=== PATIENT | female | born 1965 | race Caucasian/White ===

== ENCOUNTER 2018-01-17 19:23 | Emergency (ER) | payer OTHER, MEDICAID, SELFPAY ==
[2018-01-17 19:26] VITALS: BP 152/93; PULSE 73; RESP 18; TEMP 36.7; O2SAT 98; BMI 29.0
--- NOTE | 2018-01-17 19:39 | RAD_ITS ---
XR Forearm 2 Views INDICATION: FALL, WRIST PAIN COMPARISON: None TECHNIQUE: 2 views of the right forearm FINDINGS: There is questionable buckling at the lateral aspect of the distal radial cortex at the metadiaphyseal region compatible with a nondisplaced fracture. Radius and ulna are otherwise intact, and there is normal alignment at the wrist and elbow. RAD/Forearm 2 Views IMPRESSION: Questionable nondisplaced fracture at the distal radius without extension to the articular surface. No displacement or abnormal angulation. at 2047 Reported and signed by: Cindy Martinez MD Electronically Signed: Cindy Martinez MD at 20:45 EDT Tel , Service support ,
--- NOTE | 2018-01-17 19:39 | RAD_ITS ---
XR Humerus Min 2 Views INDICATION: FALL, PAIN COMPARISON: None TECHNIQUE: 2 views of the right humerus FINDINGS: The right humerus is intact and there is normal alignment at the shoulder and elbow. RAD/Humerus min 2 Views IMPRESSION: Negative plain film examination of right humerus at 2050 Reported and signed by: Cindy Martinez MD Electronically Signed: Cindy Martinez MD at 20:48 EDT Tel , Service support ,
--- NOTE | 2018-01-17 19:39 | RAD_ITS ---
XR Hand Min 3 Views INDICATION: FALL, PAIN COMPARISON: None TECHNIQUE: 3 views of the left hand FINDINGS: The osseous structures of the left hand are intact and well aligned. Carpal bones are intact. Mastoid processes intact. On the films of the radius and ulna, there is some mild buckling of the cortex at the lateral aspect of the radius at the metadiaphyseal region. This is not clearly redemonstrated on these films. RAD/Hand Min 3 Views IMPRESSION: Questionable nondisplaced distal radial fracture seen on the x-ray of the forearm is not clearly visualized on the x-rays of the hand. The osseous structures on the provided images appear intact and well aligned. at 2049 Reported and signed by: Cindy Martinez MD Electronically Signed: Cindy Martinez MD at 20:47 EDT Tel , Service support ,
--- NOTE | 2018-01-17 19:40 | RAD_ITS ---
XR Tibia/Fibula 2 Views INDICATION: FALL, PAIN COMPARISON: None TECHNIQUE: 2 views of the right tibia and fibula FINDINGS: The right tibia and fibula are intact and there is normal alignment at the knee and ankle. RAD/Tibia & Fibula 2 Views IMPRESSION: Right tibia and fibula are intact. at 2051 Reported and signed by: Cindy Martinez MD Electronically Signed: Cindy Martinez MD at 20:49 EDT Tel , Service support ,
--- NOTE | 2018-01-17 20:01 | RAD_ITS ---
XR Spine Cervical 2 or 3 Views INDICATION: FALL, NECK PAIN COMPARISON: None TECHNIQUE: 3 views of the cervical spine FINDINGS: There is evidence of discectomy and anterior screw and plate fixation at C5-6. Hardware is in expected position. There is normal cervical lordosis. Height of the vertebral bodies and intervertebral disc spaces is preserved. Prevertebral soft tissue stripe is within normal limits. There is normal atlantoaxial relationship. Uncovertebral joint and facet arthritic changes are suggested at multiple levels. RAD/Cerv Spine 2 or 3 Views IMPRESSION: Postsurgical changes. No acute findings. at 2043 Reported and signed by: Cindy Martinez MD Electronically Signed: Cindy Martinez MD at 20:42 EDT Tel , Service support ,
--- NOTE | 2018-01-17 20:01 | RAD_ITS ---
XR Hip Unilateral with Pelvis when performed; 1 View INDICATION: FALL, PAIN BILATERAL HIPS, WORSE ON RIGHT SIDE COMPARISON: None TECHNIQUE: Frontal view of the pelvis and lateral view of the right hip FINDINGS: The pelvis is intact and there is normal alignment at the SI joints and symphysis pubis. The hips are intact and well aligned. RAD/Hip 1 view with Pelvis IMPRESSION: Pelvis and hips appear intact and well aligned. at 2054 Reported and signed by: Cindy Martinez MD Electronically Signed: Cindy Martinez MD at 20:53 EDT Tel , Service support ,
--- NOTE | 2018-01-17 20:21 | RAD_ITS ---
XR Humerus Min 2 Views INDICATION: FALL, SHOULDER AND ARM PAIN COMPARISON: None TECHNIQUE: 2 views of the left humerus FINDINGS: The humerus is intact and there is normal alignment at the shoulder and elbow. RAD/Humerus min 2 Views IMPRESSION: Left humerus is intact. at 2049 Reported and signed by: Cindy Martinez MD Electronically Signed: Cindy Martinez MD at 20:48 EDT Tel , Service support ,
[2018-01-17 20:48] VITALS: BP 131/80; PULSE 79; RESP 16; O2SAT 97
[2018-01-17] MEDS: Acetaminophen 500 MG Tablet 1000 MG PO (21:14)
--- NOTE | 2018-01-17 21:40 | ED.VISSUMM ---
- ER Visit Summary Date of Service: 01/17/18 Chief Complaint: Upper extremity pain History of Present Illness: The patient is a 52 F who states she was walking her dog 2 days ago when she got pulled with the leash, twisted, and fell. Patient is complaining of pain to the right arm and shoulder area, left hand, neck, right hip, and right lower leg. She took ibuprofen, 400 mg every 4-6 hours. Physical Examination: Vital signs are gross unremarkable. Head neck examination was no obvious external sign of trauma. She does have reproducible tenderness in the left cervical paraspinal muscles. She has minimal midline cervical tenderness. Heart is regular rate and rhythm. On lung sounds are clear. Abdomen is soft nontender. Right upper extremity examination was diffuse tenderness throughout the right shoulder, right upper arm, and right forearm. No deformities are noted. She has strong distal pulses. She is decreased range of motion of the shoulder secondary to pain. Left upper extremity examination reveals tenderness at the base of the left hand and mild tenderness around the left shoulder. Lower extremity examination reveals mild tenderness over the greater trochanter area of the right hip. There is very minimal pain with logroll. She is abrasions noted to her right wilson with some mild surrounding tenderness. Neuro exam reveals no focal neuro deficits. Test Results: Right hip and pelvis x-rays are unremarkable. Right tib-fib x-rays normal. C-spine x-ray shows postsurgical changes. No fracture. Left humerus x-rays normal. Left hand x-rays normal. Right humerus is normal. Right forearm x-ray reveals a questionable nondisplaced fracture the distal radius. Emergency Department Course and Treatment: Patient was given Tylenol here for pain and she did drive herself and needed to drive home. Patient does have focal tenderness of the distal radius. She is placed in an AP Ortho-Glass splint and given a sling. She is to follow-up with orthopedics. She has seen Dr. Canada in the past. She is given a prescription for Percocet. Treatment Plan: Disposition: Discharge Impression: 1. Musculoskeletal pain status post fall 2. Right distal radius fracture 3. Split by ED physician This note was generated with [employer] dictation software. It may contain incorrect words, spelling, and punctuation that were not noted in review of the chart prior to signing ED Disposition - Plan for ED Patient: Disposition: Home or Assisted Living Chief Complaint: Upper Extremity Injury Instructions: ED Fx Wrist General Prescriptions: Oxycodone HCl/Acetaminophen [Percocet 5/325] 1 tablet PO Q6H PRN PRN 5 Days #20 tablet PRN Reason: Pain Referrals: Paula Canada DO [STAFF PHYSICIAN] - 1 Week
--- NOTE | 2018-01-17 21:43 | DCINST.ED_ITS ---
ED Disposition - Plan for ED Patient: Disposition: Home or Assisted Living Chief Complaint: Upper Extremity Injury Instructions: ED Fx Wrist General Prescriptions: Oxycodone HCl/Acetaminophen [Percocet 5/325] 1 tablet PO Q6H PRN PRN 5 Days #20 tablet PRN Reason: Pain Referrals: Paula Canada DO [STAFF PHYSICIAN] - 1 Week
[2018-01-17] MEDS: oxyCODONE 5 MG Tablet PO (21:56)
[2018-01-17 22:09] VITALS: PULSE 96; RESP 16; O2SAT 98
== END 2018-01-17 22:12 | disposition home or self-care (01) ==
PROVIDERS: Emergency Provider Emergency Medicine; Family Provider Internal Medicine; PCP Internal Medicine
DX: S52.501A Unspecified fracture of the lower end of right radius, initial encounter for closed fracture (principal); X50.9XXA Other and unspecified overexertion or strenuous movements or postures, initial encounter; Y93.K1 Activity, walking an animal; Y92.9 Unspecified place or not applicable; Y99.9 Unspecified external cause status; I10 Essential (primary) hypertension; Z98.1 Arthrodesis status
CPT/HCPCS: 29105; 72040; 73060; 73090; 73130; 73501; 73590; 99283

== ENCOUNTER → 2018-02-05 08:25 | Outpatient (CLI) | payer OTHER, MEDICAID, SELFPAY ==
--- NOTE | 2018-02-05 08:32 | RAD_ITS ---
STUDY: X-RAY - RIGHT WRIST REASON FOR EXAM: Female, 52 years old. Pain at the base of the thumb. TECHNIQUE: 4 view(s) of the wrist were obtained including a navicular view. COMPARISON: None. FINDINGS: Normal visualized distal radius and ulna. Normal radiocarpal articulation. Normal distal radioulnar articulation. Normal carpal bones. Normal carpal articulations. Normal carpometacarpal articulation of the thumb. Normal second through fifth carpometacarpal articulations. Normal visualized metacarpal bones. The soft tissue structures are unremarkable. RAD/Wrist min 3 Views IMPRESSION: Normal x-ray examination of the wrist. Electronically Signed: Tyler Carver MD at 15:18 EDT Tel [phone], Service support ,
== END ==
PROVIDERS: Family Provider Internal Medicine; PCP Internal Medicine; Visit Provider Orthopaedic Surgery
DX: M25.531 Pain in right wrist (principal)
CPT/HCPCS: 73110

== ENCOUNTER 2018-05-03 10:38 | Emergency (ER) | payer OTHER, MEDICAID, SELFPAY ==
[2018-05-03 10:39] VITALS: BP 173/93; PULSE 71; RESP 23; TEMP 37.2; O2SAT 97; BMI 29.5
--- NOTE | 2018-05-03 10:59 | RAD_ITS ---
STUDY: X-RAY CHEST REASON FOR EXAM: Female, 52 years old. Chest pain TECHNIQUE: Single AP portable view of the chest. COMPARISON: 06/07/2017 FINDINGS: Cardiac monitoring leads overlie the chest. The lungs are clear and expanded. There is no demonstrated pleural abnormality. Normal size heart. Normal mediastinum and danny. Normal visualized pulmonary arteries. Normal visualized aortic arch and descending thoracic aorta. Normal visualized thoracic spine. Normal visualized ribs, clavicles, and shoulders. Postoperative changes are present within the lower cervical spine. There is no demonstrated abnormality of the visualized soft tissue structures of the upper abdomen. RAD/Chest 1 View (Portable) IMPRESSION: No acute process within the chest. Electronically Signed: Fco Jacob DO at 11:32 EDT Tel , Service support ,
--- NOTE | 2018-05-03 10:59 | EKG12_ITS ---
Test Reason : CP Blood Pressure : / mmHG Vent. Rate : 068 BPM Atrial Rate : 068 BPM P-R Int : 152 ms QRS Dur : 086 ms QT Int : 422 ms P-R-T Axes : 043 069 042 degrees QTc Int : 448 ms Normal sinus rhythm Normal ECG Confirmed by JUMANA COTTON, MATT ([id number]), news videotape editor CHAVEZ SETHI ([id number]) on 05/05/2018 10:07:19 AM Referred By: GANGA/ASHLEY Confirmed By:MATT DENNEY MD
--- NOTE | 2018-05-03 11:05 | ED.DCSUM_ITS ---
- ER Visit Summary Date of Service: 05/03/18 Chief Complaint: Chest pain History of Present Illness: The patient is a 52 F who presents with chest pain. Started today about an hour ago. She describes stabbing in the left lower chest area. It hurt worse with breathing. She does feel short of breath. She had nausea without vomiting. She denies any cough. She took Tylenol last night because she was feeling some discomfort in that same area. She has no DVT history or DVT/PE risk factors. She was admitted in May of last year for chest pain and hypokalemia. She had a negative stress test at that time Physical Examination: Vital signs reviewed. HEENT exam unremarkable. Heart is regular rate and rhythm without murmurs. Lungs are clear to auscultation. Chest is nontender. Abdomen is soft and nontender. Extremities reveal no edema. Peripheral pulses are equal. Skin exam normal. Neurologic exam normal. Test Results: EKG is sinus rhythm with a rate of 68. No ST changes. Chest x- ray normal. Hemoglobin 15.3. Creatinine 1.21. Troponin and d-dimer are normal Emergency Department Course and Treatment: She was given aspirin. This pain is likely musculoskeletal. Her troponin and d-dimer are negative. I will discharge her with naproxen. She is asking for antibiotics for a toothache. I will give her clindamycin. She will follow-up with her PCP and dentist Treatment Plan: [] Disposition: Discharge Impression: Chest pain This note was generated with [employer] dictation software. It may contain incorrect words, spelling, and punctuation that were not noted in review of the chart prior to signing ED Disposition - Plan for ED Patient: Chief Complaint: Chest Pain Referrals: [facility],Out of [NON-STAFF] -
[2018-05-03 11:21] LABS: D-Dimer Quantitative (DVT/PE) 0.32 FEU/ug/m (0.27-0.49)
[2018-05-03 11:26] LABS: Absolute Lymphocyte Count 1.87 X10^3/ul (0.83-4.51); Absolute Neutrophil Count 4.2 X10^3/uL (2.0-7.7); Basophil# 0.02 X10^3/uL; Basophil% 0.3 % (0-1); Eosinophil# 0.09 X10^3/uL; Eosinophils% 1.3 % (0-5); Hematocrit 45.5 % (37-47); Hemoglobin 15.3 g/dl (12.0-15.0); Lymphocyte # 1.87 X10^3/ul (4.0); Lymphocyte % 27.7 % (19-41); Mean Corp Hgb Conc 33.6 g/gl (32-36); Mean Corpuscular Hgb 28.9 pg (27.0-32.0); Mean Corpuscular Volume 85.8 fL (81-99); Monocyte% 8.9 % (0-10); Neutrophil # 4.16 X10^3/uL (2.7-7.7); Neutrophil % 61.5 % (47-70); Platelet Count 207 K/mm3 (150-450); RBC Distribution Width CV 12.8 % (11.6-14.6); RBC Distribution Width SD 40.2 fl (35.1-43.9); White Blood Count 6.8 K/mm3 (4.4-11.0)
[2018-05-03 11:27] VITALS: O2SAT 96
[2018-05-03 11:27] LABS: Anion Gap 6 (5-15); BUN 17 mg/dL (7-18); Calcium,Total 8.8 mg/dL (8.5-10.1); Chloride 105 mmol/L (98-107); Creatinine, Serum 1.21 mg/dL (0.55-1.02); EST Glomerular Filtration Rate 50 mL/min (>60); Est Glom Filt Rate - Afr Amer 60 mL/min (>60); Estimated Creatinine Clearance 46.96 ml/min; Glucose 102 mg/dL (74-106); POSITIVE COUNT NO; POSITIVE DIFFERENTIAL NO; POSITIVE MORPHOLOGY NO; Potassium 3.6 mmol/L (3.5-5.1); Sodium Level 139 mmol/L (136-145)
[2018-05-03] MEDS: Aspirin 81 MG TAB.CHEW 324 MG PO (11:28)
--- NOTE | 2018-05-03 11:53 | ED.DEP ---
ED Disposition - Plan for ED Patient: Disposition: Home or Assisted Living Chief Complaint: Chest Pain Instructions: ED Chest Pain NonCardiac Prescriptions: Naproxen [Naprosyn] 500 mg PO BID PRN #20 tab Clindamycin [Cleocin] 300 mg PO TID #42 cap Referrals: [facility],Out of [NON-STAFF] -
[2018-05-03 11:58] VITALS: BP 150/95; PULSE 66; RESP 22; O2SAT 97
[2018-05-03 12:06] VITALS: BP 163/95; PULSE 56; PULSE 57; RESP 18; O2SAT 97
[2018-05-03] MEDS: Ketorolac 30 MG/ML Syringe IM (12:33)
== END 2018-05-03 12:41 | disposition home or self-care (01) ==
PROVIDERS: Emergency Provider Emergency Medicine; Family Provider Internal Medicine; PCP Internal Medicine
DX: R07.9 Chest pain, unspecified (principal); I10 Essential (primary) hypertension
CPT/HCPCS: 71045; 80048; 84484; 85025; 85379; 93005; 99285; A4216

== ENCOUNTER → 2018-11-16 16:26 | Outpatient (CLI) | payer OTHER, MEDICAID, SELFPAY ==
--- NOTE | 2018-11-16 16:32 | BI_ITS ---
MAMMOGRAPHY - BILATERAL SCREENING REASON FOR EXAM: Female, 53 years old. Routine annual screening examination. PERTINENT HISTORY: Non-contributory. TECHNIQUE: Digital bilateral breast tolu (3D mammographic acquisition) in the CC and MLO projections. 2-D mediolateral oblique (MLO) and craniocaudad (CC) views of both breasts were obtained. CAD: Full Field Digital Mammography with Computer Added Detection was performed. COMPARISON: Comparison is made with prior study dated March 17, 2017 and January 03, 2016. FINDINGS: Breast Composition: There are scattered areas of fibroglandular density. There are no dominant masses or suspicious calcifications. Stable small benign-appearing bilateral axillary lymph nodes. No other significant abnormalities are identified. There has been no significant change since the prior study. BI/SCREENING MAMM (CAD), BILAT IMPRESSION: Stable bilateral screening mammogram. Yearly follow-up mammogram recommended. (A) ASSESSMENT CATEGORY: BIRADS Category 2: Benign. A letter regarding these results will be sent to the patient by the facility within 30 days. Approximately 10% of breast cancers are not detected by mammography. A normal mammogram should not delay biopsy of a clinically suspicious abnormality. [id number] Electronically Signed: Tyler Carver MD at 9:33 EST , Service support ,
== END ==
PROVIDERS: Family Provider Internal Medicine; PCP Internal Medicine; Referring Provider Obstetrics & Gynecology; Visit Provider Obstetrics & Gynecology
DX: Z12.31 Encounter for screening mammogram for malignant neoplasm of breast (principal)
CPT/HCPCS: 77063; 77067

== ENCOUNTER → 2020-06-20 16:23 | Outpatient (CLI) | payer BC, MEDICAID, SELFPAY ==
[2020-06-20 15:09] VITALS: BMI 29.5
[2020-06-20 18:14] LABS: Hemoglobin A1c 5.7 % (3.8-5.6)
[2020-06-20 18:35] LABS: Vitamin B12 440 pg/mL (211-911)
[2020-06-20 18:40] LABS: T4 Free Direct 0.89 ng/dL (0.76-1.46)
[2020-06-22 09:40] LABS: Thyroid Peroxidase AB 364 IU/mL (0-34)
== END ==
PROVIDERS: PCP Internal Medicine; Visit Provider Internal Medicine Endocrinology, Diabetes & Metabolism
DX: E03.8 Other specified hypothyroidism (principal); E06.3 Autoimmune thyroiditis; R73.09 Other abnormal glucose; R20.2 Paresthesia of skin
CPT/HCPCS: 36415; 82607; 83036; 84439; 84443; 86376

== ENCOUNTER → 2021-06-07 08:57 | Outpatient (CLI) | payer BC, MEDICAID, SELFPAY ==
[2021-06-07 09:50] LABS: T4 Free Direct 0.76 ng/dL (0.76-1.46)
== END ==
PROVIDERS: PCP Physician Assistant; Referring Provider Internal Medicine Endocrinology, Diabetes & Metabolism; Visit Provider Internal Medicine Endocrinology, Diabetes & Metabolism
DX: E03.8 Other specified hypothyroidism (principal); E06.3 Autoimmune thyroiditis
CPT/HCPCS: 36415; 84439; 84443

== ENCOUNTER → 2021-07-10 13:29 | Outpatient (CLI) | payer BC, MEDICAID, SELFPAY ==
[2021-07-10 15:21] LABS: Hemoglobin A1c 5.5 % (3.8-5.6)
[2021-07-10 15:31] LABS: T4 Free Direct 1.39 ng/dL (0.76-1.46); Thyroid Stim Hormone (TSH) 1.72 uIU/mL (0.358-3.74)
== END ==
PROVIDERS: PCP Physician Assistant; Referring Provider Nurse Practitioner Family; Visit Provider Nurse Practitioner Family
DX: E03.8 Other specified hypothyroidism (principal); E06.3 Autoimmune thyroiditis; R73.03 Prediabetes
CPT/HCPCS: 36415; 83036; 84439; 84443

== ENCOUNTER → 2021-08-09 07:19 | Outpatient (CLI) | payer BC, MEDICAID, SELFPAY ==
--- NOTE | 2021-08-09 07:22 | BI_ITS ---
MAMMOGRAPHY - BILATERAL SCREENING REASON FOR EXAM: Female, 56 years old. Routine annual screening examination. PERTINENT HISTORY: Aunt with breast cancer. TECHNIQUE: Digital bilateral breast luis antonio (3D mammographic acquisition) in the CC and MLO projections. 2-D mediolateral oblique (MLO) and craniocaudad (CC) views of both breasts were obtained. CAD: Full Field Digital Mammography with Computer Added Detection was performed. COMPARISON: Comparison is made with prior study dated 11/16/2018 and 03/17/2017. FINDINGS: Breast Composition: There are scattered areas of fibroglandular density. There are no dominant masses or suspicious calcifications. No other significant abnormalities are identified. There has been no significant change since the prior study. BI/SCRN MAMM (CAD)W/LUIS ANTONIO BILAT IMPRESSION: Stable bilateral screening mammogram. Yearly follow-up mammogram recommended. (A) ASSESSMENT CATEGORY: BIRADS Category 1: Negative. A letter regarding these results will be sent to the patient by the facility within 30 days. Approximately 10% of breast cancers are not detected by mammography. A normal mammogram should not delay biopsy of a clinically suspicious abnormality. [id number] Electronically Signed: Tyler Carver MD at 8:58 EST , Service support ,
== END ==
PROVIDERS: PCP Physician Assistant; Referring Provider Obstetrics & Gynecology; Visit Provider Obstetrics & Gynecology
DX: Z12.31 Encounter for screening mammogram for malignant neoplasm of breast (principal)
CPT/HCPCS: 77063; 77067

== ENCOUNTER → 2021-08-26 08:47 | Outpatient (CLI) | payer BC, MEDICAID, SELFPAY ==
--- NOTE | 2021-08-26 08:48 | RAD_ITS ---
EXAMINATION: UPPER GI SERIES INDICATION: Female, 56 years intermittent epigastric pain. Dysphagia. FLUOROSCOPY TIME (if supplied): (0:55) minutes/seconds TECHNIQUE: Radiographic and fluoroscopic images of the distal esophagus, stomach, and proximal small intestine were obtained following the oral ingestion of barium. COMPARISON: None. FINDINGS: There is no evidence for organomegaly, abnormal calcifications, or abnormal bowel gas pattern. The psoas margins and flank stripes are normal. The visualized osseous structures are normal. The mucosa of the esophagus, stomach and duodenum is normal in appearance without evidence for stricture, ulceration, mass or diverticulum. There is no evidence for hiatal hernia or gastroesophageal reflux. RAD/Upper GI Dual Contrast IMPRESSION: 1. Normal upper gastrointestinal study. Electronically Signed: Tyler Carver MD at 14:59 EST , Service support ,
== END ==
PROVIDERS: PCP Physician Assistant; Referring Provider Surgery; Visit Provider Surgery
DX: R13.10 Dysphagia, unspecified (principal)
CPT/HCPCS: 74246

== ENCOUNTER → 2021-09-06 09:26 | Outpatient (CLI) | payer BC, MEDICAID, SELFPAY ==
[2021-09-10 00:07] LABS: Alternaria tenuis <0.10 kU/L (Class 0); Ash, White <0.10 kU/L (Class 0); Aspergillus fumigatus <0.10 kU/L (Class 0); Bermuda Grass <0.10 kU/L (Class 0); Birch <0.10 kU/L (Class 0); Black Walnut <0.10 kU/L (Class 0); Cat Hair / Dander,Stand 0.31 kU/L (Class 0/I); Cedar, Mountain <0.10 kU/L (Class 0); Cladosporium herbarum <0.10 kU/L (Class 0); Cockroach, American <0.10 kU/L (Class 0); Cottonwood <0.10 kU/L (Class 0); D farinae Mite <0.10 kU/L (Class 0); D pteronyssinus <0.10 kU/L (Class 0); Elm, American White <0.10 kU/L (Class 0); Immunoglobulin E 134 IU/mL (6-495); Maple/Box Elder <0.10 kU/L (Class 0); Mulberry, White <0.10 kU/L (Class 0); Oak, White <0.10 kU/L (Class 0); Pecan <0.10 kU/L (Class 0); Penicillium Notatum <0.10 kU/L (Class 0); Pigweed, Rough <0.10 kU/L (Class 0); Ragweed, Short/Common 5.61 kU/L (Class IV); Russian Thistle <0.10 kU/L (Class 0); Sheep Sorrel <0.10 kU/L (Class 0); Sycamore, American <0.10 kU/L (Class 0); Timothy Grass <0.10 kU/L (Class 0)
[2021-09-10 04:07] LABS: Clam <0.10 kU/L (Class 0); Codfish <0.10 kU/L (Class 0); Corn <0.10 kU/L (Class 0); Egg, White <0.10 kU/L (Class 0); Milk (Cow) <0.10 kU/L (Class 0); Peanut <0.10 kU/L (Class 0); SCALLOP <0.10 kU/L (Class 0); SESAME SEED <0.10 kU/L (Class 0); Shrimp <0.10 kU/L (Class 0); Soybean <0.10 kU/L (Class 0); Walnut, (Food) <0.10 kU/L (Class 0); Wheat 0.12 kU/L (Class 0/I)
[2021-09-10 15:26] LABS: Mouse Urine <0.10 kU/L (Class 0)
[2021-09-10 15:28] LABS: Tomato <0.10 kU/L (Class 0)
== END ==
PROVIDERS: PCP Physician Assistant; Referring Provider Otolaryngology; Visit Provider Otolaryngology
DX: T78.40XA Allergy, unspecified, initial encounter (principal)
CPT/HCPCS: 36415; 82785; 86003

== ENCOUNTER → 2021-09-16 08:15 | Outpatient (CLI) | payer BC, MEDICAID, SELFPAY ==
--- NOTE | 2021-09-16 08:25 | RAD_ITS ---
STUDY: X-RAY - ESOPHAGUS (BARIUM SWALLOW) WITH FLUOROSCOPY REASON FOR EXAM: Female, 56 years old. DYSPHAGIA TECHNIQUE: 19 view(s) of the esophagus were obtained following swallowing of barium. FLUOROSCOPY TIME (if supplied): (44 seconds) minutes/seconds COMPARISON: Comparison is made with prior study dated 08/26/2021. FINDINGS: There is no demonstrated esophageal foreign body. There is no demonstrated stricture or mucosal abnormality. Normal gastroesophageal junction, without a demonstrated hiatal hernia. The patient ingested a 12 mm tablet of barium without any difficulty. Normal visualized aortic arch and descending thoracic aorta. The patient is status post fusion at the C5-C6 level. Normal visualized pulmonary parenchyma. Normal visualized osseous structures of the thorax. RAD/Esophagus Dual Contrast IMPRESSION: Normal plain film x-ray examination (barium swallow) of the esophagus. Electronically Signed: Tyler Carver MD at 9:02 EST , Service support ,
== END ==
PROVIDERS: PCP Physician Assistant; Visit Provider Otolaryngology
DX: R13.13 Dysphagia, pharyngeal phase (principal)
CPT/HCPCS: 74220; 74221

== ENCOUNTER 2021-12-23 10:50 | Outpatient (CLI) | payer BC, MEDICAID, SELFPAY ==
[2021-12-23 12:12] LABS: Absolute Lymphocyte Count 1.79 X10^3/uL (0.83-4.51); Basophil# 0.04 X10^3/uL; Basophil% 0.5 % (0-1); Eosinophil# 0.17 X10^3/uL; Eosinophils% 2.2 % (0-5); Hematocrit 42.7 % (37-47); Hemoglobin 13.8 g/dL (12.0-15.0); Lymphocyte # 1.79 X10^3/ul (0.83-4.51); Lymphocyte % 23.3 % (19-41); Mean Corp Hgb Conc 32.3 g/dL (32-36); Mean Corpuscular Hgb 28.5 pg (27.0-32.0); Mean Platelet Vol. 11.6 fl (6.2-12.0); Monocyte% 9.1 % (0-10); NRBC Flagged by Analyzer 0 % (0-5); Neutrophil # 4.95 X10^3/uL (2.7-7.7); Neutrophil % 64.4 % (47-70); Platelet Count 199 K/mm3 (150-450); RBC Distribution Width CV 14.9 % (11.6-14.6); RBC Distribution Width SD 48.2 fl (35.1-43.9); Red Blood Count 4.85 M/mm3 (4.2-5.4); White Blood Count 7.7 K/mm3 (4.4-11.0)
[2021-12-23 12:45] LABS: ALB/GLOB Ratio 0.8 RATIO (0.9-2.4); AST(SGOT) 42 U/L (15-37); Alanine Aminotransfer ALT/SGPT 54 U/L (13-56); Albumin, Serum 3.1 g/dL (3.2-5.0); Alkaline Phosphatase 105 U/L (45-117); Anion Gap 6 (5-15); BUN 18 mg/dL (7-18); BUN/Creat Ratio 17.6 RATIO (10-20); Calcium,Total 8.5 mg/dL (8.5-10.1); Chloride 106 mmol/L (98-107); Cholesterol 167 mg/dL (200); Creatinine, Serum 1.02 mg/dL (0.55-1.02); EST Glomerular Filtration Rate 60 mL/min (>60); Est Glom Filt Rate - Afr Amer 72 mL/min (>60); Ferritin 81 ng/mL (8-252); Globulin 3.9 g/dL (2.2-4.2); Glucose 93 mg/dL (74-106); High Density Lipoprotein 46 mg/dL; Potassium 4.2 mmol/L (3.5-5.1); Sodium Level 139 mmol/L (136-145); T4 Free Direct 1.36 ng/dL (0.76-1.46); Thyroid Stim Hormone (TSH) 1.73 uIU/mL (0.358-3.74); Triglycerides 160 mg/dL; Very Low Density Lipoprotein 32 mg/dL (5-40)
[2021-12-23 12:46] LABS: Vitamin B12 1459 pg/mL (211-911); Vitamin D,25 Hydroxy 21.5 ng/mL
== END 2021-12-23 23:59 | disposition home or self-care (01) ==
LOC: BIMLAB 10:51
PROVIDERS: PCP Physician Assistant; Referring Provider Internal Medicine Endocrinology, Diabetes & Metabolism; Visit Provider Internal Medicine Endocrinology, Diabetes & Metabolism
DX: E03.8 Other specified hypothyroidism (principal); E06.3 Autoimmune thyroiditis; R73.03 Prediabetes; L65.9 Nonscarring hair loss, unspecified; E55.9 Vitamin D deficiency, unspecified
CPT/HCPCS: 36415; 80053; 80061; 82306; 82607; 82728; 84439; 84443; 85025

== ENCOUNTER → 2022-12-19 | Outpatient (CLI) | payer BC, MEDICAID, SELFPAY ==
[2022-12-19 09:16] LABS: ALB/GLOB Ratio 0.7 RATIO (0.9-2.4); AST(SGOT) 75 U/L (15-37); Alanine Aminotransfer ALT/SGPT 63 U/L (13-56); Albumin, Serum 3.1 g/dL (3.2-5.0); Alkaline Phosphatase 115 U/L (45-117); Anion Gap 7 (5-15); BUN 21 mg/dL (7-18); BUN/Creat Ratio 19.3 RATIO (10-20); Calcium,Total 8.7 mg/dL (8.5-10.1); Chloride 106 mmol/L (98-107); Cholesterol 161 mg/dL (200); Creatinine, Serum 1.09 mg/dL (0.55-1.02); EST Glomerular Filtration Rate 55 mL/min (>60); Est Glom Filt Rate - Afr Amer 66 mL/min (>60); Globulin 4.2 g/dL (2.2-4.2); Glucose 108 mg/dL (74-106); High Density Lipoprotein 47 mg/dL; Potassium 3.8 mmol/L (3.5-5.1); Protein, Total 7.3 g/dL (6.4-8.2); Sodium Level 140 mmol/L (136-145); T4 Free Direct 1.39 ng/dL (0.76-1.46); Thyroid Stim Hormone (TSH) 3.62 uIU/mL (0.358-3.74); Triglycerides 121 mg/dL; Very Low Density Lipoprotein 24 mg/dL (5-40)
== END | disposition home or self-care (01) ==
LOC: LAB 07:48
PROVIDERS: PCP Physician Assistant; Referring Provider Internal Medicine Endocrinology, Diabetes & Metabolism; Visit Provider Internal Medicine Endocrinology, Diabetes & Metabolism
DX: R73.03 Prediabetes (principal); E03.8 Other specified hypothyroidism; E06.3 Autoimmune thyroiditis; I10 Essential (primary) hypertension
CPT/HCPCS: 36415; 80053; 80061; 84439; 84443

== ENCOUNTER → 2023-01-12 | Outpatient (CLI) | payer BC, MEDICAID, SELFPAY ==
[2023-01-12 09:59] LABS: Anion Gap 6 (5-15); BUN 25 mg/dL (7-18); Calcium,Total 9.4 mg/dL (8.5-10.1); Chloride 103 mmol/L (98-107); Creatinine, Serum 1.25 mg/dL (0.55-1.02); EST Glomerular Filtration Rate 47 mL/min (>60); Est Glom Filt Rate - Afr Amer 57 mL/min (>60); Glucose 108 mg/dL (74-106); Sodium Level 135 mmol/L (136-145)
== END | disposition home or self-care (01) ==
LOC: LAB 07:38
PROVIDERS: PCP Physician Assistant; Referring Provider Internal Medicine Endocrinology, Diabetes & Metabolism; Visit Provider Internal Medicine Endocrinology, Diabetes & Metabolism
DX: I10 Essential (primary) hypertension (principal); E03.8 Other specified hypothyroidism; E06.3 Autoimmune thyroiditis; R73.03 Prediabetes
CPT/HCPCS: 36415; 80048

== ENCOUNTER → 2023-08-10 | Outpatient (CLI) | payer BC, MEDICAID, SELFPAY ==
[2023-08-10 08:00] LABS: Mucous, Urine 0 SEEN /hpf (<or=2+); Red Blood Cells-Urine 0 SEEN /hpf (0-5)
[2023-08-10 08:17] LABS: Absolute Neutrophil Count 6.7 X10^3/uL (2.0-7.7); Basophil# 0.07 X10^3/uL; Basophil% 0.7 % (0-1); Hematocrit 44.6 % (37-47); Hemoglobin 14.2 g/dL (12.0-15.0); Lymphocyte % 21.1 % (19-41); Mean Corp Hgb Conc 31.8 g/dL (32-36); Mean Corpuscular Hgb 27.5 pg (27.0-32.0); Mean Corpuscular Volume 86.4 fL (81-99); Mean Platelet Vol. 11.2 fl (6.2-12.0); Monocyte# 0.82 X10^3/uL; Monocyte% 8.3 % (0-10); NRBC Flagged by Analyzer 0 % (0-5); Neutrophil % 67.5 % (47-70); Platelet Count 211 K/mm3 (150-450); RBC Distribution Width SD 44.5 fl (35.1-43.9); Red Blood Count 5.16 M/mm3 (4.2-5.4); White Blood Count 9.9 K/mm3 (4.4-11.0)
[2023-08-10 08:19] LABS: Color, Urine Yellow (Yellow); Glucose, Dipstick Normal (Normal); Ketone-Dipstick Negative (Negative); Leukocyte Esterase-Dipstick 25 /ul (Negative); Nitrite-Dipstick Negative (Negative); Occult Blood-Urine Negative /ul (Negative); Protein-Dipstick Negative (Negative); Urine Bilirubin Dipstick Negative (Negative); Urine Clarity Sl. Cloudy (Clear); Urine Urobilinogen Normal (Normal)
[2023-08-10 08:27] LABS: Bacteria 1+ /hpf (None Seen); Squamous Epithelial Cells - UA 0-5 SEEN /hpf (5-10); White Blood Cells 0-5 SEEN /hpf (0-5)
[2023-08-10 08:57] LABS: ALB/GLOB Ratio 0.8 RATIO (0.9-2.4); AST(SGOT) 22 U/L (15-37); Alanine Aminotransfer ALT/SGPT 27 U/L (13-56); Albumin, Serum 3.4 g/dL (3.2-5.0); Alkaline Phosphatase 95 U/L (45-117); Anion Gap 6 (5-15); BUN 23 mg/dL (7-18); BUN/Creat Ratio 16.5 RATIO (10-20); Chloride 107 mmol/L (98-107); Cholesterol 188 mg/dL (200); Creatinine, Serum 1.39 mg/dL (0.55-1.02); EST Glomerular Filtration Rate 41 mL/min (>60); Est Glom Filt Rate - Afr Amer 50 mL/min (>60); Globulin 4.1 g/dL (2.2-4.2); Glucose 119 mg/dL (74-106); High Density Lipoprotein 50 mg/dL; Magnesium 2.2 mg/dL (1.6-2.6); Potassium 4.2 mmol/L (3.5-5.1); Protein, Total 7.5 g/dL (6.4-8.2); Sodium Level 139 mmol/L (136-145); Triglycerides 151 mg/dL; Very Low Density Lipoprotein 30 mg/dL (5-40)
[2023-08-10 09:46] LABS: Hemoglobin A1c 5.8 % (3.8-5.6)
[2023-08-10 09:47] LABS: Partial Thromboplast Time 33.8 Seconds (24.1-36.2)
[2023-08-10 10:01] LABS: Vitamin B12 368 pg/mL (211-911)
== END | disposition home or self-care (01) ==
LOC: LAB 07:54
PROVIDERS: PCP Physician Assistant; Referring Provider Family Medicine; Visit Provider Family Medicine
DX: Z00.00 Encounter for general adult medical examination without abnormal findings (principal); N18.31 Chronic kidney disease, stage 3a; T14.8XXA Other injury of unspecified body region, initial encounter; E03.9 Hypothyroidism, unspecified; K76.0 Fatty (change of) liver, not elsewhere classified; Z13.1 Encounter for screening for diabetes mellitus; I12.9 Hypertensive chronic kidney disease with stage 1 through stage 4 chronic kidney disease, or unspecified chronic kidney disease; K21.9 Gastro-esophageal reflux disease without esophagitis; Z79.899 Other long term (current) drug therapy; X58.XXXA Exposure to other specified factors, initial encounter
CPT/HCPCS: 36415; 80053; 80061; 81001; 82607; 83036; 83735; 85025; 85610; 85730

== ENCOUNTER → 2023-12-21 | Outpatient (CLI) | payer MEDICAID, OTHER, SELFPAY ==
[2023-12-21 09:32] LABS: ALB/GLOB Ratio 0.8 RATIO (0.9-2.4); AST(SGOT) 22 U/L (15-37); Alanine Aminotransfer ALT/SGPT 25 U/L (13-56); Albumin, Serum 3.1 g/dL (3.2-5.0); Alkaline Phosphatase 90 U/L (45-117); Anion Gap 6 (5-15); BUN 21 mg/dL (7-18); BUN/Creat Ratio 16.3 RATIO (10-20); Chloride 109 mmol/L (98-107); Creatinine, Serum 1.29 mg/dL (0.55-1.02); EST Glomerular Filtration Rate 45 mL/min (>60); Est Glom Filt Rate - Afr Amer 55 mL/min (>60); Globulin 3.8 g/dL (2.2-4.2); Glucose 111 mg/dL (74-106); Potassium 4.4 mmol/L (3.5-5.1); Protein, Total 6.9 g/dL (6.4-8.2); Sodium Level 140 mmol/L (136-145); T4 Free Direct 1.19 ng/dL (0.76-1.46); Thyroid Stim Hormone (TSH) 2.02 uIU/mL (0.358-3.74)
== END | disposition home or self-care (01) ==
PROVIDERS: Internal Medicine Endocrinology, Diabetes & Metabolism; PCP Physician Assistant; Visit Provider Family Medicine
DX: E03.8 Other specified hypothyroidism (principal); N18.31 Chronic kidney disease, stage 3a; E06.3 Autoimmune thyroiditis; R73.03 Prediabetes; I12.9 Hypertensive chronic kidney disease with stage 1 through stage 4 chronic kidney disease, or unspecified chronic kidney disease; E66.3 Overweight
CPT/HCPCS: 36415; 80053; 84439; 84443

== ENCOUNTER → 2024-09-14 | Outpatient (CLI) | payer OTHER, SELFPAY ==
[2024-09-14 08:15] LABS: Absolute Lymphocyte Count 1.61 X10^3/uL (0.83-4.51); Absolute Neutrophil Count 5.1 X10^3/uL (2.0-7.7); Basophil# 0.06 X10^3/uL; Basophil% 0.8 % (0-1); Eosinophil# 0.22 X10^3/uL; Eosinophils% 2.8 % (0-5); Hematocrit 43.3 % (37-47); Hemoglobin 13.1 g/dL (12.0-15.0); Lymphocyte # 1.61 X10^3/ul (0.83-4.51); Lymphocyte % 20.8 % (19-41); Mean Corp Hgb Conc 30.3 g/dL (32-36); Mean Corpuscular Volume 82.5 fL (81-99); Mean Platelet Vol. 10.9 fl (6.2-12.0); NRBC Flagged by Analyzer 0 % (0-5); Neutrophil # 5.11 X10^3/uL (2.7-7.7); Neutrophil % 66.1 % (47-70); Platelet Count 254 K/mm3 (150-450); RBC Distribution Width SD 42.3 fl (35.1-43.9); Red Blood Count 5.25 M/mm3 (4.2-5.4); White Blood Count 7.7 K/mm3 (4.4-11.0)
[2024-09-14 09:03] LABS: ALB/GLOB Ratio 0.8 RATIO (0.9-2.4); AST(SGOT) 29 U/L (15-37); Alanine Aminotransfer ALT/SGPT 33 U/L (13-56); Albumin, Serum 3.2 g/dL (3.2-5.0); Alkaline Phosphatase 134 U/L (45-117); Anion Gap 3 (5-15); BUN 18 mg/dL (7-18); BUN/Creat Ratio 15.1 RATIO (10-20); Calcium,Total 9.2 mg/dL (8.5-10.1); Chloride 108 mmol/L (98-107); Creatinine, Serum 1.19 mg/dL (0.55-1.02); EST Glomerular Filtration Rate 49 mL/min (>60); Est Glom Filt Rate - Afr Amer 60 mL/min (>60); Globulin 4.1 g/dL (2.2-4.2); Glucose 108 mg/dL (74-106); Potassium 4.1 mmol/L (3.5-5.1); Protein, Total 7.3 g/dL (6.4-8.2); Sodium Level 138 mmol/L (136-145)
[2024-09-14 10:33] LABS: Microalbumin,Random Urine 7.6 mg/L (NO RANGE EST.); Microalbumin:Creatinine Ratio 6.7 mg/g CRE (<30 mg/g CRE)
== END | disposition home or self-care (01) ==
LOC: LAB 07:46
PROVIDERS: PCP Family Medicine; Referring Provider Internal Medicine Endocrinology, Diabetes & Metabolism; Visit Provider Internal Medicine Endocrinology, Diabetes & Metabolism
DX: E03.8 Other specified hypothyroidism (principal); N18.31 Chronic kidney disease, stage 3a; E06.3 Autoimmune thyroiditis; R73.03 Prediabetes; I12.9 Hypertensive chronic kidney disease with stage 1 through stage 4 chronic kidney disease, or unspecified chronic kidney disease
CPT/HCPCS: 36415; 80053; 82043; 82570; 84443; 85025

== ENCOUNTER 2024-11-29 08:44 | Emergency (ER) | payer OTHER, SELFPAY ==
[2024-11-29 08:45] VITALS: BP 185/90; PULSE 93; RESP 16; TEMP 36.6; O2SAT 99; BMI 33.0
--- NOTE | 2024-11-29 09:03 | EX.ED.DYSGE1 ---
HPI History of Present Illness Chief Complaint: Dental Informant: patient Narrative Narrative: 59-year-old female presenting to the emergency room with dental pain and swelling. Patient notes that on Thursday she had some discomfort in the lower left jaw. During last night she developed swelling and increased pain. She was at work today and noted that the lip area was tingling like she had been to the dentist. She has had dental issues in the past and is in need of a new dentist. The patient states that she is advised from coworkers to come to the emergency room as she might be having a stroke as she also noted an occipital headache which she describes as a pressure and wonders if that is due to her blood pressure being high from the pain and being nervous. Patient notes a penicillin allergy. [facility] Medical History Obesity Stage 3a chronic kidney disease (CKD) Pre-diabetes Polycystic ovarian disease GERD (gastroesophageal reflux disease) Asthma Essential hypertension Graves' disease Home Medications ?Medication ?Instructions ?Recorded ?Last Taken ?Type albuterol sulfate 90 mcg/actuation 1 puff inhalation Q4H PRN PRN Sob 01/17/18 Unknown History aerosol inhaler &/Or Wheezing immuneti PO 06/20/20 Unknown History omeprazole 40 mg capsule,delayed cap PO 12/23/21 Unknown History release blood pressure test kit-small #1 ea 12/23/22 Unknown Rx cetirizine 10 mg capsule (All Day 10 mg PO DAILY PRN 08/25/23 Unknown History Allergy (cetirizine)) Jardiance 25 mg tablet 25 mg PO DAILY #90 tabs 09/15/24 Unknown Rx (empagliflozin) levothyroxine 88 mcg tablet 88 mcg PO DAILY #90 tabs 09/15/24 Unknown Rx valsartan 80 mg tablet 80 mg PO QDAY 09/15/24 Unknown History clindamycin HCl 300 mg capsule 300 mg PO Q6H #40 CAPSULES 11/29/24 Unknown Rx (Cleocin HCl) ibuprofen 600 mg tablet 600 mg PO Q8H PRN PRN fever or 11/29/24 Unknown Rx pain #20 TABLETS oxycodone-acetaminophen 5 mg-325 1 tab PO Q6H PRN PRN Pain 3 days 11/29/24 Unknown Rx mg tablet #12 TABLETS Allergy/AdvReac Type Severity Reaction Status Date / Time cigarette smoke Allergy Severe unknown Verified 11/29/24 08:47 codeine Allergy Mild Hives Verified 11/29/24 08:47 Environmental Allergies: Allergy Shortness Verified 11/29/24 08:47 Uncoded (pine) of breath hydrocodone bitartrate (From Allergy Hives Verified 11/29/24 08:47 Vicodin) lisinopril Allergy Rash Verified 11/29/24 08:47 Penicillins Allergy Shortness Verified 11/29/24 08:47 of breath alex hips Allergy Shortness Verified 11/29/24 08:47 of breath adhesive tape (paper tape) AdvReac Hives Verified 11/29/24 08:47 Family History Mother Asthma Heart disease Hypertension Seizures Sister Asthma Hypertension Seizures Brother Asthma Grandmother Cancer Heart disease CVA (cerebral vascular accident) Aunt Cancer Father Thyroid disorder Surgical History H/O: hysterectomy Cervical vertebral fusion Social History Smoking Status: Never smoker alcohol intake: never substance use type: does not use ROS ROS ED Constitutional Constitutional ED: Denies chills or weight loss Eyes Eyes: Denies change in vision or diplopia ENT ENT ED: Reports other Details: See history of present illness ; Denies ear pain, rhinorrhea or sore throat Cardiovascular Cardiovascular: Denies chest pain, orthopnea, palpitations or racing heartbeat Respiratory/Chest Respiratory/Chest: Denies cough, dyspnea or orthopnea Gastrointestinal Gastrointestinal: Denies abdominal pain, diarrhea, nausea or vomiting Genitourinary Genitourinary ED: Denies dysuria, hematuria or urinary frequency Musculoskeletal Musculoskeletal: Denies arthralgias or myalgias Integumentary Denies abscess or rash Neurologic Neurologic: Reports headache(s); Denies weakness Psychiatric Psychiatric: Reports anxiety; Denies depression, suicidal ideation or suicidal thoughts Endocrine Endocrinology: Denies polydipsia, polyphagia or polyuria Allergic/Immunologic Allergic/Immunologic ED: Denies mouth swelling, tongue swelling or urticaria EXAM Physical Exam Const Vital Signs: 11/29/24 08:45 11/29/24 09:34 11/29/24 09:39 Temperature 98 F 98.2 F Temperature Source Temporal Pulse Rate 93 77 Respiratory Rate 16 18 Blood Pressure 185/90 H 145/98 H 145/98 H Blood Pressure Mean 121 113 113 Pulse Ox 99 97 Oxygen Delivery Method Room Air Positive well nourished and well developed General Appearance ED: well developed HEENT Reports normocephalic, head/scalp atraumatic and moist mucous membranes HEENT Narrative: Patient has some mild swelling along the left mandible between the angle and the midline. There is no trismus. There is no overlying erythema. There is some mild swelling along the gumline but nothing that is pointing. There is no pustule. There is no fluctuance. There is 2 decayed teeth presumably the premolars that are down to the gumline at this level on the lower left side. Floor the mouth is soft with no swelling. Eyes PERRL and EOMs intact bilaterally Neck no lymphadenopathy, supple and no JVD Resp normal respiratory effort and clear to auscultation bilaterally Cardio regular rate, regular rhythm and no murmurs GI normal to inspection, nondistended, normoactive bowel sounds and non-tender Palpation: soft Back/Spine no CVA tenderness and normal ROM Extremity normal to inspection General Extremety ED: Negative for edema General Extremity: Negative for edema Neuro oriented x3 and CN's II-XII intact bilaterally Sensorium / Orientation: alert Motor Exam: strength 5/5 throughout Psych mental status grossly normal Mood & Affect: Negative for depressed or tearful Skin no rashes or lesions noted and no wounds MDM MDM MDM Narrative Medical decision making narrative: Differential diagnosis includes but not limited to dental abscess Flynn's angina gingivitis ANUG facial cellulitis Due to the patient's penicillin allergy should be started on clindamycin. She was encouraged to follow-up with dentistry as soon as possible. I will also write for pain medication in the form of ibuprofen and Percocet. Patient was advised that this may worsen progress to the point where it needs drainage but at this time given that there is no pointing no fluctuance do not feel I&D is strongly needed. Patient was noted to be hypertensive in triage which may be contributing to her headache. She is neurologically intact and I do not feel the patient has had a stroke hemorrhagic or ischemic. We will reassess her blood pressure. Currently 145/98. History & Record Review Discussion w/independent historian: Patient Discharge Plan Triage Chief Complaint: Dental ED Provider: Flip Ramsey Dx/Rx/DC Orders Clinical Impression: Abscess, dental, Hypertension, Acute facial pain Instructions: Dental Abscess Prescriptions: New clindamycin HCl [Cleocin HCl] 300 mg capsule 300 mg PO Q6H Qty: 40 0RF ibuprofen 600 mg tablet 600 mg PO Q8H PRN PRN (Reason: fever or pain) Qty: 20 0RF oxycodone-acetaminophen 5-325 mg tablet 1 tab PO Q6H PRN PRN (Reason: Pain) 3 Days Qty: 12 0RF No Action immuneti PO Rx Instructions: OTC supplement omeprazole 40 mg capsule,delayed release(DR/EC) PO (DME) blood pressure test kit-small Kit See Rx Instructions .Route Qty: 1 0RF Rx Instructions: As directed All Day Allergy (cetirizine) 10 mg capsule 10 mg PO DAILY PRN valsartan 80 mg tablet 80 mg PO QDAY Jardiance 25 mg tablet 25 mg PO DAILY Qty: 90 1RF levothyroxine 88 mcg tablet 88 mcg PO DAILY Qty: 90 3RF Rx Instructions: see correction of dose albuterol sulfate 1 INHALER inhaler 1 puff inhalation Q4H PRN PRN (Reason: Sob &/Or Wheezing) Primary Care Provider: Jani Prescott Referrals: Jani Prescott MD [Primary Care Provider] - Activity Restrictions/Additional Instructions: I strongly urged you to follow-up with dentistry as soon as possible As we discussed this may worsen and require drainage of the abscess. Take medications as directed You may monitor your blood pressure and if it continues to be high would recommend PCP follow-up for further evaluation. Print Language: Persian Disposition Disposition: Home, Self Care
[2024-11-29 09:34] VITALS: BP 145/98
[2024-11-29 09:39] VITALS: BP 145/98; PULSE 77; RESP 18; TEMP 36.8; O2SAT 97
== END 2024-11-29 10:20 | disposition home or self-care (01) ==
PROVIDERS: Emergency Provider Emergency Medicine; PCP Family Medicine; Visit Provider Emergency Medicine
DX: K04.7 Periapical abscess without sinus (principal); N18.31 Chronic kidney disease, stage 3a; I12.9 Hypertensive chronic kidney disease with stage 1 through stage 4 chronic kidney disease, or unspecified chronic kidney disease; R51.9 Headache, unspecified; K21.9 Gastro-esophageal reflux disease without esophagitis; J45.909 Unspecified asthma, uncomplicated; F41.9 Anxiety disorder, unspecified
CPT/HCPCS: 99282

== ENCOUNTER 2025-02-12 12:38 | Emergency (ER) | payer OTHER, SELFPAY ==
[2025-02-12 12:39] VITALS: BP 161/103; PULSE 105; RESP 20; TEMP 37.1; O2SAT 98; BMI 32.9
--- NOTE | 2025-02-12 13:03 | EKG12_ITS ---
Test Reason : SHOULDER PAIN Blood Pressure : */* mmHG Vent. Rate : 70 BPM Atrial Rate : 70 BPM P-R Int : 146 ms QRS Dur : 72 ms QT Int : 424 ms P-R-T Axes : 52 76 53 degrees QTcB Int : 457 ms Normal sinus rhythm Low voltage QRS Borderline ECG Confirmed by KANCHAN ASKEW MD ([id number]), editor map JONAH SANON ([id number]) on 02/13/2025 9:24:28 AM Referred By: Confirmed By: KANCHAN ASKEW MD
[2025-02-12] MEDS: Orphenadrine 60 MG/2 ML Ampul 30 MG IV (13:20)
[2025-02-12] MEDS: 0.9% Normal Saline (1000mL) 1,000 ML 999 ML IV (13:20)
--- NOTE | 2025-02-12 13:26 | EX.ED.GENINJ ---
HPI History of Present Illness Chief Complaint: Back Narrative Narrative: Patient is a 59-year-old female with past medical history of prediabetic, chronic kidney disease stage III, asthma, hypertension, Graves' disease who presented to the emergency department chief complaint of left-sided back pain rating to her left shoulder. Patient states that on she was trying to get a dresser out of the car and noted that she had pain associated with this. Patient's notes that she tried Tylenol and did not touch her pain she states that she did try ibuprofen/Aleve and she states that this did help her pain but states that she is not supposed be taking this medication secondary to her underlying kidney disease. She noted that the pain has not gotten any better she feels like it is gotten worse therefore she came here for further evaluation management. Patient notes that the pain radiates to her left shoulder patient denies any shortness of breath associated with this. Patient notes that the last few days her pain has been constant. [facility] Medical History Obesity Stage 3a chronic kidney disease (CKD) Pre-diabetes Polycystic ovarian disease GERD (gastroesophageal reflux disease) Asthma Essential hypertension Graves' disease Home Medications ?Medication ?Instructions ?Recorded ?Last Taken ?Type albuterol sulfate 90 mcg/actuation 1 puff inhalation Q4H PRN PRN Sob 01/17/18 Unknown History aerosol inhaler &/Or Wheezing immuneti PO 06/20/20 Unknown History omeprazole 40 mg capsule,delayed cap PO 12/23/21 Unknown History release blood pressure test kit-small #1 ea 12/23/22 Unknown Rx cetirizine 10 mg capsule (All Day 10 mg PO DAILY PRN 08/25/23 Unknown History Allergy (cetirizine)) levothyroxine 88 mcg tablet 88 mcg PO DAILY #90 tabs 09/15/24 Unknown Rx valsartan 80 mg tablet 80 mg PO QDAY 09/15/24 Unknown History clindamycin HCl 300 mg capsule 300 mg PO Q6H #40 CAPSULES 11/29/24 Unknown Rx (Cleocin HCl) ibuprofen 600 mg tablet 600 mg PO Q8H PRN PRN fever or 11/29/24 Unknown Rx pain #20 TABLETS oxycodone-acetaminophen 5 mg-325 1 tab PO Q6H PRN PRN Pain 3 days 11/29/24 Unknown Rx mg tablet #12 TABLETS Jardiance 25 mg tablet 25 mg PO DAILY #90 tabs 12/12/24 Unknown Rx (empagliflozin) cyclobenzaprine 10 mg tablet 10 mg PO BID PRN muscle spasm #20 02/12/25 Unknown Rx tabs ondansetron 4 mg disintegrating 4 mg PO Q6H PRN nausea and 02/12/25 Unknown Rx tablet vomiting #20 tabs Allergy/AdvReac Type Severity Reaction Status Date / Time cigarette smoke Allergy Severe unknown Verified 02/12/25 12:38 codeine Allergy Mild Hives Verified 02/12/25 12:38 Environmental Allergies: Allergy Shortness Verified 02/12/25 12:38 Uncoded (pine) of breath hydrocodone bitartrate (From Allergy Hives Verified 02/12/25 12:38 Vicodin) lisinopril Allergy Rash Verified 02/12/25 12:38 Penicillins Allergy Shortness Verified 02/12/25 12:38 of breath alex hips Allergy Shortness Verified 02/12/25 12:38 of breath adhesive tape (paper tape) AdvReac Hives Verified 02/12/25 12:38 Family History Mother Asthma Heart disease Hypertension Seizures Sister Asthma Hypertension Seizures Brother Asthma Grandmother Cancer Heart disease CVA (cerebral vascular accident) Aunt Cancer Father Thyroid disorder Surgical History H/O: hysterectomy Cervical vertebral fusion Social History Smoking Status: Never smoker alcohol intake: never substance use type: does not use ROS ROS ED ROS Narrative Constitutional: Denies fevers, chills, headaches malaise, dizziness Eyes: No change in vision over the blurry vision Cardiovascular: Complains of chest pain as noted above denies palpitations Respiratory: Denies coughing wheezing shortness of breath Abdomen: Denies abdominal pain nausea vomit diarrhea : Denies urinary symptoms Neurological: Denies numbness, weakness, tingling Musculoskeletal: Complains of left-sided back pain as noted above Skin: Denies any rashes or lesions EXAM Physical Exam Narrative Exam Narrative: General: Patient lying in bed rest comfortably did not appear to be acute distress Head: Atraumatic, normocephalic Eyes: PERRL bilaterally, EOMI bilateral, no conjunctival injection noted Neck: Soft, supple, trachea midline Cardiovascular: Regular rate and rhythm no murmurs gallops rubs noted Respiratory: Clear to auscultation bilaterally Abdomen: Soft, nondistended, nontender palpation Musculoskeletal: Patient has tenderness palpation over the left rib cage posteriorly pinpoint over her mid ribs, patient has pain with attempted range of motion of the left shoulder as well Extremities: Radial pulses +2/4 in the bilateral extremities, +5/5 strength noted in the lower extremities in the right upper extremity and +4/5 strength in the left upper extremity secondary to pain Neurological: Patient follow commands knows she was at [facility] year is 2024. Sensation grossly intact Skin: Warm, dry, tact no rashes lesions noted Const Vital Signs: 02/12/25 12:39 02/12/25 13:26 Temperature 98.7 F Temperature Source Temporal Pulse Rate 105 H Respiratory Rate 20 H Blood Pressure 161/103 H Blood Pressure Mean 122 Pulse Ox 98 Oxygen Delivery Method Room Air Room Air MDM MDM MDM Narrative Medical decision making narrative: Patient is a 59-year-old female who presented to the emergency department with chief complaint of left-sided back pain and shoulder pain. On the differential diagnose includes but not limited to musculoskeletal strain, pathologic fracture of the shoulder, ACS, pneumothorax. Once workup is obtained reviewed she will be reevaluated. Patient be given Norflex. Patient's CBC reviewed and was largely unremarkable no evidence leukocytosis white blood count normal at 8, hemoglobin is 11.8, platelet count was noted to be 230. Patient sodium normal 137, potassium normal 4.3, creatinine normal at 1.14. Patient's troponin was normal at 8 with a EKG reviewed showed sinus rhythm with a rate of 70 bpm. Patient's x-ray of her shoulder on the left side reviewed by myself and by radiology which showed degenerative changes but no acute fracture or dislocation. Patient's x-ray of her chest and ribs reviewed by myself and by radiology which showed no displaced rib fractures and no acute cardiopulmonary processes. Reevaluation the patient she is feeling better she would like to go home at this point time. Patient be given a work note per her request and she will be given prescriptions for cyclobenzaprine as well as Zofran and Endocet. She be encouraged to follow-up with her doctor outpatient and return with worsening symptoms or concerns. All question concerns answered she was discharged home in stable condition. Lab Data Labs: Laboratory Results - last 24 hr 02/12/25 13:21 WBC 8.0 RBC 4.69 Hgb 11.8 L Hct 37.4 MCV 79.7 L MCH 25.2 L MCHC 31.6 L RDW Std Deviation 42.8 RDW Coeff of Alyce 14.8 H Plt Count 230 MPV 10.8 Immature Gran % (Auto) 0.400 Neut % (Auto) 58.1 Lymph % (Auto) 28.4 [place] % (Auto) 9.6 Eos % (Auto) 3.0 Baso % (Auto) 0.5 Absolute Neuts (auto) 4.6 Absolute Lymphs (auto) 2.27 Nucleated RBC % 0 Sodium 137 Potassium 4.3 Chloride 105 Carbon Dioxide 21.8 Anion Gap 11 BUN 16 Creatinine 1.14 Estim Creat Clear Calc 54.69 Est GFR (MDRD) Non-Af 55 L BUN/Creatinine Ratio 14.0 Glucose 98 Calcium 9.2 Troponin T High Sens 8 Radiography Diagnostic Testing: Clinical Impression(s) from Imaging Studies Ribs w/Chest X-Ray 02/12/25 13:45 IMPRESSION: No displaced rib fractures. Reading Location: [facility] [place] [place] Shoulder X-Ray 02/12/25 13:45 IMPRESSION: Degenerative changes as above. Reading Location: [facility] Discharge Plan Triage Chief Complaint: Back ED Provider: Rafa Drew Dx/Rx/DC Orders Clinical Impression: Back pain, Acute pain of left shoulder Prescriptions: New cyclobenzaprine 10 mg tablet 10 mg PO BID PRN (Reason: muscle spasm) Qty: 20 0RF ondansetron 4 mg tablet,disintegrating 4 mg PO Q6H PRN (Reason: nausea and vomiting) Qty: 20 0RF No Action immuneti PO Rx Instructions: OTC supplement omeprazole 40 mg capsule,delayed release(DR/EC) PO (DME) blood pressure test kit-small Kit See Rx Instructions .Route Qty: 1 0RF Rx Instructions: As directed All Day Allergy (cetirizine) 10 mg capsule 10 mg PO DAILY PRN valsartan 80 mg tablet 80 mg PO QDAY levothyroxine 88 mcg tablet 88 mcg PO DAILY Qty: 90 3RF Rx Instructions: see correction of dose albuterol sulfate 1 INHALER inhaler 1 puff inhalation Q4H PRN PRN (Reason: Sob &/Or Wheezing) clindamycin HCl [Cleocin HCl] 300 mg capsule 300 mg PO Q6H Qty: 40 0RF ibuprofen 600 mg tablet 600 mg PO Q8H PRN PRN (Reason: fever or pain) Qty: 20 0RF oxycodone-acetaminophen 5-325 mg tablet 1 tab PO Q6H PRN PRN (Reason: Pain) 3 Days Qty: 12 0RF Jardiance 25 mg tablet 25 mg PO DAILY Qty: 90 1RF Stand Alone Forms: ED Work / School Excuse Primary Care Provider: Jani Prescott Referrals: Jani Prescott MD [Primary Care Provider] - Activity Restrictions/Additional Instructions: Follow-up with your doctor in the outpatient setting. Return with worsening symptoms and concerns. Your blood work not show any acute findings and your x-rays did not show any broken bones. Use the muscle laxer's as prescribed and do not operate anything under the influence of this medication. Use Tylenol for pain control as well. Ice/heat whatever makes this feel better. Print Language: Kinyarwanda Disposition Disposition: Home, Self Care
[2025-02-12 13:32] LABS: Absolute Lymphocyte Count 2.27 X10^3/uL (0.83-4.51); Absolute Neutrophil Count 4.6 X10^3/uL (2.0-7.7); Basophil# 0.04 X10^3/uL; Basophil% 0.5 % (0-1); Eosinophil# 0.24 X10^3/uL; Hematocrit 37.4 % (37-47); Hemoglobin 11.8 g/dL (12.0-15.0); Lymphocyte # 2.27 X10^3/ul (0.83-4.51); Lymphocyte % 28.4 % (19-41); Mean Corp Hgb Conc 31.6 g/dL (32-36); Mean Corpuscular Hgb 25.2 pg (27.0-32.0); Mean Corpuscular Volume 79.7 fL (81-99); Mean Platelet Vol. 10.8 fl (6.2-12.0); Monocyte# 0.77 X10^3/uL; Monocyte% 9.6 % (0-10); NRBC Flagged by Analyzer 0 % (0-5); Neutrophil # 4.63 X10^3/uL (2.7-7.7); Neutrophil % 58.1 % (47-70); Platelet Count 230 K/mm3 (150-450); RBC Distribution Width CV 14.8 % (11.6-14.6); RBC Distribution Width SD 42.8 fl (35.1-43.9); Red Blood Count 4.69 M/mm3 (4.2-5.4)
--- NOTE | 2025-02-12 13:45 | RAD_ITS ---
EXAM: XR Left Shoulder Complete, 2 or More Views CLINICAL INDICATION: SHOULDER PAIN TECHNIQUE: Two or more views of the left shoulder. COMPARISON: No relevant prior studies available. FINDINGS: BONES/JOINTS: Mild degenerative change of the acromioclavicular and glenohumeral joints. No acute fracture. No dislocation. SOFT TISSUES: Unremarkable. RAD/Shoulder min 2 Views IMPRESSION: Degenerative changes as above. Reading Location: [id number]
--- NOTE | 2025-02-12 13:45 | RAD_ITS ---
EXAM: XR Left Ribs and AP Chest, 3 or More Views CLINICAL INDICATION: PAIN TECHNIQUE: Frontal and oblique views of the left ribs and frontal view of the chest. COMPARISON: No relevant prior studies available. FINDINGS: LUNGS AND PLEURAL SPACES: Unremarkable. No consolidation. No pneumothorax. HEART: Unremarkable. No cardiomegaly. MEDIASTINUM: Unremarkable. Normal mediastinal contour. BONES/JOINTS: Unremarkable. No displaced rib fractures. RAD/Ribs Uni Min 3V w/PA Chest IMPRESSION: No displaced rib fractures. Reading Location: [id number]
[2025-02-12 13:56] LABS: Anion Gap 11 (5-15); BUN 16 mg/dL (4-19); Calcium,Total 9.2 mg/dL (7.6-11.0); Carbon Dioxide 21.8 mmol/L (21.0-32.0); Chloride 105 mmol/L (98-108); Creatinine, Serum 1.14 mg/dL (0.70-1.20); EST Glomerular Filtration Rate 55 (>60); Estimated Creatinine Clearance 54.69 ml/min (50-250); Glucose 98 mg/dL (70-99); Potassium 4.3 mmol/L (3.3-5.1); Sodium Level 137 mmol/L (133-145); Troponin T High Sensitivity 8 ng/L (<=14)
[2025-02-12 14:38] VITALS: O2SAT 96
[2025-02-12 15:48] VITALS: BP 134/77; PULSE 82; RESP 16; TEMP 37.1; O2SAT 100
== END 2025-02-12 15:50 | disposition home or self-care (01) ==
PROVIDERS: Emergency Provider Emergency Medicine; PCP Family Medicine; Visit Provider Emergency Medicine
DX: M54.9 Dorsalgia, unspecified (principal); N18.31 Chronic kidney disease, stage 3a; M19.012 Primary osteoarthritis, left shoulder; I12.9 Hypertensive chronic kidney disease with stage 1 through stage 4 chronic kidney disease, or unspecified chronic kidney disease; K21.9 Gastro-esophageal reflux disease without esophagitis; J45.909 Unspecified asthma, uncomplicated; M25.512 Pain in left shoulder
CPT/HCPCS: 71101; 73030; 80048; 84484; 85025; 93005; 96360; 96361; 96374; 99283; A4216

== ENCOUNTER 2025-06-01 10:22 | Emergency (ER) | payer OTHER, SELFPAY ==
[2025-06-01 10:22] VITALS: BP 169/102; PULSE 96; RESP 18; TEMP 36.9; O2SAT 99; BMI 32.8
--- NOTE | 2025-06-01 10:34 | EKG12_ITS ---
Test Reason : O Blood Pressure : */* mmHG Vent. Rate : 87 BPM Atrial Rate : 87 BPM P-R Int : 140 ms QRS Dur : 78 ms QT Int : 386 ms P-R-T Axes : 56 88 25 degrees QTcB Int : 464 ms Normal sinus rhythm Low voltage QRS Borderline ECG Confirmed by NALDO COTTON, JUNIOR ([id number]), continuity editor JONAH SANON ([id number]) on 06/05/2025 8:58:18 AM Referred By: Confirmed By: JUNIOR HITCHCOCK MD
--- NOTE | 2025-06-01 10:34 | RAD_ITS ---
PROCEDURE: CHEST PA AND LATERAL 06/01/2025 REASON FOR EXAM: LEFT SIDED PAIN TECHNIQUE: Procedure Code: RADCXR Modality: DX Procedure: CHEST PA AND LATERAL COMPARISON: Chest x-ray February 12, 2025 FINDINGS: Lungs: The lungs are symmetrically expanded. Lung volumes are within normal range. Mildly elevated perihilar and bibasal reticular lung markings are noted, similar to the prior exam which may be secondary to chronic interstitial thickening. There is no consolidation. There is no peribronchial thickening. There is no pulmonary vascular redistribution. Pleura: No significant pleural effusion seen. There is no evidence of pneumothorax. Mediastinum: There is no mediastinal widening or mediastinal shift. Heart: The cardiac silhouette is not enlarged. Trisha: The pulmonary trisha are not enlarged or retracted. Osseous: No acute fracture is seen. Partially visualized postoperative changes of the lower cervical spine with anterior fusion hardware. Mild degenerative changes of the thoracic spine. RAD/Chest PA and Lateral IMPRESSION: No radiographic evidence for acute pulmonary infiltrate. - Other chronic findings discussed above. Reading Location: [id number]
--- NOTE | 2025-06-01 10:36 | EX.ED.DYSGE1 ---
HPI History of Present Illness Chief Complaint: Back Narrative Narrative: Patient is a 59-year-old female past medical history of chronic kidney disease, prediabetic, PCOS, hypertension, asthma, Graves' disease who presents to the emergency department with a chief complaint of back pain. States that her back pain started on Thursday and originally improved by Thursday. States that then this morning when she was showering she reached up to wash her hair and noted that she had significant pain. States that she took a muscle relaxer prior to arrival which did not seem to help her symptoms. She states that she tried take ibuprofen yesterday and Tylenol today. She denies any injuries that she recalls. She states that she is not short of breath. Patient denies recent travel history denies history of blood clots. [facility] Medical History Obesity Stage 3a chronic kidney disease (CKD) Pre-diabetes Polycystic ovarian disease GERD (gastroesophageal reflux disease) Asthma Essential hypertension Graves' disease Home Medications ?Medication ?Instructions ?Recorded ?Last Taken ?Type albuterol sulfate 90 mcg/actuation 1 puff inhalation Q4H PRN PRN Sob 01/17/18 Unknown History aerosol inhaler &/Or Wheezing omeprazole 40 mg capsule,delayed cap PO 12/23/21 Unknown History release blood pressure test kit-small #1 ea 12/23/22 Unknown Rx cetirizine 10 mg capsule (All Day 10 mg PO DAILY PRN 08/25/23 Unknown History Allergy (cetirizine)) levothyroxine 88 mcg tablet 88 mcg PO DAILY #90 tabs 09/15/24 Unknown Rx valsartan 80 mg tablet 80 mg PO QDAY 09/15/24 Unknown History ibuprofen 600 mg tablet 600 mg PO Q8H PRN PRN fever or 11/29/24 Unknown Rx pain #20 TABLETS cyclobenzaprine 10 mg tablet 10 mg PO BID PRN muscle spasm #20 02/12/25 Unknown Rx tabs ondansetron 4 mg disintegrating 4 mg PO Q6H PRN nausea and 02/12/25 Unknown Rx tablet vomiting #20 tabs Jardiance 25 mg tablet 25 mg PO DAILY #90 tabs 06/01/25 Unknown Rx (empagliflozin) berberine chloride 500 mg capsule 1,000 mg PO DAILY 06/01/25 Unknown History cyclobenzaprine 10 mg tablet 10 mg PO TID PRN muscle spasm #10 06/01/25 Unknown Rx tabs lidocaine 5 % topical patch 1 patch topical DAILY 7 days #15 ea 06/01/25 Unknown Rx magnesium oxide 400 mg PO QDAY 06/01/25 Unknown History Allergy/AdvReac Type Severity Reaction Status Date / Time cigarette smoke Allergy Severe unknown Verified 06/01/25 10:22 codeine Allergy Mild Hives Verified 06/01/25 10:22 Environmental Allergies: Allergy Shortness Verified 06/01/25 10:22 Uncoded (pine) of breath hydrocodone bitartrate (From Allergy Hives Verified 06/01/25 10:22 Vicodin) lisinopril Allergy Rash Verified 06/01/25 10:22 Penicillins Allergy Shortness Verified 06/01/25 10:22 of breath alex hips Allergy Shortness Verified 06/01/25 10:22 of breath adhesive tape (paper tape) AdvReac Hives Verified 06/01/25 10:22 Family History Mother Asthma Heart disease Hypertension Seizures Sister Asthma Hypertension Seizures Brother Asthma Grandmother Cancer Heart disease CVA (cerebral vascular accident) Aunt Cancer Father Thyroid disorder Surgical History H/O: hysterectomy Cervical vertebral fusion Social History Smoking Status: Never smoker alcohol intake: never substance use type: does not use ROS ROS ED ROS Narrative Constitutional: Denies any fever, chills, headaches Cardiovascular: Denies chest pain or palpitations Respiratory: Denies coughing wheezing shortness of breath Abdomen: Denies abdominal pain : Denies urinary symptom Neurological: Denies any numbness, weakness, tingling Musculoskeletal: Complains of back pain as noted above Skin: Denies any rashes or lesions EXAM Physical Exam Narrative Exam Narrative: General: Patient was standing up at bedside bent over as she states that this is a position of comfort for her Head: Atraumatic, normocephalic Eyes: PERRL bilateral, EOMI bilateral, no conjunctival injection noted Neck: Soft, supple, trachea midline Cardiovascular: Regular rate and rhythm Respiratory: Clear to auscultation bilaterally Abdomen: Soft, nondistended, nontender to palpation Musculoskeletal: No tenderness palpation in the midline of the thoracolumbar spine no CVA tenderness, patient has tenderness palpation over the left rib cage posteriorly and 1 specific spot Extremities: +5/5 strength noted in the bilateral lower extremities, radial pulses +2/4 and 5 extremities, no pedal edema on exam Neurological: Patient followed commands knew that she was at [facility] year is 2024 Skin: Warm, dry, tact no rashes or lesions noted Const Vital Signs: 06/01/25 10:22 Temperature 98.4 F Temperature Source Oral Pulse Rate 96 Respiratory Rate 18 Blood Pressure 169/102 H Blood Pressure Mean 124 Pulse Ox 99 Oxygen Delivery Method Room Air MDM MDM MDM Narrative Medical decision making narrative: Patient is a 59-year-old female who presents to the emergency department chief complaint of back pain. On the differential diagnose includes but not limited to musculoskeletal strain, rib fracture although I have low suspicion for this that she has no trauma, PE although I have low suspicion for this as well, ACS. Once workup is obtained reviewed she will be reevaluated. Whitfield Score (Revised) for Pulmonary Embolism from [email or web address] on 06/01/2025 All calculations should be rechecked by clinician prior to use RESULT SUMMARY: 3 points Low risk group: 7-9% incidence of PE from several studies. INPUTS: Age >65 ?> 0 = No Previous DVT or PE ?> 0 = No Surgery (under general anesthesia) or lower limb fracture in past month ?> 0 = No Active malignant condition ?> 0 = No Unilateral lower limb pain ?> 0 = No Hemoptysis ?> 0 = No Heart rate ?> 3 = 75-94 Pain on lower limb palpation and unilateral edema ?> 0 = No Patient chest x-ray reviewed by myself and by radiology which showed no acute cardiopulmonary processes there was a partially visualized postoperative changes of the lower cervical spine with anterior fusion hardware mild degenerative changes of the thoracic spine noted. Patient is EKG reviewed showed sinus rhythm at a rate of 87 bpm. On reevaluation the patient she is feeling better she like to go home. She was advised to use Tylenol for mild to moderate pain and use the muscle relaxers that were prescribed and do not operate anything under the influence of this. She also be given prescription for Lidoderm patch. She is vies follow-up with her doctor in outpatient setting return with worsening symptoms or anything concerns. All question concerns answered she was discharged home in stable condition. Radiography Diagnostic Testing: Clinical Impression(s) from Imaging Studies Chest X-Ray 06/01/25 10:34 IMPRESSION: No radiographic evidence for acute pulmonary infiltrate. - Other chronic findings discussed above. Reading Location: [facility] Discharge Plan Triage Chief Complaint: Back ED Provider: Rafa Drew Dx/Rx/DC Orders Clinical Impression: Musculoskeletal strain, Pre-diabetes, Stage 3a chronic kidney disease (CKD), Hypertension Prescriptions: New lidocaine 5 % adhesive patch,medicated 1 patch topical DAILY 7 Days Qty: 15 0RF Rx Instructions: leave on most painful area for up to 12 hrs cyclobenzaprine 10 mg tablet 10 mg PO TID PRN (Reason: muscle spasm) Qty: 10 0RF No Action omeprazole 40 mg capsule,delayed release(DR/EC) PO (DME) blood pressure test kit-small Kit See Rx Instructions .Route Qty: 1 0RF Rx Instructions: As directed All Day Allergy (cetirizine) 10 mg capsule 10 mg PO DAILY PRN valsartan 80 mg tablet 80 mg PO QDAY levothyroxine 88 mcg tablet 88 mcg PO DAILY Qty: 90 3RF Rx Instructions: see correction of dose magnesium oxide 400 mg magnesium capsule 400 mg PO QDAY berberine chloride 500 mg capsule 1,000 mg PO DAILY Jardiance 25 mg tablet 25 mg PO DAILY Qty: 90 2RF albuterol sulfate 1 INHALER inhaler 1 puff inhalation Q4H PRN PRN (Reason: Sob &/Or Wheezing) ibuprofen 600 mg tablet 600 mg PO Q8H PRN PRN (Reason: fever or pain) Qty: 20 0RF cyclobenzaprine 10 mg tablet 10 mg PO BID PRN (Reason: muscle spasm) Qty: 20 0RF ondansetron 4 mg tablet,disintegrating 4 mg PO Q6H PRN (Reason: nausea and vomiting) Qty: 20 0RF Primary Care Provider: Jani Prescott Referrals: Jani Prescott MD [Primary Care Provider] - Activity Restrictions/Additional Instructions: Use Tylenol for pain control we do this you can take some every 6 hours max dose of Tylenol in 24 hours 4000 mg. Use the Lidoderm patch as prescribed. Use muscle relaxer as prescribed do not operate anything under the influence this medication as it will make you sleepy drowsy. Your chest x-ray did not show any acute findings. Return if worsening symptoms or any other concerns. Print Language: Hebrew Disposition Disposition: Home, Self Care
[2025-06-01 11:48] VITALS: BP 169/102; PULSE 96; RESP 18; TEMP 36.9; O2SAT 99
== END 2025-06-01 11:50 | disposition home or self-care (01) ==
PROVIDERS: Emergency Provider Emergency Medicine; PCP Family Medicine; Visit Provider Emergency Medicine
DX: S39.012A Strain of muscle, fascia and tendon of lower back, initial encounter (principal); N18.31 Chronic kidney disease, stage 3a; I12.9 Hypertensive chronic kidney disease with stage 1 through stage 4 chronic kidney disease, or unspecified chronic kidney disease; R73.03 Prediabetes; J45.909 Unspecified asthma, uncomplicated; X58.XXXA Exposure to other specified factors, initial encounter
CPT/HCPCS: 71046; 93005; 96372; 99282

== ENCOUNTER 2025-06-29 18:54 | Emergency (ER) | payer OTHER, SELFPAY ==
[2025-06-29 18:56] VITALS: BP 149/90; PULSE 94; RESP 22; TEMP 36.1; O2SAT 98; BMI 33.5
--- NOTE | 2025-06-29 19:02 | EKG12_ITS ---
Test Reason : CHEST PAIN Blood Pressure : */* mmHG Vent. Rate : 92 BPM Atrial Rate : 92 BPM P-R Int : 142 ms QRS Dur : 82 ms QT Int : 366 ms P-R-T Axes : 29 86 20 degrees QTcB Int : 452 ms Sinus rhythm with Premature atrial complexes Otherwise normal ECG Confirmed by NALDO COTTON, JUNIOR ([id number]), material expeditor LUCILA CASEY ([id number]) on 07/03/2025 6:18:47 AM Referred By: Confirmed By: JUNIOR HITCHCOCK MD
--- NOTE | 2025-06-29 19:14 | RAD_ITS ---
PROCEDURE: CHEST PA AND LATERAL 06/29/2025 REASON FOR EXAM: CHEST PAIN TECHNIQUE: Procedure Code: RADCXR Modality: DX Procedure: CHEST PA AND LATERAL COMPARISON: 06/01/2025 FINDINGS: LUNGS AND PLEURA: The lungs are clear. No pleural effusion or pneumothorax. HEART AND MEDIASTINUM: The heart size and mediastinal contours are normal. BONES: No acute osseous abnormality. Prior lower cervical spine fusion. RAD/Chest PA and Lateral IMPRESSION: NO ACUTE FINDINGS. Reading Location: [id number]
[2025-06-29 19:46] LABS: Hematocrit 37.6 % (37-47); Hemoglobin 11.7 g/dL (12.0-15.0); Immature Granulocytes Count 0.050 X10^3/uL (0.0-0.0); Mean Corp Hgb Conc 31.1 g/dL (32-36); Mean Corpuscular Volume 75.7 fL (81-99); Mean Platelet Vol. 10.7 fl (6.2-12.0); NRBC Flagged by Analyzer 0 % (0-5); Platelet Count 234 K/mm3 (150-450); RBC Distribution Width CV 16.2 % (11.6-14.6); RBC Distribution Width SD 44.2 fl (35.1-43.9); Red Blood Count 4.97 M/mm3 (4.2-5.4); White Blood Count 10.0 K/mm3 (4.4-11.0)
--- NOTE | 2025-06-29 20:03 | EDS_ITS ---
HPI History of Present Illness Chief Complaint: Chest Pain Informant: patient Onset/Context/Timing Onset: Month(s) (1) Activity at onset: sudden Timing: Intermittent Quality: Positive for Stabbing Location: - (Left scapula and lower thoracic area) Worsened By: Nothing Relieved By: - (Heating pad) Associated Symptoms: Positive for Nausea and Lightheadedness; Negative for Vomiting, Diaphoresis, Dyspnea, Cough, Fever, Acid Reflux or Palpitations Narrative Narrative: Patient presents with left scapular and lower thoracic pain that has been getting worse over the past month. Patient states it comes and goes. Patient describes it as stabbing. Patient states that it gets better with heat. Patient admits to some nausea and lightheadedness when the pain becomes severe. Patient admits to some weakness in her arms due to the pain. Patient denies any shortness of breath or cough. Patient denies any palpitations. Patient states she was seen here in the emergency department for this in the past and everything was negative. CVD Risk Factors: Positive for Hypertension and Diabetes; Negative for Hypercholesterolemia, Family History 1' </=55 or Smoking PE Risk Factors: Negative for Recent Travel/Surgery, Recent Immobilization, Prior DVT or PE or Cancer [facility] Medical History Obesity Stage 3a chronic kidney disease (CKD) Pre-diabetes Polycystic ovarian disease GERD (gastroesophageal reflux disease) Asthma Essential hypertension Graves' disease Home Medications ?Medication ?Instructions ?Recorded ?Last Taken ?Type albuterol sulfate 90 mcg/actuation 1 puff inhalation Q 4H PRN PRN Sob 01/17/18 U nknown History aerosol inhaler &/Or Wheezing omeprazole 40 mg capsule,delayed 40 mg PO 12/23/21 Unk nown History release blood pressure test kit-small #1 ea 12/23/22 Unknown R x cetirizine 10 mg capsule (All Day 10 mg PO DAILY PRN a llergy symptoms 08/25/23 Unknown History Allergy (cetirizine)) levothyroxine 88 mcg tablet 88 mcg PO DAILY #90 tabs 1 11/16/23 Unknown Rx valsartan 80 mg tablet 80 mg PO QDAY 09/15/24 Unkno wn History ibuprofen 600 mg tablet 600 mg PO Q8H PRN PRN fever or 11/29/24 Unknown Rx pain #20 TABLETS Jardiance 25 mg tablet 25 mg PO DAILY #90 tabs 01/20 Unknown Rx (empagliflozin) berberine chloride 500 mg capsule 1,000 mg PO DAILY Unknown History Allergy/AdvReac Type Severity Reaction Status Date / Time cigarette smoke Allergy Severe unknown Verified 06/29/25 18:56 codeine Allergy Mild Hives Verified 06/29/25 18:56 Environmental Allergies: Allergy Shortness Verified 06/29/25 18:56 Uncoded (pine) of breath hydrocodone bitartrate (From Allergy Hives Verified 06/29/25 18:56 Vicodin) lisinopril Allergy Rash Verified 06/29/25 18:56 Penicillins Allergy Shortness Verified 06/29/25 18:56 of breath alex hips Allergy Shortness Verified 06/29/25 18:56 of breath adhesive tape (paper tape) AdvReac Hives Verified 06/29/25 18:56 Family History Mother Asthma Heart disease Hypertension Seizures Sister Asthma Hypertension Seizures Brother Asthma Grandmother Cancer Heart disease CVA (cerebral vascular accident) Aunt Cancer Father Thyroid disorder Surgical History H/O: hysterectomy Cervical vertebral fusion Social History Smoking Status: Never smoker alcohol intake: never substance use type: does not use EXAM Physical Exam Const Vital Signs: 06/29/25 18:56 06/29/25 19:59 06/29/25 20:58 Temperature 97 F L Temperature Source Temporal Pulse Rate 94 76 Respiratory Rate 22 H 16 Blood Pressure 149/90 H 119/82 H Blood Pressure Mean 109 94 Pulse Ox 98 98 Oxygen Delivery Method Room Air Room Air Room Air 06/29/25 22:00 Temperature Temperature Source Pulse Rate 73 Respiratory Rate 16 Blood Pressure 126/81 H Blood Pressure Mean 96 Pulse Ox 99 Oxygen Delivery Method Room Air Heart Score History: Slightly/Non-Suspicious ECG: Normal Age: >45 - <65 years Risk Factors: 1 or 2 Risk Factors Troponin: </= Normal Limit Score: 2 MDM MDM MDM Narrative Medical decision making narrative: Differential diagnosis includes cardiac dysrhythmia, cardiac ischemia, pneumonia, bronchitis, musculoskeletal pain, pneumothorax, and anxiety. EKG will be obtained to assess for cardiac dysrhythmia and cardiac ischemia. Chest x-ray will be obtained to assess for pneumonia, bronchitis, and pneumothorax. CBC will be obtained to assess for leukocytosis and anemia. Basic metabolic profile will be obtained to assess for electrolyte abnormality and renal function. High-sensitivity troponin will be obtained to assess for cardiac ischemia. 2-hour repeat high-sensitivity troponin will be obtained to assess for ongoing cardiac ischemia. History & Record Review Additional record(s) reviewed:: Prior ED visit and Prior labs Lab Data Attestation: I reviewed the patient's lab results. Lab results narrative: CBC was reviewed. There is a slight anemia with a hemoglobin of 11.7. The remainder is within normal limits. Basic metabolic profile was reviewed. Creatinine was slightly elevated at 1.23. This is consistent with previous results. The remainder is within normal limits. High-sensitivity troponin was reviewed and was normal at 6. 2-hour repeat high-sensitivity troponin was r eviewed and was less than 6. Labs: Laboratory Results - last 24 hr 06/29/25 06/29/25 19:38 21:20 WBC 10.0 RBC 4.97 Hgb 11.7 L Hct 37.6 MCV 75.7 L MCH 23.5 L MCHC 31.1 L RDW Std Deviation 44.2 H RDW Coeff of Alyce 16.2 H Plt Count 234 MPV 10.7 Immature Gran % (Auto) 0.500 Neut % (Auto) 60.2 Lymph % (Auto) 25.0 [place] % (Auto) 9.3 Eos % (Auto) 4.4 Baso % (Auto) 0.6 Absolute Neuts (auto) 6.0 Absolute Lymphs (auto) 2.51 Nucleated RBC % 0 Sodium 136 Potassium 4.6 Chloride 103 Carbon Dioxide 21.1 Anion Gap 11 BUN 19 Creatinine 1.23 H Estim Creat Clear Calc 51.16 Est GFR (MDRD) Non-Af 51 L BUN/Creatinine Ratio 15.3 Glucose 105 H Calcium 9.5 Troponin T High Sens 6 D Troponin T Hi Sens 2 Hr < 6 Radiography Chest X-Ray - ED: 2 View, Read by ED Physician, Read by Radiologist and No Acute Disease Diagnostic Testing: Clinical Impression(s) from Imaging Studies Chest X-Ray 06/29/25 19:14 IMPRESSION: NO ACUTE FINDINGS. Reading Location: [facility] PA and lateral chest x-ray was obtained. There are 2 views. On my independent interpretation, lung basilio are clear. There is normal cardiac silhouette. [place] thorax is normal. There is no acute process noted. Radiologist also interpreted the x-ray and agrees. EKG Initial EKG: Attestation: I personally reviewed and interpreted this EKG as follows: Interpretation: Sinus Rhythm (92) and No Acute Injury Pattern Comments: EKG was obtained. On my independent interpretation, it showed a normal sinus rhythm with occasional PACs with a rate of 92. [place] interval, QRS interval, and QTc intervals were all normal. [place] was normal. There are no acute ST or T wave changes. Prior EKG tracings: available for review Prior: Unchanged (06/01/2025) Treatment and Re-Evaluation :: Patient was given injection of Toradol here. Patient was advised of her f indings. Patient has a HEART score of 2. Patient was advised that this is low risk for acute cardiac event. Patient was advised that this is most likely musculoskeletal pain. Patient was instructed to take Tylenol or ibuprofen as needed for pain. Patient was instructed to return if worse in any way. Patient was instructed to follow-up with her primary care physician in 5 to 7 days for further evaluation and treatment. Patient understood and was agreeable with the plan. All questions were answered. Discharge Plan Triage Chief Complaint: Chest Pain ED Provider: Piotr Hickman Dx/Rx/DC Orders Clinical Impression: Acute thoracic myofascial strain, Hypertension Instructions: ED Back Sprain/Strain, ED Chest Wall Strain Prescriptions: No Action omeprazole 40 mg capsule,delayed release(DR/EC) 40 mg PO (DME) blood pressure test kit-small Kit See Rx Instructions .Route Qty: 1 0RF Rx Instructions: As directed All Day Allergy (cetirizine) 10 mg capsule 10 mg PO DAILY PRN (Reason: allergy symptoms) valsartan 80 mg tablet 80 mg PO QDAY levothyroxine 88 mcg tablet 88 mcg PO DAILY Qty: 90 3RF Rx Instructions: see correction of dose berberine chloride 500 mg capsule 1,000 mg PO DAILY Jardiance 25 mg tablet 25 mg PO DAILY Qty: 90 2RF albuterol sulfate 1 INHALER inhaler 1 puff inhalation Q4H PRN PRN (Reason: Sob &/Or Wheezing) ibuprofen 600 mg tablet 600 mg PO Q8H PRN PRN (Reason: fever or pain) Qty: 20 0RF Primary Care Provider: Jani Prescott Referrals: Jani Prescott MD [Primary Care Provider, Family Practice] Print Language: American Disposition Disposition: Home, Self Care
[2025-06-29 20:45] LABS: Anion Gap 11 (5-15); BUN 19 mg/dL (4-19); BUN/Creat Ratio 15.3 RATIO (10-20); Calcium,Total 9.5 mg/dL (7.6-11.0); Carbon Dioxide 21.1 mmol/L (21.0-32.0); Chloride 103 mmol/L (98-108); Estimated Creatinine Clearance 51.16 ml/min (50-250); Glucose 105 mg/dL (70-99); Potassium 4.6 mmol/L (3.3-5.1); Troponin T High Sensitivity 6 ng/L (<=14)
[2025-06-29 20:58] VITALS: BP 119/82; PULSE 76; RESP 16; O2SAT 98
[2025-06-29 22:00] VITALS: BP 126/81; PULSE 73; RESP 16; O2SAT 99
[2025-06-29 22:04] LABS: Troponin T High Sens 2 HR < 6 ng/L (<=14)
[2025-06-29 22:13] VITALS: BP 126/81; PULSE 74; RESP 15; TEMP 36.8; O2SAT 97
== END 2025-06-29 22:21 | disposition home or self-care (01) ==
PROVIDERS: Emergency Provider Emergency Medicine; PCP Family Medicine; Visit Provider Emergency Medicine
DX: S29.012A Strain of muscle and tendon of back wall of thorax, initial encounter (principal); E11.22 Type 2 diabetes mellitus with diabetic chronic kidney disease; N18.31 Chronic kidney disease, stage 3a; I12.9 Hypertensive chronic kidney disease with stage 1 through stage 4 chronic kidney disease, or unspecified chronic kidney disease; K21.9 Gastro-esophageal reflux disease without esophagitis; Z79.84 Long term (current) use of oral hypoglycemic drugs; D64.9 Anemia, unspecified; X58.XXXA Exposure to other specified factors, initial encounter
CPT/HCPCS: 71046; 80048; 84484; 85025; 93005; 96374; 99283; A4216

== ENCOUNTER 2025-07-02 14:44 | Emergency (ER) | payer OTHER, SELFPAY ==
[2025-07-02 14:45] VITALS: BP 158/77; PULSE 96; RESP 20; TEMP 36.2; O2SAT 97; BMI 33.7
--- NOTE | 2025-07-02 16:57 | EDS_ITS ---
HPI History of Present Illness Chief Complaint: Back [facility] Medical History Obesity Stage 3a chronic kidney disease (CKD) Pre-diabetes Polycystic ovarian disease GERD (gastroesophageal reflux disease) Asthma Essential hypertension Graves' disease Home Medications ?Medication ?Instructions ?Recorded ?Last Taken ?Type albuterol sulfate 90 mcg/actuation 1 puff inhalation Q 4H PRN PRN Sob 01/17/18 Unknown History aerosol inhaler &/Or Wheezing omeprazole 40 mg capsule,delayed 40 mg PO 12/23/21 Unk nown History release blood pressure test kit-small #1 ea 12/23/22 Unknown R x cetirizine 10 mg capsule (All Day 10 mg PO DAILY PRN a llergy symptoms 08/25/23 Unknown History Allergy (cetirizine)) levothyroxine 88 mcg tablet 88 mcg PO DAILY #90 tabs 1 11/16/23 Unknown Rx valsartan 80 mg tablet 80 mg PO QDAY 09/15/24 Unkno wn History ibuprofen 600 mg tablet 600 mg PO Q8H PRN PRN fever or 11/29/24 Unknown Rx pain #20 TABLETS Jardiance 25 mg tablet 25 mg PO DAILY #90 tabs 01/20 Unknown Rx (empagliflozin) berberine chloride 500 mg capsule 1,000 mg PO DAILY Unknown History cyclobenzaprine 10 mg tablet 10 mg PO QHS PRN PRN Musc le Spasm 06/29/25 Unknown Rx #10 TABLETS Allergy/AdvReac Type Severity Reaction Status Date / Time cigarette smoke Allergy Severe unknown Verified 07/02/25 14:45 codeine Allergy Mild Hives Verified 07/02/25 14:45 Environmental Allergies: Allergy Shortness Verified 07/02/25 14:45 Uncoded (pine) of breath hydrocodone bitartrate (From Allergy Hives Verified 07/02/25 14:45 Vicodin) lisinopril Allergy Rash Verified 07/02/25 14:45 Penicillins Allergy Shortness Verified 07/02/25 14:45 of breath alex hips Allergy Shortness Verified 07/02/25 14:45 of breath adhesive tape (paper tape) AdvReac Hives Verified 07/02/25 14:45 Family History Mother Asthma Heart disease Hypertension Seizures Sister Asthma Hypertension Seizures Brother Asthma Grandmother Cancer Heart disease CVA (cerebral vascular accident) Aunt Cancer Father Thyroid disorder Surgical History H/O: hysterectomy Cervical vertebral fusion Social History Smoking Status: Never smoker alcohol intake: never substance use type: does not use EXAM Physical Exam Const Vital Signs: 07/02/25 14:45 07/02/25 18:44 Temperature 97.2 F L Temperature Source Temporal Pulse Rate 96 74 Respiratory Rate 20 H 16 Blood Pressure 158/77 H 123/72 H Blood Pressure Mean 104 89 Pulse Ox 97 97 Oxygen Delivery Method Room Air MDM MDM MDM Narrative Medical decision making narrative: HISTORY OF PRESENT ILLNESS: Chief complaint: Thoracic back pain, chest pain 59-year-old female history of CKD 3, obesity, hypertension, PCOS, prediabetes presents with scapular pain rating to the chest. She notes she has been seen multiple times recently for this. She notes it was her intermittent. Worse with movement of the upper extremity. 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 No recent falls. No shortness of breath associated. No cough fever chills. Patient denies sudden onset of pain, no tearing sensation, no migratory symptoms, no new numbness, weakness or loss of sensation. Patient denies family history or personal history of Connective tissue disorders (Marfan's Syndrome, Kirsten Danlos etc). The patient denies recent surgery in the last 4 weeks or immobilization in the last 3 days, denies previous diagnosis of DVT or PE, hemoptysis, unilateral leg swelling or malignancy with treatment the last 6 months or palliative. No estrogen use noted. Notes family history of CAD but no personal history of heart attacks. Denies drug use. Denies leg swelling. REVIEW OF SYSTEMS: Pertinent positives: Left scapular back pain, chest pain Pertinent negatives: As per HPI PHYSICAL EXAM: Nursing triage notes reviewed, Vital signs reviewed Constitutional: please see mdm HENT: MMM Eyes: Pupils equal round and reactive to light, Extraocular muscles intact Neck: No stridor, no JVD, full neck ROM Lungs: Clear to auscultation, No wheezing or rales. No increased work of breathing, no conversational dyspnea, no accessory muscle use, no nasal flaring. No respiratory distress noted Heart: Regular rate and rhythm, No murmurs, No rubs and No gallops, 2+ distal pulses (radial, femoral, posterior tibial) in all extremities Abdomen: Soft, there is no tenderness, rigidity, rebound or guarding, no obvious peritoneal signs, no palpable pulsatile abdominal masses, no auscultated abdominal bruit : No CVAT Back: No rashes, no midline step-offs or deformities noted to the CTL spine. Noted TTP over left rhomboid muscle. Extremities: No edema Neuro: No new focal neurological deficits, cranial nerves II through XII intact, 5/5 strength in all present extremities. Intact sensation to light touch in all present extremities, 2+ reflexes bilateral patella tendons. Skin: No rash or lesions noted MEDICAL DECISION MAKING: Chief Complaint: please see [facility] External records reviewed: reviewed prior lab studies. Negative high- sensitivity troponins on 06/29/2025. Echocardiogram 2017 showed ejection fraction 55% Factors affecting care:As per [facility] Social determinants of health: none History obtained from others: Family Consults: none [facility] Narrative: Patient was initially hemodynamically stable, afebrile and nontoxic-appearing. Exam with TTP over left rhomboid muscle. I considered the following differential diagnosis: ACS, arrhythmia, anemia, electro disturbance, VTE, aortic pathology I obtained a broad lab and imaging workup to further determine if the patient was suffering from a life-threatening etiology. I added D-dimer and BNP to provide provider's workup to assess signs of heart failure and VTE as well as dissection. Initially treat the patient with an IV fluid bolus, Tylenol, Toradol, morphine and Zofran ALL IMAGES (IF OBTAINED) HAVE BEEN PERSONALLY REVIEWED AND INTERPRETED BY MYSELF. EKG with normal sinus rhythm rate 87, normal axis, normal intervals, no STEMI, no sign of right heart strain High-sensitivity troponin is negative, no evidence of myocardial ischemia x 2 essentially ruling out ACS based on [facility]'s high- sensitivity troponin protocol D-dimer negative making VTE less likely CBC with no leukocytosis, mild anemia but no thrombocytopenia BMP without evidence of significant electrolyte abnormalities, no anion gap, no acute kidney injury. BNP negative for signs of heart failure I have personally reviewed the patient's chest x-ray. Chest x-ray is unremarkable for pulmonary edema, pneumothorax, pneumonia or focal cardiopulmonary abnormality. Synthesis of the patient's history, physical exam, labs images suggest likely musculoskeletal etiology. Will start the patient on a short course of steroids. Will encourage her to follow with her primary care physician and with pain management. The patient and/or family, caregivers express understanding. The patient and/or family, caregivers agrees with the plan. Shared decision making: I will have a discussion with the patient and or visitors regarding risk/benefits of further testing or admission. They will be made aware of of the risk/benefits inherent in this decision they will be given the opportunity to voice understanding. Total critical care time today provided was at least 0 minutes. This excludes separately billable procedures. Critical care time (if documented) is secondary to the patient having high probability of clinically significant/life threatening deterioration in the patient's condition which required my urgent intervention. Impression: 1. Acute back pain 2. Acute chest pain 3. Thoracic myofascial syndrome Dispo: Discharge This note was generated with [employer] dictation software. It may contain incorrect words, spelling, and punctuation that were not noted in review of the chart prior to signing. Lab Data Labs: Laboratory Results - last 24 hr 07/02/25 07/02/25 17:28 19:55 WBC 9.0 RBC 4.81 Hgb 11.3 L Hct 36.5 L MCV 75.9 L MCH 23.5 L MCHC 31.0 L RDW Std Deviation 44.5 H RDW Coeff of Alyce 16.3 H Plt Count 225 MPV 10.8 D-Dimer Quant (PE/DVT) 0.39 Sodium 140 Potassium 4.3 Chloride 106 Carbon Dioxide 20.7 L Anion Gap 13 BUN 23 H Creatinine 1.17 Estim Creat Clear Calc 53.94 Est GFR (MDRD) Non-Af 54 L BUN/Creatinine Ratio 19.7 Glucose 102 H Calcium 9.2 Troponin T High Sens < 6 Troponin T Hi Sens 2 Hr < 6 NT pro BNP II 89 Radiography Diagnostic Testing: Clinical Impression(s) from Imaging Studies Chest X-Ray 07/02/25 17:55 IMPRESSION: Trace left base effusion. No focal consolidations. Reading Location: [facility] Discharge Plan Triage Chief Complaint: Back ED Provider: Cedrick,Zackary Dx/Rx/DC Orders Prescriptions: No Action omeprazole 40 mg capsule,delayed release(DR/EC) 40 mg PO (DME) blood pressure test kit-small Kit See Rx Instructions .Route Qty: 1 0RF Rx Instructions: As directed All Day Allergy (cetirizine) 10 mg capsule 10 mg PO DAILY PRN (Reason: allergy symptoms) valsartan 80 mg tablet 80 mg PO QDAY levothyroxine 88 mcg tablet 88 mcg PO DAILY Qty: 90 3RF Rx Instructions: see correction of dose berberine chloride 500 mg capsule 1,000 mg PO DAILY Jardiance 25 mg tablet 25 mg PO DAILY Qty: 90 2RF albuterol sulfate 1 INHALER inhaler 1 puff inhalation Q4H PRN PRN (Reason: Sob &/Or Wheezing) ibuprofen 600 mg tablet 600 mg PO Q8H PRN PRN (Reason: fever or pain) Qty: 20 0RF cyclobenzaprine 10 mg tablet 10 mg PO QHS PRN PRN (Reason: Muscle Spasm) Qty: 10 0RF Primary Care Provider: Jani Prescott Referrals: Jani Prescott MD [Primary Care Provider, Family Practice] Print Language: Egyptian
--- NOTE | 2025-07-02 17:12 | EKG12_ITS ---
Test Reason : Blood Pressure : */* mmHG Vent. Rate : 87 BPM Atrial Rate : 87 BPM P-R Int : 152 ms QRS Dur : 76 ms QT Int : 378 ms P-R-T Axes : 43 87 45 degrees QTcB Int : 454 ms Normal sinus rhythm Normal ECG Confirmed by AZAR COTTON, KANCHAN ([id number]), purchasing expeditor JONAH SANON ([id number]) on 07/03/2025 8:38:02 AM Referred By: Confirmed By: KANCHAN ASKEW MD
--- OUTSIDE RECORDS SUMMARY | 2025-07-02 17:33 | XMS RPT_ITS | CCD ---
Author Organization [facility] CliniSyvt Care Team Providers Care Substation Manager Name Role Phone Mark Amos Unavailable Unavailable Mark Amos Unavailable Unavailable No Doctor Assigned, Nodr Unavailable Unavail able ReubenMark fabian Unavailable Unavailable Reubenrui Mark Rondon Unavailable Unavailable No Doctor Assigned, Nodr Unavailable Unavail able Ronan Lopez Unavailable Unavailable Jani Edmondson MD Primary Care Provider Sarabjit Quigley Unavailable ANJELICA Nguyen Primary Care Provider ANJELICA Nguyen Referring Provider Dr. Rocky Rodriguez Attending Provider Jani Edmondson MD Primary Care Provider Sarabjit Quigley Unavailable Jani Edmondson MD Primary Care Provider Sarabjit Quigley Unavailable ANJELICA Nguyen Primary Care Provider ANJELICA Nguyen Referring Provider Dr. Rocky Rodriguez Attending Provider ANJELICA Nguyen Primary Care Provider Dr. Rocky Rodriguez Attending Provider ANJELICA Nguyen Referring Provider Jani Edmondson MD Primary Care Provider Lynn Camara APRN.CNP Unavailable Nina Scherer PA-C Unavailable Dr. Jani Edmondson MD Primary Care Provider Dr. Flip Ramsey DO Attending Provider Roxy BURT, Dr. Castelan Emergency Provider Dr. Rafa Drew DO Emergency Provider Mark SUPERVISOR EVAPORATOR.COMPUTER ART INSTRUCTOR, Lynn Unavailable Gilmer NEIL, Nina Unavailable Mark SUPERVISOR EVAPORATOR.COMPUTER ART INSTRUCTOR, Lynn Unavailable Gilmer NEIL, Nina Unavailable FLIP JOY Referring Unavailable DEBO, JANI A Primary Care Unavailable Debo COTTON, Dr. Gunter Primary Care Provider Dr. Rafa Drew DO Attending Provider Dr. Jani Edmondson MD Referring Provider Dr. Rocky Rodriguez MD Attending Provider NESSA CADENAA Referring Unavailable DEBO, JANI A Primary Care Unavailable GILMER, NINA Attending Unavailable WISWELL, BETTY Referring Unavailable DEBO, JANI A Primary Care Unavailable SCHERER, NINA Referring Unavailable DEBO, JANI A Primary Care Unavailable FLIP JOY Attending Unavailable DEBO, JANI A Primary Care Unavailable DEBO, JANI A Primary Care Unavailable SARABJIT BROWN Attending Unavailable DEBO, JANI A Primary Care Unavailable DEBO, JANI A Attending Unavailable DEBO, JANI A Primary Care Unavailable DEBO, JANI A Referring Unavailable DEBO, JANI A Primary Care Unavailable NINA SCHERER Attending Unavailable SELF Referring Unavailable DEBO, JANI A Primary Care Unavailable WISWELL, BETTY Attending Unavailable DEBO, JANI A Referring Unavailable DEBO, JANI A Primary Care Unavailable WISWELL, BETTY Referring Unavailable DEBO, JANI A Primary Care Unavailable DEBO, JANI A Primary Care Unavailable SARABJIT BROWN Attending Unavailable Debo, Jani Primary Care Unavailable Rocky Rodriguez Attending Unavailable Gilmer DEJESUS, Nina Referring Unavailable Debo, Jani Referring Unavailable Rocky Rodriguez Attending Unavailable Debo, Jani Primary Care Unavailable Debo, Jani Primary Care Unavailable Rocky Rodriguez Attending Unavailable Rocky Rodriguez Referring Unavailable Rafa Drew Attending Unavailable Debo, Jani Primary Care Unavailable Debo, Jani Primary Care Unavailable Flip Ramsey Attending Unavailable Jani Edmondson Primary Care Unavailable Rafa Drew Attending Unavailable Debo COTTON, Dr. Gunter Primary Care Physician 1( [phone] Dr. Rocky Rodriguez MD Attending Physician Viki BURT, Dr. Craig Attending Physician Dr. Rafa Drew DO Emergency Department Physic alma Dr. Piotr Hickman DO Emergency Department Physi roger Allergies Allergy Classification Reported Allergen(s) Allergy Type Date of Onset Reaction(s) Facility (1 source) acetaminophen / HYDROcodone; Translations: [facility]ic[facility] lisinopril; Translations: [lisinopril] Drug Allergy 12-17-19 14 Rash, Itching [facility] Repository (1 source) penicillin; [facility]ations: [facility] Acetaminophen / HYDROcodone; Translations: [HYDROCODONE-ACET AMINOPHEN] Drug Allergy 11-14-19 14 Rash [facility] (20 sources) Adhesive Tape; Translations: [ADHESIVE TAPE (ROSINS)] Propensity to adverse reactions to substance 11-14-19 14 Other: See Comments [facility] (20 sources) Codeine; Translations: [CODEINE] Drug Allergy 11-14-19 14 Other: See Comments [facility] (7 sources) Penicillins; Translations: [PENICILLINS] Drug Intolerance 11-14-19 14 Swelling [facility] (9 sources) HYDROcodone; Translations: [hydrocodone bitartrate] Drug Allergy 12-24-[address] [facility] (9 sources) cigarette smoke; Translations: [cigarette smoke] Allergy to substance 12-24-[address] [facility] (1 source) [place] Allergy to substance 12-24-[address] [facility] Work Phone: (1 source) roses Allergy to substance 12-24-[address] [facility] Work Phone: (1 source) paper tape Propensity to adverse reactions 12-24-19 22 [facility] Work Phone: (20 sources) Penicillins Drug Intolerance 11-14-19 14 Swelling [facility] (8 sources) Adhesive Tape; Translations: [adhesive tape] Propensity to adverse reactions 12-24-19 23 [facility] (7 sources) Penicillins Allergy to substance 12-24-[address] [facility] (8 sources) Environmental Allergies: Uncoded; Translations: [Environmental Allergies: Uncoded] Allergy to substance 12-24-[address] [facility] (7 sources) alex hips Allergy to substance 12-24-[address] [facility] Comment on above: ALLERGY SPECIFICALLY IS ROSES (18 sources) Penicillins Drug Intolerance 11-14-19 14 Swelling [facility] (1 source) Codeine Drug Allergy 06-01-[address] [facility] Repository (1 source) Penicillins Drug allergy (disorder) 06-01-[address] [facility] Repository (1 source) alex hips Drug allergy (disorder) 06-01-[address] [facility] Repository Medications Current Medications Medication Drug Class(es) Dates Sig (Normalized) Sig (Original) [id number] 200 actuat albuterol 0.09 mg/actuat metered dose inhaler (20 sources) beta2-Adrenergic Agonist Start: 12-09-2021 End: 03-08-2025 take 2 puff(s) by inhalation every four hours as needed for wheezing albuterol HFA (PROAIR HFA) 90 mcg/actuation inhaler Inhale 2 puffs as instructed every 4 hours as needed for wheezing/shortnes s of breath. 18 each 5 03/08/2025 Active Start: 01-17-2018 take 1 puff(s) by in halation every four hours as needed Albuterol Sulfate Active 1 PUFF INHALATION EVERY 4 HOURS NEEDED January 17, 2018 8:45pm Start: 01-17-2018 Albuterol Sulf ate 1 INHALER inhaler Active 1 NMA INHALATION EVERY 4 HOURS NEEDED as needed for Sob &/Or Wheezing January 17, 2018 12:00am Complies with drug therapy Start: 01-17-2018 Albuterol Sulf ate 1 INHALER inhaler Active 1 NMA INHALATION EVERY 4 HOURS NEEDED as needed for Sob &/Or Wheezing January 17, 2018 12:00am Start: 01-17-2018 take 1 puff(s) by in halation every four hours as needed Albuterol Sulfate Active 1 PUFF INHALATION EVERY 4 HOURS NEEDED January 16, 2018 11:00pm Start: 01-17-2018 take 1 puff(s) by in halation every four hours as needed Albuterol Sulfate Active 1 PUFF INHALATION EVERY 4 HOURS NEEDED January 17, 2018 12:00am Start: 09-05-2013 End: 11-11-2017 take 1 puff(s) by inhalation every six hours as needed Albuterol Sulfate Discontinued 1 - 2 PUFF INHALATION EVERY 6 HOURS NEEDED September 05, 2013 9:43pm November 11, 2017 7:04pm Start: 09-05-2013 End: 11-11-2017 Albuterol Sulfate 1 INHALER inhaler Discontinued 1 - 2 NMA INHALATION EVERY 6 HOURS NEEDED as needed for Wheezing 1 0 September 05, 2013 1:00am November 11, 2017 7:04pm Start: 09-05-2013 End: 11-11-2017 Albuterol Sulfate 1 INHALER inhaler Discontinued 1 - 2 NMA INHALATION EVERY 6 HOURS NEEDED as needed for Wheezing September 05, 2013 1:00am November 11, 2017 7:04pm Start: 09-05-2013 End: 11-11-2017 take 1 puff(s) by inhalation every six hours as needed Albuterol Sulfate Discontinued 1 - 2 PUFF INHALATION EVERY 6 HOURS NEEDED September 05, 2013 12:00am November 11, 2017 6:04pm Start: 09-05-2013 End: 11-11-2017 take 1 puff(s) by inhalation every six hours as needed Albuterol Sulfate Discontinued 1 - 2 PUFF INHALATION EVERY 6 HOURS NEEDED September 05, 2013 1:00am November 11, 2017 7:04pm Comment on above: Inhale 2 Puffs as in structed every 4 hours as needed for wheezing/shortness of breath. benzonatate 100 mg oral capsule (1 source) Non-narcotic Antitussive Start: End: take 1 capsule by mouth every eight hours as needed for cough benzonatate (TESSALON PERLE) 100 mg capsule Indications: Viral URI with cough Take 1 capsule by mouth every 8 hours as needed for cough for up to 15 days. 30 capsule 04/12/2025 04/27/2025 Active Berberine Chloride 500 mg capsule (3 sources) Start: take 2 capsules by mouth once daily Start: 06-01-2025 take 2 capsules by m outh once daily Berberine Chloride 500 mg capsule Active 1000 mg PO DAILY June 01, 2025 12:00am Blood Pressure Monitor (20 sources) Start: 06-07-2021 Blood Pressure Monitor Indications: Hypertension, essential 1 Each once daily. Use daily. 1 Each 06/07/2021 Active Start: 06-07-2021 Blood Pressure Monitor Indications: Hypertension, essential 1 Each once daily. Use daily. 1 Each 0 06/07/2021 Active Comment on above: 1 Each once daily. U se daily. Blood Pressure Test Kit-Small (3 sources) Start: 12-23-2022 Blood Pressure Test Kit-Small Active 0 .Route 1 December 22, 2022 11:00pm As directed Start: 12-23-2022 Blood Pressure Test Kit-Small Active 0 .Route 1 December 23, 2022 12:00am As directed Blood Pressure Test Kit-Smal l kit (4 sources) Start: 12-23-2022 Blood Pressure Test Kit-Small kit Active 0 .Route 1 0 December 23, 2022 12:00am As directed Start: 12-23-2022 Blood Pressure Test Kit-Small kit Active 0 .Route 1 December 23, 2022 12:00am As directed cetirizine hydrochloride 10 mg oral capsule (20 sources) Histamine-1 Receptor Antagonist Start: 08-25-2023 take 1 capsule by mouth once daily as needed Cetirizine (All Day Allergy (Cetirizine)) 10 mg capsule Active 10 mg PO DAILY as needed for allergy symptoms August 25, 2023 1:00am Complies with drug therapy Start: 12-26-2022 End: 01-07-2024 take 1 tablet by mouth once daily cetirizine (ZYRTEC) 10 mg tablet Indications: Seasonal allergies Take 1 tablet by mouth once daily. 30 tablet 11 01/07/2024 Active Comment on above: Take 10 mg by mouth once daily. Take 1 tablet by anand th once daily. cyclobenzaprine hydrochlorid e 10 mg oral tablet (20 sources) Muscle Relaxant Start: 03-08-2025 End: 06-29-2025 take 1 tablet by mouth at bedtime as needed for muscle spasms Start: 02-12-2025 End: 06-29-2025 take 1 tablet by mouth twice daily as needed for muscle spasms Cyclobenzaprine 10 mg tablet Discontinued 10 mg PO TWICE A DAY as needed for muscle spasm 20 0 February 12, 2025 3:21pm June 29, 2025 8:00pm Start: 07-22-2024 End: 10-21-2024 take 1 tablet by mouth three times daily as needed for muscle spasms cyclobenzaprine (FLEXERIL) 10 mg tablet Indications: Upper back strain, initial encounter Take 1 tablet by mouth three times a day as needed for muscle spasm for up to 12 doses. 12 tablet 07/22/2024 10/21/2024 Discontinued Start: 12-05-2023 End: 09-14-2024 cyclobenzaprine (FLEXERIL) 1 0 mg tablet Take 1/2 - 1 tablet every 8 hours as needed for spasm 10 tablet 12/05/2023 09/14/2024 Discontinued (Course of therapy completed) Start: 08-28-2023 End: 12-05-2023 take 1 tablet by mouth every eight hours as needed cyclobenzaprine (FLEXERIL) 10 mg tablet Take 1 tablet by mouth three times a day as needed for muscle spasm. 15 tablet 0 08/28/2023 12/05/2023 Discontinued (Course of therapy completed) Comment on above: Take 1 tablet by anand three times a day as needed for muscle spasm. Take 1/2 - 1 tablet every 8 hours as needed for spasm Take 1/2 - 1 tablet as needed for spasm doxycycline monohydrate 100 mg oral tablet (2 sources) Tetracycline-class Drug Start: 2 End: 2 take 1 tablet by mouth twice daily doxycycline monohydrate 100 mg tablet Take 1 tablet by mouth twice daily for 5 days. 10 tablet 0 04/12/2022 04/17/2022 Active Comment on above: Take 1 tablet by anand th twice daily for 5 days. [id number] 0.3 ml EPINEPHrine 1 mg/ml auto-injector (20 sources) alpha-Adrenergic Agonist, beta-Adrenergic Agonist, Catecholamine Start: 4 EPINEPHrine (EPIPEN) 0.3 mg/0.3 mL auto-injector Inject once with onset of shortness of breath or throat swelling due to allergic reaction 2 Each 1 09/14/2024 Active fluticasone propionate 0.05 mg/actuat metered dose nasal spray (20 sources) Corticosteroid Start: 3 End: 5 take 2 spray(s) by mouth once daily fluticasone (FLONASE) 50 mcg/actuation nasal spray Indications: Seasonal allergies Use 2 sprays in each nostril once daily. Rinse mouth after use. 16 mL 11 02/02/2025 Active Start: 11-30-2013 End: 11-11-2017 Fluticasone Propionate 1 SPR AY spray,suspension Discontinued 1 NMA NASAL TWICE A DAY as needed for Wheezing November 30, 2013 1:00am November 11, 2017 7:05pm Start: 11-30-2013 End: 11-11-2017 Fluticasone Propionate Disco ntinued 1 SPRAY NASAL TWICE A DAY November 30, 2013 1:00am November 11, 2017 7:05pm End: 12-26-2022 fluticasone propionate (FLON ASE NASAL) Use in the nose. 0 12/26/2022 Discontinued fluticasone prop ionate (FLONASE NASAL) Use in the nose. 0 Active Comment on above: Use in the nose. Use 2 Sprays in each nostril once daily. Rinse mouth after use. ibuprofen 600 mg oral tablet (12 sources) Nonsteroidal Anti-inflammatory Drug Start: 11-29-2024 take 1 tablet by mouth every eight hours as needed for pain Ibuprofen 600 mg tablet Active 600 mg PO EVERY 8 HOURS NEEDED as needed for fever or pain 20 0 November 29, 2024 1:00am Complies with drug therapy Start: 12-29-2016 End: 06-08-2017 take 1 tablet by mouth three times daily as needed for pain Ibuprofen (Motrin) 800 MG tablet Discontinued 800 mg PO 3 TIMES DAILY NEEDED as needed for Pain December 29, 2016 12:00am June 08, 2017 6:28pm immuneti (8 sources) Start: 06-20-2020 immuneti Activ e PO June 20, 2020 3:14pm OTC supplement Start: 06-20-2020 End: 06-01-2025 immuneti Discontinued PO 0 S eptember 2019 12:00am June 01, 2025 8:18am OTC supplement Start: 06-20-2020 immuneti Activ e PO June 19, 2020 11:00pm OTC supplement Start: 06-20-2020 immuneti Activ e PO June 20, 2020 12:00am OTC supplement methocarbamol 500 mg oral tablet (1 source) Muscle Relaxant Start: 02-03-2023 End: 02-06-2023 take 1 tablet by mouth every six hours as needed methocarbamol (ROBAXIN) 500 mg tablet Take 1 tablet by mouth every 6 hours as needed (Pain) for up to 3 days. 12 tablet 0 02/03/2023 02/06/2023 Active Comment on above: Take 1 tablet by anand th every 6 hours as needed (Pain) for up to 3 days. methylPREDNISolone (2 sources) Corticosteroid Start: 12-05-2023 End: 12-11-2023 methylPREDNISolone (MEDROL, EVARISTO,) 4 mg Dose-Pack Follow dosing instructions, take with food. 21 tablet 0 12/05/2023 12/11/2023 Active Comment on above: Follow dosing instru ctions, take with food. mupirocin 20 mg/ml topical cream (2 sources) RNA Synthetase Inhibitor Antibacterial Start: 04-12-2022 End: 04-22-2022 mupirocin (BACTROBAN) 2 % cream Apply 1 application to affected area three times daily for 10 days. Location: outer portion of the right upper lip 30 g 0 04/12/2022 04/22/2022 Active Comment on above: Apply 1 application to affected area three times daily for 10 days. Location: outer portion of the right upper lip nitrofurantoin, macrocrystals 25 mg / nitrofurantoin, monohydrate 75 mg oral capsule (1 source) Nitrofuran Antibacterial Start: 08-12-2023 End: 08-19-2023 take 1 capsule by mouth twice daily at mealtime nitrofurantoin monohydrate and macrocrystal (MACROBID) 100 mg capsule Take 1 capsule by mouth two times a day with meals for 7 days. 14 capsule 0 08/12/2023 08/19/2023 Active Comment on above: Take 1 capsule by mo [facility] two times a day with meals for 7 days. omeprazole 40 mg delayed release oral capsule (20 sources) Proton Pump Inhibitor Start: 12-23-2021 Omeprazole 40 mg capsule,delayed release(DR/EC) Active NMA PO December 23, 2021 12:00am Start: 10-01-2021 End: 03-08-2025 Comment on above: Take 1 capsule by [facility] daily before breakfast. 1/2 hr before meal. predniSONE 20 mg oral tablet (4 sources) Start: 04-12-2025 End: 04-17-2025 take 1 tablet by mouth once daily predniSONE (DELTASONE) 20 mg tablet Indications: Asthma with acute exacerbation, unspecified asthma severity, unspecified whether persistent (HCC) Take 1 tablet by mouth once daily for 5 days. 5 tablet 04/12/2025 04/17/2025 Active Start: 07-22-2024 End: 07-27-2024 take 1 tablet by mouth once daily predniSONE (DELTASONE) 50 mg Indications: Upper back strain, initial encounter Take 1 tablet by mouth once daily for 5 days. 5 tablet 07/22/2024 07/27/2024 Active Start: 08-28-2023 End: 09-02-2023 take 2 tablets by mouth once daily predniSONE (DELTASONE) 20 mg tablet Take 2 tablets by mouth once daily for 5 days. 10 tablet 0 08/28/2023 09/02/2023 Active Start: 02-03-2023 End: 02-08-2023 take 3 tablets by mouth once daily predniSONE (DELTASONE) 10 mg tablet Take 3 tablets by mouth once daily for 5 days. 15 tablet 0 02/03/2023 02/08/2023 Active Comment on above: Take 3 tablets by [facility] once daily for 5 days. Take 2 tablets by [facility] once daily for 5 days. valsartan 80 mg oral tablet (20 sources) Angiotensin 2 Receptor Alonso Start: 09-14-2024 End: 03-08-2025 take 1 tablet by mouth once daily Valsartan 80 mg tablet Active 80 mg PO daily September 15, 2024 1:00am Complies with drug therapy Completed/Discontinued Medications Medication Drug Class(es) Dates Sig (Normalized) Sig (Original) acetaminophen 325 mg / oxyCODONE hydrochloride 5 mg oral tablet (12 sources) Opioid Agonist Start: 11-29-2024 End: 06-01-2025 Oxycodone-Acetamino phen 5-325 mg tablet Discontinued 1 {tbl} PO EVERY 6 HOURS NEEDED as needed for Pain 12 3 0 November 29, 2024 June 01, 2025 8:18am Dental abscess Periapical abscess without sinus Start: 01-17-2018 End: 06-20-2020 Oxycodone-Acetaminophen 1 TA BLET tablet Discontinued 1 {tbl} PO EVERY 6 HOURS NEEDED as needed for Pain 20 5 0 January 17, 2018 12:00am June 20, 2020 3:04pm Fracture of right wrist Start: 01-17-2018 End: 06-20-2020 take 1 tablet by mouth every six hours as needed Oxycodone-Acetaminophen Discontinued 1 TABLET PO EVERY 6 HOURS NEEDED 20 5 January 17, 2018 12:00am June 20, 2020 3:04pm ciprofloxacin 500 mg oral tablet (8 sources) Quinolone Antimicrobial Start: 09-25-2017 End: 11-11-2017 take 1 tablet by mouth twice daily Ciprofloxacin Hcl 500 MG tablet Discontinued 500 mg PO TWICE A DAY 20 0 September 25, 2017 1:00am November 11, 2017 7:04pm Diverticulitis clindamycin 300 mg oral capsule (13 sources) Lincosamide Antibacterial Start: 11-29-2024 End: 06-01-2025 take 1 capsule by mouth every six hours Clindamycin Hcl (Cleocin Hcl) 300 mg capsule Discontinued 300 mg PO EVERY 6 HOURS 40 0 November 29, 2024 1:00am June 01, 2025 8:17am Start: 07-22-2024 End: 07-29-2024 take 1 capsule by mouth four times daily clindamycin (CLEOCIN) 300 mg capsule Indications: Pain, dental Take 1 capsule by mouth four times daily for 7 days. 28 capsule 07/22/2024 07/29/2024 Active Start: 05-03-2018 End: 06-20-2020 take 2 capsules by mouth three times daily Clindamycin Hcl 150 MG capsule Discontinued 300 mg PO THREE TIMES A DAY 42 0 May 03, 2018 12:00am June 20, 2020 3:15pm Start: 05-03-2018 End: 06-20-2020 take 300 mg by mouth three times daily Clindamycin Hcl Discontinued 300 MG PO THREE TIMES A DAY 42 May 03, 2018 12:00am June 20, 2020 3:15pm empagliflozin 25 mg oral tablet (20 sources) Sodium-Glucose Cotransporter 2 Inhibitor Start: 12-25-2023 End: 06-01-2025 take 1 tablet by mouth once daily Empagliflozin (Jardiance) 25 mg tablet Discontinued 25 mg PO DAILY 90 1 December 12, 2024 7:52am June 01, 2025 8:32am Comment on above: Take 1 tablet by anand th once daily. Take 1 tablet once daily in the morning. Per Dr. Rodriguez (for CKD) HERBAL DRUGS ORAL (20 sources) End: 07-22-2024 take 2 capsules by mouth once daily in the morning HERBAL DRUGS ORAL Take 2 capsules by mouth every morning. Immuneti 07/22/2024 Discontinued (Other) End: 07-07-2023 take 2 capsules by mouth once daily at bedtime HERBAL DRUGS ORAL Take 2 capsules by mouth daily at bedtime. Tumeric 800mg 0 07/07/2023 Discontinued take 2 capsules by m outh once daily at bedtime HERBAL DRUGS ORAL Take 2 capsules by mouth daily at bedtime. Tumeric 800mg 0 Active take 2 capsules by m outh once daily in the morning HERBAL DRUGS ORAL Take 2 capsules by mouth every morning. Immuneti 0 Active Comment on above: Take 2 capsules by m outh daily at bedtime. Tumeric 800mg Take 2 capsules by m outh every morning. Immuneti hydroCHLOROthiazide 12.5 mg oral capsule (8 sources) Thiazide Diuretic Start: 2013 End: 2016 take 1 capsule by mouth once daily Hydrochlorothiazide 12.5 MG capsule Discontinued 12.5 mg PO DAILY November 30, 2013 1:00am June 08, 2017 6:28pm levothyroxine sodium 0.088 mg oral tablet (20 sources) l-Thyroxine Start: 2019 End: 2023 take 1 tablet by mouth once daily Levothyroxine 88 mcg tablet Discontinued 88 ug PO DAILY 90 November 27, 2021 9:09am June 23, 2022 8:30am see correction of dose Start: 01-17-2018 End: 06-25-2020 Levothyroxine 88 mcg tablet Discontinued 100 ug PO DAILY 90 2 June 22, 2020 7:54am June 25, 2020 8:32am Start: 01-17-2018 End: 06-25-2020 take 100 ug by mouth once daily Levothyroxine Disconti nued 100 MCG PO DAILY 90 June 22, 2020 7:54am June 25, 2020 8:32am Start: 11-02-2014 End: 01-17-2018 take 1 tablet by mouth once daily Levothyroxine 88 MCG tablet Discontinued 88 ug PO DAILY 30 0 June 08, 2017 12:00am January 17, 2018 8:46pm End: 06-24-2022 take 1 tablet by mouth once daily before breakfast levothyroxine (SYNTHROID) 100 mcg tablet Take 100 mcg by mouth daily before breakfast. 0 06/24/2022 Discontinued (Adjust Sig - Block E-Cancel) Comment on above: Take 100 mcg by mout h daily before breakfast. Take 1 tablet by anand th daily before breakfast. Per endo: Dr. Rodriguez lidocaine 0.05 mg/mg medicated patch (3 sources) Antiarrhythmic, Amide Local Anesthetic Start: 06-01-2025 End: 06-29-2025 Lidocaine 5 % adhesive patch,medicated Discontinued 1 NMA TOPICAL DAILY 15 7 0 June 01, 2025 12:00am June 29, 2025 8:00pm leave on most painful area for up to 12 hrs Start: 03-28-2025 End: 03-28-2025 OTHER, NEEDED, Starting o n Thu03/28/25 at 0911, Until Thu03/28/25 at 0911, Intraprocedure liothyronine sodium 0.005 mg oral tablet (20 sources) l-Triiodothyronine Start: 11-02-2014 End: 06-22-2020 take 1 tablet by mouth once daily Liothyronine 5 MCG tablet Discontinued 15 ug PO DAILY 30 0 June 08, 2017 6:56pm November 11, 2017 7:05pm Start: 11-02-2014 End: 11-11-2017 take 15 ug by mouth once daily Liothyronine Discontinu ed 15 MCG PO DAILY June 08, 2017 6:56pm November 11, 2017 7:05pm magnesium oxide 400 mg oral capsule (3 sources) Start: 06-01-2025 End: 06-29-2025 take 1 capsule by mouth once daily Magnesium Oxide 400 mg magnesium capsule Discontinued 400 mg PO daily June 01, 2025 12:00am June 29, 2025 8:00pm 24 hr metoprolol succinate 25 mg extended release oral tablet (20 sources) beta-Adrenergic Alonso Start: 06-08-2017 End: 09-15-2024 take 1 tablet by mouth once daily Metoprolol Succinate 25 mg tablet extended release 24 hr Discontinued 25 mg PO DAILY 90 July 25, 2024 8:02am September 15, 2024 9:43am Comment on above: Take 1 tablet by anand once daily. metroNIDAZOLE 500 mg oral tablet (8 sources) Nitroimidazole Antimicrobial Start: 09-25-2017 End: 11-11-2017 take 1 tablet by mouth every eight hours Metronidazole 500 MG tablet Discontinued 500 mg PO Q8H September 25, 2017 1:00am November 11, 2017 7:05pm Diverticulitis naproxen 500 mg oral tablet (8 sources) Nonsteroidal Anti-inflammatory Drug Start: 05-03-2018 End: 06-20-2020 take 1 tablet by mouth twice daily as needed Naproxen 500 MG tablet Discontinued 500 mg PO TWICE DAILY NEEDED May 03, 2018 12:00am June 20, 2020 3:04pm ondansetron 4 mg disintegrating oral tablet (4 sources) Serotonin-3 Receptor Antagonist Start: 02-12-2025 End: 06-29-2025 take 1 tablet by mouth every six hours as needed for nausea and vomiting Ondansetron 4 mg tablet,disintegrat ing Discontinued 4 mg PO EVERY 6 HOURS as needed for nausea and vomiting February 12, 2025 12:00am June 29, 2025 8:00pm microencapsulated potassium chloride 20 meq extended release oral tablet (8 sources) Start: 08-25-2016 End: 06-08-2017 Potassium Chloride (Klor-Con M20) 20 MEQ tablet Discontinued 20 meq PO DAILY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 information about you: Temperature Pulse Respiration Blood pressure 99.4 degrees 95/minute 16/minute 128/78 Weight 84 kg Sarabjit Brown MD 04/12/2025 12:07 PM Signed [facility] Subjective Fany Marrero is a 59 year old female. Patient presents with: Cough: Cough, chest congestion, ST and bodyaches x 2 days Patient presents with about 5 days of congestion. She has felt sick for the last 3 days. Symptoms include headache, sinus pressure, ear pressure, sore throat, chest tightness, cough, mild shortness of breath and wheezing, body aches, fatigue, malaise, feeling hot and chilled. Denies vomiting or diarrhea. She has been using cold medicine, Tylenol, and albuterol inhaler for symptoms. Cough Review of Systems Respiratory: Positive for cough. Objective BP 128/78 Pulse 95 Temp 37.4 ?C (99.4 ?F) (Tympanic) Resp 16 Wt 84 kg (185 lb 3 oz) SpO2 99% BMI 32.29 kg/m? Physical Exam Constitutional: General: She is not in acute distress. HENT: Right Ear: Tympanic membrane and ear canal normal. Left Ear: Tympanic membrane and ear canal normal. Nose: Congestion present. Right Sinus: No maxillary sinus tenderness or frontal sinus tenderness. Left Sinus: No maxillary sinus tenderness or frontal sinus tenderness. Mouth/Throat: Mouth: Mucous membranes are moist. Pharynx: Posterior oropharyngeal erythema present. No oropharyngeal exudate. Eyes: Extraocular Movements: Extraocular movements intact. Conjunctiva/sclera: Conjunctivae normal. Pupils: Pupils are equal, round, and reactive to light. Cardiovascular: Rate and Rhythm: Normal rate and regular rhythm. Heart sounds: No murmur heard. Pulmonary: Effort: No respiratory distress. Breath sounds: No wheezing, rhonchi or rales. Comments: Deep breaths induce cough Musculoskeletal: Cervical back: Neck supple. Lymphadenopathy: Cervical: No cervical adenopathy. Neurological: Mental Status: She is alert. Latest Ref Rng 03/08/2025 Hemoglobin A1C 4.3 - 5.6 % 5.7 (H) {ASSESSMENT/PLAN: 1. Viral URI with cough - ICD9: 465.9, ICD10: J06.9 (primary diagnosis) - suspect viral URI, Differential includes COVID. - Supportive care treatment with rest, cold medicine, and analgesia. - Viral URI contagiousness recommendations: avoid exposure to others until fever free for 24 hours without fever reducing medication. An additional 5 days of limiting contact can include covering coughs/masking, social distance, and hand hygiene. - BENZONATATE 100 MG CAPSULE requested Defers viral testing. 2. Asthma with acute exacerbation, unspecified asthma severity, unspecified whether persistent ([facility]) - ICD9: 493.92, ICD10: J45.901 - PREDNISONE 20 MG TABLET burst. Low dose to reduce hyperglycemia effect. Albuterol inhaler with refills prescribed in February. Sarabjit Brown MD History and Record Review Systemic symptoms present included: Body aches, chills, fatigue. Differential Diagnoses - Viral URI is more likely for the following reason(s): suggested by HANDP - Asthma with mild exacerbation is more likely for the following reason(s): suggested by HANDP - Pneumonia is less likely for the following reason(s): Normal lung exam and vitals - Bacterial sinusitis is less likely for the following reason(s): HANDP not suggestive - Seasonal allergies without viral infection is less likely for the following reason(s): Systemic symptoms Procedures Allergies As of Date: 04/12/2025 Noted Allergy Reaction LISINOPRIL 12/16/2013 2 - Rash 9 - Itching CODEINE 11/14/2013 14 - Other: See Comments Comments: Strong family reaction to this medication PENICILLINS 11/14/2013 7 - Swelling TAPE (ADHESIVE TAPE (ROSINS)) 11/14/2013 14 - Other: See Comments Comments: Blistering and skin tears VICODIN (HYDROCODONE-ACETAMINOP HE*11/14/2013 2 - Rash Date Reviewed: 04/12/2025 Reviewed by: Fany Ruth LPN - Fully Assessed Reason for Visit: Cough [28] Cmt: Cough, chest congestion, ST and bodyaches x 2 days Primary Visit Diagnosis:Viral URI with cough [J06.9] Other Visit Diagnosis:Asthma with acute exacerbation, unspecified asthma severity, unspecified whether persistent ([facility]) [J45.901] Order(s):benzonatate (TESSALON PERLE) 100 mg capsuleTake 1 capsule by mouth every 8 hours as needed for cough for up to 15 days.Disp: 30 capsuleRfl: 0 predniSONE (DELTASONE) 20 mg tabletTake 1 tablet by mouth once daily for 5 days.Disp: 5 tabletRfl: 0 Prescriptions as of 04/12/2025 - benzonatate (TESSALON PERLE) 100 mg capsule Take 1 capsule by mouth every 8 hours as needed for cough for up to 15 days. - predniSONE (DELTASONE) 20 mg tablet Take 1 tablet by mouth o (more content not included)... [facility] ([id number]) 1965 F Date Time Provider Department 04/10/25 LIGIA BLACKMON RADMN During your visit today, we recorded the following information about you: Ligia Blackmon, RN 04/10/2025 7:49 AM Signed Called patient to notify the breast pathology results are benign per Dr. Zhu. Informed patient a 6 month follow up is recommended. Patient verbalized understanding. Allergies As of Date: 04/10/2025 Noted Allergy Reaction LISINOPRIL 12/16/2013 2 - Rash 9 - Itching CODEINE 11/14/2013 14 - Other: See Comments Comments: Strong family reaction to this medication PENICILLINS 11/14/2013 7 - Swelling TAPE (ADHESIVE TAPE (ROSINS)) 11/14/2013 14 - Other: See Comments Comments: Blistering and skin tears VICODIN (HYDROCODONE-ACETAMINOP HE*11/14/2013 2 - Rash Date Reviewed: 03/28/2025 Reviewed by: Shelly Melchor RT(R) - Fully Assessed Reason for Visit: Results [95] Prescriptions as of 04/10/2025 - valsartan (DIOVAN) 80 mg tablet Take 1 tablet by mouth once daily. - omeprazole (PRILOSEC) 40 mg capsule Take 1 capsule by mouth daily before breakfast. 1/2 hr before meal. - albuterol HFA (PROAIR HFA) 90 mcg/actuation inhaler Inhale 2 puffs as instructed every 4 hours as needed for wheezing/shortness of breath. - cyclobenzaprine (FLEXERIL) 10 mg tablet Take 1 tablet by mouth at bedtime as needed. - fluticasone (FLONASE) 50 mcg/actuation nasal spray Use 2 sprays in each nostril once daily. Rinse mouth after use. - EPINEPHrine (EPIPEN) 0.3 mg/0.3 mL auto-injector Inject once with onset of shortness of breath or throat swelling due to allergic reaction - cetirizine (ZYRTEC) 10 mg tablet Take 1 tablet by mouth once daily. - empagliflozin (JARDIANCE) 25 mg tablet Take 1 tablet by mouth once daily. Take 1 tablet once daily in the morning. Per Dr. Rodriguez (for CKD) - levothyroxine (SYNTHROID) 88 mcg tablet Take 1 tablet by mouth daily before breakfast. Per endo: Dr. Rodriguez - Blood Pressure Monitor 1 Each once daily. Use daily. Problem List As Of Date 04/10/2025 Noted Resolved Hypertension, essential [I10] 05/09/2021 GERD without esophagitis [K21.9] 05/09/2021 Hypothyroidism, acquired [E03.9] 05/09/2021 Fatty liver [K76.0] 05/09/2021 Encounter for routine gynecological examination*05/09/2021 Screening for colon cancer [Z12.11] 06/07/2021 07/29/2021 Pharyngoesophageal dysphagia [R13.14] 07/29/2021 Medication management [Z79.899] 12/09/2021 Seasonal allergies [J30.2] 12/09/2021 Asthma due to seasonal allergies [J45.909] 12/09/2021 History of shingles [Z86.19] 06/24/2022 Well adult exam [Z00.00] 06/24/2022 Stage 3a chronic kidney disease (HCC) [N18.31] 12/26/2022 Neck pain [M54.2] 07/07/2023 AK (actinic keratosis) [L57.0] 07/07/2023 Large breasts [N62] 07/07/2023 Encounter for screening for diabetes mellitus [*07/07/2023 Elevated hemoglobin A1c [R73.09] 08/11/2023 Obesity, Class I, BMI 30-34.9 [E66.811] 09/14/2024 Encounter Status:Closed by LIGIA BLACKMON on 04/10/25 Normal [facility] DIAGNOSTIC RTon 03-28-20 [facility] DIAGNOSTIC RT * * *Final Report* * * * * * SEE BOTTOM OF REPORT FOR ADDENDED TEXT * * * DATE OF EXAM: Mar 28 2025 9:45AM AAW 0626 - [facility] DIAGNOSTIC RT / PROCEDURE REASON: Abnormal mammogram * * * * Physician Interpretation * * * * [address] [place] [id number] - - - - - - - - - - ADDENDED REPORT - - - - - - - - - - 04/10/2025 at 07:44:00 Addendum: FINAL DIAGNOSIS A. Right breast, core biopsy at 10:00 2 cm from the nipple (coil clip): - Benign breast tissue with fragments of apocrine cyst wall. B. Right breast, core biopsy at 11:00 1 cm from the nipple (butterfly clip): - Benign breast tissue with focal sclerosis, focal mild usual ductal hyperplasia, and microcysts. These findings are benign and concordant with imaging findings. Recommend 6 month follow up mammogram and ultrasound of the biopsied areas, as well as the 1:00 probably benign breast mass seen on diagnostic imaging from 03/08/25. The patient will receive her biopsy results and follow up recommendations via a phone call from our facility. - - - - - - - - - - ORIGINAL REPORT - - - - - - - - - - #[id number] - [facility] US BIOPSY BREAST RT #[id number] - [facility] US BIOPSY BREAST ADDL RT #[id number] - [facility] DIAGNOSTIC RT HISTORY: 59 year old patient presents for ultrasound guided core biopsy of the following: Site 1: Mass located in the right breast at 11 o'clock, 1 cm from the nipple Site 2: Mass located in the right breast at 10 o'clock, 10 cm from the nipple PATIENT CONSENT: A time out was performed immediately prior to procedure start with the radiology team, correctly identifying the patient name, date of , procedure, anatomy (including marking of site and side), patient position, relevant diagnostic and radiology test results, safety precautions, and procedure-specific equipment needs. The procedure, along with the risks (including, but not limited to, infection and bleeding), benefits, and alternatives, was explained to the patient by the performing physician. The patient agreed to undergo the procedure. Medications and allergies were also reviewed. The radiologist and technologist were present throughout the entire procedure. Correlation is made to exams dated: 11/16/2018 (mammogram), 08/09/2021 (mammogram), 01/25/2025 (mammogram), 03/08/2025 (ultrasound) and 03/08/2025 (mammogram). Site 1: Mass in the right breast at 11 o'clock, 1 cm from the nipple Audible Time Out Time: 850 Procedure Start Time: 856 Procedure Stop Time: 907 An ultrasound-guided biopsy using real-time ultrasound was performed for the concerning mass located in the right breast at 11 o'clock, 1 cm from the nipple. This was described on the previous ultrasound report. The skin was prepped in the usual manner. Local anesthetic was administered. A skin maranda was made. The abnormality was approached from the lateral aspect. A 14 gauge biopsy needle was placed adjacent to the abnormality under ultrasound guidance. Once the needle was documented to be in the correct location, 6 samples were obtained using a spring-loaded biopsy device. A hydromark butterfly biopsy marker was then placed under sonographic guidance. A skin closure strip and a sterile dressing were applied to the access site. The specimen was sent to the laboratory for pathological analysis. Post-procedure mammogram: The hydromark butterfly biopsy marker is in appropriate position at the mass. Site 2: Mass in the right breast at 10 o'clock, 10 cm from the nipple Audible Time Out Time: 850 Procedure Start Time: 910 Procedure Stop Time: 914 An ultrasound-guided biopsy using real-time ultrasound was performed for the mass located in the right breast at 10 o'clock, 10 cm from the nipple. This was described on the previous ultrasound report. The skin was prepped in the usual manner. Local anesthetic was administered to the access site. A skin maranda was made. The abnormality was approached from the lateral aspect. A 14 gauge biopsy needle was placed adjacent to the abnormality under ultrasound guidance. Once the needle was documented to be in the correct location, 3 samples were obtained using a spring-loaded biopsy device. A coil biopsy marker was then placed under sonographic guidance. A skin closure strip and a sterile dressing were applied to the access site. The specimen was sent to the laboratory for pathological analysis. Post-procedure mammogram: The coil biopsy marker is in appropriate position at the mass. Post-procedure mammogram density: The breasts are heterogeneously dense, which may obscure small masses. IMPRESSION: ULTRASOUND GUIDED BIOPSY Site 1: Ultrasound-guided biopsy of the mass located in the right breast at 11 o'clock, 1 cm from the nipple with placement of a hydromark butterfly biopsy marker. Procedure was successful. Waiting for path (more content not included)... Normal [facility] US BIOPSY BREAST ADDL LE S RTon 03-28-2025 * * *Final Report* * * DATE OF EXAM: Mar 28 2025 9:31AM AAW 0614 - [facility] US BIOPSY BREAST ADDL RT / PROCEDURE REASON: Abnormal mammogram * * * * Physician Interpretation * * * * [facility] [address] [facility] [place] [place] [address] #[id number] - [facility] US BIOPSY BREAST RT #[id number] - [facility] US BIOPSY BREAST ADDL RT #[id number] - [facility] DIAGNOSTIC RT HISTORY: 59 year old patient presents for ultrasound guided core biopsy of the following: Site 1: Mass located in the right breast at 11 o'clock, 1 cm from the nipple Site 2: Mass located in the right breast at 10 o'clock, 10 cm from the nipple PATIENT CONSENT: A time out was performed immediately prior to procedure start with the radiology team, correctly identifying the patient name, date of , procedure, anatomy (including marking of site and side), patient position, relevant diagnostic and radiology test results, safety precautions, and procedure-specific equipment needs. The procedure, along with the risks (including, but not limited to, infection and bleeding), benefits, and alternatives, was explained to the patient by the performing physician. The patient agreed to undergo the procedure. Medications and allergies were also reviewed. The radiologist and technologist were present throughout the entire procedure. Correlation is made to exams dated: 11/16/2018 (mammogram), 08/09/2021 (mammogram), 01/25/2025 (mammogram), 03/08/2025 (ultrasound) and 03/08/2025 (mammogram). Site 1: Mass in the right breast at 11 o'clock, 1 cm from the nipple Audible Time Out Time: 850 Procedure Start Time: 856 Procedure Stop Time: 907 An ultrasound-guided biopsy using real-time ultrasound was performed for the concerning mass located in the right breast at 11 o'clock, 1 cm from the nipple. This was described on the previous ultrasound report. The skin was prepped in the usual manner. Local anesthetic was administered. A skin maranda was made. The abnormality was approached from the lateral aspect. A 14 gauge biopsy needle was placed adjacent to the abnormality under ultrasound guidance. Once the needle was documented to be in the correct location, 6 samples were obtained using a spring-loaded biopsy device. A hydromark butterfly biopsy marker was then placed under sonographic guidance. A skin closure strip and a sterile dressing were applied to the access site. The specimen was sent to the laboratory for pathological analysis. Post-procedure mammogram: The hydromark butterfly biopsy marker is in appropriate position at the mass. Site 2: Mass in the right breast at 10 o'clock, 10 cm from the nipple Audible Time Out Time: 850 Procedure Start Time: 910 Procedure Stop Time: 914 An ultrasound-guided biopsy using real-time ultrasound was performed for the mass located in the right breast at 10 o'clock, 10 cm from the nipple. This was described on the previous ultrasound report. The skin was prepped in the usual manner. Local anesthetic was administered to the access site. A skin maranda was made. The abnormality was approached from the lateral aspect. A 14 gauge biopsy needle was placed adjacent to the abnormality under ultrasound guidance. Once the needle was documented to be in the correct location, 3 samples were obtained using a spring-loaded biopsy device. A coil biopsy marker was then placed under sonographic guidance. A skin closure strip and a sterile dressing were applied to the access site. The specimen was sent to the laboratory for pathological analysis. Post-procedure mammogram: The coil biopsy marker is in appropriate position at the mass. Post-procedure mammogram density: The breasts are heterogeneously dense, which may obscure small masses. [facility] Provider, Sarmad Mustafa [facility] - 03/28/2025 * * *Final Report* * * DATE OF EXAM: Mar 28 2025 9:31AM AAW 0614 - [facility] US BIOPSY BREAST ADDL RT / PROCEDURE REASON: Abnormal mammogram * * * * Physician Interpretation * * * * [facility]. [place] [id number] #[id number] - [facility] US BIOPSY BREAST RT #[id number] - [facility] US BIOPSY BREAST ADDL RT #[id number] - [facility] DIAGNOSTIC RT HISTORY: 59 year old patient presents for ultrasound guided core biopsy of the following: Site 1: Mass located in the right breast at 11 o'clock, 1 cm from the nipple Site 2: Mass located in the right breast at 10 o'clock, 10 cm from the nipple PATIENT CONSENT: A time out was performed immediately prior to procedure start with the radiology team, correctly identifying the patient name, date of , procedure, anatomy (including marking of site and side), patient position, relevant diagnostic and radiology test results, safety precautions, and procedure-specific equipment needs. The procedure, along with the risks (including, but not limited to, infection and bleeding), benefits, and alternatives, was explained to the patient by the performing physician. The patient agreed to undergo the procedure. Medications and allergies were also reviewed. The radiologist and technologist were present throughout the entire procedure. Correlation is made to exams dated: 11/16/2018 (mammogram), 08/09/2021 (mammogram), 01/25/2025 (mammogram), 03/08/2025 (ultrasound) and 03/08/2025 (mammogram). Site 1: Mass in the right breast at 11 o'clock, 1 cm from the nipple Audible Time Out Time: 0851 Procedure Start Time: 08 Procedure Stop Time: 0908 An ultrasound-guided biopsy using real-time ultrasound was performed for the concerning mass located in the right breast at 11 o'clock, 1 cm from the nipple. This was described on the previous ultrasound report. The skin was prepped in the usual manner. Local anesthetic was administered. A skin maranda was made. The abnormality was approached from the lateral aspect. A 14 gauge biopsy needle was placed adjacent to the abnormality under ultrasound guidance. Once the needle was documented to be in the correct location, 6 samples were obtained using a spring-loaded biopsy device. A hydromark butterfly biopsy marker was then placed under sonographic guidance. A skin closure strip and a sterile dressing were applied to the access site. The specimen was sent to the laboratory for pathological analysis. Post-procedure mammogram: The hydromark butterfly biopsy marker is in appropriate position at the mass. Site 2: Mass in the right breast at 10 o'clock, 10 cm from the nipple Audible Time Out Time: 0851 Procedure Start Time: 910 Procedure Stop Time: 0915 An ultrasound-guided biopsy using real-time ultrasound was performed for the mass located in the right breast at 10 o'clock, 10 cm from the nipple. This was described on the previous ultrasound report. The skin was prepped in the usual manner. Local anesthetic was administered to the access site. A skin maranda was made. The abnormality was approached from the lateral aspect. A 14 gauge biopsy needle was placed adjacent to the abnormality under ultrasound guidance. Once the needle was documented to be in the correct location, 3 samples were obtained using a spring-loaded biopsy device. A coil biopsy marker was then placed under sonographic guidance. A skin closure strip and a sterile dressing were applied to the access site. The specimen was sent to the laboratory for pathological analysis. Post-procedure mammogram: The coil biopsy marker is in appropriate position at the mass. Post-procedure mammogram density: The breasts are heterogeneously dense, which may obscure small masses. IMPRESSION IMPRESSION: ULTRASOUND GUIDED BIOPSY Site 1: Ultrasound-guided biopsy of the mass located in the right breast at 11 o'clock, 1 cm from the nipple with placement of a hydromark butterfly biopsy marker. Procedure was successful. Waiting for pathology result. An amendment will be issued to this report when pathology results become available. The hydromark butterfly biopsy marker is in appropriate position at the mass. Site 2: Ultrasound-guided biopsy of the mass located in the right breast at 10 o'clock, 10 cm from the nipple with placement of a coil biopsy marker. Procedure was successful. Waiting for pathology result. An amendment will be issued to this report when pathology results become available. The coil biopsy marker is in appropriate position at the mass. Interpreting Radiologist: Alma Zhu M.D. Electronically signed on: 03/28/2025 Office Employee: [employer] Transcribe Date/Time: Mar 28 2025 8:24A Dictated by : ALMA ZHU MD (more content not included)... [facility] Radiology Study observation (narrative) Kee henriquez [facility] US BIOPSY BREAST ADDL RT on 03-28-2025 [facility] US BIOPSY BREAST ADDL RT * * *Final Report* * * * * * SEE BOTTOM OF REPORT FOR ADDENDED TEXT * * * DATE OF EXAM: Mar 28 2025 9:31AM AAW 0614 - [facility] US BIOPSY BREAST ADDL RT / PROCEDURE REASON: Abnormal mammogram * * * * Physician Interpretation * * * * [address] [place] [address] - - - - - - - - - - ADDENDED REPORT - - - - - - - - - - 04/10/2025 at 07:44:00 Addendum: FINAL DIAGNOSIS A. Right breast, core biopsy at 10:00 2 cm from the nipple (coil clip): - Benign breast tissue with fragments of apocrine cyst wall. B. Right breast, core biopsy at 11:00 1 cm from the nipple (butterfly clip): - Benign breast tissue with focal sclerosis, focal mild usual ductal hyperplasia, and microcysts. These findings are benign and concordant with imaging findings. Recommend 6 month follow up mammogram and ultrasound of the biopsied areas, as well as the 1:00 probably benign breast mass seen on diagnostic imaging from 03/08/25. The patient will receive her biopsy results and follow up recommendations via a phone call from our facility. - - - - - - - - - - ORIGINAL REPORT - - - - - - - - - - #[id number] - [facility] US BIOPSY BREAST RT #[id number] - [facility] US BIOPSY BREAST ADDL RT #[id number] - [facility] DIAGNOSTIC RT HISTORY: 59 year old patient presents for ultrasound guided core biopsy of the following: Site 1: Mass located in the right breast at 11 o'clock, 1 cm from the nipple Site 2: Mass located in the right breast at 10 o'clock, 10 cm from the nipple PATIENT CONSENT: A time out was performed immediately prior to procedure start with the radiology team, correctly identifying the patient name, date of , procedure, anatomy (including marking of site and side), patient position, relevant diagnostic and radiology test results, safety precautions, and procedure-specific equipment needs. The procedure, along with the risks (including, but not limited to, infection and bleeding), benefits, and alternatives, was explained to the patient by the performing physician. The patient agreed to undergo the procedure. Medications and allergies were also reviewed. The radiologist and technologist were present throughout the entire procedure. Correlation is made to exams dated: 11/16/2018 (mammogram), 08/09/2021 (mammogram), 01/25/2025 (mammogram), 03/08/2025 (ultrasound) and 03/08/2025 (mammogram). Site 1: Mass in the right breast at 11 o'clock, 1 cm from the nipple Audible Time Out Time: 850 Procedure Start Time: 856 Procedure Stop Time: 907 An ultrasound-guided biopsy using real-time ultrasound was performed for the concerning mass located in the right breast at 11 o'clock, 1 cm from the nipple. This was described on the previous ultrasound report. The skin was prepped in the usual manner. Local anesthetic was administered. A skin maranda was made. The abnormality was approached from the lateral aspect. A 14 gauge biopsy needle was placed adjacent to the abnormality under ultrasound guidance. Once the needle was documented to be in the correct location, 6 samples were obtained using a spring-loaded biopsy device. A hydromark butterfly biopsy marker was then placed under sonographic guidance. A skin closure strip and a sterile dressing were applied to the access site. The specimen was sent to the laboratory for pathological analysis. Post-procedure mammogram: The hydromark butterfly biopsy marker is in appropriate position at the mass. Site 2: Mass in the right breast at 10 o'clock, 10 cm from the nipple Audible Time Out Time: 850 Procedure Start Time: 910 Procedure Stop Time: 914 An ultrasound-guided biopsy using real-time ultrasound was performed for the mass located in the right breast at 10 o'clock, 10 cm from the nipple. This was described on the previous ultrasound report. The skin was prepped in the usual manner. Local anesthetic was administered to the access site. A skin maranda was made. The abnormality was approached from the lateral aspect. A 14 gauge biopsy needle was placed adjacent to the abnormality under ultrasound guidance. Once the needle was documented to be in the correct location, 3 samples were obtained using a spring-loaded biopsy device. A coil biopsy marker was then placed under sonographic guidance. A skin closure strip and a sterile dressing were applied to the access site. The specimen was sent to the laboratory for pathological analysis. Post-procedure mammogram: The coil biopsy marker is in appropriate position at the mass. Post-procedure mammogram density: The breasts are heterogeneously dense, which may obscure small masses. IMPRESSION: ULTRASOUND GUIDED BIOPSY Site 1: Ultrasound-guided biopsy of the mass located in the right breast at 11 o'clock, 1 cm from the nipple with placement of a hydromark butterfly biopsy marker. Procedure was successful. Waiti (more content not included)... Normal [facility] US BIOPSY BREAST RTon [facility] US BIOPSY BREAST RT * * *Final Repor t* * * * * * SEE BOTTOM OF REPORT FOR ADDENDED TEXT * * * DATE OF EXAM: Mar 28 2025 9:31AM AAW 0598 - [facility] US BIOPSY BREAST RT / PROCEDURE REASON: Abnormal mammogram * * * * Physician Interpretation * * * * [address] [place] [address] - - - - - - - - - - ADDENDED REPORT - - - - - - - - - - 04/10/2025 at 07:44:00 Addendum: FINAL DIAGNOSIS A. Right breast, core biopsy at 10:00 2 cm from the nipple (coil clip): - Benign breast tissue with fragments of apocrine cyst wall. B. Right breast, core biopsy at 11:00 1 cm from the nipple (butterfly clip): - Benign breast tissue with focal sclerosis, focal mild usual ductal hyperplasia, and microcysts. These findings are benign and concordant with imaging findings. Recommend 6 month follow up mammogram and ultrasound of the biopsied areas, as well as the 1:00 probably benign breast mass seen on diagnostic imaging from 03/08/25. The patient will receive her biopsy results and follow up recommendations via a phone call from our facility. - - - - - - - - - - ORIGINAL REPORT - - - - - - - - - - #[id number] - [facility] US BIOPSY BREAST RT #[id number] - [facility] US BIOPSY BREAST ADDL RT #[id number] - [facility] DIAGNOSTIC RT HISTORY: 59 year old patient presents for ultrasound guided core biopsy of the following: Site 1: Mass located in the right breast at 11 o'clock, 1 cm from the nipple Site 2: Mass located in the right breast at 10 o'clock, 10 cm from the nipple PATIENT CONSENT: A time out was performed immediately prior to procedure start with the radiology team, correctly identifying the patient name, date of , procedure, anatomy (including marking of site and side), patient position, relevant diagnostic and radiology test results, safety precautions, and procedure-specific equipment needs. The procedure, along with the risks (including, but not limited to, infection and bleeding), benefits, and alternatives, was explained to the patient by the performing physician. The patient agreed to undergo the procedure. Medications and allergies were also reviewed. The radiologist and technologist were present throughout the entire procedure. Correlation is made to exams dated: 11/16/2018 (mammogram), 08/09/2021 (mammogram), 01/25/2025 (mammogram), 03/08/2025 (ultrasound) and 03/08/2025 (mammogram). Site 1: Mass in the right breast at 11 o'clock, 1 cm from the nipple Audible Time Out Time: 0851 Procedure Start Time: 08 Procedure Stop Time: 09 An ultrasound-guided biopsy using real-time ultrasound was performed for the concerning mass located in the right breast at 11 o'clock, 1 cm from the nipple. This was described on the previous ultrasound report. The skin was prepped in the usual manner. Local anesthetic was administered. A skin maranda was made. The abnormality was approached from the lateral aspect. A 14 gauge biopsy needle was placed adjacent to the abnormality under ultrasound guidance. Once the needle was documented to be in the correct location, 6 samples were obtained using a spring-loaded biopsy device. A hydromark butterfly biopsy marker was then placed under sonographic guidance. A skin closure strip and a sterile dressing were applied to the access site. The specimen was sent to the laboratory for pathological analysis. Post-procedure mammogram: The hydromark butterfly biopsy marker is in appropriate position at the mass. Site 2: Mass in the right breast at 10 o'clock, 10 cm from the nipple Audible Time Out Time: 850 Procedure Start Time: 910 Procedure Stop Time: 914 An ultrasound-guided biopsy using real-time ultrasound was performed for the mass located in the right breast at 10 o'clock, 10 cm from the nipple. This was described on the previous ultrasound report. The skin was prepped in the usual manner. Local anesthetic was administered to the access site. A skin maranda was made. The abnormality was approached from the lateral aspect. A 14 gauge biopsy needle was placed adjacent to the abnormality under ultrasound guidance. Once the needle was documented to be in the correct location, 3 samples were obtained using a spring-loaded biopsy device. A coil biopsy marker was then placed under sonographic guidance. A skin closure strip and a sterile dressing were applied to the access site. The specimen was sent to the laboratory for pathological analysis. Post-procedure mammogram: The coil biopsy marker is in appropriate position at the mass. Post-procedure mammogram density: The breasts are heterogeneously dense, which may obscure small masses. IMPRESSION: ULTRASOUND GUIDED BIOPSY Site 1: Ultrasound-guided biopsy of the mass located in the right breast at 11 o'clock, 1 cm from the nipple with placement of a hydromark butterfly biopsy marker. Procedure was successful. Waiting fo (more content not included)... Normal [facility] MG Breast - right Diagnostic for implanton 03-28-2025 IMPRESSION: ULTRASOU ND GUIDED BIOPSY Site 1: Ultrasound-guided biopsy of the mass located in the right breast at 11 o'clock, 1 cm from the nipple with placement of a hydromark butterfly biopsy marker. Procedure was successful. Waiting for pathology result. An amendment will be issued to this report when pathology results become available. The hydromark butterfly biopsy marker is in appropriate position at the mass. Site 2: Ultrasound-guided biopsy of the mass located in the right breast at 10 o'clock, 10 cm from the nipple with placement of a coil biopsy marker. Procedure was successful. Waiting for pathology result. An amendment will be issued to this report when pathology results become available. The coil biopsy marker is in appropriate position at the mass. Interpreting Radiologist: Alma Zhu M.D. Electronically signed on: 03/28/2025 Office Employee: [employer] Date/Time: Mar 28 2025 9:37A Dictated by : ALMA ZHU MD This examination was interpreted and the report reviewed and electronically signed by: ALMA ZHU MD on Mar 28 2025 10:05AM [facility] * * *Final Report* * * DATE OF EXAM: Mar 28 2025 9:45AM [facility] 0626 - [facility] DIAGNOSTIC RT / PROCEDURE REASON: Abnormal mammogram * * * * Physician Interpretation * * * * [facility] [address] [facility] [place] [place] [address] #[id number] - [facility] US BIOPSY BREAST RT #[id number] - [facility] US BIOPSY BREAST ADDL RT #[id number] - [facility] DIAGNOSTIC RT HISTORY: 59 year old patient presents for ultrasound guided core biopsy of the following: Site 1: Mass located in the right breast at 11 o'clock, 1 cm from the nipple Site 2: Mass located in the right breast at 10 o'clock, 10 cm from the nipple PATIENT CONSENT: A time out was performed immediately prior to procedure start with the radiology team, correctly identifying the patient name, date of , procedure, anatomy (including marking of site and side), patient position, relevant diagnostic and radiology test results, safety precautions, and procedure-specific equipment needs. The procedure, along with the risks (including, but not limited to, infection and bleeding), benefits, and alternatives, was explained to the patient by the performing physician. The patient agreed to undergo the procedure. Medications and allergies were also reviewed. The radiologist and technologist were present throughout the entire procedure. Correlation is made to exams dated: 11/16/2018 (mammogram), 08/09/2021 (mammogram), 01/25/2025 (mammogram), 03/08/2025 (ultrasound) and 03/08/2025 (mammogram). Site 1: Mass in the right breast at 11 o'clock, 1 cm from the nipple Audible Time Out Time: 0851 Procedure Start Time: 0857 Procedure Stop Time: 0908 An ultrasound-guided biopsy using real-time ultrasound was performed for the concerning mass located in the right breast at 11 o'clock, 1 cm from the nipple. This was described on the previous ultrasound report. The skin was prepped in the usual manner. Local anesthetic was administered. A skin maranda was made. The abnormality was approached from the lateral aspect. A 14 gauge biopsy needle was placed adjacent to the abnormality under ultrasound guidance. Once the needle was documented to be in the correct location, 6 samples were obtained using a spring-loaded biopsy device. A hydromark butterfly biopsy marker was then placed under sonographic guidance. A skin closure strip and a sterile dressing were applied to the access site. The specimen was sent to the laboratory for pathological analysis. Post-procedure mammogram: The hydromark butterfly biopsy marker is in appropriate position at the mass. Site 2: Mass in the right breast at 10 o'clock, 10 cm from the nipple Audible Time Out Time: 0851 Procedure Start Time: 09 Procedure Stop Time: 0915 An ultrasound-guided biopsy using real-time ultrasound was performed for the mass located in the right breast at 10 o'clock, 10 cm from the nipple. This was described on the previous ultrasound report. The skin was prepped in the usual manner. Local anesthetic was administered to the access site. A skin maranda was made. The abnormality was approached from the lateral aspect. A 14 gauge biopsy needle was placed adjacent to the abnormality under ultrasound guidance. Once the needle was documented to be in the correct location, 3 samples were obtained using a spring-loaded biopsy device. A coil biopsy marker was then placed under sonographic guidance. A skin closure strip and a sterile dressing were applied to the access site. The specimen was sent to the laboratory for pathological analysis. Post-procedure mammogram: The coil biopsy marker is in appropriate position at the mass. Post-procedure mammogram density: The breasts are heterogeneously dense, which may obscure small masses. [facility] Provider, [facility] Ramsey ely [place] - 03/28/2025 * * *Final Report* * * DATE OF EXAM: Mar 28 2025 9:45AM AA[facility] 0626 - [facility] DIAGNOSTIC RT / PROCEDURE REASON: Abnormal mammogram * * * * Physician Interpretation * * * * [facility] [address] [facility] [place] [place] [address] #[id number] - [facility] US BIOPSY BREAST RT #[id number] - [facility] US BIOPSY BREAST ADDL RT #[id number] - [facility] DIAGNOSTIC RT HISTORY: 59 year old patient presents for ultrasound guided core biopsy of the following: Site 1: Mass located in the right breast at 11 o'clock, 1 cm from the nipple Site 2: Mass located in the right breast at 10 o'clock, 10 cm from the nipple PATIENT CONSENT: A time out was performed immediately prior to procedure start with the radiology team, correctly identifying the patient name, date of , procedure, anatomy (including marking of site and side), patient position, relevant diagnostic and radiology test results, safety precautions, and procedure-specific equipment needs. The procedure, along with the risks (including, but not limited to, infection and bleeding), benefits, and alternatives, was explained to the patient by the performing physician. The patient agreed to undergo the procedure. Medications and allergies were also reviewed. The radiologist and technologist were present throughout the entire procedure. Correlation is made to exams dated: 11/16/2018 (mammogram), 08/09/2021 (mammogram), 01/25/2025 (mammogram), 03/08/2025 (ultrasound) and 03/08/2025 (mammogram). Site 1: Mass in the right breast at 11 o'clock, 1 cm from the nipple Audible Time Out Time: 850 Procedure Start Time: 856 Procedure Stop Time: 907 An ultrasound-guided biopsy using real-time ultrasound was performed for the concerning mass located in the right breast at 11 o'clock, 1 cm from the nipple. This was described on the previous ultrasound report. The skin was prepped in the usual manner. Local anesthetic was administered. A skin maranda was made. The abnormality was approached from the lateral aspect. A 14 gauge biopsy needle was placed adjacent to the abnormality under ultrasound guidance. Once the needle was documented to be in the correct location, 6 samples were obtained using a spring-loaded biopsy device. A hydromark butterfly biopsy marker was then placed under sonographic guidance. A skin closure strip and a sterile dressing were applied to the access site. The specimen was sent to the laboratory for pathological analysis. Post-procedure mammogram: The hydromark butterfly biopsy marker is in appropriate position at the mass. Site 2: Mass in the right breast at 10 o'clock, 10 cm from the nipple Audible Time Out Time: 850 Procedure Start Time: 910 Procedure Stop Time: 914 An ultrasound-guided biopsy using real-time ultrasound was performed for the mass located in the right breast at 10 o'clock, 10 cm from the nipple. This was described on the previous ultrasound report. The skin was prepped in the usual manner. Local anesthetic was administered to the access site. A skin maranda was made. The abnormality was approached from the lateral aspect. A 14 gauge biopsy needle was placed adjacent to the abnormality under ultrasound guidance. Once the needle was documented to be in the correct location, 3 samples were obtained using a spring-loaded biopsy device. A coil biopsy marker was then placed under sonographic guidance. A skin closure strip and a sterile dressing were applied to the access site. The specimen was sent to the laboratory for pathological analysis. Post-procedure mammogram: The coil biopsy marker is in appropriate position at the mass. Post-procedure mammogram density: The breasts are heterogeneously dense, which may obscure small masses. IMPRESSION IMPRESSION: ULTRASOUND GUIDED BIOPSY Site 1: Ultrasound-guided biopsy of the mass located in the right breast at 11 o'clock, 1 cm from the nipple with placement of a hydromark butterfly biopsy marker. Procedure was successful. Waiting for pathology result. An amendment will be issued to this report when pathology results become available. The hydromark butterfly biopsy marker is in appropriate position at the mass. Site 2: Ultrasound-guided biopsy of the mass located in the right breast at 10 o'clock, 10 cm from the nipple with placement of a coil biopsy marker. Procedure was successful. Waiting for pathology result. An amendment will be issued to this report when pathology results become available. The coil biopsy marker is in appropriate position at the mass. Interpreting Radiologist: Alma Zhu M.D. Electronically signed on: 03/28/2025 Office Employee: [employer] Date/Time: Mar 28 2025 9:37A Dictated by : ALMA ZHU MD This exam (more content not included)... [facility] Radiology Study observation (narrative) [facility] No Panel Informationon 03-28 IMPRESSION: ULTRASOU ND GUIDED BIOPSY Site 1: Ultrasound-guided biopsy of the mass located in the right breast at 11 o'clock, 1 cm from the nipple with placement of a hydromark butterfly biopsy marker. Procedure was successful. Waiting for pathology result. An amendment will be issued to this report when pathology results become available. The hydromark butterfly biopsy marker is in appropriate position at the mass. Site 2: Ultrasound-guided biopsy of the mass located in the right breast at 10 o'clock, 10 cm from the nipple with placement of a coil biopsy marker. Procedure was successful. Waiting for pathology result. An amendment will be issued to this report when pathology results become available. The coil biopsy marker is in appropriate position at the mass. Interpreting Radiologist: Alma Zhu M.D. Electronically signed on: 03/28/2025 Office Employee: [employer] Date/Time: Mar 28 2025 8:24A Dictated by : AMLA ZHU MD This examination was interpreted and the report reviewed and electronically signed by: ALMA ZHU MD on Mar 28 2025 10:05AM EST [facility] No Panel InformationOrdered By: [facility] Provider on 03-28-2025 [facility] Pathology biopsy report Michele (Tiss)on 03-28-2025 AP DISCLAIMER [facility] Comment on above: Order Comment: Speci men Type: TISSUE SPECIMEN Ordering Facility: [facility] Address: [address] [place] [address] Result Comment: Bernarda Sherwood (LDT) Disclaimer: Performance characteristics of immunohistochemical, immunofluorescent, and chromogenic in-situ hybridization tests have been determined by the performing laboratory within [facility]'s Francisco Buenrostro Pathology and Laboratory Medicine Department ([facility], [facility], [facility], [facility], [facility], [facility], or [facility]) in a manner consistent with CLIA requirements. One or more of these tests may not have been cleared or approved by the FDA. [facility] is regulated under CLIA as qualified to perform high-complexity testing. These tests are used for clinical purposes. These should not be regarded as investigational or for research. Positive and negative controls stain appropriately. Performed By: #### 6 6121-5 #### [facility] CLIA [id number] [address] [place] [address] CASE REPORT [facility] Comment on above: Order Comment: Speci men Type: TISSUE SPECIMEN Ordering Facility: [facility] Address: [address] [place] [address] Result Comment: Surg ica Pathology Report Case: [id number] Authorizing Provider: Alma Zhu MD Collected: 03/28/2025 09:15 AM Ordering Location: [facility] Received: 03/28/2025 02:04 PM [facility] Pathologist: Piotr Fleming MD Specimens: A) - Breast, Right, Core Biopsy, USBX 10:00 2cmfn B) - Breast, Right, Core Biopsy, US BX 11:00 1cmfn Performed By: #### 6 6121-5 #### [facility] CLIA [id number] [address] CLINICAL HISTORY BR4A [facility] Comment on above: Order Comment: Speci men Type: TISSUE SPECIMEN Ordering Facility: [facility] Address: [address] [place] [address] Performed By: #### 6 6121-5 #### [facility] CLIA [id number] [address] [place] [address] FINAL DIAGNOSIS [facility] Comment on above: Order Comment: Speci men Type: TISSUE SPECIMEN Ordering Facility: [facility] Address: [address] [place] [address] Result Comment: A. R ight breast, core biopsy at 10:00 2 cm from the nipple (coil clip): - Benign breast tissue with fragments of apocrine cyst wall. B. Right breast, core biopsy at 11:00 1 cm from the nipple (butterfly clip): - Benign breast tissue with focal sclerosis, focal mild usual ductal hyperplasia, and microcysts. at 1641 EDT Performed By: #### 6 6121-5 #### [facility] CLIA [id number] [address] FINAL PERFORMING LAB [facility] Comment on above: Order Comment: Speci men Type: TISSUE SPECIMEN Ordering Facility: [facility] Address: [address] [place] [address] Result Comment: Diag nostic interpretation performed at: [facility], [address] [place] [address] CLIA# [id number] Regional Trainer: Piotr Fleming MD Performed By: #### 6 6121-5 #### [facility] CLIA [id number] [address] [place] [address] GROSS DESCRIPTION [facility] Comment on above: Order Comment: Speci men Type: TISSUE SPECIMEN Ordering Facility: [facility] Address: [address] [place] [address] Result Comment: A. B reast, Right, Core Biopsy Received in form labeled right breast core biopsy 10:00 2 cm from nipple are multiple yellow-white fragments of tissue aggregating to 1.8 x 0.3 x 0.1 cm. The specimens are totally submitted in formalin in 1 cassette. Time removed from patient is 9:15 AM on 03/28/2025. Time placed in formalin is 9:15 AM on 03/28/2025. B. Breast, Right, Core Biopsy Nataliia in formalin labeled right breast core biopsy 11:00 1 cm from nipple are multiple yellow-white segments of tissue aggregating to 2.3 x 1.4 x 0.1 cm. The specimens are totally submitted in formalin in 1 cassette. Time removed from patient is 9:08 AM on 03/28/2025. Time placed in formalin is 9:08 AM on 03/28/2025. Gross examination performed at [facility], [address] [place] [address] KVB March 28, 2025 4:38 PM Performed By: #### 6 6121-5 #### [facility] CLIA [id number] [address] [place] Guidance for biopsy of Br chanel dunn 03-28-2025 * * *Final Report* * * DATE OF EXAM: Mar 28 2025 9:31AM AAW 0598 - [facility] US BIOPSY BREAST RT / PROCEDURE REASON: Abnormal mammogram * * * * Physician Interpretation * * * * [facility] [place] [place] [address] #[id number] - [facility] US BIOPSY BREAST RT #[id number] - [facility] US BIOPSY BREAST ADDL RT #[id number] - [facility] DIAGNOSTIC RT HISTORY: 59 year old patient presents for ultrasound guided core biopsy of the following: Site 1: Mass located in the right breast at 11 o'clock, 1 cm from the nipple Site 2: Mass located in the right breast at 10 o'clock, 10 cm from the nipple PATIENT CONSENT: A time out was performed immediately prior to procedure start with the radiology team, correctly identifying the patient name, date of , procedure, anatomy (including marking of site and side), patient position, relevant diagnostic and radiology test results, safety precautions, and procedure-specific equipment needs. The procedure, along with the risks (including, but not limited to, infection and bleeding), benefits, and alternatives, was explained to the patient by the performing physician. The patient agreed to undergo the procedure. Medications and allergies were also reviewed. The radiologist and technologist were present throughout the entire procedure. Correlation is made to exams dated: 11/16/2018 (mammogram), 08/09/2021 (mammogram), 01/25/2025 (mammogram), 03/08/2025 (ultrasound) and 03/08/2025 (mammogram). Site 1: Mass in the right breast at 11 o'clock, 1 cm from the nipple Audible Time Out Time: 850 Procedure Start Time: 856 Procedure Stop Time: 907 An ultrasound-guided biopsy using real-time ultrasound was performed for the concerning mass located in the right breast at 11 o'clock, 1 cm from the nipple. This was described on the previous ultrasound report. The skin was prepped in the usual manner. Local anesthetic was administered. A skin marnada was made. The abnormality was approached from the lateral aspect. A 14 gauge biopsy needle was placed adjacent to the abnormality under ultrasound guidance. Once the needle was documented to be in the correct location, 6 samples were obtained using a spring-loaded biopsy device. A hydromark butterfly biopsy marker was then placed under sonographic guidance. A skin closure strip and a sterile dressing were applied to the access site. The specimen was sent to the laboratory for pathological analysis. Post-procedure mammogram: The hydromark butterfly biopsy marker is in appropriate position at the mass. Site 2: Mass in the right breast at 10 o'clock, 10 cm from the nipple Audible Time Out Time: 850 Procedure Start Time: 910 Procedure Stop Time: 914 An ultrasound-guided biopsy using real-time ultrasound was performed for the mass located in the right breast at 10 o'clock, 10 cm from the nipple. This was described on the previous ultrasound report. The skin was prepped in the usual manner. Local anesthetic was administered to the access site. A skin maranda was made. The abnormality was approached from the lateral aspect. A 14 gauge biopsy needle was placed adjacent to the abnormality under ultrasound guidance. Once the needle was documented to be in the correct location, 3 samples were obtained using a spring-loaded biopsy device. A coil biopsy marker was then placed under sonographic guidance. A skin closure strip and a sterile dressing were applied to the access site. The specimen was sent to the laboratory for pathological analysis. Post-procedure mammogram: The coil biopsy marker is in appropriate position at the mass. Post-procedure mammogram density: The breasts are heterogeneously dense, which may obscure small masses. [facility] Provider, [facility] [place] - 03/28/2025 * * *Final Report* * * DATE OF EXAM: Mar 28 2025 9:31AM AAW 0598 - [facility] US BIOPSY BREAST RT / PROCEDURE REASON: Abnormal mammogram * * * * Physician Interpretation * * * * [facility] [address] [place] [address] #[id number] - [facility] US BIOPSY BREAST RT #[id number] - [facility] US BIOPSY BREAST ADDL RT #[id number] - [facility] RT HISTORY: 59 year old patient presents for ultrasound guided core biopsy of the following: Site 1: Mass located in the right breast at 11 o'clock, 1 cm from the nipple Site 2: Mass located in the right breast at 10 o'clock, 10 cm from the nipple PATIENT CONSENT: A time out was performed immediately prior to procedure start with the radiology team, correctly identifying the patient name, date of , procedure, anatomy (including marking of site and side), patient position, relevant diagnostic and radiology test results, safety precautions, and procedure-specific equipment needs. The procedure, along with the risks (including, but not limited to, infection and bleeding), benefits, and alternatives, was explained to the patient by the performing physician. The patient agreed to undergo the procedure. Medications and allergies were also reviewed. The radiologist and technologist were present throughout the entire procedure. Correlation is made to exams dated: 11/16/2018 (mammogram), 08/09/2021 (mammogram), 01/25/2025 (mammogram), 03/08/2025 (ultrasound) and 03/08/2025 (mammogram). Site 1: Mass in the right breast at 11 o'clock, 1 cm from the nipple Audible Time Out Time: 08 Procedure Start Time: 856 Procedure Stop Time: 907 An ultrasound-guided biopsy using real-time ultrasound was performed for the concerning mass located in the right breast at 11 o'clock, 1 cm from the nipple. This was described on the previous ultrasound report. The skin was prepped in the usual manner. Local anesthetic was administered. A skin maranda was made. The abnormality was approached from the lateral aspect. A 14 gauge biopsy needle was placed adjacent to the abnormality under ultrasound guidance. Once the needle was documented to be in the correct location, 6 samples were obtained using a spring-loaded biopsy device. A hydromark butterfly biopsy marker was then placed under sonographic guidance. A skin closure strip and a sterile dressing were applied to the access site. The specimen was sent to the laboratory for pathological analysis. Post-procedure mammogram: The hydromark butterfly biopsy marker is in appropriate position at the mass. Site 2: Mass in the right breast at 10 o'clock, 10 cm from the nipple Audible Time Out Time: 08 Procedure Start Time: 910 Procedure Stop Time: 914 An ultrasound-guided biopsy using real-time ultrasound was performed for the mass located in the right breast at 10 o'clock, 10 cm from the nipple. This was described on the previous ultrasound report. The skin was prepped in the usual manner. Local anesthetic was administered to the access site. A skin maranda was made. The abnormality was approached from the lateral aspect. A 14 gauge biopsy needle was placed adjacent to the abnormality under ultrasound guidance. Once the needle was documented to be in the correct location, 3 samples were obtained using a spring-loaded biopsy device. A coil biopsy marker was then placed under sonographic guidance. A skin closure strip and a sterile dressing were applied to the access site. The specimen was sent to the laboratory for pathological analysis. Post-procedure mammogram: The coil biopsy marker is in appropriate position at the mass. Post-procedure mammogram density: The breasts are heterogeneously dense, which may obscure small masses. IMPRESSION IMPRESSION: ULTRASOUND GUIDED BIOPSY Site 1: Ultrasound-guided biopsy of the mass located in the right breast at 11 o'clock, 1 cm from the nipple with placement of a hydromark butterfly biopsy marker. Procedure was successful. Waiting for pathology result. An amendment will be issued to this report when pathology results become available. The hydromark butterfly biopsy marker is in appropriate position at the mass. Site 2: Ultrasound-guided biopsy of the mass located in the right breast at 10 o'clock, 10 cm from the nipple with placement of a coil biopsy marker. Procedure was successful. Waiting for pathology result. An amendment will be issued to this report when pathology results become available. The coil biopsy marker is in appropriate position at the mass. Interpreting Radiologist: Alma Zhu M.D. Electronically signed on: 03/28/2025 Office Employee: LOUIE Transcribe Date/Time: Mar 28 2025 8:24A Dictated by : ALMA ZHU MD [facility] (more content not included)... [facility] Radiology Study observation (narrative) [facility] KAYLEIGHOVon 03-14-2025 CNOV Office Visit (GENSWS ) JANESFANY ([id number]) 1965 F Date Time Provider Department 03/14/25 10:00 AM FLIP JOY During your visit today, we recorded the following information about you: Temperature Pulse Respiration Blood pressure 98.3 degrees 108/minute 14/minute 118/84 Weight Height 83.5 kg 1.613 m Rosaline Oakley LPN 03/14/2025 11:26 AM Signed REVIEW OF SYSTEMS: General: The patient denies fatigue, denies weight loss, notes weight gain, denies feeling hot, and denies feelings of cold. Eyes: The patient denies glaucoma, denies eye injury/surgery, does not wear glasses or contacts. Ear/Nose/Throat: The patient notes allergies, notes hayfever, denies ear infections, and denies bloody noses. Cardiovascular: The patient denies chest pain, denies heart disease, notes high blood pressure,denies cardiac stent, denies prior heart attack, denies irregular heart beat, notes high cholesterol, denies poor circulation, denies heart failure, other cardiac issues, denies claudication, denies cold feet, denies peripheral arterial stent. Respiratory: The patient denies tuberculosis, denies pneumonia, denies frequent cough, denies pulmonary embolism, notes shortness of breath (has asthma), and denies coughing up blood. Gastrointestinal: The patient denies difficulty swallowing, notes acid reflux, denies ulcers, denies vomiting, denies jaundice/hepatitis, denies gallbladder problems, denies black or tarry stools, denies hemorrhoids, denies bleeding from rectum, notes diverticulitis, denies constipation, denies diarrhea, denies loss of stool control, and denies hernias. Kidney/Bladder: The patient denies kidney stones, denies urine infections, and denies bloody urine. Skin: The patient denies a history of skin cancer, denies bleeding/changing moles, and denies a history of skin rash. Neurologic: The patient denies a history of epilepsy/convulsions, denies headaches, notes head/spinal injuries (C5-6), and denies stroke/TIA. Psychiatric: The patient denies psychiatric medications, denies depression, and denies voices, denies substance abuse. Endocrine: The patient notes thyroid disorders, denies diabetes, and denies hormonal problems. Hematologic: The patient denies a history of bruising, denies bleeding, and denies anemia, denies blood clots. Infections: The patient denies a history of measles and mumps, denies rheumatic fever, and denies sexually transmitted diseases. Musculoskeletal: The patient denies back pain/injury, notes back problems, denies sciatica, denies knee/foot trouble, denies arthritis, or denies gout. When was patient's last Mammogram screening? 03/08/2025 Last Colonoscopy: N/A DELVIN Snow Daniel P, MD 03/14/2025 11:26 AM Signed HISTORY AND PHYSICAL Fany Marrero 1965 REFERRING PHYSICIAN: Jani Edmondson MD CHIEF COMPLAINT: Consult HPI: Fany Marrero is a 59-year-old female presenting for evaluation of right breast lesions identified on recent imaging studies. Fany underwent a mammogram on 01/25, followed by additional mammographic views and an ultrasound on 03/08. The imaging studies revealed multiple lesions in the right breast: a 2 cm lesion at the 10 o'clock position, a 1 cm lesion at the 11 o'clock position located 1 cm from the nipple, and another area described as benign. She denies palpating any abnormalities during self-breast exams and reports no history of breast trauma, though she does recall a fall in October or November where she may have hit a step but bounced back up. She denies any family history of breast cancer, though she notes that her aunt, a heavy smoker, had leukemia and underwent bilateral mastectomies. She is not currently on any anticoagulant therapy. . The patient is being seen by me today at the request of Dr. Jani Edmondson MD for my opinion and advice regarding Abnormal mammogram (primary encounter diagnosis). PAST MEDICAL HISTORY Diagnosis Date AK (actinic keratosis) 07/07/2023 ventral right forearm near elbow, Tx 06/2023 Asthma due to seasonal allergies (HCC) 12/09/2021 Elevated hemoglobin A1c 08/11/2023 Encounter for routine gynecological examination 05/09/[address] Renner Fatty liver GERD without esophagitis 05/09/2021 History of shingles 06/24/202210/2021 Hypertension, essential 05/09/2021 Hypothyroid Hypothyroidism, acquired 05/09/2021 Dr. Rodriguez Neck pain 07/07/2023 Known cervical fusion Obesity, Class I, BMI 30-34.9 09/14/2024 Pharyngoesophageal dysphagia 07/29/2021 [facility] Seasonal allergies 12/09/2021 Stage 3a chronic kidney disease (HCC) 12/26/2022 Well adult exam 06/24/2022 last done: 03/08/2025 PAST SURGICAL HISTORY Procedure Laterality Date ADDITIONAL SPINAL FUSION 09/28/2008 cervical c5/c6 COLONOSCOPY FLX DX W/COLLJ SPEC WHEN PFR (more content not included)... Normal [facility] CNOVon 03-08-2025 CNOV Office Visit (FAMPWS ) FANY MARRERO ([id number]) 1965 F Date Time Provider Department 03/08/25 10:20 AM [facility] During your visit today, we recorded the following information about you: Temperature Pulse Respiration Blood pressure 97.7 degrees 86/minute 18/minute 116/86 Weight 83.9 kg Nina Scherer PA-C 03/08/2025 12:08 PM Signed Chief Complaint Patient presents with: 6 Month Exam HPI Fany Marrero is a 59 year old female who presents here today for 6 month visit. She states she is scheduled with Dr. Joy for a consult for breast biopsy. She has also been having on and off paraspinal b/l lumbar back pain that is worse after standing all day at work or in the morning right when she gets up. Pain will last a couple days at a time then dissipate. She was seen in and given predisone and flexaril a few weeks ago which has helped. Denies back injury/trauma, radicular symptoms or paraesthesias, fever, chills, or loss of bowel or bladder. She does feel some of her back pain could be caused by large breasts and is going to schedule with plastic surgery to discuss reduction surgery. Patient with a PMHx of: Asthma due to seasonal allergies, Stage 3 CKD, hypothyroidism, HTN, Class I obesity, GERD, elevated A1C Past medical history, appointments, medications, allergies reviewed. Previous Medical History PAST MEDICAL HISTORY Diagnosis Date AK (actinic keratosis) 07/07/2023 ventral right forearm near elbow, Tx 06/2023 Asthma due to seasonal allergies (HCC) 12/09/2021 Elevated hemoglobin A1c 08/11/2023 Encounter for routine gynecological examination 05/09/[address] Renner Fatty liver GERD without esophagitis 05/09/2021 History of shingles 06/24/202210/2021 Hypertension, essential 05/09/2021 Hypothyroid Hypothyroidism, acquired 05/09/2021 Dr. Rodriguez Neck pain 07/07/2023 Known cervical fusion Obesity, Class I, BMI 30-34.9 09/14/2024 Pharyngoesophageal dysphagia 07/29/2021 [facility] Seasonal allergies 12/09/2021 Stage 3a chronic kidney disease (HCC) 12/26/2022 Well adult exam 06/24/2022 last done: 07/07/2023 Previous Surgical History PAST SURGICAL HISTORY Procedure Laterality Date ADDITIONAL SPINAL FUSION 09/28/2008 cervical c5/c6 COLONOSCOPY FLX DX W/COLLJ SPEC WHEN PFRMD 07/29/2021 ESOPHAGOGASTRODUODENOSC OPY TRANSORAL DIAGNOSTIC 07/29/2021 attmpted but unable to complete LAPAROSCOPIC APPENDECTOMY 12/08/2013 felicity Renner OOPHORECTOMY PARTIAL/TOTAL UNI/BI Right 12/08/2013 TOTAL ABDOM HYSTERECTOMY 2015 UNLISTED LAPAROSCOPY, ABD 09/28/1995 Family History FAMILY HISTORY Problem Relation Age of Onset Anesthesia Mother Diabetes Mother Heart Mother Hypertension Mother Parkinson?s Disease Mother Dementia Mother Anesthesia Father Heart Sister Seizures Sister Hypertension Sister Seizures Sister Anesthesia Brother Diabetes Maternal Grandmother Cancer Maternal Grandfather Diabetes Paternal Grandmother Stroke Paternal Grandmother Breast Cancer Maternal Aunt Patient Allergies ALLERGIES Allergen Reactions Lisinopril Rash, Itching Codeine Other: See Comments Strong family reaction to this medication Penicillins Swelling Tape [Adhesive Tape* Other: See Comments Blistering and skin tears Vicodin [Hydrocodon* Rash Current Medications Current Outpatient Medications on File Prior to Visit Medication Sig fluticasone (FLONASE) 50 mcg/actuation nasal spray Use 2 sprays in each nostril once daily. Rinse mouth after use. omeprazole (PRILOSEC) 40 mg capsule Take 1 capsule by mouth daily before breakfast. 1/2 hr before meal. EPINEPHrine (EPIPEN) 0.3 mg/0.3 mL auto-injector Inject once with onset of shortness of breath or throat swelling due to allergic reaction valsartan (DIOVAN) 80 mg tablet Take 1 tablet by mouth once daily. cetirizine (ZYRTEC) 10 mg tablet Take 1 tablet by mouth once daily. empagliflozin (JARDIANCE) 25 mg tablet Take 1 tablet by mouth once daily. Take 1 tablet once daily in the morning. Per Dr. Rodriguez (for CKD) albuterol HFA (PROAIR HFA) 90 mcg/actuation inhaler Inhale 2 Puffs as instructed every 4 hours as needed for wheezing/shortness of breath. levothyroxine (SYNTHROID) 88 mcg tablet Take 1 tablet by mouth daily before breakfast. Per endo: Dr. Rodriguez Blood Pressure Monitor 1 Each once daily. Use daily. No current facility-administered medications on file prior to visit. Social History Social History Tobacco Use Smoking status: Never Smokeless tobacco: Never Vaping Use Vaping status: Never Used Substance Use Topics Alcohol use: No Drug use: Never Review of Symptoms REVIEW OF SYSTEMS GENERAL: No weight loss, malaise or fevers HEENT: Negative for frequent or significant headaches, No changes in hearing or vision. NECK: Negative for lumps, goiter, pain and si (more content not included)... Normal [facility] Comprehensive metabolic 2000 panelon 03-08-2025 Albumin [Mass/Vol] 3.9 g/dL Normal 3.9-4.9 [facility] Comment on above: Order Comment: Speci men Type: BLOOD SPECIMENOrdering Facility: [facility] Address: [address] [place] [address] Performed By: #### 2 4323-8, 2132-9 ####[facility] LABCLIA [id number] [id number] [address] [place] ALP [Catalytic activity/Vol] 128 U/L High 34-123 [facility] Comment on above: Order Comment: Speci men Type: BLOOD SPECIMENOrdering Facility: [facility] Address: [address] [address] Performed By: #### 2 43212-03, 2132-05 ####[facility] LABCLIA [id number] [place] [address] [place] ALT [Catalytic activity/Vol] 33 U/L Normal 7-38 [facility] Comment on above: Order Comment: Speci men Type: BLOOD SPECIMENOrdering Facility: [facility] Address: [address] [place] [address] Performed By: #### 2 4323-04, 2132-05 ####[facility] LABCLIA [id number] [place] [address] [place] Anion gap [Moles/Vol] 11 mmol/L Normal 8-15 [facility] Comment on above: Order Comment: Speci men Type: BLOOD SPECIMENOrdering Facility: [facility] Address: [address] [place], [place] [address] Performed By: #### 2 4323-04, 2132-05 ####[facility] LABCLIA [id number] [place] [address] [place] AST [Catalytic activity/Vol] 25 U/L Normal 13-35 [facility] Comment on above: Order Comment: Speci men Type: BLOOD SPECIMENOrdering Facility: [facility] Address: [address] [address] Performed By: #### 2 4323-8, 2132-05 ####[facility] LABCLIA [id number] [place] [id number] [place] Bilirubin [Mass/Vol] 0.4 mg/dL Normal 0.2-1.3 [facility] Comment on above: Order Comment: Speci men Type: BLOOD SPECIMENOrdering Facility: [facility] Address: [address] [place] [address] Performed By: #### 2 4323-04, 2132-05 ####[facility] LABCLIA [id number] [address] [address] [place] Calcium [Mass/Vol] 9.1 mg/dL Normal 8.5-10.2 [facility] Comment on above: Order Comment: Speci men Type: BLOOD SPECIMENOrdering Facility: [facility] Address: [address] [place], [place] [address] Performed By: #### 2 4323-04, 2132-05 ####[facility] LABCLIA [id number] [place] [id number] [place] Chloride [Moles/Vol] 105 mmol/L Normal 98-107 [facility] Comment on above: Order Comment: Speci men Type: BLOOD SPECIMENOrdering Facility: [facility] Address: [address] [place], [place] [address] Performed By: #### 2 4323-04, 2132-05 ####[facility] LABCLIA [id number] [place] [id number] [place] CO2 [Moles/Vol] 23 mmol/L Normal 22-30 [facility] Comment on above: Order Comment: Speci men Type: BLOOD SPECIMENOrdering Facility: [facility] Address: [address] [place], [place] [address] Performed By: #### 2 4323-04, 2132-05 ####[facility] LABCLIA [id number] [address] [address] [place] Creatinine [Mass/Vol] 1.07 mg/dL High 0.58-0.96 [facility] Comment on above: Order Comment: Speci men Type: BLOOD SPECIMENOrdering Facility: [facility] Address: [address] [place], [place] [address] Performed By: #### 2 4323-04, 2132-05 ####[facility] [id number] [place] [address] [place] Creatinine and Glomerular filtration rate.predicted panel (S/P/Bld) 60 mL/min/1.73m??? Normal >=60 [facility] Comment on above: Order Comment: Specjanee white Type: BLOOD SPECIMENOrdering Facility: [facility] Address: [address] [place] [address] Result Comment: Susana mated Glomerular Filtration Rate (eGFR) is calculated using the 2020 CKD-EPI creatinine equation. This equation utilizes serum creatinine, sex, and age as parameters. The creatinine assay has traceable calibration to isotope dilution-mass spectrometry. Refer to KDIGO guidelines for clinical interpretation. In patients with unstable renal function, e.g. those with acute kidney injury, the eGFR may not accurately reflect actual GFR. Performed By: #### 2 4323-8, 9 ####[facility] [id number] [place] [address] [place] Glucose [Mass/Vol] 86 mg/dL Normal 74-99 [facility] Comment on above: Order Comment: Marc white Type: BLOOD SPECIMENOrdering Facility: [facility] Address: [address] [place] [address] Result Comment: The [place] Diabetes Association (ADA) provides guidance for cutoff values for fasting glucose and random glucose. The ADA defines fasting as no caloric intake for at least 8 hours. Fasting plasma glucose results between 100 to 125 mg/dL indicate increased risk for diabetes (prediabetes). Fasting plasma glucose results greater than or equal to 126 mg/dL meet the criteria for diagnosis of diabetes. In the absence of unequivocal hyperglycemia, results should be confirmed by repeat testing. In a patient with classic symptoms of hyperglycemia or hyperglycemic crisis, random plasma glucose results greater than or equal to 200 mg/dL meet the criteria for diagnosis of diabetes. Reference: Standards of Medical Care in Diabetes 2016, [place] Diabetes Association. Diabetes Care. 2016.39(Suppl 1). Performed By: #### 2 4323-8, 9 ####[facility] [id number] [place] [id number] [place] Potassium [Moles/Vol] 4.6 mmol/L Normal 3.7-5.1 [facility] Comment on above: Order Comment: Speci men Type: BLOOD SPECIMENOrdering Facility: [facility] Address: [address] [place] [address] Performed By: #### 2 4323-8, 2132-05 ####[facility] LABCLIA [id number] [place] [address] [place] Protein [Mass/Vol] 6.7 g/dL Normal 6.3-8.0 [facility] Comment on above: Order Comment: Speci men Type: BLOOD SPECIMENOrdering Facility: [facility] Address: [address] [place] [address] Performed By: #### 2 432-8, 2132-05 ####[facility] LABCLIA [id number] [place] [address] [place] Sodium [Moles/Vol] 139 mmol/L Normal 136-144 [facility] Comment on above: Order Comment: Speci men Type: BLOOD SPECIMENOrdering Facility: [facility] Address: [address] [place] [address] Performed By: #### 2 4328, 2132-05 ####[facility] LABCLIA [id number] [place] [address] [place] Urea nitrogen [Mass/Vol] 17 mg/dL Normal 7-21 [facility] Comment on above: Order Comment: Speci men Type: BLOOD SPECIMENOrdering Facility: [facility] Address: [address] [place] [address] Performed By: #### 2 4323-8, 2132-05 ####[facility] LABCLIA [id number] [address] [address] [place] DBT Breast - right diagnosti c for implanton 03-08-2025 IMPRESSION: Finding 1: Lesion in the right breast at 10 o'clock, 2 cm from the nipple is suspicious for malignancy. Differential diagnosis includes fibrocystic changes. Ultrasound-guided biopsy is recommended. Finding 2: The 0.9 cm oval lesion in the right breast at 11 o'clock, 1 cm from the nipple is suspicious for malignancy. Ultrasound-guided biopsy is recommended. Finding 3: The 0.7 cm oval lesion in the right breast at 1 o'clock, 1 cm from the nipple is probably benign. A follow-up in 6 months is recommended. This appears sonographically similar to the area 10:00, 2 cm from the nipple. If biopsy results of that area yield malignant results, then biopsy of this finding would be suggested. BI-RADS Category 4A: Suspicious - Low suspicion for malignancy RISK: Based on the Tyrer-Cuzick (TC) risk assessment model, this patient has a 13.6% lifetime risk of developing breast cancer, meaning they are at average risk for developing breast cancer. However, this is only an estimate based on available history provided on the patient's questionnaire. We encourage all patients to talk with their providers about these results, further recommendations for managing breast health, and appropriate supplemental screening options if the patient has dense breast tissue. Interpreting Radiologist: Flip Muhammad M.D. Electronically signed on: 03/08/2025 Office Employee: [employer] Date/Time: Mar 08 2025 8:38A Dictated by: FLIP MUHAMMAD MD This examination was interpreted and the report reviewed and electronically signed by: FLIP MUHAMMAD MD on Mar 08 2025 9:43AM [facility] DIVISION OF RADIOLOGY * * *Final Report* * * DATE OF EXAM: Mar 08 2025 8:48AM [facility] 0629 - [facility] KIRA SALMON RT / PROCEDURE REASON: Abnormal mammogram * * * * Physician Interpretation * * * * RESULT: [facility] [address] [place] [address] #[id number] - [facility] KIRA SALMON RT #[id number] - [facility] BREAST LTD RT HISTORY: 59 year-old patient presents for diagnostic evaluation of the finding(s) described on prior mammogram in the right breast. Patient states no personal history of breast cancer. COMPARISON STUDIES: The present examination has been compared to prior imaging studies dated 11/16/2018 (mammogram), 08/09/2021 (mammogram) and 01/25/2025 (mammogram). MAMMOGRAM TECHNIQUE: The study was acquired using full field digital technology and interpreted from soft copy. Digital Breast Tomosynthesis (DBT) images were obtained and used to assist in the interpretation of this examination. MAMMOGRAM FINDINGS: The breast is heterogeneously dense, which may obscure small masses. Finding 1: There is a focal asymmetry with macrolobulated margins and associated calcifications in the right breast at 10 o'clock, anterior depth. ULTRASOUND TECHNIQUE: Targeted ultrasound of the indicated area was performed. Walters scale images were saved. ULTRASOUND FINDINGS: Finding 1: Ultrasound demonstrates an irregular lesion with microlobulated margins measuring 1.3 x 1.2 x 0.8 cm in the right breast at 10 o'clock, 2 cm from the nipple. Internal echotexture is anechoic with internal septations and internal echoes. Color flow imaging demonstrates vascularity is not present. Differential diagnosis includes fibrocystic changes. This correlates with mammography findings. Finding 2: There is an oval lesion measuring 0.9 x 0.4 x 0.7 cm in the right breast at 11 o'clock, 1 cm from the nipple. Margins are partially circumscribed. Internal echotexture is hypoechoic. This correlates is an incidental finding. Finding 3: There is an oval lesion with indistinct margins measuring 0.7 cm in the right breast at 1 o'clock, 1 cm from the nipple. Internal echotexture is anechoic with internal septations and internal echoes. Color flow imaging demonstrates vascularity is not present. This appears sonographically similar to the area 10:00, 2 cm in the nipple. DIVISION OF RADIOLOGY Provider, [facility] - 03/08/2025 * * *Final Report* * * DATE OF EXAM: Mar 08 2025 8:48AM [facility] 0629 - JESUS MANUEL SALMON RT / PROCEDURE REASON: Abnormal mammogram * * * * Physician Interpretation * * * * RESULT: [place] [address] [place] [address] #[id number] - JESUS MANUEL SALMON RT #[id number] - [facility] US BREAST LTD RT HISTORY: 59 year-old patient presents for diagnostic evaluation of the finding(s) described on prior mammogram in the right breast. Patient states no personal history of breast cancer. COMPARISON STUDIES: The present examination has been compared to prior imaging studies dated 11/16/2018 (mammogram), 08/09/2021 (mammogram) and 01/25/2025 (mammogram). MAMMOGRAM TECHNIQUE: The study was acquired using full field digital technology and interpreted from soft copy. Digital Breast Tomosynthesis (DBT) images were obtained and used to assist in the interpretation of this examination. MAMMOGRAM FINDINGS: The breast is heterogeneously dense, which may obscure small masses. Finding 1: There is a focal asymmetry with macrolobulated margins and associated calcifications in the right breast at 10 o'clock, anterior depth. ULTRASOUND TECHNIQUE: Targeted ultrasound of the indicated area was performed. Walters scale images were saved. ULTRASOUND FINDINGS: Finding 1: Ultrasound demonstrates an irregular lesion with microlobulated margins measuring 1.3 x 1.2 x 0.8 cm in the right breast at 10 o'clock, 2 cm from the nipple. Internal echotexture is anechoic with internal septations and internal echoes. Color flow imaging demonstrates vascularity is not present. Differential diagnosis includes fibrocystic changes. This correlates with mammography findings. Finding 2: There is an oval lesion measuring 0.9 x 0.4 x 0.7 cm in the right breast at 11 o'clock, 1 cm from the nipple. Margins are partially circumscribed. Internal echotexture is hypoechoic. This correlates is an incidental finding. Finding 3: There is an oval lesion with indistinct margins measuring 0.7 cm in the right breast at 1 o'clock, 1 cm from the nipple. Internal echotexture is anechoic with internal septations and internal echoes. Color flow imaging demonstrates vascularity is not present. This appears sonographically similar to the area 10:00, 2 cm in the nipple. IMPRESSION IMPRESSION: Finding 1: Lesion in the right breast at 10 o'clock, 2 cm from the nipple is suspicious for malignancy. Differential diagnosis includes fibrocystic changes. Ultrasound-guided biopsy is recommended. Finding 2: The 0.9 cm oval lesion in the right breast at 11 o'clock, 1 cm from the nipple is suspicious for malignancy. Ultrasound-guided biopsy is recommended. Finding 3: The 0.7 cm oval lesion in the right breast at 1 o'clock, 1 cm from the nipple is probably benign. A follow-up in 6 months is recommended. This appears sonographically similar to the area 10:00, 2 cm from the nipple. If biopsy results of that area yield malignant results, then biopsy of this finding would be suggested. BI-RADS Category 4A: Suspicious - Low suspicion for malignancy RISK: Based on the Tyrer-Cuzick (TC) risk assessment model, this patient has a 13.6% lifetime risk of developing breast cancer, meaning they are at average risk for developing breast cancer. However, this is only an estimate based on available history provided on the patient's questionnaire. We encourage all patients to talk with their providers about these results, further recommendations for managing breast health, and appropriate supplemental screening options if the patient has dense breast tissue. Interpreting Radiologist: Flip Muhammad M.D. Electronically signed on: 03/08/2025 Office Employee: LOUIE [employer] Date/Time: Mar 08 2025 8:38A Dictated by: FLIP MUHAMMAD MD This examination was interpreted and the report reviewed and electronically signed by: FLIP MUHAMMAD MD on Mar 08 2025 9:43AM EST [facility] HbA1c (Bld)on 03-08-2025 Average glucose Estimated from glycated hemoglobin (Bld) [Mass/Vol] 117 mg/dL Normal [facility] Comment on above: Order Comment: Marc white Type: BLOOD SPECIMENOrdering Facility: [facility] Address: [address] [place] [address] Result Comment: eAG: (Estimated average glucose) is a calculated value from HgbA1c and is outside medical sales representative of the average blood glucose level in the last 2-3 month period. Performed By: #### 5 5454-3 ####[facility] LABCLIA [id number] [place] [address] [place] HbA1c (Bld) [Mass fraction] 5.7 % High 4.3-5.6 [facility] Comment on above: Order Comment: Marc white Type: BLOOD SPECIMENOrdering Facility: [facility] Address: [address] [place] [address] Result Comment: Amer [place] Diabetes Association guidelines indicate that patients with HgbA1c in the range 5.7-6.4% are at increased risk for development of diabetes, and intervention by lifestyle modification may be beneficial. HgbA1c greater or equal to 6.5% is considered diagnostic of diabetes. Performed By: #### 5 5454-3 ####[facility] LABCLIA [id number] [address] [address] [place] Lipid 1996 panelon 5 Cholesterol [Mass/Vol] 182 mg/dL Normal <200 [facility] Comment on above: Order Comment: Speci men Type: BLOOD SPECIMENOrdering Facility: [facility] Address: [address] [place] [address] Result Comment: <200 mg/dL, Desirable 200-239 mg/dL, Borderline high >239 mg/dL, High Performed By: #### 2 4331-1, 6-3, , 7 ####[facility] LABCLIA [id number] [address] [place] [address] [place] Cholesterol in HDL [Mass/Vol] 49 mg/dL Normal >39 [facility] Comment on above: Order Comment: Jeremiei men Type: BLOOD SPECIMENOrdering Facility: [facility] Address: [address] [place] [address] Result Comment: 40-5 9 mg/dL, Acceptable >59 mg/dL, High: Negative risk factor for coronary heart disease <40 mg/dL, Low: Positive risk factor for coronary heart disease Performed By: #### 2 4331-1, 3016-3, 91078-3, 3023-7 ####[facility] LABCLIA [id number] [address] [place] [address] [place] Cholesterol in LDL [Mass/Vol] 115 mg/dL High <100 [facility] Comment on above: Order Comment: Speci men Type: BLOOD SPECIMENOrdering Facility: [facility] Address: [address] [place] [address] Result Comment: <100 mg/dL, Optimal 100-129 mg/dL, Near optimal/above optimal 130-159 mg/dL, Borderline high 160-189 mg/dL, High >189 mg/dL, Very high Secondary prevention optimal LDL Cholesterol levels are recommended to be <70 mg/dL LDL cholesterol is calculated using the Paredes-NIH equation. Performed By: #### 2 4331-1, 6-3, , 3024-03 ####[facility] LABCLIA [id number] [address] [address] [place] Cholesterol in LDL/Cholesterol in HDL [Mass ratio] 2.35 {ratio} Normal <2.54 [facility] Comment on above: Order Comment: Marc men Type: BLOOD SPECIMENOrdering Facility: [facility] Address: [address] [place] [address] Result Comment: Refe rence: 1. National Cholesterol Education Program ATP III Guideline At-A-Glance Quick Desk Reference: National Heart, Lung, and Blood [place]. National Institutes of Health. 2001: NIH Publication No. 01-3305. 2. An International Atherosclerosis Society position paper: global recommendations for the management of dyslipidemia: executive summary, Atherosclerosis. 2014: 232(2):410-413. Performed By: #### 2 4331-1, 3015-3, , 3024-03 ####[facility] LABCLIA [id number] [address] [address] [place] Cholesterol in VLDL [Mass/Vol] 17 mg/dL Normal <30 [facility] Comment on above: Order Comment: Jeremiei men Type: BLOOD SPECIMENOrdering Facility: [facility] Address: [address] [place] [address] Performed By: #### 2 4331-1, 3015-3, , 3024-03 ####[facility] LABCLIA [id number] [facility] [id number] [address] [place] Cholesterol non HDL [Mass/Vol] 133 mg/dL High <130 [facility] Comment on above: Order Comment: Speci men Type: BLOOD SPECIMENOrdering Facility: [facility] Address: [address] [place] [address] Result Comment: <130 mg/dL, Optimal 130-159 mg/dL, Near optimal/above optimal 160-189 mg/dL, Borderline high 190-219 mg/dL, High >219 mg/dL, Very high Secondary prevention optimal non HDL Cholesterol levels are recommended to be <100 mg/dL Performed By: #### 2 4331-1, 6-3, 52825-7, 3024-03 ####[facility] LABIA [id number] [address] [address] [place] Cholesterol.total/Ellie sterol in HDL [Mass ratio] 3.71 {ratio} Normal <5.10 [facility] Comment on above: Order Comment: Speci men Type: BLOOD SPECIMENOrdering Facility: [facility] Address: [address] [place] [address] Performed By: #### 2 4331-1, 6-3, , 3024-03 ####[facility] LABIA [id number] [address] [address] [place] FASTING TIME 12 hrs Normal [facility] Comment on above: Order Comment: Speci men Type: BLOOD SPECIMENOrdering Facility: [facility] Address: [address] [place] [address] Performed By: #### 2 4331-1, 3015-3, , 3024-03 ####[facility] LABIA [id number] [address] [address] [place] Triglyceride [Mass/Vol] 98 mg/dL Normal <[address] [facility] Comment on above: Order Comment: Speci men Type: BLOOD SPECIMENOrdering Facility: [facility] Address: [address] [place], [place] [address] Result Comment: <150 mg/dL, Normal 150-199 mg/dL, Borderline high 200-499 mg/dL, High >499 mg/dL, Very high Performed By: #### 2 4331-1, 3016-3, 49165-8, 3024-7 ####[facility] LABCLIA [id number] [place] [address] [place] JESUS MANUEL DIAG W LUIS ANTONIO RTon 025 JESUS MANUEL DIAG W LUIS ANTONIO RT * * *Final Report* * * DATE OF EXAM: Mar 08 2025 8:48AM [facility] 0629 - JESUS MANUEL DIAG W LUIS ANTONIO RT / PROCEDURE REASON: Abnormal mammogram * * * * Physician Interpretation * * * * RESULT: [facility] [address] [place] [address] #[id number] - JESUS MANUEL DIAG W LUIS ANTONIO RT #[id number] - [facility] US BREAST LTD RT HISTORY: 59 year-old patient presents for diagnostic evaluation of the finding(s) described on prior mammogram in the right breast. Patient states no personal history of breast cancer. COMPARISON STUDIES: The present examination has been compared to prior imaging studies dated 11/16/2018 (mammogram), 08/09/2021 (mammogram) and 01/25/2025 (mammogram). MAMMOGRAM TECHNIQUE: The study was acquired using full field digital technology and interpreted from soft copy. Digital Breast Tomosynthesis (DBT) images were obtained and used to assist in the interpretation of this examination. MAMMOGRAM FINDINGS: The breast is heterogeneously dense, which may obscure small masses. Finding 1: There is a focal asymmetry with macrolobulated margins and associated calcifications in the right breast at 10 o'clock, anterior depth. ULTRASOUND TECHNIQUE: Targeted ultrasound of the indicated area was performed. Walters scale images were saved. ULTRASOUND FINDINGS: Finding 1: Ultrasound demonstrates an irregular lesion with microlobulated margins measuring 1.3 x 1.2 x 0.8 cm in the right breast at 10 o'clock, 2 cm from the nipple. Internal echotexture is anechoic with internal septations and internal echoes. Color flow imaging demonstrates vascularity is not present. Differential diagnosis includes fibrocystic changes. This correlates with mammography findings. Finding 2: There is an oval lesion measuring 0.9 x 0.4 x 0.7 cm in the right breast at 11 o'clock, 1 cm from the nipple. Margins are partially circumscribed. Internal echotexture is hypoechoic. This correlates is an incidental finding. Finding 3: There is an oval lesion with indistinct margins measuring 0.7 cm in the right breast at 1 o'clock, 1 cm from the nipple. Internal echotexture is anechoic with internal septations and internal echoes. Color flow imaging demonstrates vascularity is not present. This appears sonographically similar to the area 10:00, 2 cm in the nipple. IMPRESSION: Finding 1: Lesion in the right breast at 10 o'clock, 2 cm from the nipple is suspicious for malignancy. Differential diagnosis includes fibrocystic changes. Ultrasound-guided biopsy is recommended. Finding 2: The 0.9 cm oval lesion in the right breast at 11 o'clock, 1 cm from the nipple is suspicious for malignancy. Ultrasound-guided biopsy is recommended. Finding 3: The 0.7 cm oval lesion in the right breast at 1 o'clock, 1 cm from the nipple is probably benign. A follow-up in 6 months is recommended. This appears sonographically similar to the area 10:00, 2 cm from the nipple. If biopsy results of that area yield malignant results, then biopsy of this finding would be suggested. BI-RADS Category 4A: Suspicious - Low suspicion for malignancy RISK: Based on the Tyrer-Cuzick (TC) risk assessment model, this patient has a 13.6% lifetime risk of developing breast cancer, meaning they are at average risk for developing breast cancer. However, this is only an estimate based on available history provided on the patient's questionnaire. We encourage all patients to talk with their providers about these results, further recommendations for managing breast health, and appropriate supplemental screening options if the patient has dense breast tissue. Interpreting Radiologist: Flip Muhammad M.D. Electronically signed on: 03/08/2025 Office Employee: LOUIE Transcribe Date/Time: Mar 08 2025 8:38A Dictated by: FLIP MUHAMMAD MD This examination was interpreted and the report reviewed and electronically signed by: FLIP MUHAMMAD MD on Mar 08 2025 9:43AM EST [id number] Normal [facility] US BREAST LTD RTon 03-08 [facility] US BREAST LTD RT * * *Final Report* * * DATE OF EXAM: Mar 08 2025 9:26AM [facility] 0594 - [facility] SCIC [employer] BREAST LTD RT / PROCEDURE REASON: Abnormal mammogram * * * * Physician Interpretation * * * * [place] [address] #[id number] - [facility] KIRA JONESO RT #[id number] - [facility] US BREAST LTD RT HISTORY: 59 year-old patient presents for diagnostic evaluation of the finding(s) described on prior mammogram in the right breast. Patient states no personal history of breast cancer. COMPARISON STUDIES: The present examination has been compared to prior imaging studies dated 11/16/2018 (mammogram), 08/09/2021 (mammogram) and 01/25/2025 (mammogram). MAMMOGRAM TECHNIQUE: The study was acquired using full field digital technology and interpreted from soft copy. Digital Breast Tomosynthesis (DBT) images were obtained and used to assist in the interpretation of this examination. MAMMOGRAM FINDINGS: The breast is heterogeneously dense, which may obscure small masses. Finding 1: There is a focal asymmetry with macrolobulated margins and associated calcifications in the right breast at 10 o'clock, anterior depth. ULTRASOUND TECHNIQUE: Targeted ultrasound of the indicated area was performed. Walters scale images were saved. ULTRASOUND FINDINGS: Finding 1: Ultrasound demonstrates an irregular lesion with microlobulated margins measuring 1.3 x 1.2 x 0.8 cm in the right breast at 10 o'clock, 2 cm from the nipple. Internal echotexture is anechoic with internal septations and internal echoes. Color flow imaging demonstrates vascularity is not present. Differential diagnosis includes fibrocystic changes. This correlates with mammography findings. Finding 2: There is an oval lesion measuring 0.9 x 0.4 x 0.7 cm in the right breast at 11 o'clock, 1 cm from the nipple. Margins are partially circumscribed. Internal echotexture is hypoechoic. This correlates is an incidental finding. Finding 3: There is an oval lesion with indistinct margins measuring 0.7 cm in the right breast at 1 o'clock, 1 cm from the nipple. Internal echotexture is anechoic with internal septations and internal echoes. Color flow imaging demonstrates vascularity is not present. This appears sonographically similar to the area 10:00, 2 cm in the nipple. IMPRESSION: Finding 1: Lesion in the right breast at 10 o'clock, 2 cm from the nipple is suspicious for malignancy. Differential diagnosis includes fibrocystic changes. Ultrasound-guided biopsy is recommended. Finding 2: The 0.9 cm oval lesion in the right breast at 11 o'clock, 1 cm from the nipple is suspicious for malignancy. Ultrasound-guided biopsy is recommended. Finding 3: The 0.7 cm oval lesion in the right breast at 1 o'clock, 1 cm from the nipple is probably benign. A follow-up in 6 months is recommended. This appears sonographically similar to the area 10:00, 2 cm from the nipple. If biopsy results of that area yield malignant results, then biopsy of this finding would be suggested. BI-RADS Category 4A: Suspicious - Low suspicion for malignancy RISK: Based on the Tyrer-Cuzick (TC) risk assessment model, this patient has a 13.6% lifetime risk of developing breast cancer, meaning they are at average risk for developing breast cancer. However, this is only an estimate based on available history provided on the patient's questionnaire. We encourage all patients to talk with their providers about these results, further recommendations for managing breast health, and appropriate supplemental screening options if the patient has dense breast tissue. Interpreting Radiologist: Flip Muhammad M.D. Electronically signed on: 03/08/2025 Office Employee: LOUIE Transcribe Date/Time: Mar 08 2025 9:12A Dictated by : FLIP MUHAMMAD MD This examination was interpreted and the report reviewed and electronically signed by: FLIP MUHAMMAD MD on Mar 08 2025 9:43AM EST [id number] Normal [facility] Magnesium SerPl-mCncon 03-08 Magnesium [Mass/Vol] 2.2 mg/dL Normal 1.7-2.3 [facility] Comment on above: Order Comment: Speci men Type: BLOOD SPECIMENOrdering Facility: [facility] Address: [address] [place] [address] Performed By: #### 2 4331-1, 3016-3, 76935-7, 3024-7 ####[facility] LABCLIA [id number] [address] [address] [place] No Panel InformationOrdered By: Ccf Provider on 03-08-2025 [facility] No Panel Informationon 03-08 Radiology Study observation (narrative) Kee henriquez [facility] T4 Free SerPl-mCncon 025 Free T4 [Mass/Vol] 1.7 ng/dL Normal 0.9-1.7 [facility] Comment on above: Order Comment: Speci men Type: BLOOD SPECIMENOrdering Facility: [facility] Address: [address] [place] [address] Performed By: #### 2 4331-1, 6-3, 51964-2, 3023-7 ####[facility] [id number] [place] [id number] [place] TSH SerPl-aCncon 03-08-2025 TSH Qn 1.030 m[IU]/L Normal 0.270-4.200 [facility] Comment on above: Order Comment: Speci men Type: BLOOD SPECIMENOrdering Facility: [facility] Address: [address] [place] [address] Performed By: #### 2 4331-1, 6-3, 40700-5, 7 ####[facility]UN[facility] [id number] [address] [address] [place] US Breast - right limitedon 03-08-2025 IMPRESSION: Finding 1: Lesion in the right breast at 10 o'clock, 2 cm from the nipple is suspicious for malignancy. Differential diagnosis includes fibrocystic changes. Ultrasound-guided biopsy is recommended. Finding 2: The 0.9 cm oval lesion in the right breast at 11 o'clock, 1 cm from the nipple is suspicious for malignancy. Ultrasound-guided biopsy is recommended. Finding 3: The 0.7 cm oval lesion in the right breast at 1 o'clock, 1 cm from the nipple is probably benign. A follow-up in 6 months is recommended. This appears sonographically similar to the area 10:00, 2 cm from the nipple. If biopsy results of that area yield malignant results, then biopsy of this finding would be suggested. BI-RADS Category 4A: Suspicious - Low suspicion for malignancy RISK: Based on the Tyrer-Cuzick (TC) risk assessment model, this patient has a 13.6% lifetime risk of developing breast cancer, meaning they are at average risk for developing breast cancer. However, this is only an estimate based on available history provided on the patient's questionnaire. We encourage all patients to talk with their providers about these results, further recommendations for managing breast health, and appropriate supplemental screening options if the patient has dense breast tissue. Interpreting Radiologist: Flip Muhammad M.D. Electronically signed on: 03/08/2025 Office Employee: LOUIE Transcridanya Date/Time: Mar 08 2025 9:12A Dictated by : FLIP MUHAMMAD MD This examination was interpreted and the report reviewed and electronically signed by: FLIP MUHAMMAD MD on Mar 08 2025 9:43AM [facility] DIVISION OF RADIOLOGY * * *Final Report* * * DATE OF EXAM: Mar 08 2025 9:26AM [facility] 0594 - [facility] SCIC [employer] BREAST Brass Monkey RT / PROCEDURE REASON: Abnormal mammogram * * * * Physician Interpretation * * * * [place] [address] #[id number] - [facility] KIRA Ignacio LUIS ANTONIO RT #[id number] - [facility] SCIC [employer] BREAST LTD RT HISTORY: 59 year-old patient presents for diagnostic evaluation of the finding(s) described on prior mammogram in the right breast. Patient states no personal history of breast cancer. COMPARISON STUDIES: The present examination has been compared to prior imaging studies dated 11/16/2018 (mammogram), 08/09/2021 (mammogram) and 01/25/2025 (mammogram). MAMMOGRAM TECHNIQUE: The study was acquired using full field digital technology and interpreted from soft copy. Digital Breast Tomosynthesis (DBT) images were obtained and used to assist in the interpretation of this examination. MAMMOGRAM FINDINGS: The breast is heterogeneously dense, which may obscure small masses. Finding 1: There is a focal asymmetry with macrolobulated margins and associated calcifications in the right breast at 10 o'clock, anterior depth. ULTRASOUND TECHNIQUE: Targeted ultrasound of the indicated area was performed. Walters scale images were saved. ULTRASOUND FINDINGS: Finding 1: Ultrasound demonstrates an irregular lesion with microlobulated margins measuring 1.3 x 1.2 x 0.8 cm in the right breast at 10 o'clock, 2 cm from the nipple. Internal echotexture is anechoic with internal septations and internal echoes. Color flow imaging demonstrates vascularity is not present. Differential diagnosis includes fibrocystic changes. This correlates with mammography findings. Finding 2: There is an oval lesion measuring 0.9 x 0.4 x 0.7 cm in the right breast at 11 o'clock, 1 cm from the nipple. Margins are partially circumscribed. Internal echotexture is hypoechoic. This correlates is an incidental finding. Finding 3: There is an oval lesion with indistinct margins measuring 0.7 cm in the right breast at 1 o'clock, 1 cm from the nipple. Internal echotexture is anechoic with internal septations and internal echoes. Color flow imaging demonstrates vascularity is not present. This appears sonographically similar to the area 10:00, 2 cm in the nipple. DIVISION OF RADIOLOGY Provider, [facility] - 03/08/2025 * * *Final Report* * * DATE OF EXAM: Mar 08 2025 9:26AM [facility] 0594 - [facility] SCIC SA [employer] BREAST Brass Monkey RT / PROCEDURE REASON: Abnormal mammogram * * * * Physician Interpretation * * * * [place] [address] #[id number] - [facility] KIRA Ignacio LUIS ANTONIO RT #[id number] - [facility] SCIC SA [employer] BREAST LTD RT HISTORY: 59 year-old patient presents for diagnostic evaluation of the finding(s) described on prior mammogram in the right breast. Patient states no personal history of breast cancer. COMPARISON STUDIES: The present examination has been compared to prior imaging studies dated 11/16/2018 (mammogram), 08/09/2021 (mammogram) and 01/25/2025 (mammogram). MAMMOGRAM TECHNIQUE: The study was acquired using full field digital technology and interpreted from soft copy. Digital Breast Tomosynthesis (DBT) images were obtained and used to assist in the interpretation of this examination. MAMMOGRAM FINDINGS: The breast is heterogeneously dense, which may obscure small masses. Finding 1: There is a focal asymmetry with macrolobulated margins and associated calcifications in the right breast at 10 o'clock, anterior depth. ULTRASOUND TECHNIQUE: Targeted ultrasound of the indicated area was performed. Walters scale images were saved. ULTRASOUND FINDINGS: Finding 1: Ultrasound demonstrates an irregular lesion with microlobulated margins measuring 1.3 x 1.2 x 0.8 cm in the right breast at 10 o'clock, 2 cm from the nipple. Internal echotexture is anechoic with internal septations and internal echoes. Color flow imaging demonstrates vascularity is not present. Differential diagnosis includes fibrocystic changes. This correlates with mammography findings. Finding 2: There is an oval lesion measuring 0.9 x 0.4 x 0.7 cm in the right breast at 11 o'clock, 1 cm from the nipple. Margins are partially circumscribed. Internal echotexture is hypoechoic. This correlates is an incidental finding. Finding 3: There is an oval lesion with indistinct margins measuring 0.7 cm in the right breast at 1 o'clock, 1 cm from the nipple. Internal echotexture is anechoic with internal septations and internal echoes. Color flow imaging demonstrates vascularity is not present. This appears sonographically similar to the area 10:00, 2 cm in the nipple. IMPRESSION IMPRESSION: Finding 1: Lesion in the right breast at 10 o'clock, 2 cm from the nipple is suspicious for malignancy. Differential diagnosis includes fibrocystic changes. Ultrasound-guided biopsy is recommended. Finding 2: The 0.9 cm oval lesion in the right breast at 11 o'clock, 1 cm from the nipple is suspicious for malignancy. Ultrasound-guided biopsy is recommended. Finding 3: The 0.7 cm oval lesion in the right breast at 1 o'clock, 1 cm from the nipple is probably benign. A follow-up in 6 months is recommended. This appears sonographically similar to the area 10:00, 2 cm from the nipple. If biopsy results of that area yield malignant results, then biopsy of this finding would be suggested. BI-RADS Category 4A: Suspicious - Low suspicion for malignancy RISK: Based on the Tyrer-Cuzick (TC) risk assessment model, this patient has a 13.6% lifetime risk of developing breast cancer, meaning they are at average risk for developing breast cancer. However, this is only an estimate based on available history provided on the patient's questionnaire. We encourage all patients to talk with their providers about these results, further recommendations for managing breast health, and appropriate supplemental screening options if the patient has dense breast tissue. Interpreting Radiologist: Flip Muhammad M.D. Electronically signed on: 03/08/2025 Office Employee: LOUIE Transcribe Date/Time: Mar 08 2025 9:12A Dictated by : FLIP MUHAMMAD MD This examination was interpreted and the report reviewed and electronically signed by: FLIP MUHAMMAD MD on Mar 08 2025 9:43AM EST [facility] Vit B12 SerPl-ncon 025 Cobalamin (Vitamin B12) [Mass/Vol] 462 pg/mL Normal 232-1245 [facility] Comment on above: Order Comment: Speci men Type: BLOOD SPECIMENOrdering Facility: [facility] Address: [address] [place] [address] Performed By: #### 2 4323-8, 2132-9 ####[facility] LABCLIA [id number] [address] [facility] Office Visit (WSTR ) FANY MARRERO ([id number]) 1965 F Date Time Provider Department 02/16/25 4:00 PM [facility] During your visit today, we recorded the following information about you: Temperature Pulse Respiration Blood pressure 97.4 degrees 76/minute 18/minute 153/90 Weight 84.7 kg Sarabjit Brown MD 02/16/2025 4:54 PM Signed [facility] Subjective Fany Marrero is a 59 year old female. Patient presents with: Pain: L shoulder, L rib pain x8 days, worse last 5 days, seen at [facility] 02/12/25 Left back and shoulder pain: Duration: started after moving some furniture 1 week ago. Location: left mid back, left shoulder joint Character: intermittent sharp knife-like spasms in the rib; ache in the shoulder Radiation: no radiation to the leg or hand Aggravating: reaching, deep breaths, moving, touching shoulder Relieving: rest, shallow breaths, muscle relaxer Pain relievers: Acetaminophen, Flexeril, heat, muscle cream Associated: Pertinent negatives: Denies fever, numbness, weakness, cough, shortness of breath, palpitations, dizziness, hematuria, dysuria, urinary frequency Was evaluated at the [facility] emergency room 02/12/2025. Rib/chest x-rays were negative. Shoulder x-ray showed degenerative changes without acute fracture. ECG, CBC, BMP, and troponin were negative. Review of Systems Objective BP 153/90 Pulse 76 Temp 36.3 ?C (97.4 ?F) Resp 18 Wt 84.7 kg (186 lb 11.7 oz) SpO2 100% BMI 33.29 kg/m? Physical Exam Constitutional: General: She is in acute distress (Exam limited by muscle spasms). Eyes: Extraocular Movements: Extraocular movements intact. Conjunctiva/sclera: Conjunctivae normal. Pupils: Pupils are equal, round, and reactive to light. Cardiovascular: Rate and Rhythm: Normal rate and regular rhythm. Pulmonary: Effort: No respiratory distress. Breath sounds: No wheezing, rhonchi or rales. Musculoskeletal: Cervical back: Neck supple. Comments: SHOULDER: left. Exam induces back spasms. No deformity or swelling. Palpation of clavicle non-tender, AC joint tender, glenohumeral joint tender anteriorly. ROM: normal. Impingement test: Negative? Cross arm test: Positive Left. BACK: Normal curvature of spine. No midline tenderness. Left lower rib paraspinal tenderness. Straight leg test negative. Deep tendon reflexes 3+/4 at patellas. Normal lower extremity strength. Lymphadenopathy: Cervical: No cervical adenopathy. Neurological: Mental Status: She is alert. {ASSESSMENT/PLAN: 1. Acute left-sided thoracic back pain - ICD9: 724.1, ICD10: M54.6 (primary diagnosis) Chest wall pain. Low suspicion for cardiopulmonary source of pain given inducible spasms during exam. Patient avoids NSAIDs due to chronic renal insufficiency. - PREDNISONE 10 MG TABLET taper. Previously tolerated when given for asthma exacerbations. Refill muscle relaxer- CYCLOBENZAPRINE 10 MG TABLET. It was effective but causes drowsiness and has been taken at nighttime. She may attempt chiropractic treatment. Her boss has a chiropractor she recommends she may see Castro Danelle in [place]. Provided work excuse for today and tomorrow. I recommended emergency room follow-up with primary care. Follow up in the ER with worsening cough, worsening shortness of breath, increasing chest pain, dizziness, or late onset fever. 2. Acute pain of left shoulder - ICD9: 719.41, ICD10: M25.512 May be shoulder strain or exacerbation of degenerative shoulder injured at the same time as her left thoracic back. - PREDNISONE 10 MG TABLET Sarabjit Brown MD History and Record Review External record(s) reviewed: prior inpatient record. Findings from review of inpatient records: [facility] ED visit 02/12/2025 imaging and labs Differential Diagnoses - Musculoskeletal back and shoulder pain is more likely for the following reason(s): consistent with imaging, consistent with laboratory studies and suggested by HANDP - Acute coronary syndrome is less likely for the following reason(s): laboratory studies not suggestive - Pulmonary embolism is less likely for the following reason(s): HANDP not suggestive Musculoskeletal Procedures Allergies As of Date: 02/16/2025 Noted Allergy Reaction LISINOPRIL 12/16/2013 2 - Rash 9 - Itching CODEINE 11/14/2013 14 - Other: See Comments Comments: Strong family reaction to this medication PENICILLINS 11/14/2013 7 - Swelling TAPE (ADHESIVE TAPE (ROSINS)) 11/14/2013 14 - Other: See Comments Comments: Blistering and skin tears VICODIN (HYDROCODONE-ACETAMINOP HE*11/14/2013 2 - Rash Date Reviewed: 02/16/2025 Reviewed by: Christina Candelaria MA - Fully Assessed Reason for Visit: Pain [78] Cmt: L shoulder, L rib pain x8 days, worse last 5 days, seen at [facility] 02/12/25 Primary Visit Diagnosis:Acute left-sided thoracic back (more content not included)... Normal [facility] 12 Lead EKGon 02-12-2025 12 Lead EKG [facility] Cardiovascular Services [address] [place] [address] 12 Lead EKG 02/12/25 1329 MR#: [id number] Acct: [id number] Name: FANY MARRERO Rep #: [id number] : 1965 59 From: Andrew Smith MD Attending Dr: Status: DEP ER Ordering Dr: Rafa Drew DO Date: 02/12/25 Location: ED Sex: F C Admitted: Test Reason : SHOULDER PAIN Blood Pressure : */* mmHG Vent. Rate : 70 BPM Atrial Rate : 70 BPM P-R Int : 146 ms QRS Dur : 72 ms QT Int : 424 ms P-R-T Axes : 52 76 53 degrees QTcB Int : 457 ms Normal sinus rhythm Low voltage QRS Borderline ECG Confirmed by AZAR COTTON, ANDREW ([id number]), story editor JONAH SANON ([id number]) on 02/13/2025 9:24:28 AM Referred By: Confirmed By: ANDREW SMITH MD 02/13/25 0924 Date Andrew Smith MD CC: Dr. Jani Edmondson MD; Dr. Rafa Drew DO Signed Normal [facility] Absolute lymphocyte countOrd ered By: Rafa Drew on 02-12-2025 Lymphocytes Auto (Unsp spec) [#/Vol] 2.27 10*3/uL 0.83-4.51 [facility] Absolute neutrophil countOrd ered By: Rafa Drew on 02-12-2025 Neutrophils (Bld) [#/Vol] 4.6 10*3/uL 2.0-7.7 [facility] Anion gap in Serum or Plasma Ordered By: Rafa Drew on 02-12-2025 Anion gap [Moles/Vol] 11 mmol/L - [facility] Automated lymphocyte count a s percentage of total leukocytesOrdered By: Rafa Drew on 02-12-2025 Lymphocytes/100 WBC Auto (Unsp spec) 28.4 % - [facility] BUN/creatinine ratioOrdered By: Rafa Drew on 02-12-2025 Urea nitrogen/Creatinine [Mass ratio] 14.0 mg/mg - [facility] Basic Metabolic Profile (BMP )on 02-12-2025 BUN/CRE 14.0 RATIO Normal - [facility] Comment on above: Performed By: #### L 500.2500, L501.4021, L100.0100 #### [facility] [address] [place], [address] Calcium [Mass/Vol] 9.2 mg/dL Normal 7.6-11.0 [facility] Comment on above: Performed By: #### L 500.2500, L501.4021, L100.0100 #### [facility] [address] [place], [address] Chloride [Moles/Vol] 105 mmol/L Normal 98-108 [facility] Comment on above: Performed By: #### L 500.2500, L501.4021, L100.0100 #### [facility] [address] [place], [address] CO2 [Moles/Vol] 21.8 mmol/L Normal 21.0-32.0 [facility] Comment on above: Performed By: #### L 500.2500, L501.4021, L100.0100 #### [facility] [address] [place], [address] Creatinine [Mass/Vol] 1.14 mg/dL Normal 0.70-1.20 [facility] Comment on above: Performed By: #### L 500.2500, L501.4021, L100.0100 #### [facility] [address] [place], [address] ECRCL 54.69 ml/min Normal 50-250 [facility] Comment on above: Performed By: #### L 500.2500, L501.4021, L100.0100 #### [facility] [address] [place], [address] GAP 11 Normal 5-15 [facility] Comment on above: Performed By: #### L 500.2500, L501.4021, L100.0100 #### [facility] [address] [place], [address] GFR/1.73 sq M.predicted among non-blacks MDRD (S/P/Bld) [Vol rate/Area] 55 mL/min/{1.73_m2} Low >60 [facility] Comment on above: Result Comment: mL/m in/1.73m2 CKD-EPI Creatinine Equation (2020) Performed By: #### L 500.2500, L501.4021, L100.0100 #### [facility] [address] [place], [address] Glucose [Mass/Vol] 98 mg/dL Normal 70-99 [facility] Comment on above: Performed By: #### L 500.2500, L501.4021, L100.0100 #### [facility] [address] [place], [address] Potassium [Moles/Vol] 4.3 mmol/L Normal 3.3-5.1 [facility] Comment on above: Performed By: #### L 500.2500, L501.4021, L100.0100 #### [facility] [address] [place], [address] Sodium [Moles/Vol] 137 mmol/L Normal 133-145 [facility] Comment on above: Performed By: #### L 500.2500, L501.4021, L100.0100 #### [facility] [address] [place], [address] Urea nitrogen [Mass/Vol] 16 mg/dL Normal 4-19 [facility] Comment on above: Performed By: #### L 500.2500, L501.4021, L100.0100 #### [facility] [address] [place], [address] Basophil percentageOrdered B y: Rafa Drew on 02-12-2025 Basophils/100 WBC (Bld) 0.5 % 0-1 [facility] CBC W/Diff, Automatedon 01-26 Absolute Lymph 2.27 X10 3/uL Normal 0.83-4.51 [facility] Comment on above: Performed By: #### L 500.2500, L501.4021, L100.0100 #### [facility] [address] [place], [address] Absolute Neut 4.6 X10 3/uL Normal 2.0-7.7 [facility] Comment on above: Performed By: #### L 500.2500, L501.4021, L100.0100 #### [facility] [address] [place], [address] Basophils/100 WBC (Bld) 0.5 % Normal 0-1 [facility] Comment on above: Performed By: #### L 500.2500, L501.4021, L100.0100 #### [facility] [address] [place], [address] Eosinophils/100 WBC (Bld) 3.0 % Normal 0-5 [facility] Comment on above: Performed By: #### L 500.2500, L501.4021, L100.0100 #### [facility] [address] [place], [address] Erythrocyte distribution width (RBC) [Ratio] 14.8 % High 11.6-14.6 [facility] Comment on above: Performed By: #### L 500.2500, L501.4021, L100.0100 #### [facility] [address] [place], [address] Hematocrit (Bld) [Volume fraction] 37.4 % Normal 37-47 [facility] Comment on above: Performed By: #### L 500.2500, L501.4021, L100.0100 #### [facility] [address] [place], [address] Hemoglobin (Bld) [Mass/Vol] 11.8 g/dL Low 12.0-15.0 [facility] Comment on above: Performed By: #### L 500.2500, L501.4021, L100.0100 #### [facility] [address] [place], [address] IG% 0.400 Normal 0.0-0.9 [facility] Comment on above: Result Comment: IG% - Immature Granulocytes (promyelocytes, myelocytes and metamyelocytes) > 1% indicates that a LEFT SHIFT is Present. Performed By: #### L 500.2500, L501.4021, L100.0100 #### [facility] [address] [place], [address] Lymphocytes/100 WBC (Bld) 28.4 % Normal 19-41 [facility] Comment on above: Performed By: #### L 500.2500, L501.4021, L100.0100 #### [facility] [address] [place], [address] MCH (RBC) [Entitic mass] 25.2 pg Low 27.0-32.0 [facility] Comment on above: Performed By: #### L 500.2500, L501.4021, L100.0100 #### [facility] [address] [place], [address] MCHC (RBC) [Mass/Vol] 31.6 g/dL Low 32-36 [facility] Comment on above: Performed By: #### L 500.2500, L501.4021, L100.0100 #### [facility] [address] [place], [address] MCV (RBC) [Entitic vol] 79.7 fL Low 81-99 [facility] Comment on above: Performed By: #### L 500.2500, L501.4021, L100.0100 #### [facility] [address] [place], [address] Monocytes/100 WBC (Bld) 9.6 % Normal 0-10 [facility] Comment on above: Performed By: #### L 500.2500, L501.4021, L100.0100 #### [facility] [address] [place], [address] Neutrophils/100 WBC (Bld) 58.1 % Normal 47-70 [facility] Comment on above: Performed By: #### L 500.2500, L501.4021, L100.0100 #### [facility] [address] [place], [address] Nucleated RBC (Bld) [#/Vol] 0 10*3/uL Normal 0-5 [facility] Comment on above: Performed By: #### L 500.2500, L501.4021, L100.0100 #### [facility] [address] [place], [address] Platelet mean volume (Bld) [Entitic vol] 10.8 fL Normal 6.2-12.0 [facility] Comment on above: Performed By: #### L 500.2500, L501.4021, L100.0100 #### [facility] [address] [place], [address] Platelets (Bld) [#/Vol] 230 10*3/uL Normal 150-450 [facility] Comment on above: Performed By: #### L 500.2500, L501.4021, L100.0100 #### [facility] [address] [place], [address] RBC (Bld) [#/Vol] 4.69 10*6/uL Normal 4.2-5.4 [facility] Comment on above: Performed By: #### L 500.2500, L501.4021, L100.0100 #### [facility] [address] [place], [address] RDW SD 42.8 fl Normal 35.1-43.9 [facility] Comment on above: Performed By: #### L 500.2500, L501.4021, L100.0100 #### [facility] [address] [place], [address] WBC (Bld) [#/Vol] 8.0 10*3/uL Normal 4.4-11.0 [facility] Comment on above: Performed By: #### L 500.2500, L501.4021, L100.0100 #### [facility] [address] [place], [address] Carbon dioxide, total [Moles /volume] in Central venous bloodOrdered By: Rafa Drew on 02-12-2025 CO2 [Moles/Vol] 21.8 mmol/L 21.0-32.0 [facility] Chloride assayOrdered By: Lopez Drew on 02-12-2025 Chloride [Moles/Vol] 105 mmol/L 98-108 [facility] Emergency Department Summary on 02-12-2025 Emergency Department Summary [facility] Medical Records Department [address] [place] [address] Emergency Department Summary 02/12/25 MR#: [id number] Acct: [id number] Name: FANY MARRERO Rep #: [id number] : 1965 59 From: Rafa Drew DO PCP: Dr. Jani Edmondson MD Status:REG ER Location: ED HPI History of Present Illness Chief Complaint: Back Narrative Narrative: Patient is a 59-year-old female with past medical history of prediabetic, chronic kidney disease stage III, asthma, hypertension, Graves' disease who presented to the emergency department chief complaint of left-sided back pain rating to her left shoulder. Patient states that on she was trying to get a dresser out of the car and noted that she had pain associated with this. Patient's notes that she tried Tylenol and did not touch her pain she states that she did try ibuprofen/Aleve and she states that this did help her pain but states that she is not supposed be taking this medication secondary to her underlying kidney disease. She noted that the pain has not gotten any better she feels like it is gotten worse therefore she came here for further evaluation management. Patient notes that the pain radiates to her left shoulder patient denies any shortness of breath associated with this. Patient notes that the last few days her pain has been constant. [facility] Medical History Obesity Stage 3a chronic kidney disease (CKD) Pre-diabetes Polycystic ovarian disease GERD (gastroesophageal reflux disease) Asthma Essential hypertension Graves' disease Home Medications ???Medication ???Instructions ???Recorded ???Last Taken ???Type albuterol sulfate 90 mcg/actuation 1 puff inhalation Q4H PRN PRN So b 01/17/18 Unknown History aerosol inhaler /Or Wheezing immuneti PO 06/20/20 Unknown History omeprazole 40 mg capsule,delayed cap PO 12/23/21 Unknown History release blood pressure test kit-small #1 ea 12/23/22 Unknown Rx cetirizine 10 mg capsule (All Day 10 mg PO DAILY PRN 08/25/23 Unkno wn History Allergy (cetirizine)) levothyroxine 88 mcg tablet 88 mcg PO DAILY #90 tabs 09/15/24 Unknown Rx valsartan 80 mg tablet 80 mg PO QDAY 09/15/24 Unknown His tory clindamycin HCl 300 mg capsule 300 mg PO Q6H #40 CAPSULES 5 Unknown Rx (Cleocin HCl) ibuprofen 600 mg tablet 600 mg PO Q8H PRN PRN fever or 01/20 Unknown Rx pain #20 TABLETS oxycodone-acetaminophen 5 mg-325 1 tab PO Q6H PRN PRN Pain 3 days 0 11/29/24 Unknown Rx mg tablet #12 TABLETS Jardiance 25 mg tablet 25 mg PO DAILY #90 tabs 12/12/24 U nknown Rx (empagliflozin) cyclobenzaprine 10 mg tablet 10 mg PO BID PRN muscle spasm #20 02/12/25 Unknown Rx tabs ondansetron 4 mg disintegrating 4 mg PO Q6H PRN nausea and 5 Unknown Rx tablet vomiting #20 tabs Allergy/AdvReac Type Severity Reaction Status Date / Time cigarette smoke Allergy Severe unknown Verified 02/12/25 12:38 codeine Allergy Mild Hives Verified 02/12/25 12:38 Environmental Allergies: Allergy Shortness Verified 02/12/25 12:38 Uncoded (pine) of breath hydrocodone bitartrate (From Allergy Hives Verified 02/12/25 12:38 Vicodin) lisinopril Allergy Rash Verified 02/12/25 12:38 Penicillins Allergy Shortness Verified 02/12/25 12:38 of breath alex hips Allergy Shortness Verified 02/12/25 12:38 of breath adhesive tape (paper tape) AdvReac Hives Verified 02/12/25 12:38 Family History Mother Asthma Heart disease Hypertension Seizures Sister Asthma Hypertension Seizures Brother Asthma Grandmother Cancer Heart disease CVA (cerebral vascular accident) Aunt Cancer Father Thyroid disorder Surgical History H/O: hysterectomy Cervical vertebral fusion Social History Smoking Status: Never smoker alcohol intake: never substance use type: does not use ROS ROS ED ROS Narrative Constitutional: Denies fevers, chills, headaches malaise, dizziness Eyes: No change in vision over the blurry vision Cardiovascular: Complains of chest pain as noted above denies palpitations Respiratory: Denies coughing wheezing shortness of breath Abdomen: Denies abdominal pain nausea vomit diarrhea : Denies urinary symptoms Neurological: Denies numbness, weakness, tingling Musculoskeletal: Complains of left-sided back pain as noted above Skin: Denies any rashes or lesions EXAM Physical Exam Narrative Exam Narrative: General: Patient lying in bed rest comfortably did not appear to be acute distress Head: Atraumatic, normocephalic Eyes: PERRL bilaterally, EOMI bilateral, no conjunctival i (more content not included)... Normal [facility] Eosinophil percentageOrdered By: Rafa Drew on 02-12-2025 Eosinophils/100 WBC (Bld) 3.0 % 0-5 [facility] Erythrocyte distribution wid th ratioOrdered By: Rafa Drew on 02-12-2025 Erythrocyte distribution width (RBC) [Ratio] 14.8 % High 11.6-14.6 [facility] Erythrocyte distribution wid th standard deviationOrdered By: Rafa Drew on 02-12-2025 Erythrocyte distribution width (RBC) [Ratio] 42.8 fl 35.1-43.9 [facility] Glomerular filtration rate ( GFR) estimation/1.73 sq m using serum, plasma, or whole bOrdered By: Rafaruss Drew on 02-12-2025 GFR/1.73 sq M.predicted among non-blacks MDRD (S/P/Bld) [Vol rate/Area] 55 mL/min/{1.73_m2} Low >60 [facility] Comment on above: mL/min/1.73m2 CKD-EP I Creatinine Equation (2020) Hematocrit Auto (Bld) [Volum e fraction]Ordered By: Rafa Drew on 02-12-2025 Hematocrit (Bld) [Volume fraction] 37.4 % 37-47 [facility] Hemoglobin measurementOrdere d By: Rafa Drew on 02-12-2025 Hemoglobin (Bld) [Mass/Vol] 11.8 g/dL Low 12.0-15.0 [facility] Immature granulocytes/100 WB C Auto (Bld)Ordered By: Rafa Drew on 02-12-2025 Immature granulocytes/100 WBC (Bld) 0.400 % 0.0-0.9 [facility] Comment on above: IG% - Immature Granu locytes (promyelocytes, myelocytes and metamyelocytes) > 1% indicates that a LEFT SHIFT is Present. L501.4021on 02-12-2025 Trop T High Sen 8 ng/L Normal <=14 [facility] Comment on above: Performed By: #### L 500.2500, L501.4021, L100.0100 #### [facility] [address] [place], [address] MCV (mean corpuscular volume ) determinationOrdered By: Rafa Drew on 02-12-2025 MCV (RBC) [Entitic vol] 79.7 fL Low 81-99 [facility] Mean corpuscular hemoglobin (MCH) determinationOrdered By: Rafa Drew on 02-12-2025 MCH (RBC) [Entitic mass] 25.2 pg Low 27.0-32.0 [facility] Mean corpuscular hemoglobin concentration (MCHC) determinationOrdered By: Rafa Drew on 02-12-2025 MCHC (RBC) [Mass/Vol] 31.6 g/dL Low 32-36 [facility] Mean platelet volume determi nationOrdered By: Rafa Drew on 02-12-2025 Platelet mean volume (Bld) [Entitic vol] 10.8 fL 6.2-12.0 [facility] Monocyte percentageOrdered B y: Rafa Drew on 02-12-2025 Monocytes/100 WBC (Bld) 9.6 % 0-10 [facility] Neutrophil percentageOrdered By: Rafa Drew on 02-12-2025 Neutrophils/100 WBC (Bld) 58.1 % 47-70 [facility] Nucleated red blood cell per centageOrdered By: Rafa Drew on 02-12-2025 Nucleated RBC/100 WBC (Bld) [Ratio] 0 % 0-5 [facility] Platelet countOrdered By: Lopez Drew on 02-12-2025 Platelets (Bld) [#/Vol] 230 10*3/uL 150-450 [facility] Potassium measurement (mass/ volume)Ordered By: Rafa Drew on 02-12-2025 Potassium (Unsp spec) [Mass/Vol] 4.3 mmol/L 3.3-5.1 [facility] RBC Auto (Bld) [#/Vol]Ordere d By: Rafa Drew on 02-12-2025 RBC (Bld) [#/Vol] 4.69 10*6/uL 4.2-5.4 [facility] Ribs Uni Min 3V w/PA Cheston 02-12-2025 Ribs Uni Min 3V w/PA Chest [facility] Imaging Services [address] [place] [address] Ribs Uni Min 3V w/PA Chest MR#: [id number] Acct: [id number] Name: FANY MARRERO Rep #: [id number] : 1965 F 59 From: Harsh Almanza MD PCP: Dr. Jani Edmondson MD Status: REG ER Study: Ribs Uni Min 3V w/PA Chest Date of Exam: 02/12 Exam# [id number] Ordering Dr: Rafa Drew DO EXAM: XR Left Ribs and AP Chest, 3 or More Views CLINICAL INDICATION: PAIN TECHNIQUE: Frontal and oblique views of the left ribs and frontal view of the chest. COMPARISON: No relevant prior studies available. FINDINGS: LUNGS AND PLEURAL SPACES: Unremarkable. No consolidation. No pneumothorax. HEART: Unremarkable. No cardiomegaly. MEDIASTINUM: Unremarkable. Normal mediastinal contour. BONES/JOINTS: Unremarkable. No displaced rib fractures. RAD/Ribs Uni Min 3V w/PA Chest IMPRESSION: No displaced rib fractures. Reading Location: [facility] CC: Dr. Jani Edmondson MD; Dr. 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 Serum creatinine measurement (mass/volume)Ordered By: Rafa Drew on 02-12-2025 Creatinine [Mass/Vol] 1.14 mg/dL 0.70-1.20 [facility] Serum glucose measurement (m ass/volume)Ordered By: Rafa Drew on 02-12-2025 Glucose [Mass/Vol] 98 mg/dL 70-99 [facility] Serum or plasma calcium alec urement (mass/volume)Ordered By: Rafa Drew on 02-12-2025 Calcium [Mass/Vol] 9.2 mg/dL 7.6-11.0 [facility] Serum or plasma urea nitroge n measurement (mass/volume)Ordered By: Rafa Drew on 02-12-2025 Urea nitrogen [Mass/Vol] 16 mg/dL 4-19 [facility] Shoulder min 2 Viewson 02-12 Shoulder min 2 Views [facility] Imaging Services [address] [place], [place] [address] Shoulder min 2 Views MR#: [id number] Acct: [id number] Name: FANY MARRERO Rep #: [id number] : 1965 F 59 From: Harsh Almanza MD PCP: Dr. Jani Edmondson MD Status: REG ER Study: Shoulder min 2 Views Date of Exam: 02/12/25 Exam# [id number] Ordering Dr: Rafa Drew DO EXAM: XR Left Shoulder Complete, 2 or More Views CLINICAL INDICATION: SHOULDER PAIN TECHNIQUE: Two or more views of the left shoulder. COMPARISON: No relevant prior studies available. FINDINGS: BONES/JOINTS: Mild degenerative change of the acromioclavicular and glenohumeral joints. No acute fracture. No dislocation. SOFT TISSUES: Unremarkable. RAD/Shoulder min 2 Views IMPRESSION: Degenerative changes as above. Reading Location: [facility] CC: Dr. Jani Edmondson MD; Dr. 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 Sodium levelOrdered By: Carlos Manuel Drew on 02-12-2025 Sodium [Moles/Vol] 137 mmol/L 133-145 [facility] Troponin T.cardiac [Mass/vol ume] in Serum or Plasma by High sensitivity methodOrdered By: Rafa Drew on 02-12-2025 Troponin T.cardiac High sensitivity method [Mass/Vol] 8 ng/L <14 [facility] White blood cell (WBC) count Ordered By: Rafa Drew on 02-12-2025 WBC (Bld) [#/Vol] 8.0 10*3/uL 4.4-11.0 [facility] CNPN Telephone (OBGYWM) FNAY MARRERO ([id number]) 1965 F Date Time Provider Department 01/27/25 BETTY CADENA OBGYWElena During your visit today, we recorded the following information about you: Betty Cadena MD 01/27/2025 3:13 PM Signed See result note. Additional breast imaging ordered Maricel Arguelles RN 01/27/2025 3:24 PM Signed Betty Cadena MD to [facility] [employer] Pool 01/27/25 3:12 PM Result Note Diagnostic mammogram recommended. Will place order JESUS MANUEL SCREENING W LUIS ANTONIO Maricel Arguelles RN 01/27/2025 3:27 PM Signed Pt notified and transferred to imaging PSS to get scheduled. Maricel Arguelles RN. Maricel Arguelles RN Allergies As of Date: 01/27/2025 Noted Allergy Reaction LISINOPRIL 12/16/2013 2 - Rash 9 - Itching CODEINE 11/14/2013 14 - Other: See Comments Comments: Strong family reaction to this medication PENICILLINS 11/14/2013 7 - Swelling TAPE (ADHESIVE TAPE (ROSINS)) 11/14/2013 14 - Other: See Comments Comments: Blistering and skin tears VICODIN (HYDROCODONE-ACETAMINOP HE*11/14/2013 2 - Rash Date Reviewed: 01/06/2025 Reviewed by: Yvette Garcia MA - Fully Assessed Reason for Visit: Orders [681] Primary Visit Diagnosis:Abnormal mammogram [R92.8] Order(s):[facility] DIAGNOSTIC RIGHT [[id number]] Order #: [id number] FUTURE BREAST LTD RIGHT [[id number]] Order #: [id number] FUTURE Prescriptions as of 01/27/2025 - omeprazole (PRILOSEC) 40 mg capsule Take 1 capsule by mouth daily before breakfast. 1/2 hr before meal. - EPINEPHrine (EPIPEN) 0.3 mg/0.3 mL auto-injector Inject once with onset of shortness of breath or throat swelling due to allergic reaction - valsartan (DIOVAN) 80 mg tablet Take 1 tablet by mouth once daily. - fluticasone (FLONASE) 50 mcg/actuation nasal spray Use 2 Sprays in each nostril once daily. Rinse mouth after use. - cetirizine (ZYRTEC) 10 mg tablet Take 1 tablet by mouth once daily. - empagliflozin (JARDIANCE) 25 mg tablet Take 1 tablet by mouth once daily. Take 1 tablet once daily in the morning. Per Dr. Rodriguez (for CKD) - albuterol HFA (PROAIR HFA) 90 mcg/actuation inhaler Inhale 2 Puffs as instructed every 4 hours as needed for wheezing/shortness of breath. - levothyroxine (SYNTHROID) 88 mcg tablet Take 1 tablet by mouth daily before breakfast. Per endo: Dr. Rodriguez - Blood Pressure Monitor 1 Each once daily. Use daily. Problem List As Of Date 01/27/2025 Noted Resolved Hypertension, essential [I10] 05/09/2021 GERD without esophagitis [K21.9] 05/09/2021 Hypothyroidism, acquired [E03.9] 05/09/2021 Fatty liver [K76.0] 05/09/2021 Encounter for routine gynecological examination*05/09/2021 Screening for colon cancer [Z12.11] 06/07/2021 07/29/2021 Pharyngoesophageal dysphagia [R13.14] 07/29/2021 Medication management [Z79.899] 12/09/2021 Seasonal allergies [J30.2] 12/09/2021 Asthma due to seasonal allergies [J45.909] 12/09/2021 History of shingles [Z86.19] 06/24/2022 Well adult exam [Z00.00] 06/24/2022 Stage 3a chronic kidney disease (HCC) [N18.31] 12/26/2022 Neck pain [M54.2] 07/07/2023 AK (actinic keratosis) [L57.0] 07/07/2023 Large breasts [N62] 07/07/2023 Encounter for screening for diabetes mellitus [*07/07/2023 Elevated hemoglobin A1c [R73.09] 08/11/2023 Obesity, Class I, BMI 30-34.9 [E66.811] 09/14/2024 Encounter Status:Closed by [facility] (FAMPWS) JANESFANY Rick ([id number]) 1965 F Date Time Provider Department 01/25/25 JANI EDMONDSON FAMReeceWS During your visit today, we recorded the following information about you: Rajiv Turner, RODRÍGUEZ 01/25/2025 9:38 PM Signed Pt calling in stating she is having a problem getting her BP medication Valsartan from [facility]. Pt states she has been out of med for 3 days and calling [facility] who has told her they have reached out to Dr. Edmondson's office with no response. They are telling pt that she needs a new script. Per last script sent in to [facility] on 09/14/2024, script was sent for Valsartan 80 mg take 1 tablet daily. Dispense 30 with 5 refills which should take pt to approximately mid January. Per dispense report, it appears that [facility] did a 90 day supply (90 tablets) dispensed to pt on 10/12/2024. Only a 30 day supply was sent in with refills and per dispense report, only 90 tablets were dispensed from the script sent in on 09/14/24 and it states 4 refills remaining. [facility] pharmacy [place] needs called for clarification on how they filled and dispensed pt's 09/14/24 prescription as it appears pt should still have 90 tablets left. Will call tomorrow to confirm with pharmacy and contact pt back. Pt is out of meds and needs jaiden. Rajiv Turner, RODRÍGUEZ 01/26/2025 9:49 AM Signed Called and spoke with pharmacist Marika at [facility] pharmacy and discussed with him why pt cannot get her Valsartan. Per script sent on 09/14/24, Valsartan was for 30 with 5 refills. Per Marika, a 30 day supply was dispensed in August then pt requested a 90 day supply which they dispensed on 10/12/24 which leaves pt with 60 pills that they can dispense. Marika is unsure why they were telling pt that they needed something from prescribing doctor's office. He will get the 60 tablets ready. Attempted to contact pt as she stated yesterday she has been out of her BP med for several days. Pt did not answer. Left generic msg to check at pharmacy as med problem was taken care of and to call with any issues. Pt's next appt is 03/[address] Edmondson. Added to appt comment need for prescription refills for 90 days. Allergies As of Date: 01/25/2025 Noted Allergy Reaction LISINOPRIL 12/16/2013 2 - Rash 9 - Itching CODEINE 11/14/2013 14 - Other: See Comments Comments: Strong family reaction to this medication PENICILLINS 11/14/2013 7 - Swelling TAPE (ADHESIVE TAPE (ROSINS)) 11/14/2013 14 - Other: See Comments Comments: Blistering and skin tears VICODIN (HYDROCODONE-ACETAMINOP HE*11/14/2013 2 - Rash Date Reviewed: 01/06/2025 Reviewed by: Yvette Garcia MA - Fully Assessed Reason for Visit: Medication Problem [65] Cmt: Valsartan Prescriptions as of 01/26/2025 - omeprazole (PRILOSEC) 40 mg capsule Take 1 capsule by mouth daily before breakfast. 1/2 hr before meal. - EPINEPHrine (EPIPEN) 0.3 mg/0.3 mL auto-injector Inject once with onset of shortness of breath or throat swelling due to allergic reaction - valsartan (DIOVAN) 80 mg tablet Take 1 tablet by mouth once daily. - fluticasone (FLONASE) 50 mcg/actuation nasal spray Use 2 Sprays in each nostril once daily. Rinse mouth after use. - cetirizine (ZYRTEC) 10 mg tablet Take 1 tablet by mouth once daily. - empagliflozin (JARDIANCE) 25 mg tablet Take 1 tablet by mouth once daily. Take 1 tablet once daily in the morning. Per Dr. Rodriguez (for CKD) - albuterol HFA (PROAIR HFA) 90 mcg/actuation inhaler Inhale 2 Puffs as instructed every 4 hours as needed for wheezing/shortness of breath. - levothyroxine (SYNTHROID) 88 mcg tablet Take 1 tablet by mouth daily before breakfast. Per endo: Dr. Rodriguez - Blood Pressure Monitor 1 Each once daily. Use daily. Problem List As Of Date 01/25/2025 Noted Resolved Hypertension, essential [I10] 05/09/2021 GERD without esophagitis [K21.9] 05/09/2021 Hypothyroidism, acquired [E03.9] 05/09/2021 Fatty liver [K76.0] 05/09/2021 Encounter for routine gynecological examination*05/09/2021 Screening for colon cancer [Z12.11] 06/07/2021 07/29/2021 Pharyngoesophageal dysphagia [R13.14] 07/29/2021 Medication management [Z79.899] 12/09/2021 Seasonal allergies [J30.2] 12/09/2021 Asthma due to seasonal allergies [J45.909] 12/09/2021 History of shingles [Z86.19] 06/24/2022 Well adult exam [Z00.00] 06/24/2022 Stage 3a chronic kidney disease (HCC) [N18.31] 12/26/2022 Neck pain [M54.2] 07/07/2023 AK (actinic keratosis) [L57.0] 07/07/2023 Large breasts [N62] 07/07/2023 Encounter for screening for diabetes mellitus [*07/07/2023 Elevated hemoglobin A1c [R73.09] 08/11/2023 Obesity, Class I, BMI 30-34.9 [E66.811] 09/14/2024 Encounter Status:Closed by RAJIV TURNER on 01/26/25 Normal [facility] JESUS MANUEL SCREENING W TOMOon 01-25 JESUS MANUEL SCREENING W LUIS ANTONIO * * *Final Report* * * DATE OF EXAM: Jan 25 2025 7:41AM WRW [id number] - JESUS MANUEL SCREENING W LUIS ANTONIO / PROCEDURE REASON: Encounter for screening mammogram for breast cancer * * * * Physician Interpretation * * * * RESULT: [address] [address] [place] [address] #[id number] - JESUS MANUEL SCREENING W LUIS ANTONIO HISTORY: 59 year-old patient seen for screening. Patient is asymptomatic in both breasts. Patient states no personal history of breast cancer. COMPARISON STUDIES: The present examination has been compared to prior imaging studies dated 11/16/2018 (mammogram) and 08/09/2021 (mammogram). MAMMOGRAM TECHNIQUE: The study was acquired using full field digital technology and interpreted from soft copy. Digital Breast Tomosynthesis (DBT) images were obtained and used to assist in the interpretation of this examination. MAMMOGRAM FINDINGS: The breasts are heterogeneously dense, which may obscure small masses. There is a focal asymmetry with associated punctate calcifications in the right breast. This is best visualized on tomosynthesis CC view slice # 15 and MLO view slice # 42. No suspicious masses, calcifications or other abnormalities are seen in the left breast. IMPRESSION: The focal asymmetry with calcifications in the right breast requires additional evaluation. Diagnostic mammogram is recommended. BI-RADS Category 0: Incomplete: Needs Additional Imaging Evaluation RISK: Based on the Tyrer-Cuzick (TC) risk assessment model, this patient has a 13.6% lifetime risk of developing breast cancer, meaning they are at average risk for developing breast cancer. However, this is only an estimate based on available history provided on the patient's questionnaire. We encourage all patients to talk with their providers about these results, further recommendations for managing breast health, and appropriate supplemental screening options if the patient has dense breast tissue. Interpreting Radiologist: Florentin Sethi M.D. Electronically signed on: 01/26/2025 Office Employee: LOUIE Transcribe Date/Time: Jan 25 2025 7:22A Dictated by: FLORENTIN SETHI MD This examination was interpreted and the report reviewed and electronically signed by: FLORENTIN SETHI MD on Jan 26 2025 9:53AM EST [id number] Normal [facility] CNOVon 01-06-2025 CNOV Office Visit (OBGYWM ) FANY MARRERO ([id number]) 1965 F Date Time Provider Department 01/06/25 9:40 AM BETTY CADENA OBGYWElena During your visit today, we recorded the following information about you: Blood pressure Weight Height 110/78 82.9 kg 1.595 m Betty Cadena MD 01/06/2025 10:09 AM Signed 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 Soares is a 59 year old who presents for an annual gynecologic exam without complaints. Postmenopausal: ANDREW Had a hysterectomy with LSO for fibroid uterus Had RSO for right ovarian cysts noted at time of appendicitis Did not experience bothersome menopausal symptoms HRT use: No. Age at Menarche: 12 Still get period: No Menses: ANDREW Menstrual flow: N/A Bleeding amount bothersome: N/A Bleeding between periods: N/A Period symptoms: N/A Sexually active: No Contraception: Other hysterectomy Contraception frequency: Always HPV vaccine: No Last pap smear: none on file History of abnormal pap: No Colposcopy: No. Leep: No. Cone biopsy: No. Bothersome pelvic pain: No Last mammogram: 2022 normal History of abnormal mammogram: No OB History Gravida1 Para0 Term0 Preterm0 AB0 Living1 SAB0 IAB0 Ectopic0 Multiple0 Live Births0 Comment: Twins, miscarried one. FAMILY HISTORY Problem Relation Age of Onset Anesthesia Mother Diabetes Mother Heart Mother Hypertension Mother Parkinson?s Disease Mother Dementia Mother Anesthesia Father Heart Sister Seizures Sister Hypertension Sister Seizures Sister Anesthesia Brother Diabetes Maternal Grandmother Cancer Maternal Grandfather Diabetes Paternal Grandmother Stroke Paternal Grandmother Breast Cancer Maternal Aunt SOCIAL HISTORY Social History Tobacco Use Smoking status: Never Smokeless tobacco: Never Vaping Use Vaping status: Never Used Substance Use Topics Alcohol use: No Drug use: Never REVIEW OF SYSTEMS Abdomen: No abdominal pain, nausea, vomiting, diarrhea, or constipation. No bloating, early satiety, indigestion, or increased flatulence. Bladder: No dysuria, gross hematuria, urinary frequency, urinary urgency, or incontinence Breast: No breast lumps, nipple d/c, overlying skin changes, redness or skin retraction Allergies and current medication updated:Yes SENSITIVE EXAM: The sensitive examination was discussed with the Patient or Patient's Authorized Alcoholism Worker. As applicable, any other physician, advance practice provider, medical student, or other health professional student that will be observing or involved in the sensitive examination for educational or training purposes was discussed with the Patient or Authorized Alcoholism Worker. The Patient or Authorized Alcoholism Worker has agreed to proceed with the sensitive examination. (Sensitive examination includes inspection and/or palpation of the breasts, pelvis, prostate and anorectal regions). EXAM: BP 110/78 Ht 5' 2.795 (1.60m) Wt 182 lb 12.8 oz (82.9kg) BMI 32.59 kg/(m2). GENERAL: pleasant, female in no apparent distress HEENT: Normocephalic and atraumatic NECK: full range of motion BREAST: soft, non-tender, symmetric, no dominant mass, normal nipple-areolar complex, no lymphadenopathy, and no nipple discharge CHEST: Normal inspiratory effort ABDOMEN: soft, non-tender, and no masses PELVIC: external genitalia atrophic, normal Bartholin's glands, urethra, Pepin's glands, no vulvar lesions, good vaginal support, physiologic discharge present, normal appearing perineal body and perianal region BIMANUAL: no adnexal masses and non-tender RECTOVAGINAL: deferred. NEURO: exam grossly non-focal EXTREMITIES: normal ASSESSMENT/PLAN: 1) Health maintenance: Pap/HPV screening no longer needed Mammogram ordered Nutrition, exercise and routine health maintenance exams reviewed. Colon cancer screening: up to date with screening TSH/lipids/glucose: followed by PCP 2) Follow up one year or sooner as needed Betty Cadena DO Referring Provider: JANI EDMONDSON [[id number]] Allergies As of Date: 01/06/2025 Noted Allergy Reaction LISINOPRIL 12/16/2013 2 - Rash 9 - Itching CODEINE 11/14/2013 14 - Other: See Comments Comments: Strong family reaction to this medication PENICILLINS 11/14/2013 7 - Swelling TAPE (ADHESIVE TAPE (ROSINS)) 11/14/2013 14 - Other: See Comments Comments: Blistering and skin tears VICODIN (HYDROCODONE-ACETAMINOP HE*11/14/2013 2 - Rash Date Reviewed: 01/06/2025 Reviewed by: Yvette Garcia MA - Fully Assessed Reason for Visit: Well Woman [[id number]] Primary Visit Diagnosis:Encounter for gynecological examination (general) (routine) without abnormal findings [Z01.419] Other Visit Diagnoses:Encounter for gynecological examination with abnormal finding [Z01.411] Encounter for screening mammogram for breast cancer [Z12.31] Order(s):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 Normal [facility] Emergency Department Summary on 11-29-2024 Emergency Department Summary [facility] Medical Records Department [address] [place] [address] Emergency Department Summary 11/29/24 MR#: [id number] Acct: [id number] Name: FANY MARRERO Rep #: [id number] : 1965 59 From: Flip Ramsey DO PCP: Dr. Jani Edmondson MD Status:DEP ER Location: ED HPI History of Present Illness Chief Complaint: Dental Informant: patient Narrative Narrative: 59-year-old female presenting to the emergency room with dental pain and swelling. Patient notes that on Thursday she had some discomfort in the lower left jaw. During last night she developed swelling and increased pain. She was at work today and noted that the lip area was tingling like she had been to the dentist. She has had dental issues in the past and is in need of a new dentist. The patient states that she is advised from coworkers to come to the emergency room as she might be having a stroke as she also noted an occipital headache which she describes as a pressure and wonders if that is due to her blood pressure being high from the pain and being nervous. Patient notes a penicillin allergy. [facility] Medical History Obesity Stage 3a chronic kidney disease (CKD) Pre-diabetes Polycystic ovarian disease GERD (gastroesophageal reflux disease) Asthma Essential hypertension Graves' disease Home Medications ???Medication ???Instructions ???Recorded ???Last Taken ???Type albuterol sulfate 90 mcg/actuation 1 puff inhalation Q4H PRN PRN So b 01/17/18 Unknown History aerosol inhaler /Or Wheezing immuneti PO 06/20/20 Unknown History omeprazole 40 mg capsule,delayed cap PO 12/23/21 Unknown History release blood pressure test kit-small #1 ea 12/23/22 Unknown Rx cetirizine 10 mg capsule (All Day 10 mg PO DAILY PRN 08/25/23 Unkno wn History Allergy (cetirizine)) Jardiance 25 mg tablet 25 mg PO DAILY #90 tabs 09/15/24 U nknown Rx (empagliflozin) levothyroxine 88 mcg tablet 88 mcg PO DAILY #90 tabs 09/15/24 Unknown Rx valsartan 80 mg tablet 80 mg PO QDAY 09/15/24 Unknown His tory clindamycin HCl 300 mg capsule 300 mg PO Q6H #40 CAPSULES 5 Unknown Rx (Cleocin HCl) ibuprofen 600 mg tablet 600 mg PO Q8H PRN PRN fever or 01/20 Unknown Rx pain #20 TABLETS oxycodone-acetaminophen 5 mg-325 1 tab PO Q6H PRN PRN Pain 3 days 0 11/29/24 Unknown Rx mg tablet #12 TABLETS Allergy/AdvReac Type Severity Reaction Status Date / Time cigarette smoke Allergy Severe unknown Verified 11/29/24 08:47 codeine Allergy Mild Hives Verified 11/29/24 08:47 Environmental Allergies: Allergy Shortness Verified 11/29/24 08:47 Uncoded (pine) of breath hydrocodone bitartrate (From Allergy Hives Verified 11/29/24 08:47 Vicodin) lisinopril Allergy Rash Verified 11/29/24 08:47 Penicillins Allergy Shortness Verified 11/29/24 08:47 of breath alex hips Allergy Shortness Verified 11/29/24 08:47 of breath adhesive tape (paper tape) AdvReac Hives Verified 11/29/24 08:47 Family History Mother Asthma Heart disease Hypertension Seizures Sister Asthma Hypertension Seizures Brother Asthma Grandmother Cancer Heart disease CVA (cerebral vascular accident) Aunt Cancer Father Thyroid disorder Surgical History H/O: hysterectomy Cervical vertebral fusion Social History Smoking Status: Never smoker alcohol intake: never substance use type: does not use ROS ROS ED Constitutional Constitutional ED: Denies chills or weight loss Eyes Eyes: Denies change in vision or diplopia ENT ENT ED: Reports other Details: See history of present illness ; Denies ear pain, rhinorrhea or sore throat Cardiovascular Cardiovascular: Denies chest pain, orthopnea, palpitations or racing heartbeat Respiratory/Chest Respiratory/Chest: Denies cough, dyspnea or orthopnea Gastrointestinal Gastrointestinal: Denies abdominal pain, diarrhea, nausea or vomiting Genitourinary Genitourinary ED: Denies dysuria, hematuria or urinary frequency Musculoskeletal Musculoskeletal: Denies arthralgias or myalgias Integumentary Denies abscess or rash Neurologic Neurologic: Reports headache(s); Denies weakness Psychiatric Psychiatric: Reports anxiety; Denies depression, suicidal ideation or suicidal thoughts Endocrine Endocrinology: Denies polydipsia, polyphagia or polyuria Allergic/Immunologic Allergic/Immunologic ED: Denies mouth swelling, tongue swelling or urticaria EXAM Physical Exam Const Vital Signs: 11/29/24 08:45 11/29/24 09:34 11/29/24 09:39 Temperature 98 F 98.2 F Temperature Source Temporal (more content not included)... [facility] (FAMPWS ) FANY MARRERO ([id number]) 1965 F Date Time Provider Department 10/21/24 7:20 AM NINA SCHERER FAMWS During your visit today, we recorded the following information about you: Pulse Blood pressure 79/minute 117/80 Nina Scherer PA-C 10/21/2024 7:55 AM Signed Chief Complaint Patient presents with: Recheck: Blood pressure HPI Fany Marrero is a 59 year old female who presents here today for recheck bp. Patient was switched to valsartan from metoprolol. Patient is tolerating medication well. Hasn't been checking home BP yet. Just found her home machine yesterday. Past medical history, appointments, medications, allergies reviewed. Previous Medical History PAST MEDICAL HISTORY Diagnosis Date AK (actinic keratosis) 07/07/2023 ventral right forearm near elbow, Tx 06/2023 Asthma due to seasonal allergies 12/09/2021 Elevated hemoglobin A1c 08/11/2023 Encounter for routine gynecological examination 05/09/[address] Renner Fatty liver GERD without esophagitis 05/09/2021 History of shingles 06/24/202210/2021 Hypertension, essential 05/09/2021 Hypothyroid Hypothyroidism, acquired 05/09/2021 Dr. Rodriguez Neck pain 07/07/2023 Known cervical fusion Obesity, Class I, BMI 30-34.9 09/14/2024 Pharyngoesophageal dysphagia 07/29/2021 [facility] Seasonal allergies 12/09/2021 Stage 3a chronic kidney disease (HCC) 12/26/2022 Well adult exam 06/24/2022 last done: 07/07/2023 Previous Surgical History PAST SURGICAL HISTORY Procedure Laterality Date ADDITIONAL SPINAL FUSION 09/28/2008 cervical c5/c6 COLONOSCOPY FLX DX W/COLLJ SPEC WHEN PFRMD 07/29/2021 ESOPHAGOGASTRODUODENOSC OPY TRANSORAL DIAGNOSTIC 07/29/2021 attmpted but unable to complete LAPAROSCOPIC APPENDECTOMY 12/08/2013 assist Zurdo OOPHORECTOMY PARTIAL/TOTAL UNI/BI Right 12/08/2013 TOTAL ABDOM HYSTERECTOMY 2015 UNLISTED LAPAROSCOPY, ABD 09/28/1995 Family History FAMILY HISTORY Problem Relation Age of Onset Anesthesia Mother Diabetes Mother Heart Mother Hypertension Mother Parkinson?s Disease Mother Dementia Mother Anesthesia Father Heart Sister Seizures Sister Hypertension Sister Seizures Sister Anesthesia Brother Diabetes Maternal Grandmother Cancer Maternal Grandfather Diabetes Paternal Grandmother Stroke Paternal Grandmother Breast Cancer Maternal Aunt Patient Allergies ALLERGIES Allergen Reactions Lisinopril Rash, Itching Codeine Other: See Comments Strong family reaction to this medication Penicillins Swelling Tape [Adhesive Tape* Other: See Comments Blistering and skin tears Vicodin [Hydrocodon* Rash Current Medications Current Outpatient Medications on File Prior to Visit Medication Sig omeprazole (PRILOSEC) 40 mg capsule Take 1 capsule by mouth daily before breakfast. 1/2 hr before meal. EPINEPHrine (EPIPEN) 0.3 mg/0.3 mL auto-injector Inject once with onset of shortness of breath or throat swelling due to allergic reaction valsartan (DIOVAN) 80 mg tablet Take 1 tablet by mouth once daily. fluticasone (FLONASE) 50 mcg/actuation nasal spray Use 2 Sprays in each nostril once daily. Rinse mouth after use. cetirizine (ZYRTEC) 10 mg tablet Take 1 tablet by mouth once daily. empagliflozin (JARDIANCE) 25 mg tablet Take 1 tablet by mouth once daily. Take 1 tablet once daily in the morning. Per Dr. Rodriguez (for CKD) albuterol HFA (PROAIR HFA) 90 mcg/actuation inhaler Inhale 2 Puffs as instructed every 4 hours as needed for wheezing/shortness of breath. levothyroxine (SYNTHROID) 88 mcg tablet Take 1 tablet by mouth daily before breakfast. Per endo: Dr. Rodriguez Blood Pressure Monitor 1 Each once daily. Use daily. cyclobenzaprine (FLEXERIL) 10 mg tablet Take 1 tablet by mouth three times a day as needed for muscle spasm for up to 12 doses. (Patient not taking: Reported on 10/21/2024) No current facility-administered medications on file prior to visit. Social History Social History Tobacco Use Smoking status: Never Smokeless tobacco: Never Vaping Use Vaping status: Never Used Substance Use Topics Alcohol use: No Drug use: Never Review of Symptoms REVIEW OF SYSTEMS Denies chest pain or shortness of breath. EXAM: BP 117/80 (BP Site: Left Arm, BP Position: Sitting, BP Cuff Size: Regular Adult) Pulse 79 Temp (P) 36.6 ?C (97.8 ?F) Resp (P) 18 Wt (P) 83.5 kg (184 lb) SpO2 (P) 98% BMI (P) 32.59 kg/m? General Appearance: Well appearing, alert, in no acute distress, well-hydrated, well nourished.. Neck: Supple, no adenopathy; thyroid symmetric, normal size, no bruits. Lungs: Lungs clear to auscultation. No wheezing, rhonchi, rales.. Heart: RRR without murmur, gallop, or rubs. No ectopy. Health Maintenance List Cervical Cancer Screening Never done Mammogram Screening Never done BP Controlled (<130/80) (more content not included)... Normal [facility] ([id number]) 1965 F Date Time Provider Department 09/15/24 JANI EDMONDSON During your visit today, we recorded the following information about you: Jani Edmondson MD 09/15/2024 7:50 PM Signed Let patient know her Vit B12, Magnesium, and lipid panel were all ok. Catarino Bingham LPN 09/16/2024 9:06 AM Signed Pt notified of same. Catarino Bingham LPN Allergies As of Date: 09/15/2024 Noted Allergy Reaction LISINOPRIL 12/16/2013 2 - Rash 9 - Itching CODEINE 11/14/2013 14 - Other: See Comments Comments: Strong family reaction to this medication PENICILLINS 11/14/2013 7 - Swelling TAPE (ADHESIVE TAPE (ROSINS)) 11/14/2013 14 - Other: See Comments Comments: Blistering and skin tears VICODIN (HYDROCODONE-ACETAMINOP HE*11/14/2013 2 - Rash Date Reviewed: 09/14/2024 Reviewed by: Jani Edmondson MD - Fully Assessed Reason for Visit: Results [95] Prescriptions as of 09/16/2024 - omeprazole (PRILOSEC) 40 mg capsule Take 1 capsule by mouth daily before breakfast. 1/2 hr before meal. - EPINEPHrine (EPIPEN) 0.3 mg/0.3 mL auto-injector Inject once with onset of shortness of breath or throat swelling due to allergic reaction - valsartan (DIOVAN) 80 mg tablet Take 1 tablet by mouth once daily. - cyclobenzaprine (FLEXERIL) 10 mg tablet Take 1 tablet by mouth three times a day as needed for muscle spasm for up to 12 doses. - fluticasone (FLONASE) 50 mcg/actuation nasal spray Use 2 Sprays in each nostril once daily. Rinse mouth after use. - cetirizine (ZYRTEC) 10 mg tablet Take 1 tablet by mouth once daily. - empagliflozin (JARDIANCE) 25 mg tablet Take 1 tablet by mouth once daily. Take 1 tablet once daily in the morning. Per Dr. Rodriguez (for CKD) - albuterol HFA (PROAIR HFA) 90 mcg/actuation inhaler Inhale 2 Puffs as instructed every 4 hours as needed for wheezing/shortness of breath. - levothyroxine (SYNTHROID) 88 mcg tablet Take 1 tablet by mouth daily before breakfast. Per endo: Dr. Rodriguez - Blood Pressure Monitor 1 Each once daily. Use daily. Problem List As Of Date 09/15/2024 Noted Resolved Hypertension, essential [I10] 05/09/2021 GERD without esophagitis [K21.9] 05/09/2021 Hypothyroidism, acquired [E03.9] 05/09/2021 Fatty liver [K76.0] 05/09/2021 Encounter for routine gynecological examination*05/09/2021 Screening for colon cancer [Z12.11] 06/07/2021 07/29/2021 Pharyngoesophageal dysphagia [R13.14] 07/29/2021 Medication management [Z79.899] 12/09/2021 Seasonal allergies [J30.2] 12/09/2021 Asthma due to seasonal allergies [J45.909] 12/09/2021 History of shingles [Z86.19] 06/24/2022 Well adult exam [Z00.00] 06/24/2022 Stage 3a chronic kidney disease (HCC) [N18.31] 12/26/2022 Neck pain [M54.2] 07/07/2023 AK (actinic keratosis) [L57.0] 07/07/2023 Large breasts [N62] 07/07/2023 Encounter for screening for diabetes mellitus [*07/07/2023 Elevated hemoglobin A1c [R73.09] 08/11/2023 Obesity, Class I, BMI 30-34.9 [E66.811] 09/14/2024 Encounter Status:Closed by CATARINO BINGHAM on 09/16/24 Normal [facility] Endocrinology Visit Reporton 09-15-2024 Endocrinology Visit Report [facility] [address] [place] [address] OFFICE VISIT Date of Service: 09/15/24 MR#: [id number] Acct: [id number] Name: FANY MARRERO Rep #: [id number] : 1965 Provider: Elena Hernandez Age/Sex: 59/F Location: [facility] Status: Signed Intake Vital Signs 12/25/23 08:10 09/15/24 08:37 Height 5 ft 3 in 5 ft 3 in Weight: 188 lb 4 oz 185 lb 2 oz BMI 33.3 32.8 BP 129/84 H 153/96 H Blood Pressure Location Lt brachial Rt brachial Position Sitting Sitting Respiration 14 Pulse 87 80 Pulse Source Monitor Monitor Pulse Oximetry (%) 97 Oxygen Delivery Method room air Intake Visit Reasons: 8 M FU, RS 06/28 Chief Complaint: thyroid, HTN, pre-diabetes Is patient in pain?: No Allergies cigarette smoke Allergy (Severe, Verified 12/25/23 08:11) unknown codeine Allergy (Mild, Verified 12/25/23 08:11) Hives Environmental Allergies: Uncoded (pine) Allergy (Verified 12/25/23 08:11) Shortness of breath hydrocodone bitartrate (From Vicodin) Allergy (Verified 12/25/23 08:11) Hives lisinopril Allergy (Verified 12/25/23 08:11) Rash Penicillins Allergy (Verified 12/25/23 08:11) Shortness of breath alex hips Allergy (Verified 12/25/23 08:11) Shortness of breath adhesive tape (paper tape) Adverse Reaction (Verified 12/25/23 08:11) Hives Medications ???Medication ???Instructions ???Recorded ???Confirmed ???Type albuterol sulfate 90 mcg/actuation 1 puff inhalation Q4H PRN PRN Sob 01/17/18 09/15/24 History aerosol inhaler /Or Wheezing immuneti PO 06/20/20 09/15/24 History omeprazole 40 mg capsule,delayed cap PO 12/23/21 09/15/24 History release blood pressure test kit-small #1 ea 12/23/22 12/23/22 Rx cetirizine 10 mg capsule (All Day 10 mg PO DAILY PRN 08/25/23 09/15/24 History Allergy (cetirizine)) Jardiance 25 mg tablet 25 mg PO DAILY #90 tabs 09/15/24 09/15/24 Rx (empagliflozin) levothyroxine 88 mcg tablet 88 mcg PO DAILY #90 tabs 09/15/24 09/15/24 Rx valsartan 80 mg tablet 80 mg PO QDAY 09/15/24 09/15/24 History PFSH Medical History Obesity Stage 3a chronic kidney disease (CKD) Pre-diabetes Polycystic ovarian disease GERD (gastroesophageal reflux disease) Asthma Essential hypertension Graves' disease Surgical History H/O: hysterectomy Cervical vertebral fusion Family History Mother Asthma Heart disease Hypertension Seizures Sister Asthma Hypertension Seizures Brother Asthma Grandmother Cancer Heart disease CVA (cerebral vascular accident) Aunt Cancer Father Thyroid disorder Social History Smoking Status: Never smoker alcohol intake: never substance use type: does not use HPI HPI Chief Complaint: thyroid, HTN, pre-diabetes Details: FANY MARRERO, is a 59 F who presents to the office today for follow up. A1c is 6% Weight is stable. She is taking levothyroxine 88 mcg for hypothyroidism. TSH 3.88 She is taking metoprolol and spironolactone for HTN. She has stage 3 CKD from acute renal injury around 2017. ROS Const Constitutional: No fatigue or weight change ENT ENT: No dizziness/vertigo Cardio Cardiology: No chest pain at rest, chest pain with exertion, shortness of breath or palpitations Skin Skin: No wounds Endo Endocrine: No fatigue or weight change Exam Const General: cooperative, healthy appearing, comfortable, no acute distress, well developed and not cushingoid Nutritional Appearance: well nourished Orientation: alert, awake and oriented x3 HENMT Head: normal to inspection Ears: hearing grossly normal bilaterally Nose: external nose normal Mouth: oral mucosae normal Eyes General: appearance normal, both eyes and all related structures Alignment and Position: alignment normal Periorbital: periorbital findings normal Eyelids: eyelids normal Conjunctivae: conjunctivae normal Neck Neck: normal visual inspection Neck mass: No Thyroid: thyroid normal Carotids: no bruits Lymphatic: no lymphadenopathy noted Chest Chest palpation inspection: normal inspection of the chest Resp Effort Inspection: normal respiratory effort, able to speak in complete sentences, symmetric chest movement, no audible wheezes and no cough Auscultation: Bilateral: Clear to Auscultation Cardio Rate: regular rate Rhythm: regular rhythm Pulses: posterior tibial pulses present GI Inspection: normal to inspection Auscultation: normal bowel sounds Palpation: soft and no hepatosplenomegaly Skin General: no rashes or lesions noted Neuro General: patient (more content not included)... Normal [facility] LIPID PANEL, NONFASTINGon Cholesterol [Mass/Vol] 188 mg/dL Normal <200 Cl [facility] Comment on above: Order Comment: Marc white Type: BLOOD SPECIMENOrdering Facility: [facility] Address: [address] [place] [address] Result Comment: <200 mg/dL, Desirable 200-239 mg/dL, Borderline high >239 mg/dL, High Performed By: #### 2 132-9, LIPNF, 12909-7 ####[facility] LABCLIA [id number] [place] [address] [place] HDL CHOLESTEROL, NF 50 mg/dL Normal >39 [facility] Comment on above: Order Comment: Marc white Type: BLOOD SPECIMENOrdering Facility: [facility] Address: [address] [place] [address] Result Comment: 40-5 9 mg/dL, Acceptable >59 mg/dL, High: Negative risk factor for coronary heart disease <40 mg/dL, Low: Positive risk factor for coronary heart disease Performed By: #### 2 132-9, LIPNF, ####[facility]CLIA [id number] [place] [address] [place] LDL CHOLESTEROL, NF 117 mg/dL High <100 [facility] Comment on above: Order Comment: Marc white Type: BLOOD SPECIMENOrdering Facility: [facility] Address: [address] [place] [address] Result Comment: <100 mg/dL, Optimal 100-129 mg/dL, Near optimal/above optimal 130-159 mg/dL, Borderline high 160-189 mg/dL, High >189 mg/dL, Very high Secondary prevention optimal LDL Cholesterol levels are recommended to be < 70 mg/dL Performed By: #### 2 132-9, LIPNF, 92503-1 ####[facility]CLIA [id number] [address] [place] LDL/HDL RATIO, NF 2.34 mg/dL Normal <2.54 [facility] Comment on above: Order Comment: Marc white Type: BLOOD SPECIMENOrdering Facility: [facility] Address: [address] [place] [address] Result Comment: Refe rence: 1. National Cholesterol Education Program ATP III Guideline At-A-Glance Quick Desk Reference: National Heart, Lung, and Blood [place]. National Institutes of Health. 2001: NIH Publication No. 01-3305. 2. An International Atherosclerosis Society position paper: global recommendations for the management of dyslipidemia: executive summary, Atherosclerosis. 2014: 232(2):410-413. Performed By: #### 2 132-9, LIPNF, ####[facility] LABCLIA [id number] [address] [place] NON HDL CHOL, NF 138 mg/dL High <130 [facility] Comment on above: Order Comment: Marc white Type: BLOOD SPECIMENOrdering Facility: [facility] Address: [address] [place] [address] Result Comment: <130 mg/dL, Optimal 130-159 mg/dL, Near optimal/above optimal 160-189 mg/dL, Borderline high 190-219 mg/dL, High >219 mg/dL, Very high Secondary prevention optimal non HDL Cholesterol levels are recommended to be <100 mg/dL Performed By: #### 2 132-9, LIPNF, 73585-2 ####[facility] LABCLIA [id number] [place] [address] [place] T CHOL/HDL RATIO NF 3.76 mg/dL Normal <5.10 [facility] Comment on above: Order Comment: Speci men Type: BLOOD SPECIMENOrdering Facility: [facility] Address: [address] [place] [address] Performed By: #### 2 132-9, LIPNF, 62123-9 ####[facility] LABCLIA [id number] [place] [address] [place] TRIGLYCERIDES, NF 104 mg/dL Normal <150 [facility] Comment on above: Order Comment: Speci men Type: BLOOD SPECIMENOrdering Facility: [facility] Address: [address] [place] [address] Result Comment: <150 mg/dL, Normal 150-199 mg/dL, Borderline high 200-499 mg/dL, High >499 mg/dL, Very high Performed By: #### 2 132-9, LIPNF, ####[facility] LABCLIA [id number] [place] [address] [place] VLDL CHOLESTEROL, NF 21 mg/dL Normal <30 [facility] Comment on above: Order Comment: Speci men Type: BLOOD SPECIMENOrdering Facility: [facility] Address: [address] [place] [address] Performed By: #### 2 132-9, LIPNF, [id number] ####[facility] LABCLIA [id number] [place] [address] [place] Magnesium SerPl-mCncon 09-15 Magnesium [Mass/Vol] 2.2 mg/dL Normal 1.7-2.3 [facility] Comment on above: Order Comment: Speci men Type: BLOOD SPECIMENOrdering Facility: [facility] Address: [address] [place] [address] Performed By: #### 2 132-9, LIPNF, 41578-1 ####[facility] LABCLIA [id number] [place] [id number] [place] Vit B12 SerPl-ncon 024 Cobalamin (Vitamin B12) [Mass/Vol] 501 pg/mL Normal 232-1245 [facility] Comment on above: Order Comment: Speci men Type: BLOOD SPECIMENOrdering Facility: [facility] Address: [address] [place] [address] Performed By: #### 2 132-9, LIPNF, 23294-3 ####[facility] LABCLIA [id number] [place] [address] [place] CBC W/DIFF/PLT (EXTERNAL LAB MANUELITO)on 09-14-2024 BASO ABSOLUTE [facility] EOS ABSOLUTE [facility] Immature Gran % [facility] IMMATURE GRANS ABSOLUTE [facility] LYMPHS ABSOLUTE 1.61 [facility] MCH 25.0 Pg Abnormal 26.6 - 33 Pg [facility] MONOCYTES ABSOLUTE [facility] Monocytes/100 WBC (Bld) 9 % [facility] NEUTROPHILS ABSOLUTE 5.1 [facility] CBC W/Diff, Automatedon 08-28 Absolute Lymph 1.61 X10 3/uL Normal 0.83-4.51 [facility] Comment on above: Performed By: #### L 502.0250, L501.9520, L500.4050, L100.0100 #### [facility] [address] [place], [address] Absolute Neut 5.1 X10 3/uL Normal 2.0-7.7 [facility] Comment on above: Performed By: #### L 502.0250, L501.9520, L500.4050, L100.0100 #### [facility] [address] [place], [address] Basophils/100 WBC (Bld) 0.8 % Normal 0-1 [facility] Comment on above: Performed By: #### L 502.0250, L501.9520, L500.4050, L100.0100 #### [facility] [address] [place], [address] Eosinophils/100 WBC (Bld) 2.8 % Normal 0-5 [facility] Comment on above: Performed By: #### L 502.0250, L501.9520, L500.4050, L100.0100 #### [facility] [address] [place], [address] Erythrocyte distribution width (RBC) [Ratio] 14.0 % Normal 11.6-14.6 [facility] Comment on above: Performed By: #### L 502.0250, L501.9520, L500.4050, L100.0100 #### [facility] [address] [place], [address] Hematocrit (Bld) [Volume fraction] 43.3 % Normal 37-47 [facility] Comment on above: Performed By: #### L 502.0250, L501.9520, L500.4050, L100.0100 #### [facility] [address] [place], [address] Hemoglobin (Bld) [Mass/Vol] 13.1 g/dL Normal 12.0-15.0 [facility] Comment on above: Performed By: #### L 502.0250, L501.9520, L500.4050, L100.0100 #### [facility] [address] [place], [address] IG% 0.500 Normal 0.0-0.9 [facility] Comment on above: Result Comment: IG% - Immature Granulocytes (promyelocytes, myelocytes and metamyelocytes) > 1% indicates that a LEFT SHIFT is Present. Performed By: #### L 502.0250, L501.9520, L500.4050, L100.0100 #### [facility] [address] [place], [address] Lymphocytes/100 WBC (Bld) 20.8 % Normal 19-41 [facility] Comment on above: Performed By: #### L 502.0250, L501.9520, L500.4050, L100.0100 #### [facility] [address] [place], [address] MCH (RBC) [Entitic mass] 25.0 pg Low 27.0-32.0 [facility] Comment on above: Performed By: #### L 502.0250, L501.9520, L500.4050, L100.0100 #### [facility] [address] [place], [address] MCHC (RBC) [Mass/Vol] 30.3 g/dL Low 32-36 [facility] Comment on above: Performed By: #### L 502.0250, L501.9520, L500.4050, L100.0100 #### [facility] [address] [place], [address] MCV (RBC) [Entitic vol] 82.5 fL Normal 81-99 [facility] Comment on above: Performed By: #### L 502.0250, L501.9520, L500.4050, L100.0100 #### [facility] [address] [place], [address] Monocytes/100 WBC (Bld) 9.0 % Normal 0-10 [facility] Comment on above: Performed By: #### L 502.0250, L501.9520, L500.4050, L100.0100 #### [facility] [address] [place], [address] Neutrophils/100 WBC (Bld) 66.1 % Normal 47-70 [facility] Comment on above: Performed By: #### L 502.0250, L501.9520, L500.4050, L100.0100 #### [facility] [address] [place], [address] Nucleated RBC (Bld) [#/Vol] 0 10*3/uL Normal 0-5 [facility] Comment on above: Performed By: #### L 502.0250, L501.9520, L500.4050, L100.0100 #### [facility] [address] [place], [address] Platelet mean volume (Bld) [Entitic vol] 10.9 fL Normal 6.2-12.0 [facility] Comment on above: Performed By: #### L 502.0250, L501.9520, L500.4050, L100.0100 #### [facility] [address] [place], [address] Platelets (Bld) [#/Vol] 254 10*3/uL Normal 150-450 [facility] Comment on above: Performed By: #### L 502.0250, L501.9520, L500.4050, L100.0100 #### [facility] [address] [place], [address] RBC (Bld) [#/Vol] 5.25 10*6/uL Normal 4.2-5.4 [facility] Comment on above: Performed By: #### L 502.0250, L501.9520, L500.4050, L100.0100 #### [facility] [address] [place], [address] RDW SD 42.3 fl Normal 35.1-43.9 [facility] Comment on above: Performed By: #### L 502.0250, L501.9520, L500.4050, L100.0100 #### [facility] [address] [place], [address] WBC (Bld) [#/Vol] 7.7 10*3/uL Normal 4.4-11.0 [facility] Comment on above: Performed By: #### L 502.0250, L501.9520, L500.4050, L100.0100 #### [facility] [place], [address] CMP (EXTERNAL)on 09-14-2024 Alk Phos Total 134 U/L Abnormal 45 - 117 U/L [facility] Bili Total 0.6 mg/dL 0.2 - 1 mg/dL [facility] Calcium [Mass/Vol] 9.2 mg/dL 8.5 - 10. 1 mg/dL [facility] CO2 [Moles/Vol] 27 mmol/L [facility] GFR 49 mL/MIN [facility] GFR AFR AMER 60 mL/MIN [facility] Protein [Mass/Vol] 7.3 g/dL [facility] CNOVon 09-14-2024 CNOV Office Visit ([facility] ) FANY MARRERO ([id number]) 1965 F Date Time Provider Department 09/14/24 6:00 PM [facility] During your visit today, we recorded the following information about you: Pulse Respiration Blood pressure Weight 76/minute 16/minute 144/94 83.9 kg Height 1.6 m Jani Edmondson MD 09/14/2024 8:24 PM Addendum Chief Complaint Patient presents with: Physical HPI Fany Marrero is a 59 year old female who presents here today for Physical. Patient with hx of HTN, Fatty liver, GERD, hypothyroid, CKD, and those as below. Last visit with Dr. Rodriguez 11/2023 Patient has been letty perez. 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 Mariusz BP: average 139/87 149/89 149/92 135/83 142/86 138/87 131/85 Past medical history, appointments, medications, allergies reviewed. Previous Medical History PAST MEDICAL HISTORY Diagnosis Date AK (actinic keratosis) 07/07/2023 ventral right forearm near elbow, Tx 06/2023 Asthma due to seasonal allergies 12/09/2021 Elevated hemoglobin A1c 08/11/2023 Encounter for routine gynecological examination 05/09/[address] Renner Fatty liver GERD without esophagitis 05/09/2021 History of shingles 06/24/202210/2021 Hypertension, essential 05/09/2021 Hypothyroid Hypothyroidism, acquired 05/09/2021 Dr. Rodriguez Neck pain 07/07/2023 Known cervical fusion Obesity, Class I, BMI 30-34.9 09/14/2024 Pharyngoesophageal dysphagia 07/29/2021 [facility] Seasonal allergies 12/09/2021 Stage 3a chronic kidney disease (HCC) 12/26/2022 Well adult exam 06/24/2022 last done: 07/07/2023 Previous Surgical History PAST SURGICAL HISTORY Procedure Laterality Date ADDITIONAL SPINAL FUSION 09/28/2008 cervical c5/c6 COLONOSCOPY FLX DX W/COLLJ SPEC WHEN PFRMD 07/29/2021 ESOPHAGOGASTRODUODENOSC OPY TRANSORAL DIAGNOSTIC 07/29/2021 attmpted but unable to complete LAPAROSCOPIC APPENDECTOMY 12/08/2013 assist Zurdo OOPHORECTOMY PARTIAL/TOTAL UNI/BI Right 12/08/2013 TOTAL ABDOM HYSTERECTOMY 2014 UNLISTED LAPAROSCOPY, ABD 09/28/1995 Family History FAMILY HISTORY Problem Relation Age of Onset Anesthesia Mother Diabetes Mother Heart Mother Hypertension Mother Parkinson?s Disease Mother Dementia Mother Anesthesia Father Heart Sister Seizures Sister Hypertension Sister Seizures Sister Anesthesia Brother Diabetes Maternal Grandmother Cancer Maternal Grandfather Diabetes Paternal Grandmother Stroke Paternal Grandmother Breast Cancer Maternal Aunt Patient Allergies ALLERGIES Allergen Reactions Lisinopril Rash, Itching Codeine Other: See Comments Strong family reaction to this medication Penicillins Swelling Tape [Adhesive Tape* Other: See Comments Blistering and skin tears Vicodin [Hydrocodon* Rash Current Medications Current Outpatient Medications on File Prior to Visit Medication Sig cyclobenzaprine (FLEXERIL) 10 mg tablet Take 1 tablet by mouth three times a day as needed for muscle spasm for up to 12 doses. omeprazole (PRILOSEC) 40 mg capsule Take 1 capsule by mouth daily before breakfast. 1/2 hr before meal. fluticasone (FLONASE) 50 mcg/actuation nasal spray Use 2 Sprays in each nostril once daily. Rinse mouth after use. cetirizine (ZYRTEC) 10 mg tablet Take 1 tablet by mouth once daily. empagliflozin (JARDIANCE) 25 mg tablet Take 1 tablet by mouth once daily. Take 1 tablet once daily in the morning. Per Dr. Rodriguez (for CKD) cyclobenzaprine (FLEXERIL) 10 mg tablet Take 1/2 - 1 tablet every 8 hours as needed for spasm albuterol HFA (PROAIR HFA) 90 mcg/actuation inhaler Inhale 2 Puffs as instructed every 4 hours as needed for wheezing/shortness of breath. metoprolol succinate ER (TOPROL XL) 25 mg 24 hr tablet Take 1 tablet by mouth once daily. levothyroxine (SYNTHROID) 88 mcg tablet Take 1 tablet by mouth daily before breakfast. Per endo: Dr. Rodriguez Blood Pressure Monitor 1 Each once daily. Use daily. No current facility-administered medications on file prior to visit. Social History Social History Tobacco Use Smoking status: Never Smokeless tobacco: Never Vaping Use Vaping status: Never Used Substance Use Topics Alcohol use: No Drug use: Never Review of Symptoms REVIEW OF SYSTEMS GENERAL: No weight loss, malaise or fevers HEENT: Negative for frequent or significant headaches, No changes in hearing or vision, no nose bleeds or other nasal problems NECK: Negative for lumps, goiter, pain and significant neck swelling RESPIRATORY: Negative for cough, hemoptysis, wheezing, COPD, dyspnea or shortness of breath CARDIOVASCULAR: Negative for chest pain, leg swelling, hypertension, CHF or palpitations GI: No nausea, vomiting, or diarrhea, No heartburn or reflux symptoms, and no blood : No history of dysuria, frequency or blood MUSCULOSKELETAL: Negative for new or changes in his typical (more content not included)... Normal [facility] Metabolic Prof kyvijaya 09-14-2024 Albumin [Mass/Vol] 3.2 g/dL Normal 3.2-5.0 [facility] Comment on above: Performed By: #### L 502.0250, L501.3410, L500.4050, L100.0100 #### [facility] [place], [address] Albumin/Globulin [Mass ratio] 0.8 {ratio} Low 0.9-2.4 [facility] Comment on above: Performed By: #### L 502.0250, L501.9520, L500.4050, L100.0100 #### [facility] [address] [place], [address] ALK P 134 U/L High 45-117 [facility] Comment on above: Performed By: #### L 502.0250, L501.9520, L500.4050, L100.0100 #### [facility] [address] [place], [address] ALT [Catalytic activity/Vol] 33 U/L Normal 13-56 [facility] Comment on above: Performed By: #### L 502.0250, L501.9520, L500.4050, L100.0100 #### [facility] [address] [place], [address] AST [Catalytic activity/Vol] 29 U/L Normal 15-37 [facility] Comment on above: Performed By: #### L 502.0250, L501.9520, L500.4050, L100.0100 #### [facility] [address] [place], [address] Bilirubin [Mass/Vol] 0.60 mg/dL Normal 0.20-1.00 [facility] Comment on above: Result Comment: For patients on eltrombopag therapy, use of Dimension [place] TBIL is not recommended. Performed By: #### L 502.0250, L501.9520, L500.4050, L100.0100 #### [facility] [address] [place], [address] BUN/CRE 15.1 RATIO Normal 10-20 [facility] Comment on above: Performed By: #### L 502.0250, L501.9520, L500.4050, L100.0100 #### [facility] [address] [place], [address] CA,Total 9.2 mg/dL Normal 8.5-10.1 [facility] Comment on above: Performed By: #### L 502.0250, L501.9520, L500.4050, L100.0100 #### [facility] [address] [place], [address] Chloride [Moles/Vol] 108 mmol/L High 98-107 [facility] Comment on above: Performed By: #### L 502.0250, L501.9520, L500.4050, L100.0100 #### [facility] [address] [place], [address] CO2 [Moles/Vol] 27.0 mmol/L Normal 21.0-32.0 [facility] Comment on above: Performed By: #### L 502.0250, L501.9520, L500.4050, L100.0100 #### [facility] [address] [place], [address] Creatinine [Mass/Vol] 1.19 mg/dL High 0.55-1.02 [facility] Comment on above: Result Comment: The validity of the calculated GFR GFRAA in patients over 70 years has not been determined. Clinical correlation is essential. Performed By: #### L 502.0250, L501.9520, L500.4050, L100.0100 #### [facility] [address] [place], [address] EST GFR - AA 60 mL/min Normal >60 [facility] Comment on above: Result Comment: Afri can Welsh GFR Calc Performed By: #### L 502.0250, L501.9520, L500.4050, L100.0100 #### [facility] [address] [place], [address] GAP 3 Low 5-15 [facility] Comment on above: Performed By: #### L 502.0250, L501.9520, L500.4050, L100.0100 #### [facility] [address] [place], [address] GFR/1.73 sq M.predicted among non-blacks MDRD (S/P/Bld) [Vol rate/Area] 49 mL/min/{1.73_m2} Low >60 [facility] Comment on above: Result Comment: Non- GFR Calc Performed By: #### L 502.0250, L501.9520, L500.4050, L100.0100 #### [facility] [address] [place], [address] Globulin (S) [Mass/Vol] 4.1 g/dL Normal 2.2-4.2 [facility] Comment on above: Performed By: #### L 502.0250, L501.9520, L500.4050, L100.0100 #### [facility] [address] [place], [address] Glucose [Mass/Vol] 108 mg/dL High 74-106 [facility] Comment on above: Result Comment: Fast ing Glucose result from 100 to 125 mg/dL suggests IMPAIRED HOMEOSTASIS per A.D.A. criteria. Performed By: #### L 502.0250, L501.9520, L500.4050, L100.0100 #### [facility] [address] [place], [address] Potassium [Moles/Vol] 4.1 mmol/L Normal 3.5-5.1 [facility] Comment on above: Performed By: #### L 502.0250, L501.9520, L500.4050, L100.0100 #### [facility] [address] [place], [address] Sodium [Moles/Vol] 138 mmol/L Normal 136-145 [facility] Comment on above: Performed By: #### L 502.0250, L501.9520, L500.4050, L100.0100 #### [facility] [address] [place], [address] T PROT 7.3 g/dL Normal 6.4-8.2 [facility] Comment on above: Performed By: #### L 502.0250, L501.9520, L500.4050, L100.0100 #### [facility] [address] [place], [address] Urea nitrogen [Mass/Vol] 18 mg/dL Normal 7-18 [facility] Comment on above: Performed By: #### L 502.0250, L501.9520, L500.4050, L100.0100 #### [facility] [address] [place], [address] Microalb:Creat Ratio,Random URon 09-14-2024 Creatinine [Mass/Vol] 113.00 mg/dL Normal NO RAN GE EST. [facility] Comment on above: Performed By: #### L 502.0250, L501.9520, L500.4050, L100.0100 ####[facility] [address] [place], [address] MALB:CRE 6.7 mg/g CRE Normal <30 mg/g CRE [facility] Comment on above: Performed By: #### L 502.0250, L501.9520, L500.4050, L100.0100 ####[facility] [address] [place], [address] MICROALBUMIN,UR 7.6 mg/L Normal NO RANGE EST. [facility] Comment on above: Performed By: #### L 502.0250, L501.9520, L500.4050, L100.0100 ####[facility] [address] [place], [address] No Panel Informationon 09-14 Interpretation and review of laboratory results Abnormal [facility] Thyroid Stim Hormone (TSH)on 09-14-2024 TSH 3.800 uIU/mL High 0.358-3.740 [facility] Comment on above: Performed By: #### L 502.0250, L501.9520, L500.4050, L100.0100 #### [facility] [address] [place], [address] CNOVon 07-22-2024 CNOV Office Visit [facility] ) FANY MARRERO ([id number]) 1965 F Date Time Provider Department 07/22/24 4:15 PM [facility] During your visit today, we recorded the following information about you: Temperature Pulse Respiration Blood pressure 97.9 degrees 79/minute 20/minute 152/91 Weight 85 kg Carloz Barfield APRN.COMPUTER ART INSTRUCTOR 07/22/2024 4:29 PM Signed This note was created using [employer]. Subjective Fany Carrillo DeBoarflorence is a 59 year old female. HPI Pt has had several days of spasms to her mid right back. No known strain or trauma. Pt has his frequently which she thinks is related to her large breasts. She also complains of right upper dental pain. She states that the pain radiates from the region of tooth #4 up into her right cheek. Review of Systems Constitutional: Negative for fever. HENT: Positive for dental problem. Musculoskeletal: Positive for back pain. Objective BP 152/91 Pulse 79 Temp 36.6 ?C (97.9 ?F) Resp 20 Wt 85 kg (187 lb 6.3 oz) SpO2 97% BMI 33.19 kg/m? Physical Exam Vitals and nursing note reviewed. Constitutional: General: She is not in acute distress. Appearance: Normal appearance. She is not ill-appearing. HENT: Head: Normocephalic. Mouth/Throat: Mouth: Mucous membranes are moist. Comments: Multiple missing teeth with remaining teeth having dental caries Eyes: Conjunctiva/sclera: Conjunctivae normal. Cardiovascular: Rate and Rhythm: Normal rate and regular rhythm. Pulmonary: Effort: Pulmonary effort is normal. Breath sounds: Normal breath sounds. Musculoskeletal: General: Normal range of motion. Cervical back: Normal range of motion. Skin: General: Skin is warm and dry. Neurological: General: No focal deficit present. Mental Status: She is alert. Psychiatric: Mood and Affect: Mood normal. Behavior: Behavior normal. Assessment and Plan ASSESSMENT/PLAN: 1. Upper back strain, initial encounter - ICD9: 847.1, ICD10: S29.012A (primary diagnosis) Patient given prescriptions as noted below for symptomatic relief. She states she is still attempting to follow-up regarding a breast reduction surgery which she thinks will help her chronic flareup of back pain. - PREDNISONE 50 MG TABLET - CYCLOBENZAPRINE 10 MG TABLET 2. Pain, dental - ICD9: 525.9, ICD10: K08.89 Patient given a prescription for clindamycin as she is penicillin allergic. Encouraged her to follow-up with dentistry. - CLINDAMYCIN HCL 300 MG CAPSULE Carloz Barfield APRN.CNP Allergies As of Date: 07/22/2024 Noted Allergy Reaction LISINOPRIL 12/16/2013 2 - Rash 9 - Itching CODEINE 11/14/2013 14 - Other: See Comments Comments: Strong family reaction to this medication PENICILLINS 11/14/2013 7 - Swelling TAPE (ADHESIVE TAPE (ROSINS)) 11/14/2013 14 - Other: See Comments Comments: Blistering and skin tears VICODIN (HYDROCODONE-ACETAMINOP HE*11/14/2013 2 - Rash Date Reviewed: 07/22/2024 Reviewed by: Carloz Barfield APRN.CNP - Fully Assessed Reason for Visit: Back Pain [12] Cmt: States she has always had them, states bilat sided underneath, states pain has been more consistent Dental Problem [31] Cmt: R side Front tooth broken off x 1 month ago, pain just started and is going into cheek bone under eye Primary Visit Diagnosis:Upper back strain, initial encounter [S29.012A] Other Visit Diagnosis:Pain, dental [K08.89] Order(s):predniSONE (DELTASONE) 50 mgTake 1 tablet by mouth once daily for 5 days.Disp: 5 tabletRfl: 0 cyclobenzaprine (FLEXERIL) 10 mg tabletTake 1 tablet by mouth three times a day as needed for muscle spasm for up to 12 doses.Disp: 12 tabletRfl: 0 clindamycin (CLEOCIN) 300 mg capsuleTake 1 capsule by mouth four times daily for 7 days.Disp: 28 capsuleRfl: 0 Prescriptions as of 07/22/2024 - predniSONE (DELTASONE) 50 mg Take 1 tablet by mouth once daily for 5 days. - cyclobenzaprine (FLEXERIL) 10 mg tablet Take 1 tablet by mouth three times a day as needed for muscle spasm for up to 12 doses. - clindamycin (CLEOCIN) 300 mg capsule Take 1 capsule by mouth four times daily for 7 days. - omeprazole (PRILOSEC) 40 mg capsule Take 1 capsule by mouth daily before breakfast. 1/2 hr before meal. - fluticasone (FLONASE) 50 mcg/actuation nasal spray Use 2 Sprays in each nostril once daily. Rinse mouth after use. - cetirizine (ZYRTEC) 10 mg tablet Take 1 tablet by mouth once daily. - empagliflozin (JARDIANCE) 25 mg tablet Take 1 tablet by mouth once daily. Take 1 tablet once daily in the morning. Per Dr. Rodriguez (for CKD) - cyclobenzaprine (FLEXERIL) 10 mg tablet Take 1/2 - 1 tablet every 8 hours as needed for spasm - albuterol HFA (PROAIR HFA) 90 mcg/actuation inhaler Inhale 2 Puffs as instructed every 4 hours as needed for wheezing/shortness of breath. - metoprolol succinate ER (TOPROL XL) 25 mg 24 hr tablet Take 1 tablet by mouth once daily. (more content not included)... Normal [facility] Office Visit Reporton 2023 Office Visit Report [facility] [address] [place] [address] OFFICE VISIT Date of Service: 03/24/24 MR#: [id number] Acct: [id number] Patient: FANY MARRERO Rep #: [id number] : 1965 Provider: ANJELICA Givens Age/Sex: 58/F Location: [facility] Status: Signed Intake Vital Signs 12/25/23 08:10 Height 5 ft 3 in Weight: 188 lb 4 oz BMI 33.3 BP 129/84 H Blood Pressure Location Lt brachial Position Sitting Respiration 14 Pulse 87 Pulse Source Monitor Intake Visit Reasons: ANJELICA NON DOT DRUG BAT/ MARANDA RICHARD Chief Complaint: thyroid, HTN, pre-diabetes Allergies cigarette smoke Allergy (Severe, Verified 12/25/23 08:11) unknown codeine Allergy (Mild, Verified 12/25/23 08:11) Hives Environmental Allergies: Uncoded (pine) Allergy (Verified 12/25/23 08:11) Shortness of breath hydrocodone bitartrate (From Vicodin) Allergy (Verified 12/25/23 08:11) Hives lisinopril Allergy (Verified 12/25/23 08:11) Rash Penicillins Allergy (Verified 12/25/23 08:11) Shortness of breath alex hips Allergy (Verified 12/25/23 08:11) Shortness of breath adhesive tape (paper tape) Adverse Reaction (Verified 12/25/23 08:11) Hives Office Procedures [facility] Billing Sheet Testing Post-Accident Non-DOT Breath Alcohol Test: Yes Post-Accident NON-DOT Drug Screen in [facility]: Yes 07/01/24831 Date Aden Levi Signature: Date (if applicable) CC: Normal [facility] Basophil percentageOrdered B y: Rocky Rodriguez on 12-21-2023 Bilirubin [Mass/Vol] 0.60 mg/dL 0.20-1.00 [facility] Comment on above: For patients on eltr ombopag therapy, use of [place] TBIL is not recommended. Chloride [Moles/Vol] 109 mmol/L 98-107 [facility] Glucose [Mass/Vol] 111 mg/dL 74-106 [facility] Comment on above: Fasting Glucose resu lt from 100 to 125 mg/dL suggests IMPAIRED HOMEOSTASIS per A.D.A. criteria. Potassium [Moles/Vol] 4.4 mmol/L 3.5-5.1 [facility] Protein [Mass/Vol] 6.9 g/dL 6.4-8.2 [facility] Sodium [Moles/Vol] 140 mmol/L 136-145 [facility] CMP (EXTERNAL)on 12-21-2023 Albumin [Mass/Vol] 3.1 g/dL Abnormal 3.2 - 4.6 gm/dL [facility] Alk Phos Total 90 U/L 45 - 117 U/L [facility] AST [Catalytic activity/Vol] 22 U/L 8 - 37 U/L [facility] Bili Total 0.6 mg/dL 0.2 - 1 mg/dL [facility] CO2 [Moles/Vol] 25 mmol/L 21 - 32 MEQ/L [facility] GFR AFR AMER 55 mL/MIN [facility] GFR/1.73 sq M.predicted among non-blacks MDRD (S/P/Bld) [Vol rate/Area] 45 mL/min/{1.73_m2} [facility] FREE T4on 12-21-2023 Free T4 [Mass/Vol] 1.19 ng/dL 0.76 - 1.46 [facility] Laboratory - Chemistry and C hemistry - challengeOrdered By: Rocky Rodriguez on 12-21-2023 Albumin/Globulin [Mass ratio] 0.8 {ratio} 0.9-2.4 [facility] ALP [Catalytic activity/Vol] 90 U/L 45-117 [facility] ALT [Catalytic activity/Vol] 25 U/L 13-56 [facility] CO2 [Moles/Vol] 25.0 mmol/L 21.0-32.0 [facility] Globulin (S) [Mass/Vol] 3.8 g/dL 2.2-4.2 [facility] Urea nitrogen/Creatinine [Mass ratio] 16.3 mg/mg 10-20 [facility] No Panel InformationOrdered By: Rocky Rodriguez on 12-21-2023 Estimated GFR (MDRD) Amer 55 mL/min >60 [facility] Comment on above: GFR Calc Estimated GFR (MDRD) Non-Af Amer 45 mL/min >60 [facility] Comment on above: Non- GFR Calc Serum or plasma calcium alec urement (mass/volume)Ordered By: Rocky Rodriguez on 12-21-2023 Calcium [Mass/Vol] 9.0 mg/dL 8.5-10.1 [facility] Serum or plasma creatinine m easurement (mass/volume)Ordered By: Rocky Rodriguez on 12-21-2023 Creatinine [Mass/Vol] 1.29 mg/dL 0.55-1.02 [facility] Comment on above: The validity of the calculated GFR & GFRAA in patients over 70 years has not been determined. Clinical correlation is essential. Serum or plasma thyroid stim ulating hormone (TSH) measurement (units/volume)Ordered By: Rocky Rodriguez on 12-21-2023 TSH Qn 2.02 uIU/mL 0.358-3.74 [facility] Serum or plasma urea nitroge n measurement (mass/volume)Ordered By: Rocky Rodriguez on 12-21-2023 Urea nitrogen [Mass/Vol] 21 mg/dL 7-18 [facility] TSH (EXTERNAL)on 12-21-2023 TSH 2.02 IU/ml 0.358 - 3.74 IU/ml [facility] Thin prep Papanicolaou smear with manual screeningOrdered By: Rocky Rodriguez on 12-21-2023 Thin prep Papanicolaou smear with manual screening 3.1 g/dL 3.2-5.0 [facility] Thin prep Papanicolaou smear with manual screening 22 U/L 15-37 [facility] Thin prep Papanicolaou smear with manual screening 6 5-15 [facility] Thin prep Papanicolaou smear with manual screening 1.19 ng/dL 0.76-1.46 [facility] Absolute lymphocyte countOrd ered By: Jani Edmondson on 08-10-2023 Lymphocytes Auto (Unsp spec) [#/Vol] 2.10 10*3/uL 0.83-4.51 [facility] Basophil percentageOrdered B y: Jani Edmondson on 08-10-2023 Basophil percentage 0-5 SEEN /hpf 0-5 [facility] Basophils/100 WBC (Bld) 0.7 % 0-1 [facility] Bilirubin [Mass/Vol] 0.40 mg/dL 0.20-1.00 [facility] Comment on above: For patients on eltr ombopag therapy, use of [place] TBIL is not recommended. Chloride [Moles/Vol] 107 mmol/L 98-107 [facility] Cholesterol [Mass/Vol] 188 mg/dL <200 [facility] Comment on above: <200 mg/dL Desirable 200-240 mg/dL Borderline >240 mg/dL High Risk Eosinophils/100 WBC (Bld) 2.0 % 0-5 [facility] Glucose [Mass/Vol] 119 mg/dL 74-106 [facility] Comment on above: Fasting Glucose resu lt from 100 to 125 mg/dL suggests IMPAIRED HOMEOSTASIS per A.D.A. criteria. Neutrophils (Bld) [#/Vol] 6.7 10*3/uL 2.0-7.7 [facility] Neutrophils/100 WBC (Bld) 67.5 % 47-70 [facility] Potassium [Moles/Vol] 4.2 mmol/L 3.5-5.1 [facility] Protein [Mass/Vol] 7.5 g/dL 6.4-8.2 [facility] Sodium [Moles/Vol] 139 mmol/L 136-145 [facility] Triglyceride [Mass/Vol] 151 mg/dL <199 [facility] Comment on above: The drugs N-Acetylcy steine and Metamizole may falsely depress this assay.Serum Triglycerides Reference Interval Normal <150 mg/dL Borderline high 150 - 199 mg/dL High 200 - 499 mg/dL Very High > or = 500 mg/dL WBC (Bld) [#/Vol] 9.9 10*3/uL 4.4-11.0 [facility] Bilirubin Test strip Ql (U)O rdered By: Jani Edmondson on 08-10-2023 Bilirubin Ql (U) Negative Negative [facility] Blood erythrocytes count (nu mber/volume)Ordered By: Jani Edmondson on 08-10-2023 RBC (Bld) [#/Vol] 5.16 10*6/uL 4.2-5.4 [facility] Blood hemoglobin measurement (mass/volume)Ordered By: Jani Edmondson on 08-10-2023 Hemoglobin (Bld) [Mass/Vol] 14.2 g/dL 12.0-15.0 [facility] Blood lymphocytes/100 leukoc ytesOrdered By: Jani Edmondson on 08-10-2023 Lymphocytes/100 WBC (Bld) 21.1 % 19-41 [facility] Blood monocytes/100 leukocyt esOrdered By: Jani Edmondson on 08-10-2023 Monocytes/100 WBC (Bld) 8.3 % 0-10 [facility] Blood platelet mean volumeOr dered By: Jani Edmondson on 08-10-2023 Platelet mean volume (Bld) [Entitic vol] 11.2 fL 6.2-12.0 [facility] Determination of erythrocyte mean corpuscular volume (MCV)Ordered By: Jani Edmondson on 08-10-2023 MCV (RBC) [Entitic vol] 86.4 fL 81-99 [facility] Hematocrit Auto (Bld) [Volum e fraction]Ordered By: Jani Edmondson on 08-10-2023 Hematocrit (Bld) [Volume fraction] 44.6 % 37-47 [facility] INR in Blood by Coagulation assayOrdered By: Jani Edmondson on 08-10-2023 INR Coag (Bld) [Relative time] 1.0 {INR} [facility] Ketones Test strip Ql (U)Ord ered By: Jani Edmondson on 08-10-2023 Ketones Ql (U) Negative Negative [facility] Laboratory - Chemistry and C hemistry - challengeOrdered By: Jani Edmondson on 08-10-2023 ALP [Catalytic activity/Vol] 95 U/L 45-117 [facility] ALT [Catalytic activity/Vol] 27 U/L 13-56 [facility] CO2 [Moles/Vol] 26.0 mmol/L 21.0-32.0 [facility] Cobalamin (Vitamin B12) [Mass/Vol] 368 pg/mL 211-911 [facility] Globulin (S) [Mass/Vol] 4.1 g/dL 2.2-4.2 [facility] Magnesium [Mass/Vol] 2.2 mg/dL 1.6-2.6 [facility] Urea nitrogen/Creatinine [Mass ratio] 16.5 mg/mg 10-20 [facility] Laboratory - CoagulationOrde red By: Jani Edmondson on 08-10-2023 aPTT Coag (Bld) [Time] 33.8 s 24.1-36.2 [facility] PT Coag (PPP) [Time] 13.0 s 11.7-14.9 [facility] Laboratory - Hematology and Cell countsOrdered By: Jani Edmondson on 08-10-2023 Erythrocyte distribution width (RBC) [Entitic vol] 44.5 fL 35.1-43.9 [facility] Erythrocyte distribution width (RBC) [Ratio] 14.0 % 11.6-14.6 [facility] Immature granulocytes/100 WBC (Bld) 0.400 % 0.0-0.9 [facility] Comment on above: IG% - Immature Granu locytes (promyelocytes, myelocytes and metamyelocytes) > 1% indicates that a LEFT SHIFT is Present. MCH (RBC) [Entitic mass] 27.5 pg 27.0-32.0 [facility] Nucleated RBC/100 WBC (Bld) [Ratio] 0 % 0-5 [facility] MCHC Auto (RBC) [Mass/Vol]Or dered By: Jani Edmondson on 08-10-2023 MCHC (RBC) [Mass/Vol] 31.8 g/dL 32-36 [facility] Mucus LM Ql (Urine sed)Order ed By: Jani Edmondson on 08-10-2023 Mucus Ql (Urine sed) 0 SEEN /hpf [facility] Nitrite Test strip Ql (U)Ord ered By: Jani Edmondson on 08-10-2023 Nitrite Ql (U) Negative Negative [facility] No Panel InformationOrdered By: Jani Edmondson on 08-10-2023 Estimated GFR (MDRD) Amer 50 mL/min >60 [facility] Comment on above: GFR Calc Estimated GFR (MDRD) Non-Af Amer 41 mL/min >60 [facility] Comment on above: Non- GFR Calc Platelets bldOrdered By: Pj Edmondson on 08-10-2023 Platelets (Bld) [#/Vol] 211 10*3/uL 150-450 [facility] Protein Test strip Ql (U)Ord ered By: Jani Edmondson on 08-10-2023 Protein Ql (U) Negative Negative [facility] Serum or plasma albumin alec urement (mass/volume)Ordered By: Jani Edmondson on 08-10-2023 Albumin [Mass/Vol] 3.4 g/dL 3.2-5.0 [facility] Serum or plasma albumin/glob ulin mass ratioOrdered By: Jani Edmondson on 08-10-2023 Albumin/Globulin [Mass ratio] 0.8 {ratio} 0.9-2.4 [facility] Serum or plasma calcium alec urement (mass/volume)Ordered By: Jani Edmondson on 08-10-2023 Calcium [Mass/Vol] 9.0 mg/dL 8.5-10.1 [facility] Serum or plasma cholesterol in HDL measurement (mass/volume)Ordered By: Jani Edmondson on 08-10-2023 Cholesterol in HDL [Mass/Vol] 50 mg/dL >40 [facility] Comment on above: The drugs N-Acetylcy steine and Metamizole may falsely depress this assay. Reference Range HDL <40 mg/dL Low HDL Cholesterol HDL >or= 60 mg/dL High HDL Cholesterol Serum or plasma cholesterol in VLDL measurement (mass/volume)Ordered By: Jani Edmondson on 08-10-2023 Cholesterol in VLDL [Mass/Vol] 30 mg/dL 5-40 [facility] Serum or plasma creatinine m easurement (mass/volume)Ordered By: Jani Edmondson on 08-10-2023 Creatinine [Mass/Vol] 1.39 mg/dL 0.55-1.02 [facility] Comment on above: The validity of the calculated GFR & GFRAA in patients over 70 years has not been determined. Clinical correlation is essential. Serum or plasma low density lipoprotein (LDL) cholesterol measurement (mass/volume)Ordered By: Jani Edmondson on 08-10-2023 Cholesterol in LDL [Mass/Vol] 108 mg/dL 0-130 [facility] Serum or plasma urea nitroge n measurement (mass/volume)Ordered By: Jani Edmondson on 08-10-2023 Urea nitrogen [Mass/Vol] 23 mg/dL 7-18 [facility] Squamous epithelial cells de tection in urine sediment by light microscopyOrdered By: Jani Edmondson on 08-10-2023 Epithelial cells.squamous LM Ql (Urine sed) 0-5 SEEN /hpf 5-10 [facility] Thin prep Papanicolaou smear with manual screeningOrdered By: Jani Edmondson on 08-10-2023 Thin prep Papanicolaou smear with manual screening 22 U/L 15-37 [facility] Thin prep Papanicolaou smear with manual screening 6 5-15 [facility] Urine blood detectionOrdered By: Jani Edmondson on 08-10-2023 RBC Ql (U) Negative Negative [facility] RBC Ql (U) 0 SEEN /hpf 0-5 [facility] Urine clarityOrdered By: Pj Edmondson on 08-10-2023 Clarity (U) Sl. Cloudy Clear [facility] Urine color determinationOrd ered By: Jani Edmondson on 08-10-2023 Color (U) Yellow Yellow [facility] Urine glucose detectionOrder ed By: Jani Edmondson on 08-10-2023 Glucose Ql (U) Normal mg/dl Normal [facility] Urine leukocyte esterase det ection by dipstickOrdered By: Jani Edmondson on 08-10-2023 Leukocyte esterase Test strip Ql (U) 25 /ul Negative [facility] Urine pHOrdered By: Jani Edmondson on 08-10-2023 pH (U) 6.0 [pH] 5.0 - 8.0 [facility] Urine sediment bacteria coun t by microscopy (number/high power field)Ordered By: Jani Edmondson on 08-10-2023 Bacteria LM.HPF (Urine sed) [#/Area] 1 /[HPF] None Seen [facility] Urine specific gravity measu rementOrdered By: Jani Edmondson on 08-10-2023 Specific gravity (U) [Rel density] 1.010 1.002-1.030 [facility] Urobilinogen Auto test strip Ql (U)Ordered By: Jani Edmondson on 08-10-2023 Urobilinogen Ql (U) Normal mg/dl Normal [facility] Whole blood hemoglobin A1c/t otal hemoglobin ratio (mass fraction)Ordered By: Jani Edmondson on 08-10-2023 HbA1c (Bld) [Mass fraction] 5.8 % 3.8-5.6 [facility] Comment on above: Normal < 5.7 % Predi abetic 5.7 - 6.4 % Diabetic >or= 6.5 % Please note range changes. BMP - EXTERNALon 01-12-2023 Anion gap [Moles/Vol] 6 mmol/L [facility] GFR AFR AMER 57 mL/MIN [facility] GFR/1.73 sq M.predicted among non-blacks MDRD (S/P/Bld) [Vol rate/Area] 47 mL/min/{1.73_m2} [facility] Urea Nitrogen [facility] Basophil percentageOrdered B y: Dr. Rodriguez on 01-12-2023 Chloride [Moles/Vol] 103 mmol/L 98 - 10 7 MEQ/L [facility] Glucose [Mass/Vol] 108 mg/dL Abnormal 74 - 106 MG/DL [facility] Comment on above: Fasting Glucose resu lt from 100 to 125 mg/dL suggests IMPAIRED HOMEOSTASIS per A.D.A. criteria. Potassium [Moles/Vol] 4.0 mmol/L 3.5 - 5.1 MEQ/L [facility] Sodium [Moles/Vol] 135 mmol/L Abnormal 136 - 145 MEQ/L [facility] Laboratory - Chemistry and C hemistry - challengeOrdered By: Dr. Rodriguez on 01-12-2023 CO2 [Moles/Vol] 26.0 mmol/L [facility] Urea nitrogen/Creatinine [Mass ratio] 20.0 mg/mg 9 - 20 [facility] No Panel InformationOrdered By: Dr. Rodriguez on 01-12-2023 Estimated GFR (MDRD) Amer 57 mL/min >60 [facility] Comment on above: GFR Calc Estimated GFR (MDRD) Non-Af Amer 47 mL/min >60 [facility] Comment on above: Non- GFR Calc Serum or plasma calcium alec urement (mass/volume)Ordered By: Dr. Rodriguez on 01-12-2023 Calcium [Mass/Vol] 9.4 mg/dL 8.8 - 10. 5 MG/DL [facility] Serum or plasma creatinine m easurement (mass/volume)Ordered By: Dr. Rordiguez on 01-12-2023 Creatinine [Mass/Vol] 1.25 mg/dL 0.6 - 1.3 MG/DL [facility] Comment on above: The validity of the calculated GFR & GFRAA in patients over 70 years has not been determined. Clinical correlation is essential. Serum or plasma urea nitroge n measurement (mass/volume)Ordered By: Dr. Rodriguez on 01-12-2023 Urea nitrogen [Mass/Vol] 25 mg/dL Abnormal 7 - 18 MG/DL [facility] Thin prep Papanicolaou smear with manual screeningOrdered By: Dr. Rodriguez on 01-12-2023 Thin prep Papanicolaou smear with manual screening 6 5-15 [facility] Laboratory - Hematology and Cell countson 12-23-2022 HbA1c (Bld) [Mass fraction] 5.4 % 4.2-6.3 [facility] Basophil percentageOrdered B y: Dr. Rodriguez on 12-19-2022 Bilirubin [Mass/Vol] 0.50 mg/dL 0.20-1.00 [facility] Comment on above: For patients on eltr ombopag therapy, use of [place] TBIL is not recommended. Chloride [Moles/Vol] 106 mmol/L 98-107 [facility] Cholesterol [Mass/Vol] 161 mg/dL <200 [facility] Comment on above: <200 mg/dL Desirable 200-240 mg/dL Borderline >240 mg/dL High Risk Glucose [Mass/Vol] 108 mg/dL 74-106 [facility] Comment on above: Fasting Glucose resu lt from 100 to 125 mg/dL suggests IMPAIRED HOMEOSTASIS per A.D.A. criteria. Potassium [Moles/Vol] 3.8 mmol/L 3.5-5.1 [facility] Protein [Mass/Vol] 7.3 g/dL 6.4-8.2 [facility] Sodium [Moles/Vol] 140 mmol/L 136-145 [facility] Triglyceride [Mass/Vol] 121 mg/dL <199 [facility] Comment on above: The drugs N-Acetylcy steine and Metamizole may falsely depress this assay.Serum Triglycerides Reference Interval Normal <150 mg/dL Borderline high 150 - 199 mg/dL High 200 - 499 mg/dL Very High > or = 500 mg/dL CMP (EXTERNAL)on 12-19-2022 Alk Phos Total 115 U/L 45 - 117 U/L [facility] Anion gap [Moles/Vol] 7 mmol/L 5 - 15 [facility] AST [Catalytic activity/Vol] 75 U/L Abnormal 8 - 37 U/L [facility] Bili Total 0.50 mg/dL 0.2 - 1 mg/dL [facility] GFR AFR AMER 66 mL/MIN [facility] GFR/1.73 sq M.predicted among non-blacks MDRD (S/P/Bld) [Vol rate/Area] 55 mL/min/{1.73_m2} [facility] LIPID PANEL (EXTERNAL)on HDC-L 47 mg/dL Abnormal 41 mg/dL [facility] LDL Chol, calculated 90 MG/DL 130 MG/DL [facility] VLDL 24 Ratio 10 - 38 Ratio [facility] Laboratory - Chemistry and C hemistry - challengeOrdered By: Dr. Rodriguez on 12-19-2022 ALP [Catalytic activity/Vol] 115 U/L 45-117 [facility] ALT [Catalytic activity/Vol] 63 U/L 13-56 [facility] CO2 [Moles/Vol] 27.0 mmol/L 21.0-32.0 [facility] Free T4 [Mass/Vol] 1.39 ng/dL 0.76-1.46 [facility] Globulin (S) [Mass/Vol] 4.2 g/dL 2.2-4.2 [facility] Urea nitrogen/Creatinine [Mass ratio] 19.3 mg/mg 10-20 [facility] No Panel InformationOrdered By: Dr. Rodriguez on 12-19-2022 Estimated GFR (MDRD) Amer 66 mL/min >60 [facility] Comment on above: GFR Calc Estimated GFR (MDRD) Non-Af Amer 55 mL/min >60 [facility] Comment on above: Non- GFR Calc Thyroid Stimulating Hormone (TSH) 3.62 uIU/mL 0.358-3.74 [facility] Serum or plasma albumin alec urement (mass/volume)Ordered By: Dr. Rodriguez on 12-19-2022 Albumin [Mass/Vol] 3.1 g/dL 3.2-5.0 [facility] Serum or plasma albumin/glob ulin mass ratioOrdered By: Dr. Rodriguez on 12-19-2022 Albumin/Globulin [Mass ratio] 0.7 {ratio} 0.9-2.4 [facility] Serum or plasma calcium alec urement (mass/volume)Ordered By: Dr. Rodriguez on 12-19-2022 Calcium [Mass/Vol] 8.7 mg/dL 8.5-10.1 [facility] Serum or plasma cholesterol in HDL measurement (mass/volume)Ordered By: Dr. Rodriguez on 12-19-2022 Cholesterol in HDL [Mass/Vol] 47 mg/dL >40 [facility] Comment on above: The drugs N-Acetylcy steine and Metamizole may falsely depress this assay. Reference Range HDL <40 mg/dL Low HDL Cholesterol HDL >or= 60 mg/dL High HDL Cholesterol Serum or plasma cholesterol in VLDL measurement (mass/volume)Ordered By: Dr. Rodriguez on 12-19-2022 Cholesterol in VLDL [Mass/Vol] 24 mg/dL 5-40 [facility] Serum or plasma creatinine m easurement (mass/volume)Ordered By: Dr. Rodriguez on 12-19-2022 Creatinine [Mass/Vol] 1.09 mg/dL 0.55-1.02 [facility] Comment on above: The validity of the calculated GFR & GFRAA in patients over 70 years has not been determined. Clinical correlation is essential. Serum or plasma low density lipoprotein (LDL) cholesterol measurement (mass/volume)Ordered By: Dr. Rodriguez on 12-19-2022 Cholesterol in LDL [Mass/Vol] 90 mg/dL 0-130 [facility] Serum or plasma urea nitroge n measurement (mass/volume)Ordered By: Dr. Rodriguez on 12-19-2022 Urea nitrogen [Mass/Vol] 21 mg/dL 7-18 [facility] TSH (EXTERNAL)on 12-19-2022 TSH 3.62 IU/ml 0.2 - 5.6 IU/ml [facility] Thin prep Papanicolaou smear with manual screeningOrdered By: Dr. Rodriguez on 12-19-2022 Thin prep Papanicolaou smear with manual screening 75 U/L 15-37 [facility] Thin prep Papanicolaou smear with manual screening 7 5-15 [facility] HEMOGLOBIN A1C (EXTERNAL)on 09-26-2022 HbA1c (Bld) [Mass fraction] 5.5 % 0 - 5.7 % [facility] Absolute lymphocyte counton 12-23-2021 Lymphocytes Auto (Unsp spec) [#/Vol] 1.79 10*3/uL 0.83-4.51 [facility] Work Phone: Automated blood hematocrit ( percentage)on 12-23-2021 Hematocrit (Bld) [Volume fraction] 42.7 % 37-47 [facility] Basophil percentageon 2021 Basophils/100 WBC (Bld) 0.5 % 0-1 [facility] Bilirubin [Mass/Vol] 0.30 mg/dL 0.20-1.00 [facility] Work Phone: Comment on above: For patients on eltr ombopag therapy, use of Dim[place] TBIL is not recommended. Chloride [Moles/Vol] 106 mmol/L 98-107 [facility] Cholesterol [Mass/Vol] 167 mg/dL <200 [facility] Comment on above: <200 mg/dL Desirable 200-240 mg/dL Borderline >240 mg/dL High Risk Eosinophils/100 WBC (Bld) 2.2 % 0-5 [facility] Glucose [Mass/Vol] 93 mg/dL 74-106 [facility] Neutrophils (Bld) [#/Vol] 5.0 10*3/uL 2.0-7.7 [facility] Work Phone: Neutrophils/100 WBC (Bld) 64.4 % 47-70 [facility] Potassium [Moles/Vol] 4.2 mmol/L 3.5-5.1 [facility] Protein [Mass/Vol] 7.0 g/dL 6.4-8.2 [facility] Sodium [Moles/Vol] 139 mmol/L 136-145 [facility] Triglyceride [Mass/Vol] 160 mg/dL [facility] Comment on above: The drugs N-Acetylcy steine and Metamizole may falsely depress this assay.Serum Triglycerides Reference Interval Normal <150 mg/dL Borderline high 150 - 199 mg/dL High 200 - 499 mg/dL Very High > or = 500 mg/dL WBC (Bld) [#/Vol] 7.7 10*3/uL 4.4-11.0 [facility] Blood erythrocytes count (nu mber/volume)on 12-23-2021 RBC (Bld) [#/Vol] 4.85 10*6/uL 4.2-5.4 [facility] Blood hemoglobin measurement (mass/volume)on 12-23-2021 Hemoglobin (Bld) [Mass/Vol] 13.8 g/dL 12.0-15.0 [facility] Blood lymphocytes/100 leukoc yteson 12-23-2021 Lymphocytes/100 WBC (Bld) 23.3 % 19-41 [facility] Blood monocytes/100 leukocyt eson 12-23-2021 Monocytes/100 WBC (Bld) 9.1 % 0-10 [facility] Blood platelet mean volumeon 12-23-2021 Platelet mean volume (Bld) [Entitic vol] 11.6 fL 6.2-12.0 [facility] CBCDIF (EXTERNAL)on 12-24-19 22 BASO ABS [facility] EOS ABS [facility] IgA 0.50 % 0.0 - 0.9 % [facility] Lymphocytes (Bld) [#/Vol] 1.79 10*3/uL 1.2 - 4 K/uL [facility] MONO ABS [facility] NEUT ABS 5.0 K/uL 1.9 - 8 K/uL [facility] RDW-SD 48.2 fl Abnormal 35.1 - 43.9 fl [facility] CMP (EXTERNAL)on 12-23-2021 Alk Phos Total 105 U/L 45 - 117 U/L [facility] AST [Catalytic activity/Vol] 42 U/L Abnormal 8 - 37 U/L [facility] Bili Total 0.30 mg/dL 0.2 - 1 mg/dL [facility] GFR AFR AMER 72 mL/MIN [facility] GFR/1.73 sq M.predicted among non-blacks MDRD (S/P/Bld) [Vol rate/Area] 60 mL/min/{1.73_m2} [facility] Determination of erythrocyte mean corpuscular volume (MCV)on 12-23-2021 MCV (RBC) [Entitic vol] 88.0 fL 81-99 [facility] LIPID PANEL (OUTSIDE)on 11-27 LDL:HDL Ratio [facility] Non-HDL Cholesterol [facility] TC:HDL Ratio [facility] VLDL Cholesterol [address] [facility] Laboratory - Chemistry and C hemistry - challengeon 12-23-2021 ALP [Catalytic activity/Vol] 105 U/L 45-117 [facility] Work Phone: ALT [Catalytic activity/Vol] 54 U/L 13-56 [facility] CO2 [Moles/Vol] 27.0 mmol/L 21.0-32.[address] [facility] Cobalamin (Vitamin B12) [Mass/Vol] 1459 pg/mL 211-911 [facility] Free T4 [Mass/Vol] 1.36 ng/dL 0.76-1.46 [facility] Globulin (S) [Mass/Vol] 3.9 g/dL 2.2-4.2 [facility] Urea nitrogen/Creatinine [Mass ratio] 17.6 mg/mg 10-20 [facility] Work Phone: Laboratory - Hematology and Cell countson 12-23-2021 Erythrocyte distribution width (RBC) [Entitic vol] 48.2 fL 35.1-43.9 [facility] Work Phone: Erythrocyte distribution width (RBC) [Ratio] 14.9 % 11.6-14.6 [facility] Immature granulocytes/100 WBC (Bld) 0.500 % 0.0-0.9 [facility] Work Phone: Comment on above: IG% - Immature Granu locytes (promyelocytes, myelocytes and metamyelocytes) > 1% indicates that a LEFT SHIFT is Present. MCH (RBC) [Entitic mass] 28.5 pg 27.0-32.0 [facility] Nucleated RBC/100 WBC (Bld) [Ratio] 0 % 0-5 [facility] MCHC [Mass/volume] by Automa marybel counton 12-23-2021 MCHC (RBC) [Mass/Vol] 32.3 g/dL 32-36 [facility] No Panel Informationon 12-23 Estimated GFR (MDRD) Amer 72 mL/min >60 [facility] Work Phone: Comment on above: GFR Calc Estimated GFR (MDRD) Non-Af Amer 60 mL/min >60 [facility] Work Phone: Comment on above: Non- GFR Calc Thyroid Stimulating Hormone (TSH) 1.73 uIU/mL 0.358-3.74 [facility] Work Phone: Vitamin D 25-Hydroxy 21.5 ng/mL [facility] Work Phone: Comment on above: Vitamin D 25(OH) Sta tus Range Deficiency <20 ng/mL (50nmol/L) Insufficiency 20 - 30 ng/mL (50 - 75 nmol/L) Sufficiency 30 - 100 ng/mL (75 - 250 nmol/L) Toxicity >100 ng/mL (>250 nmol/L) Platelets bldon 12-23-2021 Platelets (Bld) [#/Vol] 199 10*3/uL 150-450 [facility] Serum or plasma albumin alec urement (mass/volume)on 12-23-2021 Albumin [Mass/Vol] 3.1 g/dL 3.2-5.0 [facility] Serum or plasma albumin/glob ulin mass ratioon 12-23-2021 Albumin/Globulin [Mass ratio] 0.8 {ratio} 0.9-2.4 [facility] Serum or plasma calcium alec urement (mass/volume)on 12-23-2021 Calcium [Mass/Vol] 8.5 mg/dL 8.5-10.1 [facility] Serum or plasma cholesterol in HDL measurement (mass/volume)on 12-23-2021 Cholesterol in HDL [Mass/Vol] 46 mg/dL [facility] Comment on above: The drugs N-Acetylcy steine and Metamizole may falsely depress this assay. Reference Range HDL <40 mg/dL Low HDL Cholesterol HDL >or= 60 mg/dL High HDL Cholesterol Serum or plasma cholesterol in VLDL measurement (mass/volume)on 12-23-2021 Cholesterol in VLDL [Mass/Vol] 32 mg/dL 5-40 [facility] Work Phone: Serum or plasma creatinine m easurement (mass/volume)on 12-23-2021 Creatinine [Mass/Vol] 1.02 mg/dL 0.55-1.02 [facility] Comment on above: The validity of the calculated GFR & GFRAA in patients over 70 years has not been determined. Clinical correlation is essential. Serum or plasma ferritin jens surement (mass/volume)on 12-23-2021 Ferritin [Mass/Vol] 81 ng/mL 8-252 [facility] Serum or plasma low density lipoprotein (LDL) cholesterol measurement (mass/volume)on 12-23-2021 Cholesterol in LDL [Mass/Vol] 89 mg/dL 0-130 [facility] Serum or plasma urea nitroge n measurement (mass/volume)on 12-23-2021 Urea nitrogen [Mass/Vol] 18 mg/dL 7-18 [facility] TSH (EXTERNAL)on 12-23-2021 TSH 1.73 IU/ml 0.2 - 5.6 IU/ml [facility] Thin prep Papanicolaou smear with manual screeningon 12-23-2021 Thin prep Papanicolaou smear with manual screening 42 U/L 15-37 [facility] Work Phone: Thin prep Papanicolaou smear with manual screening 6 5-15 [facility] Work Phone: VITAMIN D 25 (OH)on 12-24-19 22 Vitamin D 25 OH 21.5 ng/mL <20 - >100 ng/mL [facility] Alternaria alternata IgE ser umon 09-06-2021 A. alternata IgE Qn (S) <0.10 kU/L Class 0 [facility] Work Phone: Laboratory - Miscellaneous t estson 09-06-2021 Service comment (Unsp spec) [Interp] Comment [facility] Work Phone: Comment on above: Levels of Specific I gE Class Description of Class ----- < 0.10 0 Negative 0.10 - 0.31 0/I Equivocal/Low 0.32 - 0.55 I Low 0.56 - 1.40 II Moderate 1.41 - 3.90 III High 3.91 - 19.00 IV Very High 19.01 - 100.00 V Very High >100.00 Very High No Panel Informationon 12-10 -2021 Cat Hair Allergen 0.31 kU/L Class 0/I [facility] Work Phone: Common Ragweed (Short) Allergen 5.61 kU/L Class IV [facility] Work Phone: Immunoglobulin E 134 IU/mL [facility] Work Phone: Maple (Lamb) Allergen IgE Ab <0.10 kU/L Class [address] [facility] Work Phone: Mouse Urine Allergen IgE Antibody <0.10 kU/L Class [address] [facility] Work Phone: Comment on above: Performed at: [address] [id number] Director: Jaimee Mauricio MD, Phone: [phone] Scallop Allergen <0.10 kU/L Class [address] [facility] Work Phone: Sesame Seed Allergen IgE Antibody <0.10 kU/L Class [address] [facility] Work Phone: Shrimp Allergen <0.10 kU/L Class 0 [facility] Work Phone: New[place] Tree Allergen <0.10 kU/L Class 0 [facility] Work Phone: Rough pigweed specific IgE a ntibody assayon 09-06-2021 Rough Pigweed IgE Qn (S) <0.10 kU/L Class [address] [facility] Work Phone: Serum Welsh sycamore IgE antibody assay (units/volume)on 09-06-2021 Welsh Sterling IgE Qn (S) <0.10 kU/L Class [address] [facility] Work Phone: Serum Aspergillus fumigatus IgE antibody assay (units/volume)on 09-06-2021 A. fumigatus IgE Qn (S) <0.10 kU/L Class 0 [facility] Work Phone: Serum Bermuda grass IgE anti body assay (units/volume)on 09-06-2021 Bermuda grass IgE Qn (S) <0.10 kU/L Class [address] [facility] Work Phone: Serum Cladosporium herbarum IgE antibody assay (units/volume)on 09-06-2021 C. herbarum IgE Qn (S) <0.10 kU/L Class 0 [facility] Work Phone: Serum Dermatophagoides farin ae specific IgE antibody assay (units/volume)on 09-06-2021 Welsh house dust mite IgE Qn (S) <0.10 kU/L Class [address] [facility] Work Phone: Serum house dust mi te IgE antibody assay (units/volume)on 09-06-2021 house dust mite IgE Qn (S) <0.10 kU/L Class [address] [facility] Work Phone: Serum Penicillium notatum Ig E antibody assay (units/volume)on 09-06-2021 P. notatum IgE Qn (S) <0.10 kU/L Class 0 [facility] Work Phone: Serum Periplaneta americana IgE antibody assay (units/volume)on 09-06-2021 Welsh Cockroach IgE Qn (S) <0.10 kU/L Class [address] [facility] Work Phone: Serum Mozambican thistle specif ic IgE antibody assayon 09-06-2021 Saltwort IgE Qn (S) <0.10 kU/L Class 0 [facility] Work Phone: Serum birch specific IgE ant ibody assayon 09-06-2021 Silver Birch IgE Qn (S) <0.10 kU/L Class 0 [facility] Work Phone: Serum black walnut IgE antib ronald assay (units/volume)on 09-06-2021 Black Gillett IgE Qn (S) <0.10 kU/L Class 0 [facility] Work Phone: Serum clam IgE antibody assa y (units/volume)on 09-06-2021 Clam IgE Qn (S) <0.10 kU/L Class [address] [facility] Work Phone: Serum codfish IgE antibody a ssay (units/volume)on 09-06-2021 Codfish IgE Qn (S) <0.10 kU/L Class 0 [facility] Work Phone: Serum corn IgE antibody assa y (units/volume)on 09-06-2021 [place] IgE Qn (S) <0.10 kU/L Class [address] [facility] Work Phone: Serum cottonwood IgE antibod y assay (units/volume)on 09-06-2021 [place] IgE Qn (S) <0.10 kU/L Class 0 [place] [facility] Work Phone: Serum cow milk IgE antibody assay (units/volume)on 09-06-2021 Cow milk IgE Qn (S) <0.10 kU/L Class 0 ost er [facility] Work Phone: Serum dog epithelium IgE ant ibody assay (units/volume)on 09-06-2021 Dog epithelium IgE Qn (S) 2.60 kU/L Class III [facility] Work Phone: Serum egg white IgE antibody assay (units/volume)on 09-06-2021 Egg white IgE Qn (S) <0.10 kU/L Class 0 [facility] Work Phone: Serum mountain cedar specifi c IgE antibody assayon 09-06-2021 Mountain Juniper IgE Qn (S) <0.10 kU/L Class [address] [facility] Work Phone: Serum peanut IgE antibody as say (units/volume)on 09-06-2021 Peanut IgE Qn (S) <0.10 kU/L Class [address] [facility] Work Phone: Serum pecan or hickory nut I gE antibody assay (units/volume)on 09-06-2021 Pecan or Suffolk Nut IgE Qn (S) <0.10 kU/L Class [address] [facility] Work Phone: Serum sheep sorrel IgE antib ronald assay (units/volume)on 09-06-2021 Sheep Spiritwood IgE Qn (S) <0.10 kU/L Class 0 [facility] Work Phone: Serum soybean IgE antibody a ssay (units/volume)on 09-06-2021 Soybean IgE Qn (S) <0.10 kU/L Class 0 [facility] Work Phone: Serum mackenzie IgE antibody a ssay (units/volume)on 09-06-2021 Mackenzie IgE Qn (S) <0.10 kU/L Class 0 [facility] Work Phone: Serum tomato IgE antibody as say (units/volume)on 09-06-2021 Tomato IgE Qn (S) <0.10 kU/L Class [address] [facility] Work Phone: Comment on above: Performed at: [address] [id number] Director: Jaimee Mauricio MD, Phone: [phone] Serum wheat IgE antibody ass ay (units/volume)on 09-06-2021 Wheat IgE Qn (S) 0.12 kU/L Class 0/I [facility] Work Phone: Serum white yocasta IgE antibody assay (units/volume)on 09-06-2021 White Yocasta IgE Qn (S) <0.10 kU/L Class 0 [facility] Work Phone: Serum white elm IgE antibody assay (units/volume)on 09-06-2021 White Elm IgE Qn (S) <0.10 kU/L Class 0 [facility] Work Phone: Serum white mulberry IgE ant ibody assay (units/volume)on 09-06-2021 White mulberry IgE Qn (S) <0.10 kU/L Class 0 [facility] Work Phone: CT SPINE CERVICAL W/O CONTRA STon 08-15-2019 CT SPINE CERVICAL W/O CONTRAST ORIGINAL CT SPINE CERVICAL W/O CONTRAST, 08/14/2019 11:08 PM INDICATION: injury COMPARISON: No Technique: Cervical spine CT with sagittal and coronal reconstructions. This exam was performed according to our departmental dose optimization program, and includes the following measures where applicable: automated exposure control, adjustment of the mAs and/or kVp according to patient size and/or exam, and an iterative reconstruction algorithm. FINDINGS: There are no acute fractures or dislocations. Alignment is within normal limits. There is C5-C6 anterior fusion. The remaining vertebral bodies are intact. The prevertebral soft tissues are unremarkable in appearance. IMPRESSION: No acute fracture. Interpreted By: Volodymyr Dutton MD Preliminary Report By: Volodymyr Dutton MD Electronically Signed By: Volodymyr Dutton MD Dictated Date: 08/14/2019 11:15:23 PM Prelim Date: 08/14/2019 11:15:23 PM Sign Date: 08/14/2019 11:16:12 PM Ordering Provider:[facility] ([place]) XR ELBOW MINIMUM 3 VIEWS RIG HTon 08-15-2019 XR ELBOW MINIMUM 3 VIEWS RIGHT ORIGINAL XR ELBOW MINIMUM 3 VIEWS RIGHT, 08/14/2019 11:07 PM INDICATION: injury COMPARISON: No FINDINGS: There are no acute fractures or dislocations. Alignment is within normal limits. Joint spaces are maintained. The soft tissues are normal in appearance IMPRESSION: Normal examination. Interpreted By: Volodymyr Dutton MD Preliminary Report By: Volodymyr Dutton MD Electronically Signed By: Volodymyr Dutton MD Dictated Date: 08/14/2019 11:21:26 PM Prelim Date: 08/14/2019 11:21:26 PM Sign Date: 08/14/2019 11:21:54 PM [facility]ing [facility] .GFRon 10-07-2018 GFR >60 [facility] ([place]) Comment on above: Result Comment: GFR Population mean for , Non- Americans Ages 20-29 = 116 mL/min/1.73 sq.m. Ages 30-39 = 107 mL/min/1.73 sq.m. Ages 40-49 = 99 mL/min/1.73 sq.m. Ages 50-59 = 93 mL/min/1.73 sq.m. Ages 60-69 = 85 mL/min/1.73 sq.m. Ages 70+ = 75 mL/min/1.73 sq.m. Chronic Kidney Disease: Less than 60 mL/min/1.73 square meters End Stage Renal Disease: Less than 15 mL/min/1.73 square meters Performed By: #### T SH, FT4, CMP, GFR, LIPID #### [address] [address] GFR Non- >60 Normal [facility] ([place]) Comment on above: Result Comment: GFR Population mean for , Non- Americans Ages 20-29 = 116 mL/min/1.73 sq.m. Ages 30-39 = 107 mL/min/1.73 sq.m. Ages 40-49 = 99 mL/min/1.73 sq.m. Ages 50-59 = 93 mL/min/1.73 sq.m. Ages 60-69 = 85 mL/min/1.73 sq.m. Ages 70+ = 75 mL/min/1.73 sq.m. Chronic Kidney Disease: Less than 60 mL/min/1.73 square meters End Stage Renal Disease: Less than 15 mL/min/1.73 square meters Performed By: #### T SH, FT4, CMP, GFR, LIPID #### [address] [address] CMPon 10-07-2018 Albumin/Globulin [Mass ratio] 0.9 {ratio} Normal 0.9-1.6 [facility] ([place]) Comment on above: Performed By: #### T SH, FT4, CMP, GFR, LIPID #### [address] [address] ALP [Catalytic activity/Vol] 118 U/L Normal 38-126 [facility] ([place]) Comment on above: Performed By: #### T SH, FT4, CMP, GFR, LIPID #### [address] [address] ALT [Catalytic activity/Vol] 43 U/L Normal 10-49 [facility] ([place]) Comment on above: Performed By: #### T SH, FT4, CMP, GFR, LIPID #### [address] [address] Bili Total 0.4 mg/dL Normal 0.2-1.2 [facility] ([place]) Comment on above: Performed By: #### T SH, FT4, CMP, GFR, LIPID #### [address] [address] Creatinine [Mass/Vol] 0.94 mg/dL Normal 0.50-1.20 [facility] ([place]) Comment on above: Performed By: #### T SH, FT4, CMP, GFR, LIPID #### [address] [address] Globulin (S) [Mass/Vol] 3.7 G/dL Normal 1.5-3.8 [facility] ([place]) Comment on above: Performed By: #### T SH, FT4, CMP, GFR, LIPID #### [address] [address] Protein [Mass/Vol] 6.9 G/dL Normal 6.0-8.5 [facility] ([place]) Comment on above: Performed By: #### T SH, FT4, CMP, GFR, LIPID #### [place] [id number] Urea nitrogen/Creatinine [Mass ratio] 19.1 ratio Normal 10.0-22.0 [facility] ([place]) Comment on above: Performed By: #### T SH, FT4, CMP, GFR, LIPID #### [address] [address] Albumin [Mass/Vol] 3.2 G/dL Normal 3.2-4.8 [facility] ([place]) Comment on above: Performed By: #### T SH, FT4, CMP, GFR, LIPID #### [address] [address] AST [Catalytic activity/Vol] 25 U/L Normal 8-34 [facility] ([place]) Comment on above: Performed By: #### T SH, FT4, CMP, GFR, LIPID #### [address] [address] Calcium [Mass/Vol] 9.0 mg/dL Normal 8.4-10.1 [facility] ([place]) Comment on above: Performed By: #### T SH, FT4, CMP, GFR, LIPID #### [address] [address] Chloride [Moles/Vol] 107 mmol/L Normal 98-110 [facility] ([place]) Comment on above: Performed By: #### T SH, FT4, CMP, GFR, LIPID #### [address] [address] CO2 [Moles/Vol] 27 mmol/L Normal 22-32 [facility] ([place]) Comment on above: Performed By: #### T SH, FT4, CMP, GFR, LIPID #### [address] [address] Electrolyte Balance 8.0 mEq/L Normal 4.0-15.0 [facility] ([place]) Comment on above: Performed By: #### T SH, FT4, CMP, GFR, LIPID #### [address] [address] Glucose [Mass/Vol] 86 mg/dL Normal 70-110 [facility] ([place]) Comment on above: Performed By: #### T SH, FT4, CMP, GFR, LIPID #### [address] [address] Potassium [Moles/Vol] 4.2 mmol/L Normal 3.5-5.0 [facility] ([place]) Comment on above: Performed By: #### T SH, FT4, CMP, GFR, LIPID #### [address] [address] Sodium [Moles/Vol] 142 mmol/L Normal 136-145 [facility] ([place]) Comment on above: Performed By: #### T SH, FT4, CMP, GFR, LIPID #### [address] [address] Urea nitrogen [Mass/Vol] 18.0 mg/dL Normal 8.0-22.0 [facility] ([place]) Comment on above: Performed By: #### T SH, FT4, CMP, GFR, LIPID #### [address] [address] FT4on 10-07-2018 Free T4 [Mass/Vol] 1.28 ng/dL Normal 0.60-1.70 [facility] ([place]) Comment on above: Result Comment: Rohit swift note as of 04/11/17 new pediatric reference intervals were added for this test. Performed By: #### T SH, FT4, CMP, GFR, LIPID #### [address] [address] LIPIDon 10-07-2018 Cholesterol in HDL [Mass/Vol] 55 mg/dL Normal 40-59 [facility] ([place]) Comment on above: Result Comment: HDL Reference Interval: Less than 40 Low - high risk 60 or above Optimal/lowers risk Performed By: #### T SH, FT4, CMP, GFR, LIPID #### [address] [address] Cholesterol in LDL [Mass/Vol] 121 mg/dL Normal 0-129 [facility] ([place]) Comment on above: Result Comment: LDL is a calculated result and requires a 12-hr fast. LDL Reference Interval: Less than 100 Optimal 100-129 Near or above optimal 130-159 Borderline high risk 160-189 High risk 190 and above Very high risk Performed By: #### T SH, FT4, CMP, GFR, LIPID #### [address] [address] Triglyceride [Mass/Vol] 124 mg/dL Normal 3-149 A Count includes the [facility] ([place]) Comment on above: Result Comment: Trig lyceride Reference Interval: Less than 150 Normal 150-199 Borderline high risk 200-499 High risk 500 or higher Very high risk Performed By: #### T SH, FT4, CMP, GFR, LIPID #### [place] [id number] Cholesterol [Mass/Vol] 201 mg/dL High 50-199 [facility] ([place]) Comment on above: Result Comment: Chol esterol Reference Interval: Less than 200 Desirable 200-239 Borderline high risk 240 and above High risk Performed By: #### T SH, FT4, CMP, GFR, LIPID #### [address] [address] TSHon 10-07-2018 TSH Qn 0.040 mcIU/mL Low 0.360-3.740 [facility] ([place]) Comment on above: Result Comment: Plea se note as of 04/11/17 new pediatric reference intervals were added for this test. Performed By: #### T SH, FT4, CMP, GFR, LIPID #### [place] [id number] [address] [place], [place] [id number] US ABDOMEN LIMITEDon 019 US ABDOMEN LIMITED ORIGINAL US ABDOMEN LIMITED: Ultrasound of the RIGHT upper quadrant CLINICAL STATEMENT: RUQ PAIN COMPARISON: None FINDINGS: The liver is diffusely increased in echogenicity in comparison to the adjacent kidney with decreased visualization of periportal echoes, suggesting hepatic steatosis. No focal lesions are seen. There is no intra or extrahepatic bile duct dilatation. The common duct is 4 mm at the sydnee hepatis. The gallbladder is normally distended without calculus, wall thickening or tenderness. The visualized pancreas is normal in size and echogenicity. No ascites is seen in the Lind's pouch. The right kidney shows no pelvocaliectasis. IMPRESSION: Hepatic steatosis. Interpreted By: Evi Cline MD Preliminary Report By: Evi Cline MD Electronically Signed By: Evi Cline MD Dictated Date: 10/07/2018 12:35:59 PM Prelim Date: 10/07/2018 12:35:59 PM Sign Date: 10/07/2018 12:37:33 PM Normal [facility] ([place]) THROAT STREPon 08-25-2018 THROAT STREP BETA STREP RESULT NO BETA STREPTOCOCCUS ISOLATED Normal [facility] Comment on above: Order Comment: Dora s: GENARO MSCon 08-23-2018 [facility] REPORT Normal [facility] DATE OF SERVICE: 08/23/2018AGE: 53.HISTORY OF PRESENT ILLNESS: Ms. Marrero is a 53-year-old female wh[facility]ed [facility] this [facility] with the complaint of left ear pain and sorethroat. The symptoms started yesterday. The patient is concerned and coming in forfurther evaluation and treatment. The patient denied any ear drainage or discharge.Denied any headache. Denied any nausea or vomiting. Denied any difficultyswallowing. Denied any cough. Denied any decrease in appetite.The patient's primary care physician is Dr. Villegas.MEDICATIONS:1. Synthroid.2. Cytomel.3. Metoprolol.4. Kamila.ALLERGIES: The patient is allergic to VICODIN, PENICILLIN, and LISINOPRIL.SOCIAL HISTORY: The patient is a nonsmoker, non-alcohol drinker.FAMILY HISTORY: Significant for heart disease, high blood pressure, and diabetes.REVIEW OF SYSTEMS: Per HPI.PHYSICAL EXAMINATION: Vital Signs: Temperature 97.9, respiration rate 18, pulse 81,blood pressure 123/91, pulse oximetry 97%. The pain level is 7/10. The patient'sweight is 184.2 pounds. General: This is a 53-year-old female notappearing sickly or in acute distress. HEENT: Unremarkable except for oropharyngealerythema and congestion. No exudate appreciated. Neck: Supple, full range ofmotion, no lymphadenopathy. Lungs: Clear to auscultation bilaterally. Heart:Regular rhythm and rate. Normal heart sounds. Abdomen: Soft, nontender.IMPRESSION:1. Left otalgia, viral.2. Acute pharyngitis, viral.PLAN: A rapid strep test performed at [facility] reviewed and negative study.Discussed the results with the patient and encountered the patient to drink fluid,Motrin and Tylenol as needed, follow up with her family doctor for a recheck. Son Prasanna Lopez, [facility]/[id number]: 08/23/2018 19:34 [facility] PATIENT NAME: FANY MARRERO [id number] [facility] [address] MEDICAL REC #: [id number], [place] [address] [facility] REPORT [facility]: 08/24/2018 15:00SSI File#: [id number] #: [id number]/Reviewed by08/27/18 Jessica GUILLEN [facility] PATIENT NAME: FANY MARRERO [facility] [address] MEDICAL REC #: [id number], [place] [address] [facility] REPORT [facility] Normal [facility] RAPID STREP Aon 08-23-2018 S. pyogenes Ag IA Ql (Unsp spec) GROUP A STREP PRESUMPTIVE NEGATIVE FOR GROUP A BETA STREPTOCOCCUS Normal [facility] Comment on above: Order Comment: Dora s: GENARO XR Chest 2 Viewson 8 XR Chest 2 Views Exam Date/Time:06/18/2018 10:24 EDTReason for Exam:Shortness of breath (SOB)ReportSTUDY:XR Chest 2 Views; 06/18/2018 10:24 amINDICATION:Shortness of breath (SOB).COMPARISON:None.A CCESSION NUMBER(S):[id number] 149ORDERING CLINICIAN:Mark Scales:PA and lateral views of the chest were obtained. No focal infiltrate, pleural effusion or pneumothorax is identified. The cardiac silhouette is within normal limits for size. Mild discogenic degenerative changes are seen throughout the thoracic spine.IMPRESSION:No focal infiltrate or pneumothorax. FINAL REPORT Dictated: 06/18/2018 10:33 am Francoise COTTON, Manny CSigned (Electronic Signature): 06/18/2018 10:33 amSigned by: Francoise COTTON, Manny Cummings Technologist: CYNTHIA [facility] Vital Signs Date Time Vital Sign Value Performing Clinician Facility 06-29-2025 22: Body temperature 98.2 [degF] Dr. Jani Edmondson MD Work Phone: [facility] 06-29-2025 22:13040 Diastolic blood pressure 81 mm[Hg] Dr. Jani Edmondson MD Work Phone: [facility] 06-29-2025 22:13-0400 Heart rate 74 /min Dr. Jani Edmondson MD Work Phone: 5(898)371-340885 [place] [address] 06-29-2025 22:13-0400 Respiratory rate 15 /min Dr. Jani Edmondson MD Work Phone: 0(180)539-530685 [place] [address] 06-29-2025 22:13-0400 SaO2% (BldA) [Mass fraction] 97 % Dr. Jani Edmondson MD Work Phone: 4(513)930-410685 [place] [address] 06-29-2025 22:13-0400 Systolic blood pressure 126 mm[Hg] Dr. Jani Edmondson MD Work Phone: 2(713)974-976385 [place] [address] 06-29-2025 18:56-0400 Body height 160.[address] Jani Edmondson MD Work Phone: 5(921)486-481685 [place] [address] 06-29-2025 18:56-0400 Body mass index (BMI) [Ratio] 33.5 kg/m2 Dr. Jani Edmondson MD Work Phone: 9(167)834-116985 [place] [address] 06-29-2025 18:56-0400 Body weight 85.[address] Jani Edmondson MD Work Phone: 5(337)292-476585 [place] [address] 06-01-2025 11:48-0400 Body temperature 98.4 [degF] Dr. Jani Edmondson MD Work Phone: 5(925)737-057685 [place] [address] 06-01-2025 11:48-0400 Diastolic blood pressure 102 mm[Hg] Dr. Jani Edmondson MD Work Phone: 9(569)396-971185 [place] [address] 06-01-2025 11:48-0400 Heart rate 96 /min Dr. Jani Edmondson MD Work Phone: 6(617)997-586085 [place] [address] 06-01-2025 11:48-0400 Respiratory rate 18 /min Dr. Jani Edomndson MD Work Phone: 9(287)480-056085 [place] [address] 06-01-2025 11:48-0400 SaO2% (BldA) [Mass fraction] 99 % Dr. Jani Edmondson MD Work Phone: 2(180)034-693985 [place] [address] 06-01-2025 11:48-0400 Systolic blood pressure 169 mm[Hg] Dr. Jani Edmondson MD Work Phone: 5(233)946-454185 [place] [address] 06-01-2025 10:22-0400 Body height 160.[address] Jani Edmondson MD Work Phone: 4(990)001-196985 [place] [address] 06-01-2025 10:22-0400 Body mass index (BMI) [Ratio] 32.8 kg/m2 Dr. Jani Edmondson MD Work Phone: 2(943)761-411085 [place] [address] 06-01-2025 10:22-0400 Body weight 83.[address] Jani Edmondson MD Work Phone: 7(053)046-643985 [place] [address] 06-01-2025 08:13-0400 Body height 160.02 cm Dr. Jani Edmondson MD Work Phone: 5(218)994-891585 [place] [address] 06-01-2025 08:13-0400 Body mass index (BMI) [Ratio] 33.3 kg/m2 Dr. Jani Edmondson MD Work Phone: 7(059)288-732685 [place] [address] 06-01-2025 08:13-0400 Body weight 85.[address] Jani Edmondson MD Work Phone: 6(146)279-413085 [place] [address] 06-01-2025 08:13-0400 Diastolic blood pressure 91 mm[Hg] Dr. Jani Edmondson MD Work Phone: 2(171)973-182285 [place] [address] 06-01-2025 08:13-0400 Diastolic blood pressure 80 mm[Hg] Dr. Jani Edmondson MD Work Phone: 3(026)993-948085 [place] [address] 06-01-2025 08:13-0400 Heart rate 96 /min Dr. Jani Edmondson MD Work Phone: 7(939)925-272285 [place] [address] 06-01-2025 08:13-0400 SaO2% (BldA) [Mass fraction] 98 % Dr. Jani Edmondson MD Work Phone: 2(172)935-627285 [place] [address] 06-01-2025 08:13-0400 Systolic blood pressure 151 mm[Hg] Dr. Jani Edmondson MD Work Phone: [facility] 06-01-2025 08:13-0400 Systolic blood pressure 144 mm[Hg] Dr. Jani Edmondson MD Work Phone: [facility] 04-12-2025 11:34-0400 Body mass index (BMI) [Ratio] 32.29 kg/m2 Sarabjit Brown MD Work Phone: [facility] 04-12-2025 11:34-0400 Body temperature 99.39 [degF] Sarabjit Brown MD Work Phone: [facility] 04-12-2025 11:34-0400 Body weight 84 kg Sarabjit Brown MD Work Phone: [facility] 04-12-2025 11:34-0400 Diastolic blood pressure 78 mm[Hg] Sarabjit Brown MD Work Phone: [facility] 04-12-2025 11:34-0400 Heart rate 95 /min Sarabjit Brown MD Work Phone: [facility] 04-12-2025 11:34-0400 Respiratory rate 16 /min Sarabjit Brown MD Work Phone: [facility] 04-12-2025 11:34-0400 SaO2% (BldA) [Mass fraction] 99 % Sarabjit Brown MD Work Phone: [facility] 04-12-2025 11:34-0400 Systolic blood pressure 128 mm[Hg] Sarabjit Brown MD Work Phone: [facility] 03-14-2025 10:01-0400 Body height 161.3 cm Flip Joy MD Work Phone: [facility] 03-14-2025 10:01-0400 Body mass index (BMI) [Ratio] 32.08 kg/m2 Flip Joy MD Work Phone: [facility] 03-14-2025 10:01-0400 Body temperature 98.29 [degF] Flip Joy MD Work Phone: [facility] 03-14-2025 10:01-0400 Body weight 83.46 kg Flip Joy MD Work Phone: [facility] 03-14-2025 10:01-0400 Diastolic blood pressure 84 mm[Hg] Flip Joy MD Work Phone: [facility] 03-14-2025 10:01-0400 Heart rate 108 /min Flip Joy MD Work Phone: [facility] 03-14-2025 10:01-0400 Respiratory rate 14 /min Flip Jyo MD Work Phone: [facility] 03-14-2025 10:01-0400 SaO2% (BldA) [Mass fraction] 97 % Flip Joy MD Work Phone: [facility] 03-14-2025 10:01-0400 Systolic blood pressure 118 mm[Hg] Flip Joy MD Work Phone: [facility] 03-08-2025 10:18-0400 Body mass index (BMI) [Ratio] 32.99 kg/m2 Nina Scherer PA-C Work Phone: [facility] 03-08-2025 10:18-0400 Body temperature 97.7 [degF] Nina Scherer PA-C Work Phone: [facility] 03-08-2025 10:18-0400 Body weight 83.92 kg Nina Scherer PA-C Work Phone: [facility] 03-08-2025 10:18-0400 Diastolic blood pressure 86 mm[Hg] Nina Scherer PA-C Work Phone: [facility] 03-08-2025 10:18-0400 Heart rate 86 /min Nina Scherer PA-C Work Phone: [facility] 03-08-2025 10:18-0400 Respiratory rate 18 /min Nina Scherer PA-C Work Phone: [facility] 03-08-2025 10:18-0400 SaO2% (BldA) [Mass fraction] 94 % Nina Scherer PA-C Work Phone: [facility] 03-08-2025 10:18-0400 Systolic blood pressure 116 mm[Hg] Nina Scherer PA-C Work Phone: [facility] 02-12-2025 15:48-0400 Body temperature 98.8 [degF] Dr. Jani Edmondson MD Work Phone: 5(042)362-469521 [place] [address] 02-12-2025 15:48-0400 Diastolic blood pressure 77 mm[Hg] Dr. Jani Edmondson MD Work Phone: 4(806)504-821885 [place] [address] 02-12-2025 15:48-0400 Heart rate 82 /min Dr. Jani Edmondson MD Work Phone: 6(926)037-423185 [place] [address] 02-12-2025 15:48-0400 Respiratory rate 16 /min Dr. Jani Edmondson MD Work Phone: 7(763)561-067085 [place] [address] 02-12-2025 15:48-0400 SaO2% (BldA) [Mass fraction] 100 % Dr. Jani Edmondson MD Work Phone: 5(778)006-646285 [place] [address] 02-12-2025 15:48-0400 Systolic blood pressure 134 mm[Hg] Dr. Jani Edmondson MD Work Phone: 3(391)030-447121 [place] [address] 02-12-2025 12:39-0400 Body height 160.[address] Jani Edmondson MD Work Phone: 2(499)211-161521 [place] [address] 02-12-2025 12:39-0400 Body mass index (BMI) [Ratio] 32.9 kg/m2 Dr. Jani Edmondson MD Work Phone: 2(266)001-518821 [place] [address] 02-12-2025 12:39-0400 Body weight 84.[address] Jani Edmondson MD Work Phone: 1(838)703-679521 [place] [address] 01-06-2025 09:43-0400 Body height 159.5 cm Betty Cadena MD Work Phone: [facility] 01-06-2025 09:43-0400 Body mass index (BMI) [Ratio] 32.59 kg/m2 Betty Cadena MD Work Phone: 9(196)635-696521 [place] [address] 01-06-2025 09:43-0400 Body weight 82.92 kg Betty Cadena MD Work Phone: [facility] 01-06-2025 09:43-0400 Diastolic blood pressure 78 mm[Hg] Betty Cadena MD Work Phone: 2(311)152-874321 [place] [address] 01-06-2025 09:43-0400 Systolic blood pressure 110 mm[Hg] Betty Cadena MD Work Phone: 5(141)931-070521 [place] [address] 11-29-2024 09:39-0500 Body temperature 98.2 [degF] Dr. Jani Edmondson MD Work Phone: 4(373)502-812785 [place] [address] 11-29-2024 09:39-0500 Diastolic blood pressure 98 mm[Hg] Dr. Jani Edmodnson MD Work Phone: 1(355)457-523385 [place] [address] 11-29-2024 09:39-0500 Heart rate 77 /min Dr. Jani Edmondson MD Work Phone: 3(969)798-214185 [place] [address] 11-29-2024 09:39-0500 Respiratory rate 18 /min Dr. Jani Edmondson MD Work Phone: 5(591)357-464185 [place] [address] 11-29-2024 09:39-0500 SaO2% (BldA) [Mass fraction] 97 % Dr. Jani Edmondson MD Work Phone: 5(928)479-595185 [place] [address] 11-29-2024 09:39-0500 Systolic blood pressure 145 mm[Hg] Dr. Jani Edmondson MD Work Phone: 2(581)612-703485 [place] [address] 11-29-2024 08:45-0500 Body mass index (BMI) [Ratio] 33 kg/m2 Dr. Jani Edmondson MD Work Phone: 1(729)521-523121 [place] [address] 11-29-2024 08:45-0500 Body weight 84.[address] Jani Edmondson MD Work Phone: 8(767)801-916185 [place] [address] 10-21-2024 07:41-0500 Diastolic blood pressure 80 mm[Hg] Nina DEJESUS-C Work Phone: [facility] Comment on above: bp average with machine 10-21-2024 07:41-0500 Heart rate 79 /min Nina DEJESUS-C Work Phone: [facility] 10-21-2024 07:41-0500 Systolic blood pressure 117 mm[Hg] Nina Scherer PA-C Work Phone: [facility] Comment on above: bp average with machine 09-14-2024 18:38-0500 Diastolic blood pressure 94 mm[Hg] Jani Edmondson MD Work Phone: [facility] 09-14-2024 18:38-0500 Systolic blood pressure 144 mm[Hg] Jani Edmondson MD Work Phone: [facility] 09-14-2024 18:10-0500 Body height 160 cm Jani Edmondson MD Work Phone: [facility] 09-14-2024 18:10-0500 Body mass index (BMI) [Ratio] 32.77 kg/m2 Jani Edmondson MD Work Phone: [facility] 09-14-2024 18:10-0500 Body weight 83.92 kg Jani Edmondson MD Work Phone: [facility] 09-14-2024 18:10-0500 Heart rate 76 /min Jani Edmondson MD Work Phone: [facility] 09-14-2024 18:10-0500 Respiratory rate 16 /min Jani Edmondson MD Work Phone: [facility] 07-22-2024 16:09-0400 Body mass index (BMI) [Ratio] 33.19 kg/m2 Carloz Moomaw SUPERVISOR EVAPORATOR.COMPUTER ART INSTRUCTOR Work Phone: [facility] 07-22-2024 16:09-0400 Body temperature 97.9 [degF] Carloz Moomaw SUPERVISOR EVAPORATOR.COMPUTER ART INSTRUCTOR Work Phone: [facility] 07-22-2024 16:09-0400 Body weight 85 kg Carloz Moomaw SUPERVISOR EVAPORATOR.COMPUTER ART INSTRUCTOR Work Phone: [facility] 07-22-2024 16:09-0400 Diastolic blood pressure 91 mm[Hg] Carloz Moomaw SUPERVISOR EVAPORATOR.COMPUTER ART INSTRUCTOR Work Phone: [facility] 07-22-2024 16:09-0400 Heart rate 79 /min Carloz Moomaw SUPERVISOR EVAPORATOR.COMPUTER ART INSTRUCTOR Work Phone: [facility] 07-22-2024 16:09-0400 Respiratory rate 20 /min Carloz Moomaw SUPERVISOR EVAPORATOR.COMPUTER ART INSTRUCTOR Work Phone: [facility] 07-22-2024 16:09-0400 SaO2% (BldA) [Mass fraction] 97 % Carloz Moomaw SUPERVISOR EVAPORATOR.COMPUTER ART INSTRUCTOR Work Phone: [facility] 07-22-2024 16:09-0400 Systolic blood pressure 152 mm[Hg] Carloz Moomaw SUPERVISOR EVAPORATOR.COMPUTER ART INSTRUCTOR Work Phone: [facility] 01-07-2024 07:46-0400 Body weight 84.37 kg Lynn Camara SUPERVISOR EVAPORATOR.COMPUTER ART INSTRUCTOR Work Phone: [facility] 01-07-2024 07:46-0400 Diastolic blood pressure 82 mm[Hg] Lynn Knoble SUPERVISOR EVAPORATOR.COMPUTER ART INSTRUCTOR Work Phone: [facility] 01-07-2024 07:46-0400 Heart rate 77 /min Lynn Mark SUPERVISOR EVAPORATOR.COMPUTER ART INSTRUCTOR Work Phone: [facility] 01-07-2024 07:46-0400 Respiratory rate 14 /min Lynn Camara SUPERVISOR EVAPORATOR.COMPUTER ART INSTRUCTOR Work Phone: [facility] 01-07-2024 07:46-0400 Systolic blood pressure 127 mm[Hg] Lynn Kngrey SUPERVISOR EVAPORATOR.COMPUTER ART INSTRUCTOR Work Phone: [facility] 12-25-2023 08:10-0400 Body height 160.02 cm ANJELICA DEJESUS Work Phone: [facility] 12-25-2023 08:10-0400 Body mass index (BMI) [Ratio] 33.3 kg/m2 PA Nina DEJESUS Work Phone: [facility] 12-25-2023 08:10-0400 Body weight 85.38 kg PA Nina Scherer PA Work Phone: [facility] 12-25-2023 08:10-0400 Diastolic blood pressure 84 mm[Hg] PA Nina Scherer PA Work Phone: [facility] 12-25-2023 08:10-0400 Heart rate 87 /min PA Nina Scherer PA Work Phone: [facility] 12-25-2023 08:10-0400 Respiratory rate 14 /min PA Nina Scherer PA Work Phone: [facility] 12-25-2023 08:10-0400 Systolic blood pressure 129 mm[Hg] PA Nina Scherer PA Work Phone: [facility] 12-05-2023 10:58-0500 Body temperature 98.6 [degF] Jessica Elizabeth SUPERVISOR EVAPORATOR.COMPUTER ART INSTRUCTOR Work Phone: [facility] 12-05-2023 10:58-0500 Body weight 84.8 kg Jessica Elizabeth SUPERVISOR EVAPORATOR.COMPUTER ART INSTRUCTOR Work Phone: [facility] 12-05-2023 10:58-0500 Diastolic blood pressure 85 mm[Hg] Jessica Elizabeth SUPERVISOR EVAPORATOR.COMPUTER ART INSTRUCTOR Work Phone: [facility] 12-05-2023 10:58-0500 Heart rate 67 /min Jessica Elizabeth SUPERVISOR EVAPORATOR.COMPUTER ART INSTRUCTOR Work Phone: [facility] 12-05-2023 10:58-0500 Respiratory rate 20 /min Jessica Elizabeth SUPERVISOR EVAPORATOR.COMPUTER ART INSTRUCTOR Work Phone: [facility] 12-05-2023 10:58-0500 SaO2% (BldA) [Mass fraction] 99 % Jessica Elizabeth SUPERVISOR EVAPORATOR.COMPUTER ART INSTRUCTOR Work Phone: [facility] 12-05-2023 10:58-0500 Systolic blood pressure 135 mm[Hg] Jessica Elizabeth SUPERVISOR EVAPORATOR.COMPUTER ART INSTRUCTOR Work Phone: [facility] 08-28-2023 18:42-0500 Body temperature 97.59 [degF] Donna Athy PA-C Work Phone: [facility] 08-28-2023 18:42-0500 Body weight 86.18 kg Donna Athy PA-C Work Phone: [facility] 08-28-2023 18:42-0500 Diastolic blood pressure 86 mm[Hg] Donna Athy PA-C Work Phone: [facility] 08-28-2023 18:42-0500 Heart rate 73 /min Donna Athy PA-C Work Phone: [facility] 08-28-2023 18:42-0500 Respiratory rate 16 /min Donna Athy PA-C Work Phone: [facility] 08-28-2023 18:42-0500 SaO2% (BldA) [Mass fraction] 97 % Donna Athy PA-C Work Phone: [facility] 08-28-2023 18:42-0500 Systolic blood pressure 142 mm[Hg] Donna Athy PA-C Work Phone: [facility] 07-07-2023 08:48-0400 Diastolic blood pressure 84 mm[Hg] Jani Edmondson MD Work Phone: [facility] 07-07-2023 08:48-0400 Systolic blood pressure 124 mm[Hg] Jani Edmondson MD Work Phone: [facility] 07-07-2023 08:10-0400 Body height 160 cm Jani Edmondson MD Work Phone: [facility] 07-07-2023 08:10-0400 Body weight 85.73 kg Jani Edmondson MD Work Phone: [facility] 07-07-2023 08:10-0400 Heart rate 82 /min Jani Edmondson MD Work Phone: [facility] 07-07-2023 08:10-0400 Respiratory rate 16 /min Jani Edmondson MD Work Phone: [facility] 02-03-2023 16:20-0400 Body temperature 98.1 [degF] [facility] SUPERVISOR EVAPORATOR.COMPUTER ART INSTRUCTOR Work Phone: [facility] 02-03-2023 16:20-0400 Body weight 92.08 kg [facility] SUPERVISOR EVAPORATOR.COMPUTER ART INSTRUCTOR Work Phone: [facility] 02-03-2023 16:20-0400 Diastolic blood pressure 80 mm[Hg] [facility] SUPERVISOR EVAPORATOR.COMPUTER ART INSTRUCTOR Work Phone: [facility] 02-03-2023 16:20-0400 Heart rate 92 /min [facility] SUPERVISOR EVAPORATOR.COMPUTER ART INSTRUCTOR Work Phone: [facility] 02-03-2023 16:20-0400 Respiratory rate 18 /min [facility] SUPERVISOR EVAPORATOR.COMPUTER ART INSTRUCTOR Work Phone: [facility] 02-03-2023 16:20-0400 SaO2% (BldA) [Mass fraction] 98 % [facility] SUPERVISOR EVAPORATOR.COMPUTER ART INSTRUCTOR Work Phone: [facility] 02-03-2023 16:20-0400 Systolic blood pressure 122 mm[Hg] [facility] SUPERVISOR EVAPORATOR.COMPUTER ART INSTRUCTOR Work Phone: [facility] 12-26-2022 07:52-0400 Diastolic blood pressure 81 mm[Hg] Nina DEJESUS-C Work Phone: [facility] 12-26-2022 07:52-0400 Heart rate 79 /min Nina DEJESUS-C Work Phone: [facility] 12-26-2022 07:52-0400 Systolic blood pressure 125 mm[Hg] Nina DEJESUS-C Work Phone: [facility] 12-26-2022 07:08-0400 Body temperature 97.9 [degF] Nina DEJESUS-C Work Phone: [facility] 12-26-2022 07:08-0400 Body weight 91.63 kg Nina DEJESUS-C Work Phone: [facility] 12-26-2022 07:08-0400 Respiratory rate 18 /min Nina Scherer PA-C Work Phone: [facility] 12-23-2022 08:06-0400 Body height 160.02 cm PA Nina Scherer PA Work Phone: [facility] 12-23-2022 08:06-0400 Body mass index (BMI) [Ratio] 36.3 kg/m2 PA Nina Scherer PA Work Phone: [facility] 12-23-2022 08:06-0400 Body temperature 98 [degF] PA Nina Scherer PA Work Phone: [facility] 12-23-2022 08:06-0400 Body weight 93.04 kg PA Nina Scherer PA Work Phone: [facility] 12-23-2022 08:06-0400 Diastolic blood pressure 94 mm[Hg] PA Nina Scherer PA Work Phone: [facility] 12-23-2022 08:06-0400 Heart rate 80 /min PA Nina Scherer PA Work Phone: [facility] 12-23-2022 08:06-0400 Respiratory rate 18 /min PA Nina Scherer PA Work Phone: [facility] 12-23-2022 08:06-0400 SaO2% (BldA) [Mass fraction] 96 % PA Nina Scherer PA Work Phone: [facility] 12-23-2022 08:06-0400 Systolic blood pressure 152 mm[Hg] PA Nina Scherer PA Work Phone: [facility] 06-24-2022 08:06-0400 Body height 162 cm Jani Edmondson MD Work Phone: [facility] 06-24-2022 08:06-0400 Body weight 89.36 kg Jani Edmondson MD Work Phone: [facility] 06-24-2022 08:06-0400 Diastolic blood pressure 76 mm[Hg] Jani Edmondson MD Work Phone: [facility] 06-24-2022 08:06-0400 Heart rate 74 /min Jani Edmondson MD Work Phone: [facility] 06-24-2022 08:06-0400 Systolic blood pressure 124 mm[Hg] Jani Edmondson MD Work Phone: [facility] 04-12-2022 15:03-0400 Body temperature 98.4 [degF] Kavitha Hodge APRN.COMPUTER ART INSTRUCTOR Work Phone: [facility] 04-12-2022 15:03-0400 Body weight 89.9 kg Kavitha Hodge APRN.COMPUTER ART INSTRUCTOR Work Phone: [facility] 04-12-2022 15:03-0400 Diastolic blood pressure 82 mm[Hg] Kavitha Hodge APRN.COMPUTER ART INSTRUCTOR Work Phone: [facility] 04-12-2022 15:03-0400 Heart rate 78 /min Kavitha Hodge APRN.COMPUTER ART INSTRUCTOR Work Phone: [facility] 04-12-2022 15:03-0400 Respiratory rate 16 /min Kavitha Hodge APRN.COMPUTER ART INSTRUCTOR Work Phone: [facility] 04-12-2022 15:03-0400 SaO2% (BldA) [Mass fraction] 97 % Kavitha Hodge APRN.COMPUTER ART INSTRUCTOR Work Phone: [facility] 04-12-2022 15:03-0400 Systolic blood pressure 142 mm[Hg] Kavitha Hodge APRN.COMPUTER ART INSTRUCTOR Work Phone: [facility] 12-23-2021 10:32-0400 Body mass index (BMI) [Ratio] 35.1 kg/m2 ANJELICA DEJESUS Work Phone: [facility] Work Phone: 12-23-2021 10:32-0400 Body temperature 95.2 [degF] ANJELICA DEJESUS Work Phone: [facility] Work Phone: 12-23-2021 10:32-0400 Body weight 89.98 kg PA Nina Scherer PA Work Phone: [facility] Work Phone: 12-23-2021 10:32-0400 Diastolic blood pressure 94 mm[Hg] PA Nina Scherer PA Work Phone: [facility] Work Phone: 12-23-2021 10:32-0400 Heart rate 79 /min PA Nina Scherer PA Work Phone: [facility] Work Phone: 12-23-2021 10:32-0400 Respiratory rate 18 /min PA Nina Scherer PA Work Phone: [facility] Work Phone: 12-23-2021 10:32-0400 SaO2% (BldA) [Mass fraction] 100 % PA Nina Scherer PA Work Phone: [facility] Work Phone: 12-23-2021 10:32-0400 Systolic blood pressure 130 mm[Hg] PA Nina Scherer PA Work Phone: [facility] Work Phone: Encounters Encounter Date Encounter Type Care Provider Facility Start: 06-29-2025 End: 06-29-2025 Emergency department patient visit Dr. Jani Edmondson MD Work Phone: -Emergency Department Work Phone: Start: 06-01-2025 End: 06-01-2025 Chart abstracting Jani Edmondson MD Work Phone: [facility] [place] Comment on above: Abstract ([facility]) Start: 06-01-2025 End: 06-01-2025 Emergency department patient visit Dr. Jani Edmondson MD Work Phone: -Emergency Department Work Phone: Start: 06-01-2025 End: 06-01-[address] Rocky Rodriguez MD -[facility] Work Phone: Start: 06-01-2025 End: 06-01-[address] Jani Edmondson MD Work Phone: -[facility] Start: 04-12-2025 End: 04-12-2025 Office outpatient visit 25 minutes Sarabjit Brown MD Work Phone: [facility] Comment on above: Viral URI with cough (Primary Dx); Asthma with acute exacerbation, unspecified asthma severity, unspecified whether persistent (HCC) Start: 04-12-2025 End: 04-12-2025 ambulatory JANI EDMONDSON Facility:[facility] Start: 04-10-2025 End: 04-10-2025 Telephone encounter Ligia Blackmon RN Work Phone: Mammography Comment on above: Results Start: 03-28-2025 ambulatory FLIP JOY Facili ty:[facility] Start: 03-28-2025 End: 03-28-2025 Subsequent hospital visit by physician Stereo/Ultrasound Biopsy [facility] Comment on above: Abnormal mammogram [ R92.8] Start: 03-14-2025 End: 03-14-2025 Patient encounter procedure Flip Joy MD Work Phone: General Surgery Comment on above: Abnormal mammogram ( Primary Dx) Start: 03-14-2025 End: 03-14-2025 ambulatory FLIP JOY Facility:[facility] Start: 03-09-2025 End: 03-09-2025 ambulatory Jani Edmondson MD Work Phone: [facility] [place] Comment on above: Information about LD L Cholesterol and Hemoglobin A1C Start: 03-09-2025 End: 03-09-2025 E-mail encounter from caregiver Jani Edmondson MD Work Phone: [facility] [place] Start: 03-09-2025 End: 05-09-2025 Follow-up encounter Nina Scherer PA-C Work Phone: [facility] [place] Start: 03-08-2025 End: 03-08-2025 ambulatory NINA SCHERER Facility:[facility] Start: 03-08-2025 End: 03-08-2025 Office outpatient visit 25 minutes Nina Scherer PA-C Work Phone: [facility] [place] Comment on above: Hypertension, essent ial (Primary Dx); Elevated hemoglobin A1c; Hypothyroidism, acquired; Stage 3a chronic kidney disease (HCC); GERD without esophagitis; Asthma due to seasonal allergies (HCC); Fatty liver; Obesity, Class I, BMI 30-34.9; Medication management; Encounter for screening for diabetes mellitus; Encounter for screening examination for other mental health and behavioral disorders; Screening for depression; Strain of lumbar paraspinous muscle, subsequent encounter Start: 03-08-2025 End: 03-08-2025 ambulatory NINA SCHERER Facility:[facility] Start: 03-08-2025 ambulatory BETTY CADENA Facility:[facility] Start: 03-08-2025 End: 03-08-2025 Subsequent hospital visit by physician [facility] Work Phone: Radiology Comment on above: Abnormal mammogram [ R92.8] Start: 02-16-2025 End: 02-16-2025 ambulatory JANI EDMONDSON Facility:[facility] Start: 02-12-2025 End: 02-12-2025 Emergency department patient visit Dr. Jani Edmondson MD Work Phone: -Emergency Department Work Phone: Start: 02-01-2025 End: 02-02-2025 Refill Jani Edmondson MD Work Phone: [facility] [place] Comment on above: Refill Request ([place] ase); Medication Question (Valsartan & Omeprazole) Start: 01-27-2025 End: 03-29-2025 Follow-up encounter Betty Cadena MD Work Phone: OB/Gynecology Start: 01-27-2025 End: 01-27-2025 Telephone encounter Betty Cadena MD Work Phone: OB/Gynecology Comment on above: Orders Start: 01-25-2025 End: 01-26-2025 Telephone encounter Jani Edmondson MD Work Phone: [facility] [place] Comment on above: Medication Problem ( Valsartan) Start: 01-25-2025 ambulatory BETTY CADENA Facility:[facility] Start: 01-25-2025 End: 01-25-2025 Subsequent hospital visit by physician Screen Mammo [facility] Comment on above: Encounter for screen ing mammogram for breast cancer [Z12.31] Start: 01-06-2025 End: 01-06-2025 ambulatory BETTY CADENA Facility:[facility] Start: 01-06-2025 Encounter for gynecological examination (general) (routine) without abnormal findings BETTY CADENA [facility] Start: 01-06-2025 End: 01-06-2025 Patient encounter procedure Betty Cadena MD Work Phone: OB/Gynecology Comment on above: Encounter for gyneco logical examination (general) (routine) without abnormal findings (Primary Dx); Encounter for gynecological examination with abnormal finding; Encounter for screening mammogram for breast cancer Start: 01-06-2025 End: 01-06-2025 Patient encounter status Betty Cadena MD Work Phone: [facility] Start: 12-05-2024 End: 12-05-2024 Chart abstracting Dani Hodge MA [facility] [place] Comment on above: ER F/U ([facility] ) Start: 11-30-2024 End: 11-30-2024 Chart abstracting Jani Edmondson MD Work Phone: [facility] [place] Comment on above: Opened In Error Start: 11-29-2024 End: 11-29-2024 Emergency department patient visit Dr. Flip Ramsey DO -Emergency Department Work Phone: Start: 10-21-2024 End: 10-21-2024 ambulatory NINA SCHERER Facility:[facility] Start: 10-21-2024 End: 10-21-2024 Patient encounter procedure Nina Scherer PA-C Work Phone: [facility] [place] Comment on above: Hypertension, essent ial (Primary Dx) Start: 09-16-2024 End: 09-16-2024 Chart abstracting Jani Edmondson MD Work Phone: [facility] Comment on above: Outside Endocrinolog y Start: 09-15-2024 End: 09-16-2024 Telephone encounter Jani Edmondson MD Work Phone: [facility] Comment on above: Results Start: 09-15-2024 End: 09-15-2024 ambulatory JANI EDMONDSON Facility:[facility] Start: 09-15-2024 End: 09-15-2024 ambulatory Jani Edmondson Facility:[facility] Start: 09-14-2024 Encounter for gynecological examination (general) (routine) with abnormal findings BETTY CADENA [facility] Start: 09-14-2024 End: 09-14-2024 ambulatory JANI EDMONDSON Facility:[facility] Start: 09-14-2024 End: 09-14-2024 Patient encounter procedure Jani Edmondson MD Work Phone: [facility] Comment on above: Well adult exam (Myranda ivory Dx); Hypertension, essential; Hypothyroidism, acquired; Elevated hemoglobin A1c; GERD without esophagitis; Asthma due to seasonal allergies; Stage 3a chronic kidney disease (HCC); Fatty liver; Obesity, Class I, BMI 30-34.9; Neck pain; Spasm of back muscles; Large breasts; Encounter for gynecological examination with abnormal finding; Medication management Start: 09-14-2024 End: 09-14-2024 Chart abstracting Jani Edmondson MD Work Phone: [facility] Comment on above: Outside Ebke-Cde-IWJ Ordered Start: 09-14-2024 End: 09-14-2024 Patient encounter status Jani Edmondson MD Work Phone: [facility] Work Phone: Start: 09-14-2024 End: 09-14-2024 ambulatory Jani Edmondson Facility:[facility] Start: 07-22-2024 End: 07-22-2024 ambulatory JANI EDMONDSON Facility:[facility] Start: 07-22-2024 End: 07-22-2024 Patient encounter procedure Carloz Barfield APRN.COMPUTER ART INSTRUCTOR Work Phone: [facility] Comment on above: Upper back strain, i nitial encounter (Primary Dx); Pain, dental Start: 03-09-2024 ambulatory Jani locke MD Work Phone: Internal Medicine [place] [id number] Start: 01-08-2024 Chart abstracting Dani Hodge MA [facility] Comment on above: Consult (Endocrinolo gy /) Start: 01-07-2024 Telephone encounter Lynn smith SUPERVISOR EVAPORATOR.COMPUTER ART INSTRUCTOR Work Phone: [facility] Comment on above: Results Start: 01-07-2024 End: 01-07-2024 Patient encounter procedure Lynn Camara SUPERVISOR EVAPORATOR.COMPUTER ART INSTRUCTOR Work Phone: [facility] Comment on above: Stage 3a chronic kid felice disease (HCC) (Primary Dx); GERD without esophagitis; Seasonal allergies; Hypothyroidism, acquired; Hypertension, essential Start: 12-28-2023 ambulatory Jani locke MD Work Phone: [facility] Start: 12-25-2023 End: 12-25-2023 Patient encounter procedure ANJELICA DEJESUS Work Phone: [facility] Work Phone: Start: 12-25-2023 Non-patient / Non-visit ANJELICA Scherer PA Work Phone: [facility] Start: 12-22-2023 ambulatory Jani locke MD Work Phone: [facility] [place] Start: 12-21-2023 End: 12-21-2023 ambulatory ANJELICA DEJESUS Work Phone: [facility] Work Phone: Start: 12-21-2023 End: 12-21-2023 Patient encounter procedure ANJELICA DEJESUS Work Phone: [facility] Work Phone: Start: 12-05-2023 ambulatory Allison Gallo LPN [employer]SE [employer] Comment on above: Medication Problem Start: 12-05-2023 End: 12-05-2023 Patient encounter procedure Jessica Johnson COMPUTER ART INSTRUCTOR Work Phone: [facility] Comment on above: Acute right-sided th oracic back pain (Primary Dx) Start: 08-28-2023 End: 08-28-2023 Patient encounter procedure Donna Israel PA-C Work Phone: [facility] Comment on above: Acute right-sided th oracic back pain (Primary Dx) Start: 08-10-2023 Telephone encounter Dani Hodge MA [facility] Comment on above: Results Start: 08-10-2023 End: 08-10-[address] [facility] Work Phone: Start: 08-10-2023 End: 08-10-[address] [facility] Work Phone: Start: 07-14-2023 Telephone encounter Jani Edmondson MD Work Phone: [facility] Comment on above: Appointment Start: 07-07-2023 End: 07-07-2023 Patient encounter procedure Jani Edmondson MD Work Phone: [facility] Comment on above: Well adult exam (Myranda ivory Dx); Hypertension, essential; Hypothyroidism, acquired; GERD without esophagitis; Asthma due to seasonal allergies; Seasonal allergies; Fatty liver; Stage 3a chronic kidney disease (HCC); Encounter for gynecological examination with abnormal finding; Medication management; Large breasts; Neck pain; AK (actinic keratosis); Encounter for screening for diabetes mellitus; Bruising Start: 07-07-2023 End: 07-07-2023 Patient encounter status Jani Edmondson MD Work Phone: [facility] Work Phone: Start: 04-07-2023 Refill Jani locke MD Work Phone: [facility] Comment on above: Refill Request Start: 04-01-2023 ambulatory Jani locke MD Work Phone: [facility] [place] Start: 02-03-2023 End: 02-03-2023 Office outpatient visit 25 minutes Jani Vences APRN.CNP Work Phone: [facility] Comment on above: Acute low back pain, unspecified back pain laterality, unspecified whether sciatica present (Primary Dx) Start: 01-16-2023 Chart abstracting Nina serna PA-C Work Phone: [facility] Comment on above: Outside Labs Results Start: 01-12-2023 Telephone encounter Nina almonte PA-C Work Phone: [facility] Comment on above: Results Start: 01-12-2023 End: 01-12-2023 ambulatory PA Nina DEJESUS Work Phone: [facility] Work Phone: Start: 01-12-2023 End: 01-12-2023 Patient encounter procedure ANJELICA DEJESUS Work Phone: [facility] Start: 12-26-2022 End: 12-26-2022 Patient encounter procedure Nina Scherer PA-C Work Phone: [facility] Comment on above: Hypertension, essent ial (Primary Dx); Hypothyroidism, acquired; Dysphagia, unspecified type; Fatty liver; GERD without esophagitis; Pharyngoesophageal dysphagia; Stage 3a chronic kidney disease (HCC); Obesity, Class I, BMI 30-34.9 Start: 12-25-2022 ambulatory Jani locke MD Work Phone: [facility] Start: 12-23-2022 End: 12-23-2022 Patient encounter procedure ANJELICA DEJESUS Work Phone: [facility] Start: 12-19-2022 Chart abstracting Nina DEJESUS-C Work Phone: [facility] Comment on above: Outside Labs Results Start: 12-19-2022 End: 12-19-2022 Patient encounter procedure ANJELICA DEJESUS Work Phone: [facility] Start: 09-19-2022 Refill Jani locke MD Work Phone: [facility] Comment on above: Refill Request Start: 06-24-2022 End: 06-24-2022 Patient encounter procedure Jani Edmondson MD Work Phone: [facility] Comment on above: Well adult exam ([facility] ivory Dx); Hypertension, essential; Hypothyroidism, acquired; GERD without esophagitis; Asthma due to seasonal allergies; Seasonal allergies; Pharyngoesophageal dysphagia; Fatty liver; Medication management; Need for vaccination Start: 06-24-2022 End: 06-24-2022 Patient encounter status Jani Edmondson MD Work Phone: [facility] Start: 04-23-2022 ambulatory Jani locke MD Work Phone: [facility] [place] Start: 04-12-2022 End: 04-12-2022 Patient encounter procedure Kavitha Hodge APRN.COMPUTER ART INSTRUCTOR Work Phone: [facility] Comment on above: Burn (Primary Dx); Skin infection Start: 04-12-2022 Refill Kavitha carrillo SUPERVISOR EVAPORATOR.COMPUTER ART INSTRUCTOR Work Phone: [facility] Comment on above: Refill Request Start: 02-21-2022 Refill Jani locke MD Work Phone: [facility] Comment on above: Refill Request Start: 12-24-2021 Chart abstracting Nina serna PA-C Work Phone: [facility] Comment on above: Outside Labs Results Start: 12-23-2021 End: 12-23-2021 Patient encounter procedure ANJELICA DEJESUS Work Phone: [facility] Start: 09-16-2021 Patient encounter procedure ANJELICA DEJESUS Work Phone: [facility] Start: 09-06-2021 Patient encounter procedure ANJELICA DEJESUS Work Phone: [facility] Start: 05-09-2021 Patient encounter status Alma Scherer PA-C Work Phone: [facility] Work Phone: Start: 08-23-2018 Patient encounter procedure Roann Lopez Facility:[facility] Start: 06-18-2018 End: 06-19-2018 Patient encounter Mark Amos Facility:[facility] Start: 06-18-2018 Patient encounter Facil [id number] Procedures Date Procedure Procedure Detail Performing Clinician Start: 06-29-[address] Jani Edmondson MD Work Phone: Start: 06-29-2025 Radiologic exam ches t [address] Jani Edmondson MD Work Phone: Start: 06-01-2025 X-ray of chest, PA a nd lateral views Dr. Jani Edmondson MD Work Phone: Start: 03-28-2025 Diagnostic mammograp hy computer-aided detcj uni Flip Joy MD Work Phone: Start: 03-28-2025 Bx breast w/device 1 st lesion ultrasound guid Flip Joy MD Work Phone: Start: 03-08-2025 Us breast uni real t eileen with image limited Betty Cadena MD Work Phone: Start: 03-08-2025 Digital breast tomos ynthesis unilateral Betty Cadena MD Work Phone: Start: 03-08-2025 Adult depression scr eening assessment Nina Scherer PA-C Work Phone: Start: 03-08-2025 Lipid 1996 panel - S tomy or Plasma Us 1 Work Phone: Start: 02-12-2025 Plain X-ray of shoulder Dr. Jani Edmondson MD Work Phone: Start: 02-12-2025 X-ray of chest posteroanterior view Dr. Jani Edmondson MD Work Phone: Start: 02-12-[address] Jani Edmondson MD Work Phone: Start: 09-15-2024 Lipid 1996 panel - S tomy or Plasma Jani Edmondson MD Work Phone: Start: 09-14-2024 CBC W/DIFF/PLT ([facility]) [facility] Start: 09-14-2024 Comprehensive metabo lic 1999 panel - Serum or Plasma [facility] Provider Start: 01-07-2024 Adult depression scr eening assessment Carloz Kyw SUPERVISOR EVAPORATOR.COMPUTER ART INSTRUCTOR Work Phone: Start: 12-21-2023 Comprehensive metabo lic 1999 panel - Serum or Plasma [facility] Start: 12-21-2023 Thyrotropin [Units/v olume] in Serum or Plasma [facility] Start: 12-21-2023 Thyroxine (T4) free [Mass/volume] in Serum or Plasma [facility] Start: 01-12-2023 BMP - EXTERNAL [facility] Prov ider Start: 12-19-2022 Comprehensive metabo lic 1999 panel - Serum or Plasma [facility] Provider Start: 12-19-2022 Lipid panel [facility] Provid er Start: 12-19-2022 Thyrotropin [Units/v olume] in Serum or Plasma [facility] Start: 12-19-2022 Thyroxine (T4) free [Mass/volume] in Serum or Plasma [facility] Start: 12-19-2022 Lipid 1995 panel - S tomy or Plasma Jani Edmondson MD Work Phone: Start: 06-23-2022 Hemoglobin A1c/Hemoglobin.total in Blood [facility] Start: 12-23-2021 CBCDIF (EXTERNAL) [facility] P rovider Start: 12-23-2021 Comprehensive metabo lic 1999 panel - Serum or Plasma [facility] Provider Start: 12-23-2021 FERRITIN BLD [facility] Provid er Start: 12-23-2021 Lipid panel [facility] Provid er Start: 12-23-2021 T4 FREE DIRECT DIALYSIS (MM) [facility] Provider Start: 12-23-2021 Thyrotropin [Units/v olume] in Serum or Plasma [facility] Provider Start: 12-23-2021 VITAMIN B12 BLOOD [facility] P [facility]vider Start: 12-23-2021 VITAMIN D 25 ([place]) [facility] P [facility]vider Start: 09-16-2021 Radiography of esophagus ANJELICA DEJESUS Work Phone: Start: 07-29-2021 Colonoscopy Nina almonte PA-C Work Phone: Plan of Treatment Date Care Activity Detail Author Start: 06-24-2032 Urine microalbumin profile [facility] Start: 07-29-2031 Colonoscopy COLONOSCOPY [facility] Start: 07-29-2031 COLORECTAL CANCER SCREENING COLORECTAL CANCER SCREENING [facility] Start: 07-29-2031 Screening for malign ant neoplasm of colon [facility] Start: 06-28-2030 Pneumococcal vaccination Pneumococcal Vaccine (1 - PCV) [facility] Comment on above: Postponed from 07/04 (Postponed To Appropriate Date) Start: 03-08-2030 Lipid panel Lipid Screening [facility] Start: 09-15-2029 Lipid panel Lipid Screening [facility] Start: 03-08-2028 Diabetes Screening Diabetes Screenin g [facility] Start: 01-07-2028 Screening for malign ant neoplasm of cervix Cervical Cancer Screening [facility] Start: 12-20-2027 Lipid 1996 panel - Serum or Plasma Lipid Screening [facility] Start: 12-20-2027 Lipid panel Lipid Screening [facility] Start: 12-20-2027 LIPID SCREEN LIPID SCREEN [facility] Start: 09-14-2027 Diabetes Screening Diabetes Screenin g [facility] Start: 12-23-2026 LIPID SCREEN LIPID SCREEN [facility] Start: 12-20-2026 Diabetes Screening Diabetes Screenin g [facility] Start: 03-08-2026 Annual PCP Team Log Hooker jd Disease Visit Annual PCP Team Chronic Disease Visit [facility] Start: 03-08-2026 Anxiety Screening Anxiety Screening [facility] Start: 03-08-2026 Creatinine measurement Serum Creatin ine [facility] Start: 03-08-2026 Depression Screening Depression Scre ening [facility] Start: 01-25-2026 Screening for malign ant neoplasm of breast Mammogram Screening [facility] Start: 01-08-2026 End: 01-08-2026 Patient encounter procedure 01/08/2026 8:40 AM EDT Office Visit OB/Gynecology [address] [place] [id number] Betty Cadena MD [address] [place] [address] Annual OB/Gynecology Comment on above: Annual Start: 01-06-2026 BP Controlled (<130/80) BP Controlle d (<130/80) [facility] Start: 12-19-2025 DIABETES SCREEN DIABETES SCREEN [facility] Start: 12-19-2025 Diabetes Screening Diabetes Screenin g [facility] Start: 10-21-2025 Annual PCP Team Log Hooker jd Disease Visit Annual PCP Team Chronic Disease Visit [facility] Start: 09-14-2025 Annual PCP Team Log Hooker jd Disease Visit Annual PCP Team Chronic Disease Visit [facility] Start: 09-14-2025 Complete blood count Hemoglobin/Uriel tocrit [facility] Start: 09-07-2025 End: 09-07-2025 Patient encounter procedure 09/07/2025 7:00 AM EST Office Visit Family Medicine [place] [address] [facility] [place] [address] Nina Scherer PA-C [address] [place], [place] [id number] physical [facility] [place] Comment on above: physical Start: 06-29-2025 End: 06-29-2025 [facility] Start: 06-29-2025 End: 06-29-2025 [facility] Start: 06-24-2025 DIABETES SCREEN DIABETES SCREEN [facility] Start: 06-23-2025 DIABETES SCREEN DIABETES SCREEN [facility] Start: 06-01-2025 [address] hormone measurement [facility] Start: 06-01-2025 Urine microalbumin/creatinine ratio measurement [facility] Start: 06-01-2025 Vitamin D, 25-hydrox y measurement [facility] Start: 06-01-2025 [facility] Start: 03-28-2025 End: 03-28-2025 Patient encounter procedure 03/28/2025 8:30 AM EDT Appointment [facility] [address] [place] [address] US BIOPSY BREAST RIGHT [facility] Comment on above: US BIOPSY BREAST RIG HT Start: 03-17-2025 End: 03-17-2025 Patient encounter procedure [facility] [place] Comment on above: 6 month follow up 6 month follow up-pt will need med refills-requesting 90 day supplies Start: 03-14-2025 End: 03-14-2025 Patient encounter procedure 03/14/2025 10:00 AM EDT Office Visit General Surgery [address] [place] [address] Flip Joy MD [address] [place] [address] Surgery Consult -Right Breast Density General Surgery Comment on above: Surgery Consult -Rig ht Breast Density Start: 03-08-2025 End: 06-07-2025 Cobalamin (Vitamin B12) [Mass/volume] in Serum or Plasma [facility] Comment on above: Expected: 03/08/2025 , Expires: 06/07/2025 Start: 03-08-2025 End: 06-07-2025 Comprehensive metabolic 2000 panel - Serum or Plasma [facility] Comment on above: Expected: 03/08/2025 , Expires: 06/07/2025 Start: 03-08-2025 End: 06-07-2025 Hemoglobin A1c in Blood [facility] Comment on above: Expected: 03/08/2025 , Expires: 06/07/2025 Start: 03-08-2025 End: 06-07-2025 Lipid 1996 panel - Serum or Plasma [facility] [employer] Work Phone: Comment on above: Expected: 03/08/2025 , Expires: 06/07/2025 Start: 03-08-2025 End: 06-07-2025 Magnesium [Mass/volume] in Serum or Plasma [facility] Comment on above: Expected: 03/08/2025 , Expires: 06/07/2025 Start: 03-08-2025 End: 06-07-2025 Thyrotropin [Units/volume] in Serum or Plasma [facility] Comment on above: Expected: 03/08/2025 , Expires: 06/07/2025 Start: 03-08-2025 End: 06-07-2025 Thyroxine (T4) free [Mass/volume] in Serum or Plasma [facility] Comment on above: Expected: 03/08/2025 , Expires: 06/07/2025 Start: 03-08-2025 End: 06-07-2025 Urinalysis complete panel - Urine URINALYSIS, WITH MICROSCOPIC Lab Routine Stage 3a chronic kidney disease (HCC) Expected: 03/08/2025, Expires: 06/07/2025 [facility] Comment on above: Expected: 03/08/2025 , Expires: 06/07/2025 Start: 03-08-2025 End: 03-08-2025 Patient encounter procedure 03/08/2025 10:20 AM EDT Office Visit Family Medicine [place] [address] [place], [place] [phone] Nina Scherer PA-C [address] [place], [place] [phone] 6 month follow up-pt will need med refills-requesting 90 day supplies [facility] Comment on above: 6 month follow up-pt will need med refills-requesting 90 day supplies Start: 03-08-2025 End: 03-08-2025 Patient encounter procedure Mammogram Comment on above: Abnormal mammogram [ R92.8] Start: 02-12-2025 [facility] Start: 02-12-2025 [facility] Start: 01-25-2025 End: 01-25-2025 Patient encounter procedure 01/25/2025 7:30 AM EDT Appointment Mammogram [address] [place], [place] [phone] Encounter for screening mammogram for breast cancer [Z12.31] Mammogram Comment on above: Encounter for screen ing mammogram for breast cancer [Z12.31] Start: 01-11-2025 End: 01-11-2025 Patient encounter procedure 01/11/2025 9:30 AM EDT Office Visit Plastic Surgery [address] [place] [address] Emiliano Colvin MD [address] [place] [address] Discuss Breast Reduction Plastic Surgery Comment on above: Discuss Breast Reduc tion Start: 01-06-2025 Annual PCP Team Log Hooker jd Disease Visit Annual PCP Team Chronic Disease Visit [facility] Start: 01-06-2025 Anxiety Screening Anxiety Screening [facility] Start: 01-06-2025 Complete blood count Hemoglobin/Uriel tocrit [facility] Start: 01-06-2025 Depression Screening Depression Scre ening [facility] Start: 01-06-2025 End: 01-06-2025 Patient encounter procedure 01/06/2025 9:40 AM EDT Office Visit OB/Gynecology [address] [place] [address] Betty Cadena MD [address] [place] [address] rescheduled from 11/17 OB/Gynecology Comment on above: rescheduled from Start: 12-23-2024 Creatinine measurement Serum Creatin ine [facility] Start: 12-23-2024 DIABETES SCREEN DIABETES SCREEN [facility] Start: 11-29-2024 [facility] Start: 11-17-2024 End: 11-17-2024 Patient encounter procedure 11/17/2024 9:40 AM EST Office Visit OB/Gynecology [address] [place] [address] Betty Cadena MD [address] [place] [address] Encounter for gynecological examination with abnormal finding [Z01.411] OB/Gynecology Comment on above: Encounter for gyneco logical examination with abnormal finding [Z01.411] Start: 10-14-2024 End: 10-14-2024 Patient encounter procedure 10/14/2024 7:20 AM EST Office Visit Family [place] [address] [place] [address] Nina Scherer PA-C [address] [place] [address] 4 week follow up [facility] [place] Comment on above: 4 week follow up Start: 09-14-2024 End: 09-14-2024 Patient encounter procedure [facility] [place] Comment on above: physical/ 6 month Chief Complaint Start: 09-14-2024 End: 12-14-2024 Cobalamin (Vitamin B12) [Mass/volume] in Serum or Plasma VITAMIN B12 Lab Routine GERD without esophagitis Medication management Expected: 09/14/2024, Expires: 12/14/2024 [facility] Comment on above: Expected: 09/14/2024 , Expires: 12/14/2024 Start: 09-14-2024 End: 12-14-2024 Hemoglobin A1c in Blood HEMOGLOBIN A1C Lab Routine Elevated hemoglobin A1c Expected: 09/14/2024, Expires: 12/14/2024 [facility] Work Phone: Comment on above: Expected: 09/14/2024 , Expires: 12/14/2024 Start: 09-14-2024 End: 12-14-2024 LIPID PANEL, NONFASTING LIPID PANEL, NONFASTING Lab Routine Hypertension, essential Expected: 09/14/2024, Expires: 12/14/2024 [facility] Comment on above: Expected: 09/14/2024 , Expires: 12/14/2024 Start: 09-14-2024 End: 12-14-2024 Magnesium [Mass/volume] in Serum or Plasma MAGNESIUM Lab Routine GERD without esophagitis Medication management Expected: 09/14/2024, Expires: 12/14/2024 [facility] Comment on above: Expected: 09/14/2024 , Expires: 12/14/2024 Start: 07-13-2024 End: 07-13-2024 Patient encounter procedure 07/13/2024 8:00 AM EDT Office Visit Family [place] [address] [place] [phone] Jani Edmondson MD [address] [place] [id number] physical/ 6 month Family [facility] [place] Comment on above: physical/ 6 month Start: 07-07-2024 Annual PCP Team Log Hooker jd Disease Visit Annual PCP Team Chronic Disease Visit [facility] Start: 07-07-2024 BP Controlled (<130/80) BP Controlle d (<130/80) [facility] Start: 07-07-2024 Covid-19 Vaccine (#1) Covid-19 Vacci ne (#1) [facility] Comment on above: Postponed from 01/02 (Declined at this time) Start: 07-07-2024 Covid-19 Vaccine ( season) Covid-19 Vaccine () [facility] Comment on above: Postponed from 05/29 (Declined at this time) Start: 07-07-2024 Shingrix Vaccine (1 of 2) Shingrix Vaccine (1 of 2) [facility] Comment on above: Postponed from 07/04 (Declined at this time) Start: 05-29-2024 Covid-19 Vaccine ( season) Covid-19 Vaccine () [facility] Start: 01-07-2024 End: 04-07-2024 CBC W Auto Differential panel - Blood [facility] Work Phone: Comment on above: Expected: 01/07/2024 , Expires: 04/07/2024 Start: 12-27-2023 ANNUAL PCP TEAM INSPECTOR MULTIFOCAL LENS JD DISEASE VISIT ANNUAL PCP TEAM CHRONIC DISEASE VISIT [facility] Start: 09-28-2023 Depression Assessment Depression Ass essment [facility] Start: 07-07-2023 End: 09-06-2023 aPTT in Platelet poor plasma by Coagulation assay ACTIVATED PTT Lab Routine Bruising Expected: 07/07/2023, Expires: 09/06/2023 [facility] Work Phone: Comment on above: Expected: 07/07/2023 , Expires: 09/06/2023 Start: 07-07-2023 End: 09-06-2023 CBC W Auto Differential panel - Blood CBC + DIFF Lab Routine Hypothyroidism, acquired Stage 3a chronic kidney disease (HCC) Bruising Expected: 07/07/2023, Expires: 09/06/2023 [facility] Work Phone: Comment on above: Expected: 07/07/2023 , Expires: 09/06/2023 Start: 07-07-2023 End: 09-06-2023 Cobalamin (Vitamin B12) [Mass/volume] in Serum or Plasma VITAMIN B12 BLOOD Lab Routine GERD without esophagitis Medication management Expected: 07/07/2023, Expires: 09/06/2023 [facility] Work Phone: Comment on above: Expected: 07/07/2023 , Expires: 09/06/2023 Start: 07-07-2023 End: 09-06-2023 Comprehensive metabolic 2000 panel - Serum or Plasma COMP METABOLIC PANEL Lab Routine Hypertension, essential Fatty liver Stage 3a chronic kidney disease (HCC) Expected: 07/07/2023, Expires: 09/06/2023 [facility] Work Phone: Comment on above: Expected: 07/07/2023 , Expires: 09/06/2023 Start: 07-07-2023 End: 09-06-2023 Hemoglobin A1c in Blood HGB A1C Lab Routine Well adult exam Encounter for screening for diabetes mellitus Expected: 07/07/2023, Expires: 09/06/2023 [facility] Work Phone: Comment on above: Expected: 07/07/2023 , Expires: 09/06/2023 Start: 07-07-2023 End: 09-06-2023 LIPID PANEL, NONFASTING LIPID PANEL, NONFASTING Lab Routine Hypertension, essential Expected: 07/07/2023, Expires: 09/06/2023 [facility] Work Phone: Comment on above: Expected: 07/07/2023 , Expires: 09/06/2023 Start: 07-07-2023 End: 09-06-2023 Magnesium [Mass/volume] in Serum or Plasma MAGNESIUM BLD Lab Routine GERD without esophagitis Medication management Expected: 07/07/2023, Expires: 09/06/2023 [facility] Work Phone: Comment on above: Expected: 07/07/2023 , Expires: 09/06/2023 Start: 07-07-2023 End: 09-06-2023 PT panel - Platelet poor plasma by Coagulation assay PROTHROMBIN TIME/PT Lab Routine Bruising Expected: 07/07/2023, Expires: 09/06/2023 [facility] Work Phone: Comment on above: Expected: 07/07/2023 , Expires: 09/06/2023 Start: 07-07-2023 End: 09-06-2023 Urinalysis complete panel - Urine URINALYSIS, WITH MICROSCOPIC Lab Routine Hypertension, essential Stage 3a chronic kidney disease (HCC) Expected: 07/07/2023, Expires: 09/06/2023 [facility] Work Phone: Comment on above: Expected: 07/07/2023 , Expires: 09/06/2023 Start: 06-24-2023 ANNUAL PCP TEAM INSPECTOR MULTIFOCAL LENS JD DISEASE VISIT ANNUAL PCP TEAM CHRONIC DISEASE VISIT [facility] Start: 06-24-2023 BP CONTROLLED (<130/80) BP CONTROLLE D (<130/80) [facility] Start: 06-24-2023 COVID-19 VACCINE (#1) COVID-19 VACCI NE (#1) [facility] Comment on above: Postponed from 01/02 (Declined at this time) Start: 06-24-2023 Creatinine measurement Serum Creatin ine [facility] Start: 06-24-2023 PNEUMOCOCCAL (1 - PCV) PNEUMOCOCCAL (1 - PCV) [facility] Comment on above: Postponed from 07/04 (Declined at this time) Start: 06-24-2023 SERUM CREATININE SERUM CREATININE [facility] Start: 06-24-2023 SHINGRIX VACCINE (1 of 2) SHINGRIX VACCINE (1 of 2) [facility] Comment on above: Postponed from 07/04 (Declined at this time) Start: 05-29-2023 Influenza vaccination C [facility] Start: 03-27-2023 Influenza vaccination INFLUENZA (#1) [facility] Comment on above: Postponed from 05/29 (Not Currently Available) Start: 01-25-2023 End: 03-27-2023 CBC W Auto Differential panel - Blood CBC + DIFF Lab Routine Stage 3a chronic kidney disease (HCC) Expected: 01/25/2023, Expires: 03/27/2023 [facility] Work Phone: Comment on above: Expected: 01/25/2023 , Expires: 03/27/2023 Start: 01-25-2023 End: 03-27-2023 Hepatic function 2000 panel - Serum or Plasma HEPATIC FUNCTION PNL Lab Routine Fatty liver Expected: 01/25/2023, Expires: 03/27/2023 [facility] Work Phone: Comment on above: Expected: 01/25/2023 , Expires: 03/27/2023 Start: 12-23-2022 Complete blood count Hemoglobin/Uriel tocrit [facility] Start: 12-23-2022 HEMOGLOBIN/HEMATOCRIT HEMOGLOBIN/HEM ATOCRIT [facility] Start: 12-09-2022 ANNUAL PCP TEAM INSPECTOR MULTIFOCAL LENS JD DISEASE VISIT ANNUAL PCP TEAM CHRONIC DISEASE VISIT [facility] Start: 09-28-2022 [facility] Start: 06-24-2022 End: 08-24-2022 Comprehensive metabolic 2000 panel - Serum or Plasma [facility] Work Phone: Comment on above: Expected: 06/24/2022 , Expires: 08/24/2022 Start: 06-24-2022 End: 08-24-2022 Magnesium [Mass/volume] in Serum or Plasma [facility] Work Phone: Comment on above: Expected: 06/24/2022 , Expires: 08/24/2022 Start: 05-29-[address] [facility] Start: 05-09-2022 HEPATITIS C SCREENING HEPATITIS C [facility] Comment on above: Postponed from 07/04 (Declined at this time) Start: 05-09-2022 HIV SCREENING HIV SCREENING [facility] Comment on above: Postponed from 07/04 (Declined at this time) Start: 03-27-2022 Influenza vaccination INFLUENZA (#1) [facility] Comment on above: Postponed from 05/29 (Declined at this time) Start: 09-28-2021 DEPRESSION ASSESSMENT [facility] Start: 2015 Pneumococcal Vaccine : 50+ (1 of 1 - PCV) Pneumococcal Vaccine: 50+ (1 of 1 - PCV) [facility] Start: 2015 SHINGRIX VACCINE (1 of 2) SHINGRIX VACCINE (1 of 2) [facility] Start: 2010 COLOGUARD (FIT-DNA) COLOGUARD (FIT-D NA) [facility] Start: [address] COLONOGRAPHY [facility] Start: 2010 FECAL OCCULT BLOOD FECAL OCCULT BLOO D [facility] Start: 2010 Screening for malign ant neoplasm of colon [facility] Start: 2010 SIGMOIDOSCOPY [facility]OSCOPY [facility] Start: 2005 Mammography [facility] Start: 2005 Screening for malign ant neoplasm of breast Mammogram Screening [facility] Start: 1995 HPV TESTING HPV TESTING [facility] Start: 1995 Screening for malign ant neoplasm of cervix HPV Testing [facility] Start: 1986 PAP TESTING PAP TESTING [facility] Start: 1986 Screening for malign ant neoplasm of cervix [facility] Start: 1984 ONE PNEUMOVAX PRIOR TO AGE 65 ONE PNEUMOVAX PRIOR TO AGE 65 [facility] Start: 1984 Urine microalbumin profile DTAP,TDAP,TD (1 - Tdap) [facility] Start: 1983 BP CONTROLLED (<130/80) BP CONTROLLE D (<130/80) [facility] Start: 1983 SPIROMETRY SPIROMETRY [facility] Start: 1977 Adult depression screening assessment DEPRESSION SCREENING [facility] Start: 1971 PNEUMOCOCCAL (1 - PCV) PNEUMOCOCCAL (1 - PCV) [facility] Start: 1970 COVID-19 VACCINE (#1) COVID-19 VACCI NE (#1) [facility] Start: 1970 COVID-19 VACCINE (1) COVID-19 VACCIN E (1) [facility] Start: 01-02-1966 COVID-19 VACCINE (#1) COVID-19 VACCI NE (#1) [facility] Start: 1965 HEPATITIS B (1 of 3 - 3-dose series) HEPATITIS B (1 of 3 - 3-dose series) [facility] CBC W Auto Different ial panel - Blood [facility] Comprehensive metabo lic 2000 panel - Serum or Plasma [facility] End: 04-08-2025 DBT Breast - bilateral screening JESUS MANUEL SCREENING W [facility] Radiology Routine Encounter for screening mammogram for breast cancer 1 Occurrences starting 03/09/2024 until 04/08/2025 [facility] Work Phone: Comment on above: 1 Occurrences starti ng 03/09/2024 until 04/08/2025 End: 02-05-2026 DBT Breast - bilateral screening JESUS MANUEL SCREENING W [facility] Radiology Routine Encounter for screening mammogram for breast cancer 1 Occurrences starting 01/06/2025 until 02/05/2026 [facility] Work Phone: Comment on above: 1 Occurrences starti ng 01/06/2025 until 02/05/2026 DBT Breast - bilater al screening JESUS MANUEL SCREENING W [facility] ANTONIO Radiology Routine Encounter for screening mammogram for breast cancer 01/25/2025 7:41 AM EDT [facility] Work Phone: End: 03-28-2025 DBT Breast - right diagnostic for implant JESUS MANUEL DIAG W LUIS ANTONIO RIGHT Radiology ONCE for 1 Occurrences starting 03/28/2025 until 03/28/2025 [facility] Work Phone: Comment on above: ONCE for 1 Occurrenc es starting 03/28/2025 until 03/28/2025 Lipid 1996 panel - Serum or Plasma [facility] End: 04-30-2024 JESUS MANUEL SCREENING JESUS MANUEL SCREENING Radiology Routine Encounter for screening mammogram for breast cancer 1 Occurrences starting 04/01/2023 until 04/30/2024 [facility] Work Phone: Comment on above: 1 Occurrences starti ng 04/01/2023 until 04/30/2024 End: 02-26-2026 MG Breast - right Diagnostic for implant JESUS MANUEL DIAGNOSTIC RIGHT Radiology Routine Abnormal mammogram 1 Occurrences starting 01/27/2025 until 02/26/2026 [facility] Work Phone: Comment on above: 1 Occurrences starti ng 01/27/2025 until 02/26/2026 Patient Education [facility] Work Phone: Patient referral [facility] Work Phone: End: 05-23-2023 Screening mammography bi 2-view breast inc cad JESUS MANUEL SCREENING Radiology Routine Encounter for screening mammogram for breast cancer 1 Occurrences starting 04/23/2022 until 05/23/2023 [facility] Work Phone: Comment on above: 1 Occurrences starti ng 04/23/2022 until 05/23/20[address] hormone measurement [facility] End: 03-28-2025 Tissue Pathology biopsy report [facility] Work Phone: Comment on above: ONCE for 1 Occurrenc es starting 03/28/2025 until 03/28/2025, 1 completed Urine microalbumin/creatinine ratio measurement [facility] End: 01-25-2024 US ABD RIGHT UPPER QUADRANT US ABD RIGHT UPPER QUADRANT Radiology Routine Fatty liver 1 Occurrences starting 12/26/2022 until 01/25/2024 [facility] Work Phone: Comment on above: 1 Occurrences starti ng 12/26/2022 until 01/25/2024 End: 02-26-2026 US Breast - right limited US BREAST LTD RIGHT Radiology Routine Abnormal mammogram 1 Occurrences starting 01/27/2025 until 02/26/2026 [facility] Comment on above: 1 Occurrences starti ng 01/27/2025 until 02/26/2026 End: 04-13-2026 US Guidance for biopsy of Breast - right US BIOPSY BREAST RIGHT Radiology Routine Abnormal mammogram 1 Occurrences starting 03/14/2025 until 04/13/2026 [facility] Work Phone: Comment on above: 1 Occurrences starti ng 03/14/2025 until 04/13/2026 [facility] Immunizations Immunization Date Immunization Notes Care Provider Fa milana 06-24-2022 tetanus toxoid, redu dylan diphtheria toxoid, and acellular pertussis vaccine, adsorbed Jani Edmondson MD Work Phone: [facility] Payers Date Payer Category Payer Self-pay [id number] 2023 [place] [id number] 2023 Private Health Insurance [id number] 2023 [place] [id number] 2020 Unknown MARICHUY PANDYA PPO [id number] 2020-Present [phone] [address] [place] [address] PPO [id number] 2018 Unknown 2017 Unknown [id number] 2015 Medicaid [employer] [id number] 2015-Present [phone] [address] [place] [address] Medicaid [id number] 2015 Medicaid [id number] 2015 Unknown [id number] Unknown [id number] Unknown [id number] Unknown [id number] Unknown [id number] Unknown [id number] Unknown [id number] Unknown [id number] Unknown [id number] Social History Date Type Detail Facility Start: 11-14-2013 End: 06-29-2025 Tobacco smoking status NHIS Never smoked tobacco [facility] Start: 11-14-2013 End: 02-03-2023 Tobacco use and exposure Smokeless tobacco non-user [facility] Start: 12-09-2021 End: 03-08-2025 Alcohol intake Current non-drinker of alcohol (finding) [facility] Start: 1965 Sex Assigned At Not on file C [facility] Start: 11-29-2021 End: 12-09-2021 Exposure to SARS-CoV-2 (event) Not sure [facility] Start: 12-23-2021 End: 12-25-2023 Tobacco smoking status NHIS Unknown if ever smoked [facility] Start: 06-08-2017 None [facility] Start: 06-08-2017 Spouse/ Signif icant Other [facility] Start: 06-08-2017 Non-smoker [facility] Start: 1965 Sex Assigned At Female W [facility] Start: 02-03-2023 End: 01-06-2024 History of Social function [facility] Work Phone: Start: 02-03-2023 End: 01-06-2024 Tobacco use panel [facility] Work Phone: Start: 08-29-2012 Adult Depression Screening Assessment 0 [facility] Work Phone: Has the [employer], or [employer] threatened to shut off services in your home in past 12Mo Yes [facility] Are you now , , , , never or living with a partner? [facility] How often to you hav e a drink containing alcohol? Never [facility] How hard is it for y ou to pay for the very basics like food, housing, medical care, and heating Somewhat hard [facility] Do you feel stress - tense, restless, nervous, or anxious, or unable to sleep at night because your mind is troubled all the time - these days [OSQ] Only a little [facility] (I/We) worried wheth er (my/our) food would run out before (I/we) got money to buy more. Sometimes true [facility] In the past 12 month s, was there a time when you were not able to pay the mortgage or rent on time? No [facility] Start: 03-14-2025 End: 04-12-2025 Alcoholic beverage intake Ex-drinker (finding) [facility] Functional Status Date Assessment Result Facility 12-16-2013 Are you deaf, or do you have serious difficulty hearing No 12/16/2013 10:34 AM Sagar Saez [facility] 12-16-2013 Are you blind, or do you have serious difficulty seeing, even when wearing glasses No 12/16/2013 10:34 AM Sagar Saez [facility] 12-16-2013 Do you have serious difficulty walking or climbing stairs No 12/16/2013 10:34 AM Sagar Saez [facility] 12-16-2013 Do you have difficul ty dressing or bathing No 12/16/2013 10:34 AM Sagar Saez [facility] 12-16-2013 Because of a physica l, mental, or emotional condition, do you have difficulty doing errands alone such as visiting a physician's office or shopping No 12/16/2013 10:34 AM Sagar Saez [facility] Mental Status Date Assessment Result Facility 06-29-2025 Cognitive function Voice/Name [facility] Work Phone: 12-16-2013 Because of a physica l, mental, or emotional condition, do you have serious difficulty concentrating, remembering, or making decisions No 12/16/2013 10:34 AM Sagar Saez [facility] Clinical Notes 06-07-2021 to 06-29-2025 Paty Braga MA - 06/01/2025 11:46 AM EDT Note Date & Type Note Facility 06-29-2025 Radiology Diagnostic study note [facility] Imaging Services [address] [place], [place] [id number] Chest PA and Lateral MR#: [id number] Acct: [id number] Name: FANY MARRERO Rep #: [id number] : 1965 F 59 From: Eliz Polanco MD PCP: Dr. Jani Edmondson MD Status: PRE ER Study:Chest PA and Lateral Date of Exam: 06/29/25 Exam# [id number] Ordering Dr: César Bell P. PROCEDURE: CHEST PA AND LATERAL 06/29/2025 REASON FOR EXAM: CHEST PAIN TECHNIQUE: Procedure Code: RADCXR Modality: DX Procedure: CHEST PA AND LATERAL COMPARISON: 06/01/2025 FINDINGS: LUNGS AND PLEURA: The lungs are clear. No pleural effusion or pneumothorax. HEART AND MEDIASTINUM: The heart size and mediastinal contours are normal. BONES: No acute osseous abnormality. Prior lower cervical spine fusion. RAD/Chest PA and Lateral IMPRESSION: NO ACUTE FINDINGS. Reading Location: [id number] CC: Dr. 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 06-01-2025 Note HNO ID: [id number] Author: PATY BRAGA MA Service: ? Author Type: Veterans' Coordinator Type: Progress Notes Filed: 06/01/2025 15:52 Note Text: Scan on 06/01/2025 8:45 AM by Enmanuel Bell PA-C: Dr. Rodriguez Scan on 06/01/2025 11:56 AM by Enmanuel Bell PA-C: [facility] 06-01-2025 History of Presen t illness Narrative Scan on 06/01/2025 8:45 AM by Enmanuel Bell PA-C: Dr. Rodriguez Scan on 06/01/2025 11:56 AM by Enmanuel Bell PA-C: [facility] documented in this encounter [facility] 06-01-[address] [facility] 06-01-2025 Radiology Diagnostic study note [facility] Imaging Services [address] [place] [address] Chest PA and Lateral MR#: [id number] Acct: [id number] Name: FANY MARRERO Rep #: [id number] : 1965 F 59 From: Keke Peters MD PCP: Dr. Jani Edmondson MD Status: REG ER Study:Chest PA and Lateral Date of Exam: 06/01/25 Exam# [id number] Ordering Dr: Maria Fernanda Drew DO PROCEDURE: CHEST PA AND LATERAL 06/01/2025 REASON FOR EXAM: LEFT SIDED PAIN TECHNIQUE: Procedure Code: RADCXR Modality: DX Procedure: CHEST PA AND LATERAL COMPARISON: Chest x-ray February 12, 2025 FINDINGS: Lungs: The lungs are symmetrically expanded. Lung volumes are within normal range. Mildly elevated perihilar and bibasal reticular lung markings are noted, similarto the prior exam which may be secondary to chronic interstitial thickening. There is no consolidation. There is no peribronchial thickening. There is no pulmonary vascular redistribution. Pleura: No significant pleural effusion seen. There is no evidence of pneumothorax. Mediastinum: There is no mediastinal widening or mediastinal shift. Heart: The cardiac silhouette is not enlarged. Danny: The pulmonary danny are not enlarged or retracted. Osseous: No acute fracture is seen. Partially visualized postoperative changes of the lower cervical spine with anterior fusion hardware. Mild degenerative changes of the thoracic spine. RAD/Chest PA and Lateral IMPRESSION: No radiographic evidence for acute pulmonary infiltrate. - Other chronic findings discussed above. Reading Location: [facility] CC: Dr. Jani Edmondson MD; Dr. 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 Work Phone: 1(868) 496-248807-16-2025 NoteHNO ID: [id number] Author: SARABJIT BROWN MD Service: ? Author Type: Physician Type: Progress Notes Filed: 04/12/2025 12:07 Note Text: [facility] Chanel Marrero is a 59 year old female. Patient presents with: Cough: Cough, chest congestion, ST and bodyaches x 2 days Patient presents with about 5 days of congestion. She has felt sick for the last 3 days. Symptoms include headache, sinus pressure, ear pressure, sore throat, chest tightness, cough, mild shortness of breath and wheezing, body aches, fatigue, malaise, feeling hot and chilled. Denies vomiting or diarrhea. She has been using cold medicine, Tylenol, and albuterol inhaler for symptoms. Cough Review of Systems Respiratory: Positive for cough. Objective BP 128/78 Pulse 95 Temp 37.4 ?C (99.4 ?F) (Tympanic) Resp 16 Wt 84 kg (185 lb 3 oz) SpO2 99% BMI 32.29 kg/m? Physical Exam Constitutional: General: She is not in acute distress. HENT: Right Ear: Tympanic membrane and ear canal normal. Left Ear: Tympanic membrane and ear canal normal. Nose: Congestion present. Right Sinus: No maxillary sinus tenderness or frontal sinus tenderness. Left Sinus: No maxillary sinus tenderness or frontal sinus tenderness. Mouth/Throat: Mouth: Mucous membranes are moist. Pharynx: Posterior oropharyngeal erythema present. No oropharyngeal exudate. Eyes: Extraocular Movements: Extraocular movements intact. Conjunctiva/sclera: Conjunctivae normal. Pupils: Pupils are equal, round, and reactive to light. Cardiovascular: Rate and Rhythm: Normal rate and regular rhythm. Heart sounds: No murmur heard. Pulmonary: Effort: No respiratory distress. Breath sounds: No wheezing, rhonchi or rales. Comments: Deep breaths induce cough Musculoskeletal: Cervical back: Neck supple. Lymphadenopathy: Cervical: No cervical adenopathy. Neurological: Mental Status: She is alert. Latest Ref Rng 03/08/2025 Hemoglobin A1C 4.3 - 5.6 % 5.7 (H) {ASSESSMENT/PLAN: 1. Viral URI with cough - ICD9: 465.9, ICD10: J06.9 (primary diagnosis) - suspect viral URI, Differential includes COVID. - Supportive care treatment with rest, cold medicine, and analgesia. - Viral URI contagiousness recommendations: avoid exposure to others until fever free for 24 hours without fever reducing medication. An additional 5 days of limiting contact can include covering coughs/masking, social distance, and hand hygiene. - BENZONATATE 100 MG CAPSULE requested Defers viral testing. 2. Asthma with acute exacerbation, unspecified asthma severity, unspecified whether persistent (HCC) - ICD9: 493.92, ICD10: J45.901 - PREDNISONE 20 MG TABLET burst. Low dose to reduce hyperglycemia effect. Albuterol inhaler with refills prescribed in February. Sarabjit Brown MD History and Record Review Systemic symptoms present included: Body aches, chills, fatigue. Differential Diagnoses - Viral URI is more likely for the following reason(s): suggested by HANDP - Asthma with mild exacerbation is more likely for the following reason(s): suggested by HANDP - Pneumonia is less likely for the following reason(s): Normal lung exam and vitals - Bacterial sinusitis is less likely for the following reason(s): HANDP not suggestive - Seasonal allergies without viral infection is less likely for the following reason(s): System[facility] History of Present illness Narrative* Sarabjit Brown MD - 04/12/2025 12:00 PM EDT URGENT CARE [facility] Fany Marrero is a 59 year old female. Patient presents with: Cough: Cough, chest congestion, ST and bodyaches x 2 days Patient presents with about 5 days of congestion. She has felt sick for the last 3 days. Symptoms include headache, sinus pressure, ear pressure, sore throat, chest tightness, cough, mild shortness of breath and wheezing, body aches, fatigue, malaise, feeling hot and chilled. Denies vomiting or diarrhea. She has been using cold medicine, Tylenol, and albuterol inhaler for symptoms. Cough Review of Systems Respiratory: Positive for cough. Objective BP 128/78 Pulse 95 Temp 37.4 C (99.4 F) (Tympanic) Resp 16 Wt 84 kg (185 lb 3 oz) SpO2 99% BMI 32.29 kg/m Physical Exam Constitutional: General: She is not in acute distress. HENT: Right Ear: Tympanic membrane and ear canal normal. Left Ear: Tympanic membrane and ear canal normal. Nose: Congestion present. Right Sinus: No maxillary sinus tenderness or frontal sinus tenderness. Left Sinus: No maxillary sinus tenderness or frontal sinus tenderness. Mouth/Throat: Mouth: Mucous membranes are moist. Pharynx: Posterior oropharyngeal erythema present. No oropharyngeal exudate. Eyes: Extraocular Movements: Extraocular movements intact. Conjunctiva/sclera: Conjunctivae normal. Pupils: Pupils are equal, round, and reactive to light. Cardiovascular: Rate and Rhythm: Normal rate and regular rhythm. Heart sounds: No murmur heard. Pulmonary: Effort: No respiratory distress. Breath sounds: No wheezing, rhonchi or rales. Comments: Deep breaths induce cough Musculoskeletal: Cervical back: Neck supple. Lymphadenopathy: Cervical: No cervical adenopathy. Neurological: Mental Status: She is alert. Latest Ref Rng 03/08/2025 Hemoglobin A1C 4.3 - 5.6 % 5.7 (H) {ASSESSMENT/PLAN: 1. Viral URI with cough - ICD9: 465.9, ICD10: J06.9 (primary diagnosis) - suspect viral URI, Differential includes COVID. - Supportive care treatment with rest, cold medicine, and analgesia. - Viral URI contagiousness recommendations: avoid exposure to others until fever free for 24 hours without fever reducing medication. An additional 5 days of limiting contact can include covering coughs/masking, social distance, and hand hygiene. - BENZONATATE 100 MG CAPSULE requested Defers viral testing. 2. Asthma with acute exacerbation, unspecified asthma severity, unspecified whether persistent ([facility]) - ICD9: 493.92, ICD10: J45.901 - PREDNISONE 20 MG TABLET burst. Low dose to reduce hyperglycemia effect. Albuterol inhaler with refills prescribed in February. Sarabjit Brown MD History and Record Review Systemic symptoms present included: Body aches, chills, fatigue. Differential Diagnoses - Viral URI is more likely for the following reason(s): suggested by H&P - Asthma with mild exacerbation is more likely for the following reason(s): suggested by H&P - Pneumonia is less likely for the following reason(s): Normal lung exam and vitals - Bacterial sinusitis is less likely for the following reason(s): H&P not suggestive - Seasonal allergies without viral infection is less likely for the following reason(s): Systemic symptoms Procedures documented in [facility]The [facility] Telephone encounter Note * Telephone Encounter - Ligia Blackmon RN - 04/10/2025 7:48 AM EDT Called patient to notify the breast pathology results are benign per Dr. Zhu. Informed patient a 6 month follow up is recommended. Patient verbalized understanding. [facility] Work Phone: [phone] Miscellaneous Notes* Telephone Encounter - Ligia Blackmon RN - 04/10/2025 7:48 AM EDT Called patient to notify the breast pathology results are benign per Dr. Zhu. Informed patient a 6 month follow up is recommended. Patient verbalized understanding. documented in this encounterThe [facility]07-01-2025 History of Present illness Narrative* Shelly Melchor RT(Jose) - 03/28/2025 8:30 AM EDT Radiology Service Progress Note PATIENT NAME: Fany Marrero DATE OF SERVICE: March 28, 2025 TIME: 8:21 AM PATIENT IDENTITY VERIFICATION COMPLETED USING TWO (2) IDENTIFIERS: Name and Date of confirmedby patient verbally. FALL SCREENING: Has the patient had 2 falls in the last year or 1 fall with injury or currently using an Ambulatory Assistive Device (Walker, Cane, Wheelchair, Crutches, etc.)? No PATIENT GENDER DATA: Assigned female at . status: : No status:NO. PATIENT RELEVANT IMPLANT DATA REVIEWED: Not Applicable PATIENT PRESENTS WITH AN IMPLANTABLE OR ATTACHED TRUST CLERK: No RADIOLOGY DEPARTMENT: Biopsy PERIPHERAL IV DATA: Not applicable SIGNED BY: RT Sue(Jose) March 28, 2025 8:21 AM documented in this encounterThe [facility]07-01-2025 NoteHNO ID: [id number] Author: SHELLY MELCHOR RT(R) Service: ? Author Type: Technologist Type: Progress Notes Filed: 03/28/2025 08:21 Note Text: Radiology Service Progress Note PATIENT NAME: Fany Marrero DATE OF SERVICE: March 28, 2025 TIME: 8:21 AM PATIENT IDENTITY VERIFICATION COMPLETED USING TWO (2) IDENTIFIERS: Name and Date of confirmed by patient verbally. FALL SCREENING: Has the patient had 2 falls in the last year or 1 fall with injury or currently using an Ambulatory Assistive Device (Walker, Cane, Wheelchair, Crutches, etc.)? No PATIENT GENDER DATA: Assigned female at . status: : No status: NO. PATIENT RELEVANT IMPLANT DATA REVIEWED: Not Applicable PATIENT PRESENTS WITH AN IMPLANTABLE OR ATTACHED TRUST CLERK: No RADIOLOGY DEPARTMENT: Biopsy PERIPHERAL IV DATA: Not applicable SIGNED BY: RT Sue(R) March 28, 2025 8:21 [facility]06-17-2025 NoteHNO ID: [id number] Author: FLIP JOY MD Service: ? Author Type: Physician Type: Progress Notes Filed: 03/14/2025 11:26 Note Text: HISTORY AND PHYSICAL Fany Marrero 1965 REFERRING PHYSICIAN: Jani Edmondson MD CHIEF COMPLAINT: Consult HPI: Fany Marrero is a 59-year-old female presenting for evaluation of right breast lesions identified on recent imaging studies. Fany underwent a mammogram on 01/25, followed by additional mammographic views and an ultrasound on 03/08. The imaging studies revealed multiple lesions in the right breast: a 2 cm lesion at the 10 o'clock position, a 1 cm lesion at the 11 o'clock position located 1 cm from the nipple, and another area described as benign. She denies palpating any abnormalities during self-breast exams and reports no history of breast trauma, though she does recall a fall in October or November where she may have hit a step but bounced back up. She denies any family history of breast cancer, though she notes that her aunt, a heavy smoker, had leukemia and underwent bilateral mastectomies. She is not currently on any anticoagulant therapy. . The patient is being seen by me today at the request of Dr. Jani Edmondson MD for my opinion and advice regarding Abnormal mammogram (primary encounter diagnosis). PAST MEDICAL HISTORY Diagnosis Date AK (actinic keratosis) 07/07/2023 ventral right forearm near elbow, Tx 06/2023 Asthma due to seasonal allergies (HCC) 12/09/2021 Elevated hemoglobin A1c 08/11/2023 Encounter for routine gynecological examination 05/09/[address] Renner Fatty liver GERD without esophagitis 05/09/2021 History of shingles 06/24/202210/2021 Hypertension, essential 05/09/2021 Hypothyroid Hypothyroidism, acquired 05/09/2021 Dr. Rodriguez Neck pain 07/07/2023 Known cervical fusion Obesity, Class I, BMI 30-34.9 09/14/2024 Pharyngoesophageal dysphagia 07/29/2021 [facility] Seasonal allergies 12/09/2021 Stage 3a chronic kidney disease (HCC) 12/26/2022 Well adult exam 06/24/2022 last done: 03/08/2025 PAST SURGICAL HISTORY Procedure Laterality Date ADDITIONAL SPINAL FUSION 09/28/2008 cervical c5/c6 COLONOSCOPY FLX DX W/COLLJ SPEC WHEN PFRMD 07/29/2021 ESOPHAGOGASTRODUODENOSCOPY TRANSORAL DIAGNOSTIC 07/29/2021 attmpted but unable to complete LAPAROSCOPIC APPENDECTOMY 12/08/2013 assist Zurdo OOPHORECTOMY PARTIAL/TOTAL UNI/BI Right 12/08/2013 TOTAL ABDOM HYSTERECTOMY 2015 UNLISTED LAPAROSCOPY, ABD 09/28/1995 Current Outpatient Medications Medication Sig valsartan (DIOVAN) 80 mg tablet Take 1 tablet by mouth once daily. omeprazole (PRILOSEC) 40 mg capsule Take 1 capsule by mouth daily before breakfast. 1/2 hr before meal. albuterol HFA (PROAIR HFA) 90 mcg/actuation inhaler Inhale 2 puffs as instructed every 4 hours as needed for wheezing/shortness of breath. cyclobenzaprine (FLEXERIL) 10 mg tablet Take 1 tablet by mouth at bedtime as needed. fluticasone (FLONASE) 50 mcg/actuation nasal spray Use 2 sprays in each nostril once daily. Rinse mouth after use. EPINEPHrine (EPIPEN) 0.3 mg/0.3 mL auto-injector Inject once with onset of shortness of breath or throat swelling due to allergic reaction cetirizine (ZYRTEC) 10 mg tablet Take 1 tablet by mouth once daily. empagliflozin (JARDIANCE) 25 mg tablet Take 1 tablet by mouth once daily. Take 1 tablet once daily in the morning. Per Dr. Rodriguez (for CKD) levothyroxine (SYNTHROID) 88 mcg tablet Take 1 tablet by mouth daily before breakfast. Per endo: Dr. Rodriguez Blood Pressure Monitor 1 Each once daily. Use daily. (Patient taking differently: 1 each as needed. Use daily.) No current facility-administered medications for this visit. ALLERGIES: Lisinopril, Codeine, Penicillins, Tape [Adhesive Tape (Rosins)], and Vicodin [Hydrocodone-Acetaminophen] PERSONAL HISTORY: Social History Tobacco Use Smoking status: Never Smokeless tobacco: Never Vaping Use Vaping status: Never Used Substance Use Topics Alcohol use: Not Currently Drug use: Never FAMILY HISTORY: FAMILY HISTORY Problem Relation Age of Onset Diabetes Mother Heart Mother Hypertension Mother Parkinson?s Disease Mother Dementia Mother Hypothyroidism Father Macular Degen Father Hypertension Sister Heart Sister Seizures Sister Hypertension Sister Seizures Sister No Known Problems Brother Diabetes Maternal Grandmother Cancer Maternal Grandfather Diabetes Paternal Grandmother Stroke Paternal Grandmother No Known Problems Paternal Grandfather Breast Cancer Maternal Aunt REVIEW OF SYMPTOMS: The review of systems data was entered by the nurse and reviewed by me There are no exam notes on file for this visit. PHYSICAL EXAMINATION: General: The patient is 59 year old female, well nourished, well hydrated in no acute distress. The patient is oriented to time, place, and person. VITALS: Blood pressure 118/84, pulse 108, tem (more content not included)... [facility]06-17-2025 History of Present illness Narrative* Flip Joy MD - 03/14/2025 11:24 AM EDT HISTORY AND PHYSICAL Fany Marrero 1965 REFERRING PHYSICIAN: Jani Edmondson MD CHIEF COMPLAINT: Consult HPI: Fany Marrero is a 59-year-old female presenting for evaluation of right breast lesions identified on recent imaging studies. Fany underwent a mammogram on 01/25, followed by additional mammographic views and an ultrasound on 03/08. The imaging studies revealed multiple lesions in the right breast: a 2 cm lesion at the 10 o'clock position, a 1 cm lesion at the 11 o'clock position located 1 cm from the nipple, and another area described as benign. She denies palpating any abnormalities during self-breast exams and reports no history of breast trauma, though she does recall a fall in October or November where she may havehit a step but bounced back up. She denies any family history of breast cancer, though she notes that her aunt, a heavy smoker, had leukemia and underwent bilateral mastectomies. She is not currently on any anticoagulant therapy. . The patient is being seen by me today at the request of Dr. Jani Edmondson MD for my opinion andadvice regarding Abnormal mammogram (primary encounter diagnosis). PAST MEDICAL HISTORY Diagnosis Date AK (actinic keratosis) 07/07/2023 ventral right forearm near elbow, Tx 06/2023 Asthma due to seasonal allergies (HCC) 12/09/2021 Elevated hemoglobin A1c 08/11/2023 Encounter for routine gynecological examination 05/09/[address] Renner Fatty liver GERD without esophagitis 05/09/2021 History of shingles 06/24/202210/2021 Hypertension, essential 05/09/2021 Hypothyroid Hypothyroidism, acquired 05/09/2021 Dr. Rodriguez Neck pain 07/07/2023 Known cervical fusion Obesity, Class I, BMI 30-34.9 09/14/2024 Pharyngoesophageal dysphagia 07/29/2021 [facility] Seasonal allergies 12/09/2021 Stage 3a chronic kidney disease (HCC) 12/26/2022 Well adult exam 06/24/2022 last done: 03/08/2025 PAST SURGICAL HISTORY Procedure Laterality Date ADDITIONAL SPINAL FUSION 09/28/2008 cervical c5/c6 COLONOSCOPY FLX DX W/COLLJ SPEC WHEN PFRMD 07/29/2021 ESOPHAGOGASTRODUODENOSCOPY TRANSORAL DIAGNOSTIC 07/29/2021 attmpted but unable to complete LAPAROSCOPIC APPENDECTOMY 12/08/2013 felicity Renner OOPHORECTOMY PARTIAL/TOTAL UNI/BI Right 12/08/2013 TOTAL ABDOM HYSTERECTOMY 2014 UNLISTED LAPAROSCOPY, ABD 09/28/1995 Current Outpatient Medications Medication Sig valsartan (DIOVAN) 80 mg tablet Take 1 tablet by mouth once daily. omeprazole (PRILOSEC) 40 mg capsule Take 1 capsule by mouth daily before breakfast. 1/2 hr before meal. albuterol HFA (PROAIR HFA) 90 mcg/actuation inhaler Inhale 2 puffs as instructed every 4 hours as needed for wheezing/shortness of breath. cyclobenzaprine (FLEXERIL) 10 mg tablet Take 1 tablet by mouth at bedtime as needed. fluticasone (FLONASE) 50 mcg/actuation nasal spray Use 2 sprays in each nostril once daily. Rinse mouth after use. EPINEPHrine (EPIPEN) 0.3 mg/0.3 mL auto-injector Inject once with onset of shortness of breath or throat swelling due to allergic reaction cetirizine (ZYRTEC) 10 mg tablet Take 1 tablet by mouth once daily. empagliflozin (JARDIANCE) 25 mg tablet Take 1 tablet by mouth once daily. Take 1 tablet once daily in the morning. Per Dr. Rodriguez (for CKD) levothyroxine (SYNTHROID) 88 mcg tablet Take 1 tablet by mouth daily before breakfast. Per endo: Dr. Rodriguez Blood Pressure Monitor 1 Each once daily. Use daily. (Patient taking differently: 1 each as needed.Use daily.) No current facility-administered medications for this visit. ALLERGIES: Lisinopril, Codeine, Penicillins, Tape [Adhesive Tape (Rosins)], and Vicodin [Hydrocodone-Acetaminophen] PERSONAL HISTORY: Social History Tobacco Use Smoking status: Never Smokeless tobacco: Never Vaping Use Vaping status: Never Used Substance Use Topics Alcohol use: Not Currently Drug use: Never FAMILY HISTORY: FAMILY HISTORY Problem Relation Age of Onset Diabetes Mother Heart Mother Hypertension Mother Parkinson s Disease Mother Dementia Mother Hypothyroidism Father Macular Degen Father Hypertension Sister Heart Sister Seizures Sister Hypertension Sister Seizures Sister No Known Problems Brother Diabetes Maternal Grandmother Cancer Maternal Grandfather Diabetes Paternal Grandmother Stroke Paternal Grandmother No Known Problems Paternal Grandfather Breast Cancer Maternal Aunt REVIEW OF SYMPTOMS: The review of systems data was entered by the nurse and reviewed by me There are no exam notes on file for this visit. PHYSICAL EXAMINATION: General: The patient is 59 year old female, well nourished, well hydrated in no acute distress. Thepatient is oriented to time, place, and person. VITALS: Blood pressure 118/84, pulse 108, temperature 36.8 C (98.3 F), temperature source Temporal,resp. rate 14, height 161.3 cm (5' 3.5), weight 83.5 kg (184 lb), SpO2 97%. HEENT: Normal cephalic, ataumatic, pupils are equally round, sclera are anicteric, mucous membranesare moist, oropharynx is clear. Neck has no masses, asymmetry or lymphadenopathy. Thyroid is unremarkable. Respiratory: Clear to auscultation and percussion. Normal respiratory excursion and pattern. Cardiac: Examination is regular rate and rhythm. Abdominal exam: Soft, nontender, with no palpable masses. No hepatosplenomegaly. No palpable hernias. Rectal exam: exam deferred Extremities: no clubbing, cyanosis or edema. No adenopathy. Other: LABORATORY VALUES: As Noted RADIOLOGIC STUDIES: As Noted Assessment IMPRESSION: Abnormal mammogram (primary encounter diagnosis) PLAN: 1. Abnormal mammogram (R92.8) Mammogram and ultrasound identified lesions in the right breast at 10 o'clock (2 cm) and 11 o'clock(1 cm, 1 cm from the nipple), as well as another area appearing benign. Differential diagnosis includes fibrocystic breast disease, but malignancy must be ruled out. No palpable abnormalities on physical exam today. - Scheduled biopsies for the identified lesions to be performed by Interventional Radiology. - Latrell Sethi will contact the patient tomorrow to arrange the biopsy appointment. - Biopsies will likely be performed at [facility], with alternative locations in [place] and [place] if needed. - Patient educated on the biopsy procedure, including local anesthesia, small incisions, and placement of a titanium clip for future reference. Diagnoses: (R92.8) Abnormal mammogram (primary encounter diagnosis) My findings have been communicated to Dr. Jani Edmondson MD via shared medical record. This notewill be forwarded to Dr. Jani Edmondson MD. Return to Clinic: The patient is instructed to follow-up with me after the testing has been completed. Flip Joy III, MD * Rosaline Oakley LPN - 03/14/2025 10:08 AM EDT REVIEW OF SYSTEMS: General: The patient denies fatigue, denies weight loss, notes weight gain, denies feeling hot, anddenies feelings of cold. Eyes: The patient denies glaucoma, denies eye injury/surgery, does not wear glasses or contacts. Ear/Nose/Throat: The patient notes allergies, notes hayfever, denies ear infections, and denies bloody noses. Cardiovascular: The patient denies chest pain, denies heart disease, notes high blood pressure,denies cardiac stent, denies prior heart attack, denies irregular heart beat, notes high cholesterol, denies poor circulation, denies heart failure, other cardiac issues, denies claudication, denies cold feet, denies peripheral arterial stent. Respiratory: The patient denies tuberculosis, denies pneumonia, denies frequent cough, denies pulmonary embolism, notes shortness of breath (has asthma), and denies coughing up blood. Gastrointestinal: The patient denies difficulty swallowing, notes acid reflux, denies ulcers, denies vomiting, denies jaundice/hepatitis, denies gallbladder problems, denies black or tarry stools, denies hemorrhoids, denies bleeding from rectum, notes diverticulitis, denies constipation, denies diarrhea, denies loss of stool control, and denies hernias. Kidney/Bladder: The patient denies kidney stones, denies urine infections, and denies bloody urine. Skin: The patient denies a history of skin cancer, denies bleeding/changing moles, and denies a history of skin rash. Neurologic: The patient denies a history of epilepsy/convulsions, denies headaches, notes head/spinal injuries (C5-6), and denies stroke/TIA. Psychiatric: The patient denies psychiatric medications, denies depression, and denies voices, denies substance abuse. Endocrine: The patient notes thyroid disorders, denies diabetes, and denies hormonal problems. Hematologic: The patient denies a history of bruising, denies bleeding, and denies anemia, denies blood clots. Infections: The patient denies a history of measles and mumps, denies rheumatic fever, and denies sexually transmitted diseases. Musculoskeletal: The patient denies back pain/injury, notes back problems, denies sciatica, denies knee/foot trouble, denies arthritis, or denies gout. When was patient's last Mammogram screening? 03/08/2025 Last Colonoscopy: N/A Rosaline Oakley LPN documented in this encounterThe [facility]06-17-2025 NoteHNO ID: [id number] Author: ROSALINE OAKLEY LPN Service: ? Author Type: LICENSED NURSE Type: Progress Notes Filed: 03/14/2025 11:26 Note Text: REVIEW OF SYSTEMS: General: The patient denies fatigue, denies weight loss, notes weight gain, denies feeling hot, and denies feelings of cold. Eyes: The patient denies glaucoma, denies eye injury/surgery, does not wear glasses or contacts. Ear/Nose/Throat: The patient notes allergies, notes hayfever, denies ear infections, and denies bloody noses. Cardiovascular: The patient denies chest pain, denies heart disease, notes high blood pressure,denies cardiac stent, denies prior heart attack, denies irregular heart beat, notes high cholesterol, denies poor circulation, denies heart failure, other cardiac issues, denies claudication, denies cold feet, denies peripheral arterial stent. Respiratory: The patient denies tuberculosis, denies pneumonia, denies frequent cough, denies pulmonary embolism, notes shortness of breath (has asthma), and denies coughing up blood. Gastrointestinal: The patient denies difficulty swallowing, notes acid reflux, denies ulcers, denies vomiting, denies jaundice/hepatitis, denies gallbladder problems, denies black or tarry stools, denies hemorrhoids, denies bleeding from rectum, notes diverticulitis, denies constipation, denies diarrhea, denies loss of stool control, and denies hernias. Kidney/Bladder: The patient denies kidney stones, denies urine infections, and denies bloody urine. Skin: The patient denies a history of skin cancer, denies bleeding/changing moles, and denies a history of skin rash. Neurologic: The patient denies a history of epilepsy/convulsions, denies headaches, notes head/spinal injuries (C5-6), and denies stroke/TIA. Psychiatric: The patient denies psychiatric medications, denies depression, and denies voices, denies substance abuse. Endocrine: The patient notes thyroid disorders, denies diabetes, and denies hormonal problems. Hematologic: The patient denies a history of bruising, denies bleeding, and denies anemia, denies blood clots. Infections: The patient denies a history of measles and mumps, denies rheumatic fever, and denies sexually transmitted diseases. Musculoskeletal: The patient denies back pain/injury, notes back problems, denies sciatica, denies knee/foot trouble, denies arthritis, or denies gout. When was patient's last Mammogram screening? 03/08/2025 Last Colonoscopy: N/A [facility] Telephone encounter Note * Telephone Encounter - Jannette Olivo RN - 03/09/2025 1:19 PM EDT Patient returned call and given provider's message below and verbalized understanding. Patient requested information on how improve her LDL cholesterol and A1C. Information sent to patient via Circa as discussed. Pt to call provider for any further questions related to her lab results. Jese Olivo RN [facility]06-12-2025 Miscellaneous Notes* Telephone Encounter - Jannette Olivo RN - 03/09/2025 1:19 PM EDT Patient returned call and given provider's message below and verbalized understanding. Patient requested information on how improve her LDL cholesterol and A1C. Information sent to patient via [employer] as discussed. Pt to call provider for any further questions related to her lab results. Jese Olivo RN * Telephone Encounter - Catarino Bingham LPN - 03/09/2025 12:54 PM EDT Left message for pt to contact office. Catarino Bingham LPN * Telephone Encounter - Nina Scherer PA-C - 03/09/2025 10:24 AM EDT Let patient know her LDL bad cholesterol is elevated at 115. We like this under 130 but goal would be under 100. Continue to work on diet. A1c is up from 5.5 to 5.7% putting her in pre diabetic range, let her know to work on diet for thisas well and limit sugars and excess carb intake. All other labs were wnl. Thanks. Nina Scherer PA-C documented in this encounterThe [facility] System06-12-2025 Telephone encounter Note * Telephone Encounter - Catarino Bingham LPN - 03/09/2025 12:54 PM EDT Left message for pt to contact office. Catarino Bingham LPN [facility]06-12-2025 Telephone encounter Note* Telephone Encounter - Nina Scherer PA-C - 03/09/2025 10:24 AM EDT Let patient know her LDL bad cholesterol is elevated at 115. We like this under 130 but goal would be under 100. Continue to work on diet. A1c is up from 5.5 to 5.7% putting her in pre diabetic range, let her know to work on diet for thisas well and limit sugars and excess carb intake. All other labs were wnl. Thanks. Nina Scherer PA-C [facility]06-11-2025 NoteHNO ID: [id number] Author: NINA SCHERER PA-C Service: ? Author Type: Physician Chuck Splitter Type: Progress Notes Filed: 03/08/2025 12:08 Note Text: Chief Complaint Patient presents with: 6 Month Exam HPI Fany Marrero is a 59 year old female who presents here today for 6 month visit. She states she is scheduled with Dr. Santa for a consult for breast biopsy. She has also been having on and off paraspinal b/l lumbar back pain that is worse after standing all day at work or in the morning right when she gets up. Pain will last a couple days at a time then dissipate. She was seen in and given predisone and flexaril a few weeks ago which has helped. Denies back injury/trauma, radicular symptoms or paraesthesias, fever, chills, or loss of bowel or bladder. She does feel some of her back pain could be caused by large breasts and is going to schedule with plastic surgery to discuss reduction surgery. Patient with a PMHx of: Asthma due to seasonal allergies, Stage 3 CKD, hypothyroidism, HTN, Class I obesity, GERD, elevated A1C Past medical history, appointments, medications, allergies reviewed. Previous Medical History PAST MEDICAL HISTORY Diagnosis Date AK (actinic keratosis) 07/07/2023 ventral right forearm near elbow, Tx 06/2023 Asthma due to seasonal allergies (HCC) 12/09/2021 Elevated hemoglobin A1c 08/11/2023 Encounter for routine gynecological examination 05/09/[address] Renner Fatty liver GERD without esophagitis 05/09/2021 History of shingles 06/24/202210/2021 Hypertension, essential 05/09/2021 Hypothyroid Hypothyroidism, acquired 05/09/2021 Dr. Rodriguez Neck pain 07/07/2023 Known cervical fusion Obesity, Class I, BMI 30-34.9 09/14/2024 Pharyngoesophageal dysphagia 07/29/2021 [facility] Seasonal allergies 12/09/2021 Stage 3a chronic kidney disease (HCC) 12/26/2022 Well adult exam 06/24/2022 last done: 07/07/2023 Previous Surgical History PAST SURGICAL HISTORY Procedure Laterality Date ADDITIONAL SPINAL FUSION 09/28/2008 cervical c5/c6 COLONOSCOPY FLX DX W/COLLJ SPEC WHEN PFRMD 07/29/2021 ESOPHAGOGASTRODUODENOSCOPY TRANSORAL DIAGNOSTIC 07/29/2021 attmpted but unable to complete LAPAROSCOPIC APPENDECTOMY 12/08/2013 felicity Renner OOPHORECTOMY PARTIAL/TOTAL UNI/BI Right 12/08/2013 TOTAL ABDOM HYSTERECTOMY 2014 UNLISTED LAPAROSCOPY, ABD 09/28/1995 Family History FAMILY HISTORY Problem Relation Age of Onset Anesthesia Mother Diabetes Mother Heart Mother Hypertension Mother Parkinson?s Disease Mother Dementia Mother Anesthesia Father Heart Sister Seizures Sister Hypertension Sister Seizures Sister Anesthesia Brother Diabetes Maternal Grandmother Cancer Maternal Grandfather Diabetes Paternal Grandmother Stroke Paternal Grandmother Breast Cancer Maternal Aunt Patient Allergies ALLERGIES Allergen Reactions Lisinopril Rash, Itching Codeine Other: See Comments Strong family reaction to this medication Penicillins Swelling Tape [Adhesive Tape* Other: See Comments Blistering and skin tears Vicodin [Hydrocodon* Rash Current Medications Current Outpatient Medications on File Prior to Visit Medication Sig fluticasone (FLONASE) 50 mcg/actuation nasal spray Use 2 sprays in each nostril once daily. Rinse mouth after use. omeprazole (PRILOSEC) 40 mg capsule Take 1 capsule by mouth daily before breakfast. 1/2 hr before meal. EPINEPHrine (EPIPEN) 0.3 mg/0.3 mL auto-injector Inject once with onset of shortness of breath or throat swelling due to allergic reaction valsartan (DIOVAN) 80 mg tablet Take 1 tablet by mouth once daily. cetirizine (ZYRTEC) 10 mg tablet Take 1 tablet by mouth once daily. empagliflozin (JARDIANCE) 25 mg tablet Take 1 tablet by mouth once daily. Take 1 tablet once daily in the morning. Per Dr. Rodriguez (for CKD) albuterol HFA (PROAIR HFA) 90 mcg/actuation inhaler Inhale 2 Puffs as instructed every 4 hours as needed for wheezing/shortness of breath. levothyroxine (SYNTHROID) 88 mcg tablet Take 1 tablet by mouth daily before breakfast. Per endo: Dr. Rodriguez Blood Pressure Monitor 1 Each once daily. Use daily. No current facility-administered medications on file prior to visit. Social History Social History Tobacco Use Smoking status: Never Smokeless tobacco: Never Vaping Use Vaping status: Never Used Substance Use Topics Alcohol use: No Drug use: Never Review of Symptoms REVIEW OF SYSTEMS GENERAL: No weight loss, malaise or fevers HEENT: Negative for frequent or significant headaches, No changes in hearing or vision. NECK: Negative for lumps, goiter, pain and significant neck swelling RESPIRATORY: Negative for cough, hemoptysis, wheezing, dyspnea or shortness of breath CARDIOVASCULAR: Negative for chest pain, leg swelling or palpitations GI: No nausea, vomiting, or diarrhea : No history of dysuria, frequency or incontinence DIRECTOR OF CONTRACTS: Negative (more content not included)...[facility]06-11-2025 History of Present illness Narrative* Nina Scherer PA-C - 03/08/2025 10:28 AM EDT Chief Complaint Patient presents with: 6 Month Exam HPI Fany Marrero is a 59 year old female who presents here today for 6 month visit. She states she is scheduled with Dr. Joy for a consult for breast biopsy. She has also been having on and off paraspinal b/l lumbar back pain that is worse after standing all day at work or in the morning right when she gets up. Pain will last a couple days at a time then dissipate. She was seen in and given predisone and flexaril a few weeks ago which has helped. Denies back injury/trauma, radicular symptoms or paraesthesias, fever, chills, or loss of bowel or bladder. She does feel some of her back pain could be caused by large breasts and is going to schedule with plastic surgery todiscuss reduction surgery. Patient with a PMHx of: Asthma due to seasonal allergies, Stage 3 CKD, hypothyroidism, HTN, Class Iobesity, GERD, elevated A1C Past medical history, appointments, medications, allergies reviewed. Previous Medical History PAST MEDICAL HISTORY Diagnosis Date AK (actinic keratosis) 07/07/2023 ventral right forearm near elbow, Tx 06/2023 Asthma due to seasonal allergies (HCC) 12/09/2021 Elevated hemoglobin A1c 08/11/2023 Encounter for routine gynecological examination 05/09/[address] Renner Fatty liver GERD without esophagitis 05/09/2021 History of shingles 06/24/202210/2021 Hypertension, essential 05/09/2021 Hypothyroid Hypothyroidism, acquired 05/09/2021 Dr. Rodriguez Neck pain 07/07/2023 Known cervical fusion Obesity, Class I, BMI 30-34.9 09/14/2024 Pharyngoesophageal dysphagia 07/29/2021 [facility] Seasonal allergies 12/09/2021 Stage 3a chronic kidney disease (HCC) 12/26/2022 Well adult exam 06/24/2022 last done: 07/07/2023 Previous Surgical History PAST SURGICAL HISTORY Procedure Laterality Date ADDITIONAL SPINAL FUSION 09/28/2008 cervical c5/c6 COLONOSCOPY FLX DX W/COLLJ SPEC WHEN PFRMD 07/29/2021 ESOPHAGOGASTRODUODENOSCOPY TRANSORAL DIAGNOSTIC 07/29/2021 attmpted but unable to complete LAPAROSCOPIC APPENDECTOMY 12/08/2013 assist Zurdo OOPHORECTOMY PARTIAL/TOTAL UNI/BI Right 12/08/2013 TOTAL ABDOM HYSTERECTOMY 2015 UNLISTED LAPAROSCOPY, ABD 09/28/1995 Family History FAMILY HISTORY Problem Relation Age of Onset Anesthesia Mother Diabetes Mother Heart Mother Hypertension Mother Parkinson s Disease Mother Dementia Mother Anesthesia Father Heart Sister Seizures Sister Hypertension Sister Seizures Sister Anesthesia Brother Diabetes Maternal Grandmother Cancer Maternal Grandfather Diabetes Paternal Grandmother Stroke Paternal Grandmother Breast Cancer Maternal Aunt Patient Allergies ALLERGIES Allergen Reactions Lisinopril Rash, Itching Codeine Other: See Comments Strong family reaction to this medication Penicillins Swelling Tape [Adhesive Tape* Other: See Comments Blistering and skin tears Vicodin [Hydrocodon* Rash Current Medications Current Outpatient Medications on File Prior to Visit Medication Sig fluticasone (FLONASE) 50 mcg/actuation nasal spray Use 2 sprays in each nostril once daily. Rinse mouth after use. omeprazole (PRILOSEC) 40 mg capsule Take 1 capsule by mouth daily before breakfast. 1/2 hr before meal. EPINEPHrine (EPIPEN) 0.3 mg/0.3 mL auto-injector Inject once with onset of shortness of breath or throat swelling due to allergic reaction valsartan (DIOVAN) 80 mg tablet Take 1 tablet by mouth once daily. cetirizine (ZYRTEC) 10 mg tablet Take 1 tablet by mouth once daily. empagliflozin (JARDIANCE) 25 mg tablet Take 1 tablet by mouth once daily. Take 1 tablet once daily in the morning. Per Dr. Rodriguez (for CKD) albuterol HFA (PROAIR HFA) 90 mcg/actuation inhaler Inhale 2 Puffs as instructed every 4 hours as needed for wheezing/shortness of breath. levothyroxine (SYNTHROID) 88 mcg tablet Take 1 tablet by mouth daily before breakfast. Per endo: Dr. Rodriguez Blood Pressure Monitor 1 Each once daily. Use daily. No current facility-administered medications on file prior to visit. Social History Social History Tobacco Use Smoking status: Never Smokeless tobacco: Never Vaping Use Vaping status: Never Used Substance Use Topics Alcohol use: No Drug use: Never Review of Symptoms REVIEW OF SYSTEMS GENERAL: No weight loss, malaise or fevers HEENT: Negative for frequent or significant headaches, No changes in hearing or vision. NECK: Negative for lumps, goiter, pain and significant neck swelling RESPIRATORY: Negative for cough, hemoptysis, wheezing, dyspnea or shortness of breath CARDIOVASCULAR: Negative for chest pain, leg swelling or palpitations GI: No nausea, vomiting, or diarrhea : No history of dysuria, frequency or incontinence DIRECTOR OF CONTRACTS: Negative for abnormal vaginal bleeding, abnormal vaginal discharge MUSCULOSKELETAL: Negative for joint pain or swelling, +b/l paraspinal lumbar back pain that comes and goes. See HPI HEMATOLOGY/LYMPHOLOGY: Negative for prolonged bleeding, bruising easily or swollen nodes ENDOCRINE: Negative for cold or heat intolerance NEURO: No history of headaches or tremors EXAM: BP 116/86 (BP Site: Right Arm, BP Position: Sitting, BP Cuff Size: Large Adult) Pulse 86 Temp 36.5 C (97.7 F) Resp 18 Wt 83.9 kg (185 lb) SpO2 94% BMI 32.99 kg/m General Appearance: Well appearing, alert, in no acute distress, well-hydrated, well nourished.. Lungs: Lungs clear to auscultation. No wheezing, rhonchi, rales.. Heart: RRR without murmur, gallop, or rubs. No ectopy. Abdomen: Normal abdominal exam, Abdomen soft, non-tender. Bowel sounds normal. No masses, organomegaly. Peripheral Pulses: Normal. Health Maintenance List Cervical Cancer Screening Never done Serum Creatinine due on 12/23/2024 Depression Screening due on 01/06/2025 Anxiety Screening due on 01/06/2025 Hemoglobin/Hematocrit due on 09/14/2025 Annual PCP Team Chronic Disease Visit due on 10/21/2025 Mammogram Screening due on 01/25/2026 Diabetes Screening due on 09/14/2027 Lipid Screening due on 09/15/2029 Colorectal Cancer Screening due on 07/29/2031 DTaP,Tdap,Td Vaccine(2 - Td or Tdap) due on 06/24/2032 Influenza Vaccine Discontinued Hepatitis C Screening Discontinued HIV Screening Discontinued Shingrix Vaccine Discontinued Covid-19 Vaccine Discontinued Pneumococcal Vaccine: 50+ Discontinued Data reviewed ASSESSMENT/PLAN: 1. Hypertension, essential - ICD9: 401.9, ICD10: I10 (primary diagnosis) Well controlled, continue current regimen - COMPREHENSIVE METABOLIC PANEL 2. Elevated hemoglobin A1c - ICD9: 790.29, ICD10: R73.09 Will recheck labs - LIPID PANEL, FASTING - HEMOGLOBIN A1C 3. Hypothyroidism, acquired - ICD9: 244.9, ICD10: E03.9 No new concerns - LIPID PANEL, FASTING - THYROID STIMULATING HORMONE - T4 FREE/FREE THYROXINE 4. Stage 3a chronic kidney disease (HCC) - ICD9: 585.3, ICD10: N18.31 No new concerns - URINALYSIS, WITH MICROSCOPIC - COMPREHENSIVE METABOLIC PANEL 5. GERD without esophagitis - ICD9: 530.81, ICD10: K21.9 No new concerns 6. Asthma due to seasonal allergies (HCC) - ICD9: 493.90, ICD10: J45.909 No new concerns 7. Fatty liver - ICD9: 571.8, ICD10: K76.0 No new concerns 8. Obesity, Class I, BMI 30-34.9 - ICD9: 278.00, ICD10: E66.811 Stable - LIPID PANEL, FASTING 9. Medication management - ICD9: V58.69, ICD10: Z79.899 Will check levels due to patient being on a PPI - VITAMIN B12 - MAGNESIUM 10. Encounter for screening for diabetes mellitus - ICD9: V77.1, ICD10: Z13.1 Labs ordered as above 11. Encounter for screening examination for other mental health and behavioral disorders - ICD9: V79.8, ICD10: Z13.39 No new concerns - ANXIETY SCREENING 12. Screening for depression - ICD9: V79.0, ICD10: Z13.31 No new concerns - DEPRESSION SCREENING 13. Strain of lumbar paraspinous muscle, subsequent encounter - ICD9: V58.89, 847.2, ICD10: S39.012D Offered PT to patient, declined at this time due to a busy work schedule with long hours. She will consider this if pain worsens. Prescribed flexaril 10mg QHS PRN for spasms. Patient to follow up in 6 months with labs prior. Otherwise will contact us before then as needed. Marychuy DONALDSON I have personally seen and examined the patient and performed the medical- decision making components. I have reviewed the Physician Chuck Splitter (PA) student's documentation and verified the findings inthe note as written. Any additions or changes are noted in bold/italics. Nina Scherer PA-C [facility] History of Present illness Narrative* Almaz Corcoran RT(R) - 03/08/2025 8:30 AM EDT Radiology Service Progress Note PATIENT NAME: Fany Marrero DATE OF SERVICE: March 08, 2025 TIME: 9:59 AM PATIENT IDENTITY VERIFICATION COMPLETED USING TWO (2) IDENTIFIERS: Name and Date of confirmedby patient verbally. FALL SCREENING: Has the patient had 2 falls in the last year or 1 fall with injury or currently using an Ambulatory Assistive Device (Walker, Cane, Wheelchair, Crutches, etc.)? No PATIENT GENDER DATA: Assigned female at . status: : No status:NO. PATIENT RELEVANT IMPLANT DATA REVIEWED: Not Applicable PATIENT PRESENTS WITH AN IMPLANTABLE OR ATTACHED TRUST CLERK: No RADIOLOGY DEPARTMENT: Mammography PERIPHERAL IV DATA: Not applicable SIGNED BY: JACQUELINE Melchor) March 08, 2025 9:59 AM documented in this encounterThe [facility]06-[facility]-2025 NoteHNO ID: [id number] Author: ALAMZ CORCORAN RT(R) Service: ? Author Type: Technologist Type: Progress Notes Filed: 03/08/2025 09:59 Note Text: Radiology Service Progress Note PATIENT NAME: Fany Marrero DATE OF SERVICE: March 08, 2025 TIME: 9:59 AM PATIENT IDENTITY VERIFICATION COMPLETED USING TWO (2) IDENTIFIERS: Name and Date of confirmed by patient verbally. FALL SCREENING: Has the patient had 2 falls in the last year or 1 fall with injury or currently using an Ambulatory Assistive Device (Walker, Cane, Wheelchair, Crutches, etc.)? No PATIENT GENDER DATA: Assigned female at . status: : No status: NO. PATIENT RELEVANT IMPLANT DATA REVIEWED: Not Applicable PATIENT PRESENTS WITH AN IMPLANTABLE OR ATTACHED TRUST CLERK: No RADIOLOGY DEPARTMENT: Mammography PERIPHERAL IV DATA: Not applicable SIGNED BY: Almaz Jewell, (R) March 08, 2025 9:59 [facility]05-22-2025 NoteHNO ID: [id number] Author: SARABJIT BROWN MD Service: ? Author Type: Physician Type: Progress Notes Filed: 02/16/2025 16:54 Note Text: [facility] Fany Marrero is a 59 year old female. Patient presents with: Pain: L shoulder, L rib pain x8 days, worse last 5 days, seen at [facility] 02/12/25 Left back and shoulder pain: Duration: started after moving some furniture 1 week ago. Location: left mid back, left shoulder joint Character: intermittent sharp knife-like spasms in the rib; ache in the shoulder Radiation: no radiation to the leg or hand Aggravating: reaching, deep breaths, moving, touching shoulder Relieving: rest, shallow breaths, muscle relaxer Pain relievers: Acetaminophen, Flexeril, heat, muscle cream Associated: Pertinent negatives: Denies fever, numbness, weakness, cough, shortness of breath, palpitations, dizziness, hematuria, dysuria, urinary frequency Was evaluated at the [facility] emergency room 02/12/2025. Rib/chest x-rays were negative. Shoulder x-ray showed degenerative changes without acute fracture. ECG, CBC, BMP, and troponin were negative. Review of Systems Objective BP 153/90 Pulse 76 Temp 36.3 ?C (97.4 ?F) Resp 18 Wt 84.7 kg (186 lb 11.7 oz) SpO2 100% BMI 33.29 kg/m? Physical Exam Constitutional: General: She is in acute distress (Exam limited by muscle spasms). Eyes: Extraocular Movements: Extraocular movements intact. Conjunctiva/sclera: Conjunctivae normal. Pupils: Pupils are equal, round, and reactive to light. Cardiovascular: Rate and Rhythm: Normal rate and regular rhythm. Pulmonary: Effort: No respiratory distress. Breath sounds: No wheezing, rhonchi or rales. Musculoskeletal: Cervical back: Neck supple. Comments: SHOULDER: left. Exam induces back spasms. No deformity or swelling. Palpation of clavicle non-tender, AC joint tender, glenohumeral joint tender anteriorly. ROM: normal. Impingement test: Negative? Cross arm test: Positive Left. BACK: Normal curvature of spine. No midline tenderness. Left lower rib paraspinal tenderness. Straight leg test negative. Deep tendon reflexes 3+/4 at patellas. Normal lower extremity strength. Lymphadenopathy: Cervical: No cervical adenopathy. Neurological: Mental Status: She is alert. {ASSESSMENT/PLAN: 1. Acute left-sided thoracic back pain - ICD9: 724.1, ICD10: M54.6 (primary diagnosis) Chest wall pain. Low suspicion for cardiopulmonary source of pain given inducible spasms during exam. Patient avoids NSAIDs due to chronic renal insufficiency. - PREDNISONE 10 MG TABLET taper. Previously tolerated when given for asthma exacerbations. Refill muscle relaxer- CYCLOBENZAPRINE 10 MG TABLET. It was effective but causes drowsiness and has been taken at nighttime. She may attempt chiropractic treatment. Her boss has a chiropractor she recommends she may see Castro Mcclendon in [place]. Provided work excuse for today and tomorrow. I recommended emergency room follow-up with primary care. Follow up in the ER with worsening cough, worsening shortness of breath, increasing chest pain, dizziness, or late onset fever. 2. Acute pain of left shoulder - ICD9: 719.41, ICD10: M25.512 May be shoulder strain or exacerbation of degenerative shoulder injured at the same time as her left thoracic back. - PREDNISONE 10 MG TABLET Sarabjit Brown MD History and Record Review External record(s) reviewed: prior inpatient record. Findings from review of inpatient records: [facility] ED visit 02/12/2025 imaging and labs Differential Diagnoses - Musculoskeletal back and shoulder pain is more likely for the following reason(s): consistent with imaging, consistent with laboratory studies and suggested by HANDP - Acute coronary syndrome is less likely for the following reason(s): laboratory studies not suggestive - Pulmonary embolism is less likely for the following reason(s): HANDP not suggestive [facility] Dis[facility] summary [facility] Medical Records Department [address] [place] [address] Emergency Department Summary 02/12/25 MR#: [id number] Acct: [id number] Name: FANY MARRERO Rep #:[id number] : 1965 59 From: Rafa Drew DO PCP: Dr. aJni Edmondson MD Status:REG ER Location: ED HPI History of Present Illness Chief Complaint: Back Narrative Narrative: Patient is a 59-year-old female with past medical history of prediabetic, chronic kidney disease stage III, asthma, hypertension, Graves' disease who presented to the emergency department chief complaint of left-sided back pain rating to her left shoulder. Patient states that on she was trying to get a dresser out of the car and noted that she had pain associated with this. Patient's notes that she tried Tylenol and did not touch her pain she states that she did try ibuprofen/Aleve andshe states that this did help her pain but states that she is not supposed be taking this medication secondary to her underlying kidney disease. She noted that the pain has not gotten any better she feels like it is gotten worse therefore she came here for further evaluation management. Patient notes that the pain radiates to her left shoulder patient denies any shortness of breath associated with this. Patient notes that the last few days her pain has been constant. [facility] Medical History Obesity Stage 3a chronic kidney disease (CKD) Pre-diabetes Polycystic ovarian disease GERD (gastroesophageal reflux disease) Asthma Essential hypertension Graves' disease Home Medications ?Medication ?Instructions ?Recorded ?Last Taken ?Type albuterol sulfate 90 mcg/actuation 1 puff inhalation Q 4H PRN PRN Sob 01/17/18 Unknown History aerosol inhaler &/Or Wheezing immuneti PO 06/20/20 Unknown History omeprazole 40 mg capsule,delayed cap PO 12/23/21 Unkno wn History release blood pressure test kit-small #1 ea 12/23/22 Unknown R x cetirizine 10 mg capsule (All Day 10 mg PO DAILY PRN 1 10/25/22 Unknown History Allergy (cetirizine)) levothyroxine 88 mcg tablet 88 mcg PO DAILY #90 tabs 1 11/16/23 Unknown Rx valsartan 80 mg tablet 80 mg PO QDAY 09/15/24 Unkno wn History clindamycin HCl 300 mg capsule 300 mg PO Q6H #40 CAPSU LES 11/29/24 Unknown Rx (Cleocin HCl) ibuprofen 600 mg tablet 600 mg PO Q8H PRN PRN fever or 11/29/24 Unknown Rx pain #20 TABLETS oxycodone-acetaminophen 5 mg-325 1 tab PO Q6H PRN PRN Pain 3 days 11/29/24 Unknown Rx mg tablet #12 TABLETS Jardiance 25 mg tablet 25 mg PO DAILY #90 tabs 11/26 04/21 Unknown Rx (empagliflozin) cyclobenzaprine 10 mg tablet 10 mg PO BID PRN muscle s pasm #20 02/12/25 Unknown Rx tabs ondansetron 4 mg disintegrating 4 mg PO Q6H PRN nausea and 02/12/25 Unknown Rx tablet vomiting #20 tabs Allergy/AdvReac Type Severity Reaction Status Date / Time cigarette smoke Allergy Severe unknown Verified 02/12/25 12:38 codeine Allergy Mild Hives Verified 02/12/25 12:38 Environmental Allergies: Allergy Shortness Verified 02/12/25 12:38 Uncoded (pine) of breath hydrocodone bitartrate (From Allergy Hives Verified 02/12/25 12:38 Vicodin) lisinopril Allergy Rash Verified 02/12/25 12:38 Penicillins Allergy Shortness Verified 02/12/25 12:38 of breath alex hips Allergy Shortness Verified 02/12/25 12:38 of breath adhesive tape (paper tape) AdvReac Hives Verified 02/12/25 12:38 Family History Mother Asthma Heart disease Hypertension Seizures Sister Asthma Hypertension Seizures Brother Asthma Grandmother Cancer Heart disease CVA (cerebral vascular accident) Aunt Cancer Father Thyroid disorder Surgical History H/O: hysterectomy Cervical vertebral fusion Social History Smoking Status: Never smoker alcohol intake: never substance use type: does not use ROS ROS ED ROS Narrative Constitutional: Denies fevers, chills, headaches malaise, dizziness Eyes: No change in vision over the blurry vision Cardiovascular: Complains of chest pain as noted above denies palpitations Respiratory: Denies coughing wheezing shortness of breath Abdomen: Denies abdominal pain nausea vomit diarrhea : Denies urinary symptoms Neurological: Denies numbness, weakness, tingling Musculoskeletal: Complains of left-sided back pain as noted above Skin: Denies any rashes or lesions EXAM Physical Exam Narrative Exam Narrative: General: Patient lying in bed rest comfortably did not appear to be acute distress Head: Atraumatic, normocephalic Eyes: PERRL bilaterally, EOMI bilateral, no conjunctival injection noted Neck: Soft, supple, trachea midline Cardiovascular: Regular rate and rhythm no murmurs gallops rubs noted Respiratory: Clear to auscultation bilaterally Abdomen: Soft, nondistended, nontender palpation Musculoskeletal: Patient has tenderness palpation over the left rib cage posteriorly pinpoint over her mid ribs, patient has pain with attempted range of motion of the left shoulder as well Extremities: Radial pulses +2/4 in the bilateral extremities, +5/5 strength noted in the lower extremities in the right upper extremity and +4/5 strength inthe left upper extremity secondary to pain Neurological: Patient follow commands knows she was at [facility] year is 2024. Sensation grossly intact Skin: Warm, dry, tact no rashes lesions noted Const Vital Signs: 02/12/25 12:39 02/12/25 13:26 Temperature 98.7 F Temperature Source Temporal Pulse Rate 105 H Respiratory Rate 20 H Blood Pressure 161/103 H Blood Pressure Mean 122 Pulse Ox 98 Oxygen Delivery Method Room Air Room Air MDM MDM MDM Narrative Medical decision making narrative: Patient is a 59-year-old female who presented to the emergency department with chief complaint of left-sided back pain and shoulder pain. On the differential diagnose includes but not limited to musculoskeletal strain, pathologic fractureof the shoulder, ACS, pneumothorax. Once workup is obtained reviewed she will be reevaluated. Patient be given Norflex. Patient's CBC reviewed and was largely unremarkable no evidence leukocytosis white blood count normal at 8, hemoglobin is 11.8, platelet count was noted to be 230. Patient sodium normal 137, potassium normal 4.3, creatinine normal at 1.14. Patient's troponin was normal at 8 with a EKG reviewed showed sinus rhythm with a rate of 70 bpm. Patient's x-ray of her shoulder on the left side reviewed by myself and by radiology which showed degenerative changes but no acute fracture or dislocation. Patient's x-ray of her chest and ribs reviewed by myself and by radiology which showed no displaced rib fractures and no acute cardiopulmonary processes. Reevaluation the patient she is feeling better she would like to go home at thispoint time. Patientbe given a work note per her request and she will be given prescriptions for cyclobenzaprine as well as Zofran and Endocet. She be encouraged to follow-up with her doctor outpatient and return with worsening symptoms or concerns. All question concerns answered she was discharged home instable condition. Lab Data Labs: Laboratory Results - last 24 hr 02/12/25 13:21 WBC 8.0 RBC 4.69 Hgb 11.8 L Hct 37.4 MCV 79.7 L MCH 25.2 L MCHC 31.6 L RDW Std Deviation 42.8 RDW Coeff of Alyce 14.8 H Plt Count 230 MPV 10.8 Immature Gran % (Auto) 0.400 Neut % (Auto) 58.1 Lymph % (Auto) 28.4 [place] % (Auto) 9.6 Eos % (Auto) 3.0 Baso % (Auto) 0.5 Absolute Neuts (auto) 4.6 Absolute Lymphs (auto) 2.27 Nucleated RBC % 0 Sodium 137 Potassium 4.3 Chloride 105 Carbon Dioxide 21.8 Anion Gap 11 BUN 16 Creatinine 1.14 Estim Creat Clear Calc 54.69 Est GFR (MDRD) Non-Af 55 L BUN/Creatinine Ratio 14.0 Glucose 98 Calcium 9.2 Troponin T High Sens 8 Radiography Diagnostic Testing: Clinical Impression(s) from Imaging Studies Ribs w/Chest X-Ray 02/12/25 13:45 IMPRESSION: No displaced rib fractures. Reading Location: [facility] Shoulder X-Ray 02/12/25 13:45 IMPRESSION: Degenerative changes as above. Reading Location: [facility] Discharge Plan Triage Chief Complaint: Back ED Provider: Rafa Drew Dx/Rx/DC Orders Clinical Impression: Back pain, Acute pain of left shoulder Prescriptions: New cyclobenzaprine 10 mg tablet 10 mg PO BID PRN (Reason: muscle spasm) Qty: 20 0RF ondansetron 4 mg tablet,disintegrating 4 mg PO Q6H PRN (Reason: nausea and vomiting) Qty: 20 0RF No Action immuneti PO Rx Instructions: OTC supplement omeprazole 40 mg capsule,delayed release(DR/EC) PO (DME) blood pressure test kit-small Kit See Rx Instructions .Route Qty: 1 0RF Rx Instructions: As directed All Day Allergy (cetirizine) 10 mg capsule 10 mg PO DAILY PRN valsartan 80 mg tablet 80 mg PO QDAY levothyroxine 88 mcg tablet 88 mcg PO DAILY Qty: 90 3RF Rx Instructions: see correction of dose albuterol sulfate 1 INHALER inhaler 1 puff inhalation Q4H PRN PRN (Reason: Sob &/Or Wheezing) clindamycin HCl [Cleocin HCl] 300 mg capsule 300 mg PO Q6H Qty: 40 0RF ibuprofen 600 mg tablet 600 mg PO Q8H PRN PRN (Reason: fever or pain) Qty: 20 0RF oxycodone-acetaminophen 5-325 mg tablet 1 tab PO Q6H PRN PRN (Reason: Pain) 3 Days Qty: 12 0RF Jardiance 25 mg tablet 25 mg PO DAILY Qty: 90 1RF Stand Alone Forms: ED Work / School Excuse Primary Care Provider: Jani Edmondson Referrals: Jani Edmondson MD [Primary Care Provider] - Activity Restrictions/Additional Instructions: Follow-up with your doctor in the outpatient setting. Return with worsening symptoms and concerns. Your blood work not show any acute findings and your x- rays did not show any broken bones. Use the muscle laxer's as prescribed and donot operate anything under the influence of this medication. Use Tylenol for pain control as well. Ice/heat whatever makes this feel better. Print Language: [place] Disposition Disposition: Home, Self Care What to do if you have Problems For any increased pain, shortness of breath, bleeding, nausea or vomiting, chestpain, or any unexpected problems, contact your Primary Care Provider. Call [facility] ([phone]) or report tothe closest Emergency Room. Call 911 if necessary. 02/12/25 1529 Cosigner Signature (if applicable): CC: Dr. Jani Edmondson MD ~ Signed [facility]05-18-2025 Radiology Diagnostic study note [facility] Imaging Services [address], [place] [address] Ribs Uni Min 3V w/PA Chest MR#: [id number] Acct: [id number] Name: FANY MARRERO Rep #: [id number] : 1965 F 59 From: Kristal Almanza MD PCP: Dr. Jani Edmondson MD Status: REG ER Study:Ribs Uni Min 3V w/PA Chest Date of Exam : 02/12/25 Exam# [id number] Ordering Dr: Maria Fernanda Drew DO EXAM: XR Left Ribs and AP Chest, 3 or More Views CLINICAL INDICATION: PAIN TECHNIQUE: Frontal and oblique views of the left ribs and frontal view of the chest. COMPARISON: No relevant prior studies available. FINDINGS: LUNGS AND PLEURAL SPACES: Unremarkable. No consolidation. No pneumothorax. HEART: Unremarkable. No cardiomegaly. MEDIASTINUM: Unremarkable. Normal mediastinal contour. BONES/JOINTS: Unremarkable. No displaced rib fractures. RAD/Ribs Uni Min 3V w/PA Chest IMPRESSION: No displaced rib fractures. Reading Location: [facility] CC: Dr. Jani Edmondson MD; Dr. 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05-18-2025 Radiology Diagnostic study note [facility] Imaging Services [address], [place] [id number] Shoulder min 2 Views MR#: [id number] Acct: [id number] Name: FANY MARRERO Rep #: [id number] : 1965 F 59 From: Kristal Almanza MD PCP: Dr. Jani Edmondson MD Status: REG ER Study:Shoulder min 2 Views Date of Exam: 02/12/25 Exam# [id number] Ordering Dr: Maria Fernanda Drew DO EXAM: XR Left Shoulder Complete, 2 or More Views CLINICAL INDICATION: SHOULDER PAIN TECHNIQUE: Two or more views of the left shoulder. COMPARISON: No relevant prior studies available. FINDINGS: BONES/JOINTS: Mild degenerative change of the acromioclavicular and glenohumeral joints. No acute fracture. No dislocation. SOFT TISSUES: Unremarkable. RAD/Shoulder min 2 Views IMPRESSION: Degenerative changes as above. Reading Location: [facility] CC: Dr. Jani Edmondson MD; Dr. 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05-18-2025 Discharge summary Author Rafa Drew [facility] Note Date/Time February 12, 2025 3:25p m [facility] Medical Records Department [address] [place] [address] Emergency Department Summary 02/12/25 MR#: [id number] Acct: [id number] Name: FANY MARRERO Rep #:[id number] : 1965 59 From: Rafa Drew DO PCP: Dr. Jani Edmondson MD Status:REG ER Location: ED HPI History of Present Illness Chief Complaint: Back Narrative Narrative: Patient is a 59-year-old female with past medical history of prediabetic, chronic kidney disease stage III, asthma, hypertension, Graves' disease who presented to the emergency department chief complaint of left-sided back pain rating to her left shoulder. Patient states that on she was trying to get a dresser out of the car and noted that she had pain associated with this. Patient's notes that she tried Tylenol and did not touch her pain she states that she did try ibuprofen/Aleve and she states that this did help her pain but states that she is not supposed be taking this medication secondary to her underlying kidney disease. She noted that the pain has not gotten any better she feels like it is gotten worse therefore she came here for further evaluation management. Patient notes that the pain radiates to her left shoulder patient denies any shortness of breath associated with this. Patient notes that the last few days her pain has been constant. [facility] Medical History Obesity Stage 3a chronic kidney disease (CKD) Pre-diabetes Polycystic ovarian disease GERD (gastroesophageal reflux disease) Asthma Essential hypertension Graves' disease Home Medications ?Medication ?Instructions ?Recorded ?Last Taken ?Type albuterol sulfate 90 mcg/actuation 1 puff inhalation Q 4H PRN PRN Sob 01/17/18 Unknown History aerosol inhaler &/Or Wheezing immuneti PO 06/20/20 Unknown History omeprazole 40 mg capsule,delayed cap PO 12/23/21 Unkno wn History release blood pressure test kit-small #1 ea 12/23/22 Unknown R x cetirizine 10 mg capsule (All Day 10 mg PO DAILY PRN 1 10/25/22 Unknown History Allergy (cetirizine)) levothyroxine 88 mcg tablet 88 mcg PO DAILY #90 tabs 1 11/16/23 Unknown Rx valsartan 80 mg tablet 80 mg PO QDAY 09/15/24 Unkno wn History clindamycin HCl 300 mg capsule 300 mg PO Q6H #40 CAPSU LES 11/29/24 Unknown Rx (Cleocin HCl) ibuprofen 600 mg tablet 600 mg PO Q8H PRN PRN fever or 11/29/24 Unknown Rx pain #20 TABLETS oxycodone-acetaminophen 5 mg-325 1 tab PO Q6H PRN PRN Pain 3 days 11/29/24 Unknown Rx mg tablet #12 TABLETS Jardiance 25 mg tablet 25 mg PO DAILY #90 tabs 11/26 04/21 Unknown Rx (empagliflozin) cyclobenzaprine 10 mg tablet 10 mg PO BID PRN muscle s pasm #20 02/12/25 Unknown Rx tabs ondansetron 4 mg disintegrating 4 mg PO Q6H PRN nausea and 02/12/25 Unknown Rx tablet vomiting #20 tabs Allergy/AdvReac Type Severity Reaction Status Date / Time cigarette smoke Allergy Severe unknown Verified 02/12/25 12:38 codeine Allergy Mild Hives Verified 02/12/25 12:38 Environmental Allergies: Allergy Shortness Verified 02/12/25 12:38 Uncoded (pine) of breath hydrocodone bitartrate (From Allergy Hives Verified 02/12/25 12:38 Vicodin) lisinopril Allergy Rash Verified 02/12/25 12:38 Penicillins Allergy Shortness Verified 02/12/25 12:38 of breath alex hips Allergy Shortness Verified 02/12/25 12:38 of breath adhesive tape (paper tape) AdvReac Hives Verified 02/12/25 12:38 Family History Mother Asthma Heart disease Hypertension Seizures Sister Asthma Hypertension Seizures Brother Asthma Grandmother Cancer Heart disease CVA (cerebral vascular accident) Aunt Cancer Father Thyroid disorder Surgical History H/O: hysterectomy Cervical vertebral fusion Social History Smoking Status: Never smoker alcohol intake: never substance use type: does not use ROS ROS ED ROS Narrative Constitutional: Denies fevers, chills, headaches malaise, dizziness Eyes: No change in vision over the blurry vision Cardiovascular: Complains of chest pain as noted above denies palpitations Respiratory: Denies coughing wheezing shortness of breath Abdomen: Denies abdominal pain nausea vomit diarrhea : Denies urinary symptoms Neurological: Denies numbness, weakness, tingling Musculoskeletal: Complains of left-sided back pain as noted above Skin: Denies any rashes or lesions EXAM Physical Exam Narrative Exam Narrative: General: Patient lying in bed rest comfortably did not appear to be acute distress Head: Atraumatic, normocephalic Eyes: PERRL bilaterally, EOMI bilateral, no conjunctival injection noted Neck: Soft, supple, trachea midline Cardiovascular: Regular rate and rhythm no murmurs gallops rubs noted Respiratory: Clear to auscultation bilaterally Abdomen: Soft, nondistended, nontender palpation Musculoskeletal: Patient has tenderness palpation over the left rib cage posteriorly pinpoint over her mid ribs, patient has pain with attempted range of motion of the left shoulder as well Extremities: Radial pulses +2/4 in the bilateral extremities, +5/5 strength noted in the lower extremities in the right upper extremity and +4/5 strength inthe left upper extremity secondary to pain Neurological: Patient follow commands knows she was at [facility] year is 2024. Sensation grossly intact Skin: Warm, dry, tact no rashes lesions noted Const Vital Signs: 02/12/25 12:39 02/12/25 13:26 Temperature 98.7 F Temperature Source Temporal Pulse Rate 105 H Respiratory Rate 20 H Blood Pressure 161/103 H Blood Pressure Mean 122 Pulse Ox 98 Oxygen Delivery Method Room Air Room Air MDM MDM MDM Narrative Medical decision making narrative: Patient is a 59-year-old female who presented to the emergency department with chief complaint of left-sided back pain and shoulder pain. On the differential diagnose includes but not limited to musculoskeletal strain, pathologic fractureof the shoulder, ACS, pneumothorax. Once workup is obtained reviewed she will be reevaluated. Patient be given Norflex. Patient's CBC reviewed and was largely unremarkable no evidence leukocytosis white blood count normal at 8, hemoglobin is 11.8, platelet count was noted to be 230. Patient sodium normal 137, potassium normal 4.3, creatinine normal at 1.14. Patient's troponin was normal at 8 with a EKG reviewed showed sinus rhythm with a rate of 70 bpm. Patient's x-ray of her shoulder on the left side reviewed by myself and by radiology which showed degenerative changes but no acute fracture or dislocation. Patient's x-ray of her chest and ribs reviewed by myself and by radiology which showed no displaced rib fractures and no acute cardiopulmonary processes. Reevaluation the patient she is feeling better she would like to go home at thispoint time. Patient be given a work note per her request and she will be given prescriptions for cyclobenzaprine as well as Zofran and Endocet. She be encouraged to follow-up with her doctor outpatient and return with worsening symptoms or concerns. All question concerns answered she was discharged home instable condition. Lab Data Labs: Laboratory Results - last 24 hr 02/12/25 13:21 WBC 8.0 RBC 4.69 Hgb 11.8 L Hct 37.4 MCV 79.7 L MCH 25.2 L MCHC 31.6 L RDW Std Deviation 42.8 RDW Coeff of Alyce 14.8 H Plt Count 230 MPV 10.8 Immature Gran % (Auto) 0.400 Neut % (Auto) 58.1 Lymph % (Auto) 28.4 [place] % (Auto) 9.6 Eos % (Auto) 3.0 Baso % (Auto) 0.5 Absolute Neuts (auto) 4.6 Absolute Lymphs (auto) 2.27 Nucleated RBC % 0 Sodium 137 Potassium 4.3 Chloride 105 Carbon Dioxide 21.8 Anion Gap 11 BUN 16 Creatinine 1.14 Estim Creat Clear Calc 54.69 Est GFR (MDRD) Non-Af 55 L BUN/Creatinine Ratio 14.0 Glucose 98 Calcium 9.2 Troponin T High Sens 8 Radiography Diagnostic Testing: Clinical Impression(s) from Imaging Studies Ribs w/Chest X-Ray 02/12/25 13:45 IMPRESSION: No displaced rib fractures. Reading Location: [facility] Shoulder X-Ray 02/12/25 13:45 IMPRESSION: Degenerative changes as above. Reading Location: [facility] Discharge Plan Triage Chief Complaint: Back ED Provider: Rafa Drew Dx/Rx/DC Orders Clinical Impression: Back pain, Acute pain of left shoulder Prescriptions: New cyclobenzaprine 10 mg tablet 10 mg PO BID PRN (Reason: muscle spasm) Qty: 20 0RF ondansetron 4 mg tablet,disintegrating 4 mg PO Q6H PRN (Reason: nausea and vomiting) Qty: 20 0RF No Action immuneti PO Rx Instructions: OTC supplement omeprazole 40 mg capsule,delayed release(DR/EC) PO (DME) blood pressure test kit-small Kit See Rx Instructions .Route Qty: 1 0RF Rx Instructions: As directed All Day Allergy (cetirizine) 10 mg capsule 10 mg PO DAILY PRN valsartan 80 mg tablet 80 mg PO QDAY levothyroxine 88 mcg tablet 88 mcg PO DAILY Qty: 90 3RF Rx Instructions: see correction of dose albuterol sulfate 1 INHALER inhaler 1 puff inhalation Q4H PRN PRN (Reason: Sob &/Or Wheezing) clindamycin HCl [Cleocin HCl] 300 mg capsule 300 mg PO Q6H Qty: 40 0RF ibuprofen 600 mg tablet 600 mg PO Q8H PRN PRN (Reason: fever or pain) Qty: 20 0RF oxycodone-acetaminophen 5-325 mg tablet 1 tab PO Q6H PRN PRN (Reason: Pain) 3 Days Qty: 12 0RF Jardiance 25 mg tablet 25 mg PO DAILY Qty: 90 1RF Stand Alone Forms: ED Work / School Excuse Primary Care Provider: Jani Edmondson Referrals: Jain Edmondson MD [Primary Care Provider] - Activity Restrictions/Additional Instructions: Follow-up with your doctor in the outpatient setting. Return with worsening symptoms and concerns. Your blood work not show any acute findings and your x-rays did not show any broken bones. Use the muscle laxer's as prescribed and donot operate anything under the influence of this medication. Use Tylenol for pain control as well. Ice/heat whatever makes this feel better. Print Language: [place] Disposition Disposition: Home, Self Care What to do if you have Problems For any increased pain, shortness of breath, bleeding, nausea or vomiting, chestpain, or any unexpected problems, contact your Primary Care Provider. Call [facility] ([phone]) or report to the closest Emergency Room. Call 911 if necessary. 02/12/25 1525 <Electronically signed by Rafa Drew DO> Cosigner Signature (if applicable): CC: Dr. Jani Edmondson MD ~ Signed [facility] Work Phone: 1(252) 270-320605-07-2025 Telephone encounter Note* Telephone Encounter - Rajiv Turner RN - 02/01/2025 5:14 PM EDT See previous msg of 01/25/25 medication problem with Valsartan (having same issue with Omeprazole). Pt states she picked up the Valsartan on 01/27 but was only given a 30 day supply and she is asking [facility] for a ref[facility] on her [facility] and is told [facility] contacted provider's office with no response. Explained to pt that we do not accept faxes from pharmacies and it is better if she calls. Called and spoke with pharmacist. He states insurance will only pay for a 30 day supply or 90 day supply of medication not 60 which is why pt only got 30 days on her Valsartan. He also states pt picked up her 2nd 90 day supply of her Omeprazole on 12/11/24 so she should not need med yet and has no refills left. Called and spoke with pt and notified. Appt moved to 03/08 with Nina Scherer to coordinate with herfollow up mammogram and ultrasound and make sure she is seen before meds run out. The patient has been identified by name and date of : Yes Caregiver verified no other encounters exist for this prescription request: Yes Caregiver confirmed with patient/requestor that no other refills are due, in the near future, with this provider at this time: Yes The last office visit in the department: 10/21/2024 Does the patient have a future office visit with this provider/department: Yes 03/17/2025 Requested Prescriptions Pending Prescriptions Disp Refills fluticasone (FLONASE) 50 mcg/actuation nasal spray 16 mL 11 Sig: Use 2 sprays in each nostril once daily. Rinse mouth after use. Rajiv Turner RN February 01, 2025 5:14 PM [facility]05-07-2025 Miscellaneous Notes* Telephone Encounter - Rajiv Turner RN - 02/01/2025 5:14 PM EDT See previous msg of 01/25/25 medication problem with Valsartan (having same issue with Omeprazole). Pt states she picked up the Valsartan on 01/27 but was only given a 30 day supply and she is asking [facility] her [facility]ep[facility]ole and is told [facility] contacted provider's office with no response. Explained to pt that we do not accept faxes from pharmacies and it is better if she calls. Called and spoke with pharmacist. He states insurance will only pay for a 30 day supply or 90 day supply of medication not 60 which is why pt only got 30 days on her Valsartan. He also states pt picked up her 2nd 90 day supply of her Omeprazole on 12/11/24 so she should not need med yet and has no refills left. Called and spoke with pt and notified. Appt moved to 03/08 with Nina Scherer to coordinate with herfollow up mammogram and ultrasound and make sure she is seen before meds run out. The patient has been identified by name and date of : Yes Caregiver verified no other encounters exist for this prescription request: Yes Caregiver confirmed with patient/requestor that no other refills are due, in the near future, with this provider at this time: Yes The last office visit in the department: 10/21/2024 Does the patient have a future office visit with this provider/department: Yes 03/17/2025 Requested Prescriptions Pending Prescriptions Disp Refills fluticasone (FLONASE) 50 mcg/actuation nasal spray 16 mL 11 Sig: Use 2 sprays in each nostril once daily. Rinse mouth after use. Rajiv Turner RN February 01, 2025 5:14 PM documented in [facility] Telephone encounter Note * Telephone Encounter - Maricel Arguelles RN - 01/27/2025 3:27 PM EDT Pt notified and transferred to imaging PSS to get scheduled. Maricel Arguelles RN. Maricel Arguelles RN [facility]05-02-2025 Miscellaneous Notes* Telephone Encounter - Maricel Arguelles RN - 01/27/2025 3:27 PM EDT Pt notified and transferred to imaging PSS to get scheduled. Maricel Arguelles RN. Maricel Arguelles RN * Telephone Encounter - Maricel Arguelles RN - 01/27/2025 3:24 PM EDT Betty Cadena MD to [facility] Ob-Reinforcement Maker Pool 01/27/25 3:12 PM Result Note Diagnostic mammogram recommended. Will place order JESUS MANUEL SCREENING W LUISA NTONIO * Telephone Encounter - Betty Cadena MD - 01/27/2025 3:12 PM EDT See result note. Additional breast imaging ordered documented in this encounterThe [facility] Telephone encounter Note * Telephone Encounter - Maricel Arguelles RN - 01/27/2025 3:24 PM EDT Betty Cadena MD to [facility] Ob-Reinforcement Maker Pool 01/27/25 3:12 PM Result Note Diagnostic mammogram recommended. Will place order JESUS MANUEL SCREENING W LUIS ANTONIO [facility]05-02-2025 Telephone encounter Note* Telephone Encounter - Betty Cadena MD - 01/27/2025 3:12 PM EDT See result note. Additional breast imaging ordered [facility]05-01-2025 Telephone encounter Note* Telephone Encounter - Rajiv Turner RN - 01/26/2025 9:43 AM EDT Called and spoke with pharmacist Marika at [facility] pharmacy and discussed with him why pt cannot get her Valsartan. Per script sent on 09/14/24, Valsartan was for 30 with 5 refills. Per Marika, a30 day supply was dispensed in August then pt requested a 90 day supply which they dispensed on 10/12/24 which leaves pt with 60 pills that they can dispense. Marika is unsure why they were telling pt that they needed something from prescribing doctor's office. He will get the 60 tablets ready. Attempted to contact pt as she stated yesterday she has been out of her BP med for several days. Pt did not answer. Left generic msg to check at pharmacy as med problem was taken care of and to call with any issues. Pt's next appt is 03/[address] Edmondson. Added to appt comment need for prescription refills for 90 days. [facility]05-01-2025 Miscellaneous Notes* Telephone Encounter - Rajiv Turner RN - 01/26/2025 9:43 AM EDT Called and spoke with jr Hairston at [facility] pharmacy and discussed with him why pt cannot get her Valsartan. Per script sent on 09/14/24, Valsartan was for 30 with 5 refills. Per Marika, a30 day supply was dispensed in August then pt requested a 90 day supply which they dispensed on 10/12/24 which leaves pt with 60 pills that they can dispense. Marika is unsure why they were telling pt that they needed something from prescribing doctor's office. He will get the 60 tablets ready. Attempted to contact pt as she stated yesterday she has been out of her BP med for several days. Pt did not answer. Left generic msg to check at pharmacy as med problem was taken care of and to call with any issues. Pt's next appt is 03/[address] Edmondson. Added to appt comment need for prescription refills for 90 days. * Telephone Encounter - Rajiv Turner RN - 01/25/2025 5:30 PM EDT Pt calling in stating she is having a problem getting her BP medication Valsartan from [facility].Pt states she has been out of med for 3 days and calling [facility] who has told her they have reached outto Dr. Edmondson's office with no response. They are telling pt that she needs a new script. Per last script sent in to [facility] on 09/14/2024, script was sent for Valsartan 80 mg take 1 tablet daily. Dispense 30 with 5 refills which should take pt to approximately mid January. Per dispense report, it appears that [facility] did a 90 day supply (90 tablets) dispensed to pt on 10/12/2024. Only a 30 day supplywas sent in with refills and per dispense report, only 90 tablets were dispensed from the script sent in on 09/14/24 and it states 4 refills remaining. [facility] pharmacy [place] needs called for clarification on how they filled and dispensed pt's 09/14/24 prescription as it appears pt should still have 90 tablets left. Will call tomorrow to confirm with pharmacy and contact pt back. Pt is out of meds and needs jaiden. documented in this encounterThe [facility]04-[facility] Telephone encounter Note * Telephone Encounter - Rajiv Turner RN - 01/25/2025 5:30 PM EDT Pt calling in stating she is having a problem getting her BP medication Valsartan from [facility].Pt states she has been out of med for 3 days and calling [facility] who has told her they have reached outto Dr. Edmondson's office with no response. They are telling pt that she needs a new script. Per last script sent in to [facility] on 09/14/2024, script was sent for Valsartan 80 mg take 1 tablet daily. Dispense 30 with 5 refills which should take pt to approximately mid January. Per dispense report, it appears that [facility] did a 90 day supply (90 tablets) dispensed to pt on 10/12/2024. Only a 30 day supplywas sent in with refills and per dispense report, only 90 tablets were dispensed from the script sent in on 09/14/24 and it states 4 refills remaining. [facility] pharmacy [facility] called for clarification on how they filled and dispensed pt's 09/14/24 prescription as it appears pt should still have 90 tablets left. Will call tomorrow to confirm with pharmacy and contact pt back. Pt is out of meds and needs jaiden. [facility]04-30-2025 History of Present illness Narrative* Abdirahman Chisholm Mammo Tech - 01/25/2025 7:30 AM EDT Radiology Service Progress Note PATIENT NAME: Fany Marrero DATE OF SERVICE: January 25, 2025 TIME: 7:51 AM PATIENT IDENTITY VERIFICATION COMPLETED USING TWO (2) IDENTIFIERS: Name and Date of confirmedby patient verbally. FALL SCREENING: Has the patient had 2 falls in the last year or 1 fall with injury or currently using an Ambulatory Assistive Device (Walker, Cane, Wheelchair, Crutches, etc.)? No PATIENT GENDER DATA: Assigned female at . status: : No status:NO. PATIENT RELEVANT IMPLANT DATA REVIEWED: Not Applicable PATIENT PRESENTS WITH AN IMPLANTABLE OR ATTACHED TRUST CLERK: No RADIOLOGY DEPARTMENT: Mammography PERIPHERAL IV DATA: Not applicable SIGNED BY: Ke Bhatt January 25, 2025 7:51 AM documented in this encounterThe [facility]04-[facility]-2025 NoteHNO ID: [id number] Author: ABDIRAHMAN CHISHOLM Mammo Tech Service: ? Author Type: Cabinet Abrasive Sandblaster Type: Progress Notes Filed: 01/25/2025 07:51 Note Text: Radiology Service Progress Note PATIENT NAME: Fany Marrero DATE OF SERVICE: January 25, 2025 TIME: 7:51 AM PATIENT IDENTITY VERIFICATION COMPLETED USING TWO (2) IDENTIFIERS: Name and Date of confirmed by patient verbally. FALL SCREENING: Has the patient had 2 falls in the last year or 1 fall with injury or currently using an Ambulatory Assistive Device (Walker, Cane, Wheelchair, Crutches, etc.)? No PATIENT GENDER DATA: Assigned female at . status: : No status: NO. PATIENT RELEVANT IMPLANT DATA REVIEWED: Not Applicable PATIENT PRESENTS WITH AN IMPLANTABLE OR ATTACHED TRUST CLERK: No RADIOLOGY DEPARTMENT: Mammography PERIPHERAL IV DATA: Not applicable SIGNED BY: Ke Bhatt January 25, 2025 7:51 [facility]04-11-2025 NoteHNO ID: [id number] Author: BETTY CADENA MD Service: ? 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 Soares is a 59 year old who presents for an annual gynecologic exam without complaints. Postmenopausal: ANDREW Had a hysterectomy with LSO for fibroid uterus Had RSO for right ovarian cysts noted at time of appendicitis Did not experience bothersome menopausal symptoms HRT use: No. Age at Menarche: 12 Still get period: No Menses: ANDREW Menstrual flow: N/A Bleeding amount bothersome: N/A Bleeding between periods: N/A Period symptoms: N/A Sexually active: No Contraception: Other hysterectomy Contraception frequency: Always HPV vaccine: No Last pap smear: none on file History of abnormal pap: No Colposcopy: No. Leep: No. Cone biopsy: No. Bothersome pelvic pain: No Last mammogram: 2022 normal History of abnormal mammogram: No OB History Gravida1 Para0 Term0 Preterm0 AB0 Living1 SAB0 IAB0 Ectopic0 Multiple0 Live Births0 Comment: Twins, miscarried one. FAMILY HISTORY Problem Relation Age of Onset Anesthesia Mother Diabetes Mother Heart Mother Hypertension Mother Parkinson?s Disease Mother Dementia Mother Anesthesia Father Heart Sister Seizures Sister Hypertension Sister Seizures Sister Anesthesia Brother Diabetes Maternal Grandmother Cancer Maternal Grandfather Diabetes Paternal Grandmother Stroke Paternal Grandmother Breast Cancer Maternal Aunt SOCIAL HISTORY Social History Tobacco Use Smoking status: Never Smokeless tobacco: Never Vaping Use Vaping status: Never Used Substance Use Topics Alcohol use: No Drug use: Never REVIEW OF SYSTEMS Abdomen: No abdominal pain, nausea, vomiting, diarrhea, or constipation. No bloating, early satiety, indigestion, or increased flatulence. Bladder: No dysuria, gross hematuria, urinary frequency, urinary urgency, or incontinence Breast: No breast lumps, nipple d/c, overlying skin changes, redness or skin retraction Allergies and current medication updated:Yes SENSITIVE EXAM: The sensitive examination was discussed with the Patient or Patient's Authorized Alcoholism Worker. As applicable, any other physician, advance practice provider, medical student, or other health professional student that will be observing or involved in the sensitive examination for educational or training purposes was discussed with the Patient or Authorized Alcoholism Worker. The Patient or Authorized Alcoholism Worker has agreed to proceed with the sensitive examination. (Sensitive examination includes inspection and/or palpation of the breasts, pelvis, prostate and anorectal regions). EXAM: BP 110/78 Ht 5' 2.795 (1.60m) Wt 182 lb 12.8 oz (82.9kg) BMI 32.59 kg/(m2). GENERAL: pleasant, female in no apparent distress HEENT: Normocephalic and atraumatic NECK: full range of motion BREAST: soft, non-tender, symmetric, no dominant mass, normal nipple-areolar complex, no lymphadenopathy, and no nipple discharge CHEST: Normal inspiratory effort ABDOMEN: soft, non-tender, and no masses PELVIC: external genitalia atrophic, normal Bartholin's glands, urethra, Pepin's glands, no vulvar lesions, good vaginal support, physiologic discharge present, normal appearing perineal body and perianal region BIMANUAL: no adnexal masses and non-tender RECTOVAGINAL: deferred. NEURO: exam grossly non-focal EXTREMITIES: normal ASSESSMENT/PLAN: 1) Health maintenance: Pap/HPV screening no longer needed Mammogram ordered Nutrition, exercise and routine health maintenance exams reviewed. Colon cancer screening: up to date with screening TSH/lipids/glucose: followed by PCP 2) Follow up one year or sooner as needed 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 Fany is a 59 year old who presents for an annual gynecologic exam without complaints. Postmenopausal: ANDREW Had a hysterectomy with LSO for fibroid uterus Had RSO for right ovarian cysts noted at time of appendicitis Did not experience bothersome menopausal symptoms HRT use: No. Age at Menarche: 12 Still get period: No Menses: ANDREW Menstrual flow: N/A Bleeding amount bothersome: N/A Bleeding between periods: N/A Period symptoms: N/A Sexually active: No Contraception: Other hysterectomy Contraception frequency: Always HPV vaccine: No Last pap smear: none on file History of abnormal pap: No Colposcopy: No. Leep: No. Cone biopsy: No. Bothersome pelvic pain: No Last mammogram: 2022 normal History of abnormal mammogram: No OB History Gravida1 Para0 Term0 Preterm0 AB0 Living1 SAB0 IAB0 Ectopic0 Multiple0 Live Births0 Comment: Twins, miscarried one. FAMILY HISTORY Problem Relation Age of Onset Anesthesia Mother Diabetes Mother Heart Mother Hypertension Mother Parkinson s Disease Mother Dementia Mother Anesthesia Father Heart Sister Seizures Sister Hypertension Sister Seizures Sister Anesthesia Brother Diabetes Maternal Grandmother Cancer Maternal Grandfather Diabetes Paternal Grandmother Stroke Paternal Grandmother Breast Cancer Maternal Aunt SOCIAL HISTORY Social History Tobacco Use Smoking status: Never Smokeless tobacco: Never Vaping Use Vaping status: Never Used Substance Use Topics Alcohol use: No Drug use: Never REVIEW OF SYSTEMS Abdomen: No abdominal pain, nausea, vomiting, diarrhea, or constipation. No bloating, early satiety, indigestion, or increased flatulence. Bladder: No dysuria, gross hematuria, urinary frequency, urinary urgency, or incontinence Breast: No breast lumps, nipple d/c, overlying skin changes, redness or skin retraction Allergies and current medication updated:Yes SENSITIVE EXAM: The sensitive examination was discussed with the Patient or Patient's Authorized Alcoholism Worker. As applicable, any other physician, advance practice provider, medical student, or other health professional student that will be observing or involved in the sensitive examination for educational or training purposes was discussed with the Patient or Authorized Alcoholism Worker. The Patient or Authorized Alcoholism Worker has agreed to proceed with the sensitive examination. (Sensitive examination includes inspection and/or palpation of the breasts, pelvis, prostate and anorectal regions). EXAM: BP 110/78 Ht 5' 2.795 (1.60m) Wt 182 lb 12.8 oz (82.9kg) BMI 32.59 kg/(m^2). GENERAL: pleasant, female in no apparent distress HEENT: Normocephalic and atraumatic NECK: full range of motion BREAST: soft, non-tender, symmetric, no dominant mass, normal nipple-areolar complex, no lymphadenopathy, and no nipple discharge CHEST: Normal inspiratory effort ABDOMEN: soft, non-tender, and no masses PELVIC: external genitalia atrophic, normal Bartholin's glands, urethra, Pepin's glands, no vulvar lesions, good vaginal support, physiologic discharge present, normal appearing perineal body and perianal region BIMANUAL: no adnexal masses and non-tender RECTOVAGINAL: deferred. NEURO: exam grossly non-focal EXTREMITIES: normal ASSESSMENT/PLAN: 1) Health maintenance: Pap/HPV screening no longer needed Mammogram ordered Nutrition, exercise and routine health maintenance exams reviewed. Colon cancer screening: up to date with screening TSH/lipids/glucose: followed by PCP 2) Follow up one year or sooner as needed Betty Cadena DO [facility] NoteHNO ID: [id number] Author: DANI HODGE MA Service: ? Author Type: Veterans' Coordinator Type: Progress Notes Filed: 12/05/2024 10:30 Note Text: Scan on 11/29/2024 4:22 PM by Provider, External, PA-C: Consultation - Emergency Medicine Dani Hodge, [facility]03-10-2025 History of Present illness Narrative* Dani Hodge MA - 12/05/2024 10:30 AM EDT Scan on 11/29/2024 4:22 PM by Provider, JOLYNN Singer: Consultation - Emergency Medicine Dani Hodge MA documented in [facility] encounterThe [facility]01-24-2025 NoteHNO ID: [id number] Author: NINA SCHERER PA-C Service: ? Author Type: Physician Chuck Splitter Type: Progress Notes Filed: 10/21/2024 07:55 Note Text: Chief Complaint Patient presents with: Recheck: Blood pressure HPI Fany Marrero is a 59 year old female who presents here today for recheck bp. Patient was switched to valsartan from metoprolol. Patient is tolerating medication well. Hasn't been checking home BP yet. Just found her home machine yesterday. Past medical history, appointments, medications, allergies reviewed. Previous Medical History PAST MEDICAL HISTORY Diagnosis Date AK (actinic keratosis) 07/07/2023 ventral right forearm near elbow, Tx 06/2023 Asthma due to seasonal allergies 12/09/2021 Elevated hemoglobin A1c 08/11/2023 Encounter for routine gynecological examination 05/09/[address] Renner Fatty liver GERD without esophagitis 05/09/2021 History of shingles 06/24/202210/2021 Hypertension, essential 05/09/2021 Hypothyroid Hypothyroidism, acquired 05/09/2021 Dr. Rodriguez Neck pain 07/07/2023 Known cervical fusion Obesity, Class I, BMI 30-34.9 09/14/2024 Pharyngoesophageal dysphagia 07/29/2021 [facility] Seasonal allergies 12/09/2021 Stage 3a chronic kidney disease (HCC) 12/26/2022 Well adult exam 06/24/2022 last done: 07/07/2023 Previous Surgical History PAST SURGICAL HISTORY Procedure Laterality Date ADDITIONAL SPINAL FUSION 09/28/2008 cervical c5/c6 COLONOSCOPY FLX DX W/COLLJ SPEC WHEN PFRMD 07/29/2021 ESOPHAGOGASTRODUODENOSCOPY TRANSORAL DIAGNOSTIC 07/29/2021 attmpted but unable to complete LAPAROSCOPIC APPENDECTOMY 12/08/2013 assist [facility] OOPHORECTOMY PARTIAL/TOTAL UNI/BI Right 12/08/2013 TOTAL ABDOM HYSTERECTOMY 2015 UNLISTED LAPAROSCOPY, ABD 09/28/1995 Family History FAMILY HISTORY Problem Relation Age of Onset Anesthesia Mother Diabetes Mother Heart Mother Hypertension Mother Parkinson?s Disease Mother Dementia Mother Anesthesia Father Heart Sister Seizures Sister Hypertension Sister Seizures Sister Anesthesia Brother Diabetes Maternal Grandmother Cancer Maternal Grandfather Diabetes Paternal Grandmother Stroke Paternal Grandmother Breast Cancer Maternal Aunt Patient Allergies ALLERGIES Allergen Reactions Lisinopril Rash, Itching Codeine Other: See Comments Strong family reaction to this medication Penicillins Swelling Tape [Adhesive Tape* Other: See Comments Blistering and skin tears Vicodin [Hydrocodon* Rash Current Medications Current Outpatient Medications on File Prior to Visit Medication Sig omeprazole (PRILOSEC) 40 mg capsule Take 1 capsule by mouth daily before breakfast. 1/2 hr before meal. EPINEPHrine (EPIPEN) 0.3 mg/0.3 mL auto-injector Inject once with onset of shortness of breath or throat swelling due to allergic reaction valsartan (DIOVAN) 80 mg tablet Take 1 tablet by mouth once daily. fluticasone (FLONASE) 50 mcg/actuation nasal spray Use 2 Sprays in each nostril once daily. Rinse mouth after use. cetirizine (ZYRTEC) 10 mg tablet Take 1 tablet by mouth once daily. empagliflozin (JARDIANCE) 25 mg tablet Take 1 tablet by mouth once daily. Take 1 tablet once daily in the morning. Per Dr. Rodriguez (for CKD) albuterol HFA (PROAIR HFA) 90 mcg/actuation inhaler Inhale 2 Puffs as instructed every 4 hours as needed for wheezing/shortness of breath. levothyroxine (SYNTHROID) 88 mcg tablet Take 1 tablet by mouth daily before breakfast. Per endo: Dr. Rodriguez Blood Pressure Monitor 1 Each once daily. Use daily. cyclobenzaprine (FLEXERIL) 10 mg tablet Take 1 tablet by mouth three times a day as needed for muscle spasm for up to 12 doses. (Patient not taking: Reported on 10/21/2024) No current facility-administered medications on file prior to visit. Social History Social History Tobacco Use Smoking status: Never Smokeless tobacco: Never Vaping Use Vaping status: Never Used Substance Use Topics Alcohol use: No Drug use: Never Review of Symptoms REVIEW OF SYSTEMS Denies chest pain or shortness of breath. EXAM: BP 117/80 (BP Site: Left Arm, BP Position: Sitting, BP Cuff Size: Regular Adult) Pulse 79 Temp (P) 36.6 ?C (97.8 ?F) Resp (P) 18 Wt (P) 83.5 kg (184 lb) SpO2 (P) 98% BMI (P) 32.59 kg/m? General Appearance: Well appearing, alert, in no acute distress, well-hydrated, well nourished.. Neck: Supple, no adenopathy; thyroid symmetric, normal size, no bruits. Lungs: Lungs clear to auscultation. No wheezing, rhonchi, rales.. Heart: RRR without murmur, gallop, or rubs. No ectopy. Health Maintenance List Cervical Cancer Screening Never done Mammogram Screening Never done BP Controlled (<130/80) due on 07/07/2024 Serum Creatinine due on 12/23/2024 Depression Screening due on 01/06/2025 Anxiety Screening due on 01/06/2025 Hemoglobin/Hematocrit due on 09/14/2025 Annual PCP Team Chronic Disease Visit due on (more content not included)...[facility]01-24-2025 History of Present illness Narrative* Nina Scherer PA-C - 10/21/2024 7:47 AM EST Chief Complaint Patient presents with: Recheck: Blood pressure HPI Fany Marrero is a 59 year old female who presents here today for recheck bp. Patient was switched to valsartan from metoprolol. Patient is tolerating medication well. Hasn't been checking home BP yet. Just found her home machine yesterday. Past medical history, appointments, medications, allergies reviewed. Previous Medical History PAST MEDICAL HISTORY Diagnosis Date AK (actinic keratosis) 07/07/2023 ventral right forearm near elbow, Tx 06/2023 Asthma due to seasonal allergies 12/09/2021 Elevated hemoglobin A1c 08/11/2023 Encounter for routine gynecological examination 05/09/[address] Renner Fatty liver GERD without esophagitis 05/09/2021 History of shingles 06/24/202210/2021 Hypertension, essential 05/09/2021 Hypothyroid Hypothyroidism, acquired 05/09/2021 Dr. Rodriguez Neck pain 07/07/2023 Known cervical fusion Obesity, Class I, BMI 30-34.9 09/14/2024 Pharyngoesophageal dysphagia 07/29/2021 [facility] Seasonal allergies 12/09/2021 Stage 3a chronic kidney disease (HCC) 12/26/2022 Well adult exam 06/24/2022 last done: 07/07/2023 Previous Surgical History PAST SURGICAL HISTORY Procedure Laterality Date ADDITIONAL SPINAL FUSION 09/28/2008 cervical c5/c6 COLONOSCOPY FLX DX W/COLLJ SPEC WHEN PFRMD 07/29/2021 ESOPHAGOGASTRODUODENOSCOPY TRANSORAL DIAGNOSTIC 07/29/2021 attmpted but unable to complete LAPAROSCOPIC APPENDECTOMY 12/08/2013 assist [facility] OOPHORECTOMY PARTIAL/TOTAL UNI/BI Right 12/08/2013 TOTAL ABDOM HYSTERECTOMY 2014 UNLISTED LAPAROSCOPY, ABD 09/28/1995 Family History FAMILY HISTORY Problem Relation Age of Onset Anesthesia Mother Diabetes Mother Heart Mother Hypertension Mother Parkinson s Disease Mother Dementia Mother Anesthesia Father Heart Sister Seizures Sister Hypertension Sister Seizures Sister Anesthesia Brother Diabetes Maternal Grandmother Cancer Maternal Grandfather Diabetes Paternal Grandmother Stroke Paternal Grandmother Breast Cancer Maternal Aunt Patient Allergies ALLERGIES Allergen Reactions Lisinopril Rash, Itching Codeine Other: See Comments Strong family reaction to this medication Penicillins Swelling Tape [Adhesive Tape* Other: See Comments Blistering and skin tears Vicodin [Hydrocodon* Rash Current Medications Current Outpatient Medications on File Prior to Visit Medication Sig omeprazole (PRILOSEC) 40 mg capsule Take 1 capsule by mouth daily before breakfast. 1/2 hr before meal. EPINEPHrine (EPIPEN) 0.3 mg/0.3 mL auto-injector Inject once with onset of shortness of breath or throat swelling due to allergic reaction valsartan (DIOVAN) 80 mg tablet Take 1 tablet by mouth once daily. fluticasone (FLONASE) 50 mcg/actuation nasal spray Use 2 Sprays in each nostril once daily. Rinse mouth after use. cetirizine (ZYRTEC) 10 mg tablet Take 1 tablet by mouth once daily. empagliflozin (JARDIANCE) 25 mg tablet Take 1 tablet by mouth once daily. Take 1 tablet once daily in the morning. Per Dr. Rodriguez (for CKD) albuterol HFA (PROAIR HFA) 90 mcg/actuation inhaler Inhale 2 Puffs as instructed every 4 hours as needed for wheezing/shortness of breath. levothyroxine (SYNTHROID) 88 mcg tablet Take 1 tablet by mouth daily before breakfast. Per endo: Dr. Rodriguez Blood Pressure Monitor 1 Each once daily. Use daily. cyclobenzaprine (FLEXERIL) 10 mg tablet Take 1 tablet by mouth three times a day as needed for muscle spasm for up to 12 doses. (Patient not taking: Reported on 10/21/2024) No current facility-administered medications on file prior to visit. Social History Social History Tobacco Use Smoking status: Never Smokeless tobacco: Never Vaping Use Vaping status: Never Used Substance Use Topics Alcohol use: No Drug use: Never Review of Symptoms REVIEW OF SYSTEMS Denies chest pain or shortness of breath. EXAM: BP 117/80 (BP Site: Left Arm, BP Position: Sitting, BP Cuff Size: Regular Adult) Pulse 79 Temp (P) 36.6 C (97.8 F) Resp (P) 18 Wt (P) 83.5 kg (184 lb) SpO2 (P) 98% BMI (P) 32.59 kg/m General Appearance: Well appearing, alert, in no acute distress, well-hydrated, well nourished.. Neck: Supple, no adenopathy; thyroid symmetric, normal size, no bruits. Lungs: Lungs clear to auscultation. No wheezing, rhonchi, rales.. Heart: RRR without murmur, gallop, or rubs. No ectopy. Health Maintenance List Cervical Cancer Screening Never done Mammogram Screening Never done BP Controlled (<130/80) due on 07/07/2024 Serum Creatinine due on 12/23/2024 Depression Screening due on 01/06/2025 Anxiety Screening due on 01/06/2025 Hemoglobin/Hematocrit due on 09/14/2025 Annual PCP Team Chronic Disease Visit due on 10/21/2025 Diabetes Screening due on 09/14/2027 Lipid Screening due on 09/15/2029 Colorectal Cancer Screening due on 07/29/2031 DTaP,Tdap,Td Vaccine(2 - Td or Tdap) due on 06/24/2032 Spirometry Discontinued Influenza Vaccine Discontinued Hepatitis C Screening Discontinued HIV Screening Discontinued Shingrix Vaccine Discontinued Covid-19 Vaccine Discontinued Pneumococcal Vaccine: 50+ Discontinued Data reviewed ASSESSMENT/PLAN: 1. Hypertension, essential - ICD9: 401.9, ICD10: I10 - Controlled - Continue current medications - Recommend home blood pressure monitoring, to bring results to next visit - Encouraged sodium restriction, DASH or Mediterranean diet - Recommend regular aerobic exercise Nina Scherer PA-C documented in [facility] encounterThe [facility]12-20-2024 NoteHNO ID: [id number] Author: CATARINO BINGHAM LPN Service: ? Author Type: LICENSED NURSE Type: Progress Notes Filed: 09/16/2024 10:28 Note Text: Scan on 09/16/2024 9:47 AM by ProviderEnmanuel PA-C: [facility] History of Present illness Narrative* Catarino Bingham LPN - 09/16/2024 10:28 AM EST Scan on 09/16/2024 9:47 AM by ProviderEnmanuel PA-C: Consultation - Endocrinology documented in this encounterThe [facility]12-20-2024 Telephone encounter Note * Telephone Encounter - Catarino Bingham LPN - 09/16/2024 9:06 AM EST Pt notified of same. Catarino Bingham LPN [facility]12-20-2024 Miscellaneous Notes* Telephone Encounter - Catarino Bingham LPN - 09/16/2024 9:06 AM EST Pt notified of lowell. Catarino Bingham LPN * Telephone Encounter - Jani Edmondson MD - 09/15/2024 7:49 PM EST Let patient know her Vit B12, Magnesium, and lipid panel were all ok. documented in this encounterThe [facility]12-19-2024 Telephone encounter Note * Telephone Encounter - Jani Edmondson MD - 09/15/2024 7:49 PM EST Let patient know her Vit B12, Magnesium, and lipid panel were all ok. [facility]12[facility] History of Present illness Narrative* Jani Edmondson MD - 09/14/2024 6:00 PM EST Chief Complaint Patient presents with: Physical HPI Fany Marrero is a 59 year old female who presents here today for Physical. Patient with hx of HTN, Fatty liver, GERD, hypothyroid, CKD, and those as below. Last visit with Dr. Rodriguez 11/2023 Patient has been dong ok. 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 Mariusz BP: average 139/87 149/89 149/92 135/83 142/86 138/87 131/85 Past medical history, appointments, medications, allergies reviewed. Previous Medical History PAST MEDICAL HISTORY Diagnosis Date AK (actinic keratosis) 07/07/2023 ventral right forearm near elbow, Tx 06/2023 Asthma due to seasonal allergies 12/09/2021 Elevated hemoglobin A1c 08/11/2023 Encounter for routine gynecological examination 05/09/[address] Renner Fatty liver GERD without esophagitis 05/09/2021 History of shingles 06/24/202210/2021 Hypertension, essential 05/09/2021 Hypothyroid Hypothyroidism, acquired 05/09/2021 Dr. Rodriguez Neck pain 07/07/2023 Known cervical fusion Obesity, Class I, BMI 30-34.9 09/14/2024 Pharyngoesophageal dysphagia 07/29/2021 [facility] Seasonal allergies 12/09/2021 Stage 3a chronic kidney disease (HCC) 12/26/2022 Well adult exam 06/24/2022 last done: 07/07/2023 Previous Surgical History PAST SURGICAL HISTORY Procedure Laterality Date ADDITIONAL SPINAL FUSION 09/28/2008 cervical c5/c6 COLONOSCOPY FLX DX W/COLLJ SPEC WHEN PFRMD 07/29/2021 ESOPHAGOGASTRODUODENOSCOPY TRANSORAL DIAGNOSTIC 07/29/2021 attmpted but unable to complete LAPAROSCOPIC APPENDECTOMY 12/08/2013 assist [facility] OOPHORECTOMY PARTIAL/TOTAL UNI/BI Right 12/08/2013 TOTAL ABDOM HYSTERECTOMY 2014 UNLISTED LAPAROSCOPY, ABD 09/28/1995 Family History FAMILY HISTORY Problem Relation Age of Onset Anesthesia Mother Diabetes Mother Heart Mother Hypertension Mother Parkinson s Disease Mother Dementia Mother Anesthesia Father Heart Sister Seizures Sister Hypertension Sister Seizures Sister Anesthesia Brother Diabetes Maternal Grandmother Cancer Maternal Grandfather Diabetes Paternal Grandmother Stroke Paternal Grandmother Breast Cancer Maternal Aunt Patient Allergies ALLERGIES Allergen Reactions Lisinopril Rash, Itching Codeine Other: See Comments Strong family reaction to this medication Penicillins Swelling Tape [Adhesive Tape* Other: See Comments Blistering and skin tears Vicodin [Hydrocodon* Rash Current Medications Current Outpatient Medications on File Prior to Visit Medication Sig cyclobenzaprine (FLEXERIL) 10 mg tablet Take 1 tablet by mouth three times a day as needed for muscle spasm for up to 12 doses. omeprazole (PRILOSEC) 40 mg capsule Take 1 capsule by mouth daily before breakfast. 1/2 hr before meal. fluticasone (FLONASE) 50 mcg/actuation nasal spray Use 2 Sprays in each nostril once daily. Rinse mouth after use. cetirizine (ZYRTEC) 10 mg tablet Take 1 tablet by mouth once daily. empagliflozin (JARDIANCE) 25 mg tablet Take 1 tablet by mouth once daily. Take 1 tablet once daily in the morning. Per Dr. Rodriguez (for CKD) cyclobenzaprine (FLEXERIL) 10 mg tablet Take 1/2 - 1 tablet every 8 hours as needed for spasm albuterol HFA (PROAIR HFA) 90 mcg/actuation inhaler Inhale 2 Puffs as instructed every 4 hours as needed for wheezing/shortness of breath. metoprolol succinate ER (TOPROL XL) 25 mg 24 hr tablet Take 1 tablet by mouth once daily. levothyroxine (SYNTHROID) 88 mcg tablet Take 1 tablet by mouth daily before breakfast. Per endo: Dr. Rodriguez Blood Pressure Monitor 1 Each once daily. Use daily. No current facility-administered medications on file prior to visit. Social History Social History Tobacco Use Smoking status: Never Smokeless tobacco: Never Vaping Use Vaping status: Never Used Substance Use Topics Alcohol use: No Drug use: Never Review of Symptoms REVIEW OF SYSTEMS GENERAL: No weight loss, malaise or fevers HEENT: Negative for frequent or significant headaches, No changes in hearing or vision, no nose bleeds or other nasal problems NECK: Negative for lumps, goiter, pain and significant neck swelling RESPIRATORY: Negative for cough, hemoptysis, wheezing, COPD, dyspnea or shortness of breath CARDIOVASCULAR: Negative for chest pain, leg swelling, hypertension, CHF or palpitations GI: No nausea, vomiting, or diarrhea, No heartburn or reflux symptoms, and no blood : No history of dysuria, frequency or blood MUSCULOSKELETAL: Negative for new or changes in his typical joint pain or swelling, back pain or muscle pain. Still gets back spasms at times and questions if this is related to her large breasts. SKIN: Negative for lesions, rash, and itching PSYCH: Negative for sleep disturbance, mood disorder and recent psychosocial stressors HEMATOLOGY/LYMPHOLOGY: Negative for prolonged bleeding, bruising easily or swollen nodes ENDOCRINE: Negative for cold or heat intolerance, polyuria, polydipsia and goiter NEURO: No history of headaches, syncope, paralysis, seizures or tremors EXAM: BP 144/94 Pulse 76 Resp 16 Ht 160 cm (5' 3) Wt 83.9 kg (185 lb) BMI 32.77 kg/m BP 144/94 Pulse 76 Resp 16 Ht 160 cm (5' 3) Wt 83.9 kg (185 lb) BMI 32.77 kg/m Last 6 Encounter BP Readings: Date: BP: 09/14/2024 144/94 07/22/2024 152/91 01/07/2024 127/82 12/05/2023 135/85 08/28/2023 142/86 07/07/2023 124/84 Last 5 Encounter Wt Readings: Date: Wt: 09/14/2024 83.9 kg (185 lb) 07/22/2024 85 kg (187 lb 6.3 oz) 01/07/2024 84.4 kg (186 lb) 12/05/2023 84.8 kg (186 lb 15.2 oz) 08/28/2023 86.2 kg (190 lb) General Appearance: Well appearing, alert, in no acute distress, well-hydrated, well nourished. andObese. Skin: Skin color, texture, turgor normal, no suspicious rashes or lesions. Head: Normocephalic, no masses, lesions, tenderness or abnormalities. Eyes: Anicteric sclera. Pupils are equally round and reactive to light. Extraocular movements are intact. . Ears: External ears, TM's normal, canals clear. Nose/Sinuses: Nares normal, septum midline, mucosa normal, no drainage or sinus tenderness. Oropharynx: Lips, mucosa, and tongue normal, teeth and gums normal, oropharynx normal. Neck: Supple, no adenopathy; thyroid symmetric, normal size, no bruits. Lungs: Lungs clear to auscultation. No wheezing, rhonchi, rales.. Heart: RRR without murmur, gallop, or rubs. No ectopy. Abdomen: Normal abdominal exam, Abdomen soft, non-tender. Bowel sounds normal. No masses, organomegaly. Extremities: No deformities, edema, skin discoloration, Good capillary refill. . Musculoskeletal: Muscular strength intact, No joint swelling, deformity, or tenderness. Peripheral Pulses: Normal. Neurologic: Gait normal. Reflexes normal and symmetric. Sensation to light touch and crainal nerves2-12 intact.. Health Maintenance List Cervical Cancer Screening Never done Mammogram Screening Never done BP Controlled (<130/80) due on 07/07/2024 Serum Creatinine due on 12/23/2024 Depression Screening due on 01/06/2025 Anxiety Screening due on 01/06/2025 Hemoglobin/Hematocrit due on 01/06/2025 Annual PCP Team Chronic Disease Visit due on 09/14/2025 Diabetes Screening due on 12/20/2026 Lipid Screening due on 12/20/2027 Colorectal Cancer Screening due on 07/29/2031 DTaP,Tdap,Td Vaccine(2 - Td or Tdap) due on 06/24/2032 Spirometry Discontinued Influenza Vaccine Discontinued Hepatitis C Screening Discontinued HIV Screening Discontinued Shingrix Vaccine Discontinued Covid-19 Vaccine Discontinued Pneumococcal Vaccine: 50+ Discontinued Data reviewed Latest Ref Rng 09/14/2024 WBC 3.4 - 10.8 K/uL 7.7 (E) RBC 4.14 - 5.80 M/uL 5.25 (E) Hemoglobin 12.6 - 17.7 g/dL 13.1 (E) Hematocrit 37.5 - 51.0 % 43.3 (E) MCV 79 - 97 fL 82.5 (E) MCH 26.6 - 33 Pg 25.0 ! (E) MCHC 31.5 - 35.7 g/dL 30.3 ! (E) RDW 12.3 - 15.4 % 14.0 (E) Platelet Count 150 - 379 k/uL 254 (E) Neutrophil % % 66.1 (E) Lymphocyte % % 20.8 (E) Monocyte % % 9 (E) Eosinophil % % 2.8 (E) Basophil % % 0.8 (E) NEUTROPHILS ABSOLUTE 1.4 - 7.0 k/uL 5.1 (E) LYMPHS ABSOLUTE 0.7 - 3.1 k/uL 1.61 (E) NA 136 - 145 mmol/L 138 (E) K 3.5 - 5.1 mmol/L 4.1 (E) Chloride 98 - 107 MEQ/L 108 ! (E) CO2 21 - 32 MEQ/L 27 (E) Glucose 74 - 106 MG/DL 108 ! (E) BUN 7 - 18 MG/DL 18 (E) Creatinine 0.6 - 1.3 MG/DL 1.19 (E) GFR mL/MIN 49 (E) GFR AFR AMER mL/MIN 60 (E) Total Protein 6.4 - 8.2 gm/dL 7.3 (E) Albumin 3.2 - 4.6 gm/dL 3.2 (E) Calcium 8.5 - 10.1 mg/dL 9.2 (E) Bili Total 0.2 - 1 mg/dL 0.6 (E) AST 8 - 37 U/L 29 (E) ALT (SGPT) 12 - 78 U/L 33 (E) Alk Phos Total 45 - 117 U/L 134 ! (E) A/P ASSESSMENT/PLAN: 1. Well adult exam - ICD9: V70.0, ICD10: Z00.00 (primary diagnosis) - Counseled on healthy diet and regular exercise - Discussed need and benefit for weight loss. BMI 32.77 kg/(m^2) - Follow up for annual exam in one year 2. Hypertension, essential - ICD9: 401.9, ICD10: I10 - Uncontrolled - Stop metoprolol succinate and start Diovan 80 mg a day. - Recommend home blood pressure monitoring, to bring results to next visit - Encouraged sodium restriction, DASH or Mediterranean diet - Recommend regular aerobic exercise - Discussed need for and benefit of weight loss. BMI 32.77 kg/(m^2) - f/u HTN check in a month. - LIPID PANEL, NONFASTING 3. Hypothyroidism, acquired - ICD9: 244.9, ICD10: E03.9 - Instructed patient on importance of taking on an empty stomach either first thing in the morning or at bedtime. - continue current dose of Synthroid - cont management with Endo 4. Elevated hemoglobin A1c - ICD9: 790.29, ICD10: R73.09 Check - HEMOGLOBIN A1C 5. GERD without esophagitis - ICD9: 530.81, ICD10: K21.9 - Continue treatment with Prilosec 40 mg QD - VITAMIN B12 - MAGNESIUM 6. Asthma due to seasonal allergies - ICD9: 493.90, ICD10: J45.909 - Mild intermittent asthma stable - Continue current medications - Avoidance of triggers recommended 7. Stage 3a chronic kidney disease (HCC) - ICD9: 585.3, ICD10: N18.31 - eGFR: 45 Improving - Counseled on avoiding NSAIDs, adequate hydration - ACEi/ARB prescribed: Yes - start Diovan 80 mg a day. 8. Fatty liver - ICD9: 571.8, ICD10: K76.0 Encouraged weight loss. 9. Obesity, Class I, BMI 30-34.9 - ICD9: 278.00, ICD10: E66.811 - encouraged weight loss. 10. Neck pain - ICD9: 723.1, ICD10: M54.2 - CONSULT TO PLASTIC SURGERY: [place]. 11. Spasm of back muscles - ICD9: 724.8, ICD10: M62.830 - CONSULT TO PLASTIC SURGERY 12. Large breasts - ICD9: 611.1, ICD10: N62 - CONSULT TO PLASTIC SURGERY 13. Encounter for gynecological examination with abnormal finding - ICD9: V72.31, ICD10: Z01.411 - CONSULT TO APPEALS BOARD REFEREE 14. Medication management - ICD9: V58.69, ICD10: Z79.899 Check - VITAMIN B12 - MAGNESIUM Requested Prescriptions Signed Prescriptions Disp Refills omeprazole (PRILOSEC) 40 mg capsule 30 capsule 5 Sig: Take 1 capsule by mouth daily before breakfast. 1/2 hr before meal. EPINEPHrine (EPIPEN) 0.3 mg/0.3 mL auto-injector 2 Each 1 Sig: Inject once with onset of shortness of breath or throat swelling due to allergic reaction valsartan (DIOVAN) 80 mg tablet 30 tablet 5 Sig: Take 1 tablet by mouth once daily. F/u 1 month HTN check F/u 6 months routine. Jani Edmondson MD documented in [facility]The [facility] NoteHNO ID: [id number] Author: JANI EDMONDSON MD Service: ? Author Type: Physician Type: Progress Notes Filed: 09/14/2024 20:24 Note Text: Chief Complaint Patient presents with: Physical HPI Fany Marrero is a 59 year old female who presents here today for Physical. Patient with hx of HTN, Fatty liver, GERD, hypothyroid, CKD, and those as below. Last visit with Dr. Rodriguez 11/2023 Patient has been dong ok. 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 Mariusz BP: average 139/87 149/89 149/92 135/83 142/86 138/87 131/85 Past medical history, appointments, medications, allergies reviewed. Previous Medical History PAST MEDICAL HISTORY Diagnosis Date AK (actinic keratosis) 07/07/2023 ventral right forearm near elbow, Tx 06/2023 Asthma due to seasonal allergies 12/09/2021 Elevated hemoglobin A1c 08/11/2023 Encounter for routine gynecological examination 05/09/[address] Renner Fatty liver GERD without esophagitis 05/09/2021 History of shingles 06/24/202210/2021 Hypertension, essential 05/09/2021 Hypothyroid Hypothyroidism, acquired 05/09/2021 Dr. Rodriguez Neck pain 07/07/2023 Known cervical fusion Obesity, Class I, BMI 30-34.9 09/14/2024 Pharyngoesophageal dysphagia 07/29/2021 [facility] Seasonal allergies 12/09/2021 Stage 3a chronic kidney disease (HCC) 12/26/2022 Well adult exam 06/24/2022 last done: 07/07/2023 Previous Surgical History PAST SURGICAL HISTORY Procedure Laterality Date ADDITIONAL SPINAL FUSION 09/28/2008 cervical c5/c6 COLONOSCOPY FLX DX W/COLLJ SPEC WHEN PFRMD 07/29/2021 ESOPHAGOGASTRODUODENOSCOPY TRANSORAL DIAGNOSTIC 07/29/2021 attmpted but unable to complete LAPAROSCOPIC APPENDECTOMY 12/08/2013 assist Zurdo OOPHORECTOMY PARTIAL/TOTAL UNI/BI Right 12/08/2013 TOTAL ABDOM HYSTERECTOMY 2015 UNLISTED LAPAROSCOPY, ABD 09/28/1995 Family History FAMILY HISTORY Problem Relation Age of Onset Anesthesia Mother Diabetes Mother Heart Mother Hypertension Mother Parkinson?s Disease Mother Dementia Mother Anesthesia Father Heart Sister Seizures Sister Hypertension Sister Seizures Sister Anesthesia Brother Diabetes Maternal Grandmother Cancer Maternal Grandfather Diabetes Paternal Grandmother Stroke Paternal Grandmother Breast Cancer Maternal Aunt Patient Allergies ALLERGIES Allergen Reactions Lisinopril Rash, Itching Codeine Other: See Comments Strong family reaction to this medication Penicillins Swelling Tape [Adhesive Tape* Other: See Comments Blistering and skin tears Vicodin [Hydrocodon* Rash Current Medications Current Outpatient Medications on File Prior to Visit Medication Sig cyclobenzaprine (FLEXERIL) 10 mg tablet Take 1 tablet by mouth three times a day as needed for muscle spasm for up to 12 doses. omeprazole (PRILOSEC) 40 mg capsule Take 1 capsule by mouth daily before breakfast. 1/2 hr before meal. fluticasone (FLONASE) 50 mcg/actuation nasal spray Use 2 Sprays in each nostril once daily. Rinse mouth after use. cetirizine (ZYRTEC) 10 mg tablet Take 1 tablet by mouth once daily. empagliflozin (JARDIANCE) 25 mg tablet Take 1 tablet by mouth once daily. Take 1 tablet once daily in the morning. Per Dr. Rodriguez (for CKD) cyclobenzaprine (FLEXERIL) 10 mg tablet Take 1/2 - 1 tablet every 8 hours as needed for spasm albuterol HFA (PROAIR HFA) 90 mcg/actuation inhaler Inhale 2 Puffs as instructed every 4 hours as needed for wheezing/shortness of breath. metoprolol succinate ER (TOPROL XL) 25 mg 24 hr tablet Take 1 tablet by mouth once daily. levothyroxine (SYNTHROID) 88 mcg tablet Take 1 tablet by mouth daily before breakfast. Per endo: Dr. Rodriguez Blood Pressure Monitor 1 Each once daily. Use daily. No current facility-administered medications on file prior to visit. Social History Social History Tobacco Use Smoking status: Never Smokeless tobacco: Never Vaping Use Vaping status: Never Used Substance Use Topics Alcohol use: No Drug use: Never Review of Symptoms REVIEW OF SYSTEMS GENERAL: No weight loss, malaise or fevers HEENT: Negative for frequent or significant headaches, No changes in hearing or vision, no nose bleeds or other nasal problems NECK: Negative for lumps, goiter, pain and significant neck swelling RESPIRATORY: Negative for cough, hemoptysis, wheezing, COPD, dyspnea or shortness of breath CARDIOVASCULAR: Negative for chest pain, leg swelling, hypertension, CHF or palpitations GI: No nausea, vomiting, or diarrhea, No heartburn or reflux symptoms, and no blood : No history of dysuria, frequency or blood MUSCULOSKELETAL: Negative for new or changes in his typical joint pain or swelling, back pain or muscle pain. Still gets back spasms at times and questions if this is related to her large breasts. SKIN: Negative for lesions, rash, and itching PSYCH: Negative for sleep disturbance, mood disorder and recent psychosocial stressors HEMATOLOGY/LYMPHOL (more content not included)...[facility] 09-14-2024 NoteHNO ID: [id number] Author: CATARINO BINGHAM LPN Service: ? Author Type: LICENSED NURSE Type: Progress Notes Filed: 09/14/2024 11:06 Note Text: Scan on 09/14/2024 9:44 AM by ProviderEnmanuel PA-C: ChemistryPrem[facility]12-18-2024 History of Present illness Narrative* Catarino Bingham LPN - 09/14/2024 11:06 AM EST Scan on 09/14/2024 9:44 AM by ProviderEnmanuel PAHeatherC: Chemistry documented in this encounterThe [facility]12-18-2024 NoteHNO ID: [id number] Author: CATARINO BINGHAM LPN Service: ? Author Type: LICENSED NURSE Type: Progress Notes Filed: 09/14/2024 09:13 Note Text: Scan on 09/14/2024 8:36 AM by Provider, JOLYNN Singer: HematologyPrem[facility]12-18-20[facility] History of Present illness Narrative* Catarino Bingham LPN - 09/14/2024 9:12 AM EST Scan on 09/14/2024 8:36 AM by ProviderEnmanuel PA-C: Hematology documented in this encounterThe [facility]10-25-2024 NoteHNO ID: [id number] Author: CARLOZ BARFIELD APRN.COMPUTER ART INSTRUCTOR Service: ? Author Type: Nurse Practitioner Type: Progress Notes Filed: 07/22/2024 16:29 Note Text: This note was created using Rumble[employer]. Subjective Fany Marrero is a 59 year old female. HPI Pt has had several days of spasms to her mid right back. No known strain or trauma. Pt has his frequently which she thinks is related to her large breasts. She also complains of right upper dental pain. She states that the pain radiates from the region of tooth #4 up into her right cheek. Review of Systems Constitutional: Negative for fever. HENT: Positive for dental problem. Musculoskeletal: Positive for back pain. Objective BP 152/91 Pulse 79 Temp 36.6 ?C (97.9 ?F) Resp 20 Wt 85 kg (187 lb 6.3 oz) SpO2 97% BMI 33.19 kg/m? Physical Exam Vitals and nursing note reviewed. Constitutional: General: She is not in acute distress. Appearance: Normal appearance. She is not ill-appearing. HENT: Head: Normocephalic. Mouth/Throat: Mouth: Mucous membranes are moist. Comments: Multiple missing teeth with remaining teeth having dental caries Eyes: Conjunctiva/sclera: Conjunctivae normal. Cardiovascular: Rate and Rhythm: Normal rate and regular rhythm. Pulmonary: Effort: Pulmonary effort is normal. Breath sounds: Normal breath sounds. Musculoskeletal: General: Normal range of motion. Cervical back: Normal range of motion. Skin: General: Skin is warm and dry. Neurological: General: No focal deficit present. Mental Status: She is alert. Psychiatric: Mood and Affect: Mood normal. Behavior: Behavior normal. Assessment and Plan ASSESSMENT/PLAN: 1. Upper back strain, initial encounter - ICD9: 847.1, ICD10: S29.012A (primary diagnosis) Patient given prescriptions as noted below for symptomatic relief. She states she is still attempting to follow-up regarding a breast reduction surgery which she thinks will help her chronic flareup of back pain. - PREDNISONE 50 MG TABLET - CYCLOBENZAPRINE 10 MG TABLET 2. Pain, dental - ICD9: 525.9, ICD10: K08.89 Patient given a prescription for clindamycin as she is penicillin allergic. Encouraged her to follow-up with dentistry. - CLINDAMYCIN HCL 300 MG CAPSULE Carloz Barfield APRN.CNPPremier Health [facility]10-25-2024 History of Present illness Narrative* Carloz Barfield APRN.HENRIK - 07/22/2024 4:15 PM EDT This note was created using RumbleTalk. Subjective Fany Marrero is a 59 year old female. HPI Pt has had several days of spasms to her mid right back. No known strain or trauma. Pt has his frequently which she thinks is related to her large breasts. She also complains of right upper dental pain. She states that the pain radiates from the region of tooth #4 up into her right cheek. Review of Systems Constitutional: Negative for fever. HENT: Positive for dental problem. Musculoskeletal: Positive for back pain. Objective BP 152/91 Pulse 79 Temp 36.6 C (97.9 F) Resp 20 Wt 85 kg (187 lb 6.3 oz) SpO2 97% BMI 33.19 kg/m Physical Exam Vitals and nursing note reviewed. Constitutional: General: She is not in acute distress. Appearance: Normal appearance. She is not ill-appearing. HENT: Head: Normocephalic. Mouth/Throat: Mouth: Mucous membranes are moist. Comments: Multiple missing teeth with remaining teeth having dental caries Eyes: Conjunctiva/sclera: Conjunctivae normal. Cardiovascular: Rate and Rhythm: Normal rate and regular rhythm. Pulmonary: Effort: Pulmonary effort is normal. Breath sounds: Normal breath sounds. Musculoskeletal: General: Normal range of motion. Cervical back: Normal range of motion. Skin: General: Skin is warm and dry. Neurological: General: No focal deficit present. Mental Status: She is alert. Psychiatric: Mood and Affect: Mood normal. Behavior: Behavior normal. Assessment and Plan ASSESSMENT/PLAN: 1. Upper back strain, initial encounter - ICD9: 847.1, ICD10: S29.012A (primary diagnosis) Patient given prescriptions as noted below for symptomatic relief. She states she is still attempting to follow-up regarding a breast reduction surgery which she thinks will help her chronic flareup of back pain. - PREDNISONE 50 MG TABLET - CYCLOBENZAPRINE 10 MG TABLET 2. Pain, dental - ICD9: 525.9, ICD10: K08.89 Patient given a prescription for clindamycin as she is penicillin allergic. Encouraged her to follow-up with dentistry. - CLINDAMYCIN HCL 300 MG CAPSULE Carloz Barfield APRN.CNP documented in this [facility]04-12-2024 History of Present illness Narrative* Dani Hodge MA - 01/08/2024 3:55 PM EDT Scan on 01/04/2024 8:42 AM by ProviderEnmanuel PA-C: Consultation - Endocrinology Scan on 12/28/2023 11:20 AM by ProviderEnmanuel PA-C: Chemistry Dani Hodge MA documented in this [facility]04-11-2024 Miscellaneous Notes* Telephone Encounter - Dione Barry OCCA - 01/07/2024 3:01 PM EDT Patient notified of results. No questions at this time. AMINATA Irvin * Telephone Encounter - Lynn Camara APRN.CNP - 01/07/2024 2:52 PM EDT Please let patient know their labs are normal. documented in this encounterThe [facility]04-11-2024 Miscellaneous Notes* Addendum Note - Lynn Camara APRN.CNP - 01/07/2024 8:27 AM EDTAddended by: LYNN CAMARA on: 01/07/2024 08:27 AM Modules accepted: Orders documented in this encounterThe [facility]04-11-2024 History of Present illness Narrative* Lynn Camara APRN.CNP - 01/07/2024 7:57 AM EDT Chief Complaint Patient presents with: 6 Month Exam HPI Fany Marrero is a 58 year old female who presents here today for Above Complaints.. Patient presents for routine follow up. Patient reports she is doing well. Patient had labs completed at [facility]. Past medical history, appointments, medications, allergies reviewed. Previous Medical History PAST MEDICAL HISTORY Diagnosis Date Asthma due to seasonal allergies 12/09/2021 Elevated hemoglobin A1c 08/11/2023 Encounter for routine gynecological examination 05/09/[address] Renner Fatty liver GERD without esophagitis 05/09/2021 History of shingles 06/24/202210/2021 Hypertension, essential 05/09/2021 Hypothyroid Hypothyroidism, acquired 05/09/2021 Dr. Rodriguez Neck pain 07/07/2023 Known cervical fusion Pharyngoesophageal dysphagia 07/29/2021 [facility] Seasonal allergies 12/09/2021 Stage 3a chronic kidney disease (HCC) 12/26/2022 Well adult exam 06/24/2022 last done: 07/07/2023 Previous Surgical History PAST SURGICAL HISTORY Procedure Laterality Date ADDITIONAL SPINAL FUSION 09/28/2008 cervical c5/c6 COLONOSCOPY FLX DX W/COLLJ SPEC WHEN PFRMD 07/29/2021 ESOPHAGOGASTRODUODENOSCOPY TRANSORAL DIAGNOSTIC 07/29/2021 attmpted but unable to complete LAPAROSCOPIC APPENDECTOMY 12/08/2013 felicity Renner OOPHORECTOMY PARTIAL/TOTAL UNI/BI Right 12/08/2013 TOTAL ABDOM HYSTERECTOMY 2015 UNLISTED LAPAROSCOPY, ABD 09/28/1995 Family History FAMILY HISTORY Problem Relation Age of Onset Anesthesia Mother Diabetes Mother Heart Mother Hypertension Mother Parkinson s Disease Mother Dementia Mother Anesthesia Father Heart Sister Hypertension Sister Anesthesia Brother Diabetes Maternal Grandmother Cancer Maternal Grandfather Diabetes Paternal Grandmother Stroke Paternal Grandmother Breast Cancer Maternal Aunt Patient Allergies ALLERGIES Allergen Reactions Lisinopril Rash, Itching Codeine Other: See Comments Strong family reaction to this medication Penicillins Swelling Tape [Adhesive Tape* Other: See Comments Blistering and skin tears Vicodin [Hydrocodon* Rash Current Medications Current Outpatient Medications on File Prior to Visit Medication Sig empagliflozin (JARDIANCE) 25 mg tablet Take 1 tablet by mouth once daily. Take 1 tablet once daily in the morning. Per Dr. Rodriguez (for CKD) cyclobenzaprine (FLEXERIL) 10 mg tablet Take 1/2 - 1 tablet every 8 hours as needed for spasm omeprazole (PRILOSEC) 40 mg capsule Take 1 capsule by mouth daily before breakfast. 1/2 hr before meal. albuterol HFA (PROAIR HFA) 90 mcg/actuation inhaler Inhale 2 Puffs as instructed every 4 hours as needed for wheezing/shortness of breath. cetirizine (ZYRTEC) 10 mg tablet Take 1 tablet by mouth once daily. fluticasone (FLONASE) 50 mcg/actuation nasal spray Use 2 Sprays in each nostril once daily. Rinse mouth after use. spironolactone (ALDACTONE) 50 mg tablet Take 1 tablet by mouth once daily. Per Dr. Michael cortés metoprolol succinate ER (TOPROL XL) 25 mg 24 hr tablet Take 1 tablet by mouth once daily. levothyroxine (SYNTHROID) 88 mcg tablet Take 1 tablet by mouth daily before breakfast. Per jet Rodriguez HERBAL DRUGS ORAL Take 2 capsules by mouth every morning. Immuneti Blood Pressure Monitor 1 Each once daily. Use daily. No current facility-administered medications on file prior to visit. Social History Social History Tobacco Use Smoking status: Never Smokeless tobacco: Never Vaping Use Vaping Use: Never used Substance Use Topics Alcohol use: No Drug use: Never Review of Symptoms REVIEW OF SYSTEMS SEE HPI EXAM: BP 127/82 Pulse 77 Resp 14 Wt 84.4 kg (186 lb) BMI 32.95 kg/m General Appearance: Well appearing, alert, in no acute distress, well-hydrated, well nourished.. Lungs: Lungs clear to auscultation. No wheezing, rhonchi, rales.. Heart: RRR without murmur, gallop, or rubs. No ectopy. Abdomen: Normal abdominal exam, Abdomen soft, non-tender. Bowel sounds normal. No masses, organomegaly Peripheral Pulses: Normal. Health Maintenance List Pap Testing Never done HPV Testing Never done Mammogram Screening Never done Hemoglobin/Hematocrit due on 12/23/2022 Serum Creatinine due on 06/24/2023 Behavioral Health Screening Never done Shingrix Vaccine(1 of 2) due on 07/07/2024 Covid-19 Vaccine(1 - 2022- season) due on 07/07/2024 Annual PCP Team Chronic Disease Visit due on 07/07/2024 BP Controlled (<130/80) due on 07/07/2024 Diabetes Screening due on 12/20/2026 Lipid Screening due on 12/20/2027 Colorectal Cancer Screening due on 07/29/2031 DTaP,Tdap,Td Vaccine(2 - Td or Tdap) due on 06/24/2032 Hepatitis B Vaccine Discontinued Spirometry Discontinued Influenza Vaccine Discontinued Hepatitis C Screening Discontinued HIV Screening Discontinued Data reviewed Latest Ref Rng 12/21/2023 NA 136 - 145 mmol/L 140 (E) K 3.5 - 5.1 mmol/L 4.4 (E) Chloride 98 - 107 MEQ/L 109 ! (E) CO2 21 - 32 MEQ/L 25 (E) Glucose 74 - 106 MG/DL 111 ! (E) BUN 7 - 18 MG/DL 21 ! (E) Creatinine 0.6 - 1.3 MG/DL 1.29 (E) GFR mL/MIN 45 (E) GFR AFR AMER mL/MIN 55 (E) Total Protein 6.4 - 8.2 gm/dL 6.9 (E) Albumin 3.2 - 4.6 gm/dL 3.1 ! (E) Calcium 8.5 - 10.1 mg/dL 9.0 (E) Bili Total 0.2 - 1 mg/dL 0.6 (E) AST 8 - 37 U/L 22 (E) ALT (SGPT) 12 - 78 U/L 25 (E) Alk Phos Total 45 - 117 U/L 90 (E) TSH 0.358 - 3.74 IU/ml 2.02 (E) Free T4 0.76 - 1.46 1.19 (E) ASSESSMENT/PLAN: 1. Stage 3a chronic kidney disease (HCC) - ICD9: 585.3, ICD10: N18.31 (primary diagnosis) - eGFR: 45 Stable - Counseled on avoiding NSAIDs, adequate hydration - Counseled on low sodium diet - COMPLETE BLOOD COUNT AND DIFFERENTIAL 2. GERD without esophagitis - ICD9: 530.81, ICD10: K21.9 - Discussed lifestyle modifications including losing weight, limiting caffeine, no meals three hours before sleep, and head of bed elevation - Continue treatment with Prilosec 20 mg QD - OMEPRAZOLE 40 MG CAPSULE,DELAYED RELEASE 3. Seasonal allergies - ICD9: 477.9, ICD10: J30.2 - FLUTICASONE PROPIONATE 50 MCG/ACTUATION NASAL SPRAY,SUSPENSION - CETIRIZINE 10 MG TABLET 4. Hypothyroidism, acquired - ICD9: 244.9, ICD10: E03.9 - Instructed patient on importance of taking on an empty stomach either first thing in the morning or at bedtime. - continue current dose of Synthroid 0.088 mg 5. Hypertension, essential - ICD9: 401.9, ICD10: I10 - Controlled - Continue current medications - Recommend home blood pressure monitoring, to bring results to next visit - Encouraged sodium restriction, DASH or Mediterranean diet - Recommend regular aerobic exercise Lynn Camara APRN.COMPUTER ART INSTRUCTOR documented in [facility] encounterThe [facility] Evaluation note* Diagnosis Stage 3a chronic kidney disease (HCC)- Primary GERD without esophagitis Esophageal reflux Seasonal allergies Allergic rhinitis, cause unspecified Hypothyroidism, acquired Unspecified hypothyroidism Hypertension, essential Unspecified essential hypertension documented in [facility] encounter [facility] Evaluation note* Diagnosis Onset Date Resolution Status Hypertension chronic 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 Contacted Mary Ann the pharmacist and advised. * Telephone Encounter - Naya Salas RN - 12/05/2023 12:26 PM EST Mary Ann, pharmacist from [facility] [phone], calling again to get clarification of frequency of Flexeril. Secure chat message sent to Oli Johnson APRN. * Telephone Encounter - Allison Gallo LPN - 12/05/2023 12:09 PM EST Pt states Flexeril script at pharmacy does not have a frequency on the script, requesting frequencyclarification on script be called into [facility] [phone]. Allergies reviewed: Yes ALLERGIES Allergen Reactions Lisinopril Rash, Itching Codeine Other: See Comments Strong family reaction to this medication Penicillins Swelling Tape [Adhesive Tape* Other: See Comments Blistering and skin tears Vicodin [Hydrocodon* Rash cyclobenzaprine (FLEXERIL) 10 mg tablet 10 tablet 0 12/05/2023 -- Sig: Take 1/2 - 1 tablet as needed for spasm Allison Gallo LPN documented in this encounterThe [facility]03-09-2024 Miscellaneous Notes* Addendum Note - Jessica Johnson APRN.CNP - 12/05/2023 12:37 PM ESTAddended by: JESSICA JOHNSON on: 12/05/2023 12:37 PM Modules accepted: Orders * Addendum Note - Jessica Johnson APRN.CNP - 12/05/2023 11:38 AM ESTAddended by: JESSICA JOHNSON on: 12/05/2023 11:38 AM Modules accepted: Orders documented in this encounterThe [facility]03-09-2024 Instructions* Patient Instructions* Jessica Johnson APRN.CNP - 12/05/2023 11:23 AM EST - Ice for localized tenderness - Warm moist heat for 20 min three times a day - Medrol dose pack - Muscle relaxant- see orders - Patient given instructions use of medications as ordered, intermittent rest, back care exercise program, and proper lifting techniques Report immediately to ER for foot drop, bowel or bladder loss, numbness or tingling of legs/feet orany new or worsening concerns if unable to get into PMD documented in this encounterThe [facility]03-09-2024 History of Present illness Narrative* Jessica Johnson APRN.CNP - 12/05/2023 11:20 AM EST Images from the original note were not included. Subjective The history is provided by the patient. No conference interpreter was used. VANI Marrero is a 58 year old female who presents today for CC of right sided mid back painfor the past 24 hours. She denies any known injury or trauma. States she had the same thing 3 months ago. BP 135/85 Pulse 67 Temp 37 C (98.6 F) Resp 20 Wt 84.8 kg (186 lb 15.2 oz) SpO2 99% BMI 33.12 kg/m Social History Tobacco Use Smoking status: Never Smokeless tobacco: Never Vaping Use Vaping Use: Never used Substance Use Topics Alcohol use: No Drug use: Never PAST MEDICAL HISTORY Diagnosis Date Asthma due to seasonal allergies 12/09/2021 Elevated hemoglobin A1c 08/11/2023 Encounter for routine gynecological examination 05/09/[address] Renner Fatty liver GERD without esophagitis 05/09/2021 History of shingles 06/24/202210/2021 Hypertension, essential 05/09/2021 Hypothyroid Hypothyroidism, acquired 05/09/2021 Dr. Rodriguez Neck pain 07/07/2023 Known cervical fusion Pharyngoesophageal dysphagia 07/29/2021 [facility] Seasonal allergies 12/09/2021 Stage 3a chronic kidney disease (HCC) 12/26/2022 Well adult exam 06/24/2022 last done: 07/07/2023 I have confirmed and edited as necessary, the [facility] Review of Systems Constitutional: Negative for chills and fever. Musculoskeletal: Positive for back pain. Negative for joint pain and myalgias. Skin: Negative for itching and rash. All other systems reviewed and are negative. Objective Physical Exam Vitals and nursing note reviewed. Cardiovascular: Rate and Rhythm: Normal rate and regular rhythm. Pulses: Dorsalis pedis pulses are 2+ on the right side and 2+ on the left side. Posterior tibial pulses are 2+ on the right side and 2+ on the left side. Heart sounds: Normal heart sounds. Pulmonary: Effort: Pulmonary effort is normal. Breath sounds: Normal breath sounds. Musculoskeletal: Cervical back: Normal. Thoracic back: Spasms and tenderness present. No swelling, edema, deformity, signs of trauma, lacerations or bony tenderness. Decreased range of motion. No scoliosis. Lumbar back: Normal. Back: Skin: General: Skin is warm and dry. Neurological: Mental Status: She is alert and oriented to person, place, and time. Sensory: Sensation is intact. Deep Tendon Reflexes: Reflex Scores: Patellar reflexes are 2+ on the right side and 2+ on the left side. Psychiatric: Mood and Affect: Affect normal. Denies any loss of bowel or bladder function, no foot drop ASSESSMENT/PLAN: 1. Acute right-sided thoracic back pain - ICD9: 724.1, ICD10: M54.6 Appears to be muscle strain/spasm - Ice for localized tenderness - Warm moist heat for 20 min three times a day - Medrol dose pack - Muscle relaxant- see orders - Patient given instructions use of medications as ordered, intermittent rest, back care exercise program, and proper lifting techniques Diagnosis and treatment plan were discussed and questions were answered to the patient's satisfaction. Pt acknowledged understanding of concepts and follow up plan. Specific signs and symptoms that would indicate the need for higher level of care were discussed indetail warranting prompt ER evaluation. Jessica Johnson APRN.HENRIK documented in this encounterThe [facility]12-01-2023 History of Present illness Narrative* Donna Israel PA-C - 08/28/2023 7:21 PM EST This note was created using [employer]. Subjective Fany Marrero is a 58 year old female. HPI Presents with right mid back pain since yesterday. States it feels like a muscle spasm. 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 She has had back spasms previously. States it hurts up into her shoulder blade sometimes. No pain with a deepbreath. She states it actually feels better to have her arm up above her head. She denies pain radiating into her arms or legs. Pain worsens with movement. She did take some Tylenol and Aleve which helped minimally. Does have history of a cervical fusion previously. Review of Systems Constitutional: Negative. HENT: Negative. Respiratory: Negative. Cardiovascular: Negative. Gastrointestinal: Negative. Genitourinary: Negative. Musculoskeletal: Positive for back pain. Skin: Negative. All other systems reviewed and are negative. PAST MEDICAL HISTORY Diagnosis Date Asthma due to seasonal allergies 12/09/2021 Elevated hemoglobin A1c 08/11/2023 Encounter for routine gynecological examination 05/09/[address] Renner Fatty liver GERD without esophagitis 05/09/2021 History of shingles 06/24/202210/2021 Hypertension, essential 05/09/2021 Hypothyroid Hypothyroidism, acquired 05/09/2021 Dr. Rodriguez Neck pain 07/07/2023 Known cervical fusion Pharyngoesophageal dysphagia 07/29/2021 [facility] Seasonal allergies 12/09/2021 Stage 3a chronic kidney disease (HCC) 12/26/2022 Well adult exam 06/24/2022 last done: 07/07/2023 Current Outpatient Medications Medication Sig Dispense Refill omeprazole (PRILOSEC) 40 mg capsule Take 1 capsule by mouth daily before breakfast. 1/2 hr before meal. 30 capsule 5 albuterol HFA (PROAIR HFA) 90 mcg/actuation inhaler Inhale 2 Puffs as instructed every 4 hours as needed for wheezing/shortness of breath. 18 Each 5 cetirizine (ZYRTEC) 10 mg tablet Take 1 tablet by mouth once daily. 30 tablet 11 fluticasone (FLONASE) 50 mcg/actuation nasal spray Use 2 Sprays in each nostril once daily. Rinse mouth after use. 16 mL 11 spironolactone (ALDACTONE) 50 mg tablet Take 1 tablet by mouth once daily. Per Dr. Michael cortés metoprolol succinate ER (TOPROL XL) 25 mg 24 hr tablet Take 1 tablet by mouth once daily. 30 tablet5 HERBAL DRUGS ORAL Take 2 capsules by mouth every morning. Immuneti Blood Pressure Monitor 1 Each once daily. Use daily. 1 Each 0 cyclobenzaprine (FLEXERIL) 10 mg tablet Take 1 tablet by mouth three times a day as needed for muscle spasm. 15 tablet 0 predniSONE (DELTASONE) 20 mg tablet Take 2 tablets by mouth once daily for 5 days. 10 tablet 0 levothyroxine (SYNTHROID) 88 mcg tablet Take 1 tablet by mouth daily before breakfast. Per milana: Dr. Rodriguez No current facility-administered medications for this visit. PAST SURGICAL HISTORY Procedure Laterality Date ADDITIONAL SPINAL FUSION 09/28/2008 cervical c5/c6 COLONOSCOPY FLX DX W/COLLJ SPEC WHEN PFRMD 07/29/2021 ESOPHAGOGASTRODUODENOSCOPY TRANSORAL DIAGNOSTIC 07/29/2021 attmpted but unable to complete LAPAROSCOPIC APPENDECTOMY 12/08/2013 assist [facility] OOPHORECTOMY PARTIAL/TOTAL UNI/BI Right 12/08/2013 TOTAL ABDOM HYSTERECTOMY 2015 UNLISTED LAPAROSCOPY, ABD 09/28/1995 FAMILY HISTORY Problem Relation Age of Onset Anesthesia Mother Diabetes Mother Heart Mother Hypertension Mother Parkinson s Disease Mother Dementia Mother Anesthesia Father Heart Sister Hypertension Sister Anesthesia Brother Diabetes Maternal Grandmother Cancer Maternal Grandfather Diabetes Paternal Grandmother Stroke Paternal Grandmother Breast Cancer Maternal Aunt Social History Tobacco Use Smoking status: Never Smokeless tobacco: Never Vaping Use Vaping Use: Never used Substance Use Topics Alcohol use: No Drug use: Never Objective BP 142/86 Pulse 73 Temp 36.4 C (97.6 F) Resp 16 Wt 86.2 kg (190 lb) SpO2 97% BMI 33.66 kg/m Physical Exam Vitals reviewed. Constitutional: Appearance: Normal appearance. HENT: Head: Normocephalic and atraumatic. Cardiovascular: Rate and Rhythm: Normal rate and regular rhythm. Heart sounds: Normal heart sounds. Pulmonary: Effort: Pulmonary effort is normal. Breath sounds: Normal breath sounds. Musculoskeletal: Comments: Has tenderness on palpation of the right thoracic back. Increased pain with twisting and bending. Normal strength and sensation in upper and lower extremities. Radial pulse 2+. DTRs intact and symmetrical bilaterally. Pain worsens with standing. Skin: General: Skin is warm and dry. Neurological: Mental Status: She is alert. Assessment and Plan ASSESSMENT/PLAN: 1. Acute right-sided thoracic back pain - ICD9: 724.1, ICD10: M54.6 Reproducible pain, likely muscular in nature. Will treat with prednisone and flexeril. Rest, ice, heat. Follow up with pcp if symptoms persist. Donna Israel PA-C documented in this encounterThe [facility]11-17-2023 Miscellaneous Notes* Telephone Encounter - Catarino Bingham LPN - 08/14/2023 12:26 PM EST Spoke with pt and advised her of Dr Edmondson's message. Pt verbalizes understanding. Catarino Marques * Telephone Encounter - Elena Zapata RN - 08/12/2023 10:09 AM EST Left vm for patient to return call to nurse for provider's message. * Telephone Encounter - Jani Edmondson MD - 08/12/2023 9:43 AM EST T patient know I'm going to treat her for a suspected UTI script sent. The following approved medication requests have been transmitted electronically. Requested Prescriptions Signed Prescriptions Disp Refills nitrofurantoin monohydrate and macrocrystal (MACROBID) 100 mg capsule 14 capsule 0 Sig: Take 1 capsule by mouth two times a day with meals for 7 days. Authorizing Provider: JANI EDMONDSON MD * Telephone Encounter - Dani Hodge MA - 08/12/2023 9:14 AM EST Patient notified of results and voiced understanding. Patient indicated that after her office visit that she has increased her water intake. She has been drinking about 80 oz of water a day. The only thing patient has notice is some lower back discomfort around her kidney area. She has noticed more frequency but figured that was because she increased her water intake. No burning or pressure. Dani Hodge MA * Telephone Encounter - Jani Edmondson MD - 08/11/2023 11:04 PM EST Let patient know her A1c is slightly elevated at 5.8% indicating risk for becoming diabetic. The high end of normal is 5.6% and diabetes is 6.5% and higher. Should work on reduced sugars, sweets, carbs and starches in diet. Her B12, Mg, bleeding studies, CBC, electrolytes, liver functions and lipid panel were all ok. Her kidney function are slightly worse and would encourage her getting 48-64 ounces of water a day. Her UA shows possible UTI, se if any symptoms? * Telephone Encounter - Dani Hodge MA - 08/10/2023 11:09 AM EST Received labs results from [facility]. Given to PCP to review. Dani Hodge MA documented in this encounterThe [facility] System10-17-2023 Miscellaneous Notes* Telephone Encounter - Prema Aragon LPN - 07/14/2023 4:33 PM EDT Pt returned the call & was notified of message. Pt states she will call [facility]. Prema Aragon LPN * Telephone Encounter - Dani Hodge MA - 07/14/2023 4:11 PM EDT Left message for patient to return call. Dani Hodge MA * Telephone Encounter - Jani Edmondson MD - 07/14/2023 4:00 PM EDT Please let patient know that [facility] reached out to us to lets us know they have been trying to contact her to get her appt scheduled. They have left her several messages but she has not returned their calls. * Telephone Encounter - Daniella Rodas LPN - 07/14/2023 12:52 PM EDT Winnie with Dr. Beltran ([facility]) calls to report that they have tried to reach pt numerous times without success. Winnie reports they have left numerous messages and pt has not called back. Daniella Rodas LPN documented in this encounterThe [facility] System10-10-2023 Instructions* Patient Instructions* Jani Edmondson MD - 07/07/2023 8:36 AM EDT If you are considering getting the shingrix vaccine for the prevention of shingles check with insurance to see if covered. Also see if you can get it at your physician's office. Also consider getting the Prev-20 to reduce risk of getting pneumonia. documented in this encounterThe [facility]10-10-2023 History of Present illness Narrative* Jani Edmondson MD - 07/07/2023 8:00 AM EDT Chief Complaint Patient presents with: Physical HPI Fany Marrero is a 58 year old female who presents here today for Physical. Any concerns: Patient has noticed bruises (redness on arms) and also has notices when she gets a cut it takes a while to heal. Patient has declined all immunizations. Patient's OB physician retired so she is looking for another physician. May need a Consult which ispended. Patient with hx of HTN, Fatty liver, GERD, hypothyroid, CKD, and those as below. Patient saw endo and was told her liver enzymes were worsening as was kidney function. This has made her more anxious. Last visit with Endo was 12/2022 Last 5 Encounter BP Readings: Date: BP: 12/26/2022 122/88 06/24/2022 124/76 04/12/2022 142/82 12/09/2021 128/86 11/25/2021 128/84 Past medical history, appointments, medications, allergies reviewed. Previous Medical History PAST MEDICAL HISTORY Diagnosis Date Asthma Asthma due to seasonal allergies 12/09/2021 Encounter for routine gynecological examination 05/09/[address] Renner Fatty liver GERD (gastroesophageal reflux disease) GERD without esophagitis 05/09/2021 History of shingles 06/24/202210/2021 HTN (hypertension) Hypertension, essential 05/09/2021 Hypothyroid Hypothyroidism, acquired 05/09/2021 Dr. Rodriguez Pharyngoesophageal dysphagia 07/29/2021 [facility] Seasonal allergies 12/09/2021 Shingles Previous Surgical History PAST SURGICAL HISTORY Procedure Laterality Date ADDITIONAL SPINAL FUSION 09/28/2008 cervical c5/c6 COLONOSCOPY FLX DX W/COLLJ SPEC WHEN PFRMD 07/29/2021 ESOPHAGOGASTRODUODENOSCOPY TRANSORAL DIAGNOSTIC 07/29/2021 attmpted but unable to complete LAPAROSCOPIC APPENDECTOMY 12/08/2013 assist [facility] OOPHORECTOMY PARTIAL/TOTAL UNI/BI Right 12/08/2013 TOTAL ABDOM HYSTERECTOMY 2015 UNLISTED LAPAROSCOPY, ABD 09/28/1995 Family History FAMILY HISTORY Problem Relation Age of Onset Anesthesia Mother Diabetes Mother Heart Mother Hypertension Mother Parkinson s Disease Mother Dementia Mother Anesthesia Father Heart Sister Hypertension Sister Anesthesia Brother Diabetes Maternal Grandmother Cancer Maternal Grandfather Diabetes Paternal Grandmother Stroke Paternal Grandmother Breast Cancer Maternal Aunt Patient Allergies ALLERGIES Allergen Reactions Lisinopril Rash, Itching Codeine Other: See Comments Strong family reaction to this medication Penicillins Swelling Tape [Adhesive Tape* Other: See Comments Blistering and skin tears Vicodin [Hydrocodon* Rash Current Medications Current Outpatient Medications on File Prior to Visit Medication Sig omeprazole (PRILOSEC) 40 mg capsule Take 1 capsule by mouth daily before breakfast. 1/2 hr before meal. albuterol HFA (PROAIR HFA) 90 mcg/actuation inhaler Inhale 2 Puffs as instructed every 4 hours as needed for wheezing/shortness of breath. cetirizine (ZYRTEC) 10 mg tablet Take 1 tablet by mouth once daily. fluticasone (FLONASE) 50 mcg/actuation nasal spray Use 2 Sprays in each nostril once daily. Rinse mouth after use. spironolactone (ALDACTONE) 50 mg tablet Take 1 tablet by mouth once daily. Per milana, Dr. Rodriguez metoprolol succinate ER (TOPROL XL) 25 mg 24 hr tablet Take 1 tablet by mouth once daily. levothyroxine (SYNTHROID) 88 mcg tablet Take 1 tablet by mouth daily before breakfast. Per endo: Dr. Rodriguez HERBAL DRUGS ORAL Take 2 capsules by mouth daily at bedtime. Tumeric 800mg HERBAL DRUGS ORAL Take 2 capsules by mouth every morning. Immuneti Blood Pressure Monitor 1 Each once daily. Use daily. No current facility-administered medications on file prior to visit. Social History Social History Tobacco Use Smoking status: Never Smokeless tobacco: Never Vaping Use Vaping Use: Never used Substance Use Topics Alcohol use: No Drug use: Never Review of Symptoms REVIEW OF SYSTEMS GENERAL: No weight loss, malaise or fevers HEENT: Negative for frequent or significant headaches, No changes in hearing or vision, no nose bleeds or other nasal problems NECK: Negative for lumps, goiter, pain and significant neck swelling RESPIRATORY: Negative for cough, hemoptysis, wheezing, COPD, dyspnea or shortness of breath. Had some asthma symptoms during allergy season. CARDIOVASCULAR: Negative for chest pain, leg swelling, hypertension, CHF or palpitations GI: No nausea, vomiting, or diarrhea, No heartburn or reflux symptoms, and no blood : No history of dysuria, frequency or blood. MUSCULOSKELETAL: has anita breasts and has been noting some pain in her upper back at times and has Hx of cervical fusion. SKIN: Negative for lesions, rash, and itching PSYCH: Negative for sleep disturbance, mood disorder and recent psychosocial stressors. Some mild anxiety. HEMATOLOGY/LYMPHOLOGY: has noted some easy bruising and delayed healing. ENDOCRINE: Negative for cold or heat intolerance, polyuria, polydipsia and goiter NEURO: No history of headaches, syncope, paralysis, seizures or tremors EXAM: BP 142/86 (BP Site: Left Arm, BP Position: Sitting, BP Cuff Size: Large Adult) Pulse 82 Resp 16 Ht 160 cm (5' 3) Wt 85.7 kg (189 lb) BMI 33.48 kg/m BP 142/86 (BP Site: Left Arm, BP Position: Sitting, BP Cuff Size: Large Adult) Pulse 82 Resp 16 Ht 160 cm (5' 3) Wt 85.7 kg (189 lb) BMI 33.48 kg/m BP 124/84 Pulse 82 Resp 16 Ht 160 cm (5' 3) Wt 85.7 kg (189 lb) BMI 33.48 kg/m Last 5 Encounter Wt Readings: Date: Wt: 07/07/2023 85.7 kg (189 lb) 02/03/2023 92.1 kg (203 lb) 12/26/2022 91.6 kg (202 lb) 06/24/2022 89.4 kg (197 lb) 04/12/2022 89.9 kg (198 lb 3.2 oz) General Appearance: Well appearing, alert, in no acute distress, well-hydrated, well nourished. andObese. Skin: Skin color, texture, turgor normal, no suspicious rashes. Has suspected AK on the right ventral forearm near elbow. Head: Normocephalic, no masses, lesions, tenderness or abnormalities. Eyes: Anicteric sclera. Pupils are equally round and reactive to light. Extraocular movements are intact. . Ears: External ears normal, canals clear. Nose/Sinuses: Nares normal, septum midline, mucosa normal, no drainage or sinus tenderness. Oropharynx: Lips, mucosa, and tongue normal, teeth and gums normal, oropharynx normal. Neck: Supple, no adenopathy; thyroid symmetric, normal size, no bruits. Lungs: Lungs clear to auscultation. No wheezing, rhonchi, rales.. Heart: RRR without murmur, gallop, or rubs. No ectopy. Abdomen: Normal abdominal exam, Abdomen soft, non-tender. Bowel sounds normal. No masses, organomegaly. Extremities: No deformities, edema, skin discoloration, Good capillary refill. . Musculoskeletal: Muscular strength intact, No joint swelling, deformity, or tenderness. Peripheral Pulses: Normal. Neurologic: Gait normal. Reflexes normal and symmetric. Sensation to light touch and crainal nerves2-12 intact.. Health Maintenance List Hepatitis B Vaccine(1 of 3 - 3-dose series) Never done Covid-19 Vaccine(1) Never done Pneumococcal Vaccine(1 - PCV) Never done Pap Testing Never done HPV Testing Never done Mammogram Screening Never done Shingrix Vaccine(1 of 2) Never done Hemoglobin/Hematocrit due on 12/23/2022 Influenza Vaccine(1) Never done Serum Creatinine due on 06/24/2023 BP Controlled (<130/80) due on 06/24/2023 Annual PCP Team Chronic Disease Visit due on 12/27/2023 Diabetes Screening due on 12/19/2025 Lipid Screening due on 12/20/2027 Colorectal Cancer Screening due on 07/29/2031 DTaP,Tdap,Td Vaccine(2 - Td or Tdap) due on 06/24/2032 Depression Assessment Completed Spirometry Discontinued Hepatitis C Screening Discontinued HIV Screening Discontinued Data reviewed A/P ASSESSMENT/PLAN: 1. Well adult exam - ICD9: V70.0, ICD10: Z00.00 (primary diagnosis) - Counseled on healthy diet and regular exercise - Calcium intake with supplements or by diet of 1000 mg/day for under 50, 1200- 1500 mg/day for 50+ - Discussed need and benefit for weight loss. BMI 33.48 kg/(m^2) - Follow up for annual exam in one year - HGB A1C 2. Hypertension, essential - ICD9: 401.9, ICD10: I10 - Controlled - Continue current medications - Recommend home blood pressure monitoring, to bring results to next visit - Encouraged sodium restriction, DASH or Mediterranean diet - Recommend regular aerobic exercise Check - COMP METABOLIC PANEL - URINALYSIS, WITH MICROSCOPIC - LIPID PANEL, NONFASTING 3. Hypothyroidism, acquired - ICD9: 244.9, ICD10: E03.9 - Instructed patient on importance of taking on an empty stomach either first thing in the morning or at bedtime. Management per Endo Check - CBC + DIFF 4. GERD without esophagitis - ICD9: 530.81, ICD10: K21.9 - Continue treatment with Prilosec 40 mg QD - MAGNESIUM BLD - VITAMIN B12 BLOOD 5. Asthma due to seasonal allergies - ICD9: 493.90, ICD10: J45.909 - Mild intermittent asthma stable - Continue current medications - Avoidance of triggers recommended 6. Seasonal allergies - ICD9: 477.9, ICD10: J30.2 - stable 7. Fatty liver - ICD9: 571.8, ICD10: K76.0 - advised on continued weight loss. - discussed potential for progression to cirrhosis and . - COMP METABOLIC PANEL - dietary handout provided. Also advised on mediterranean diet. - advised on coffee and extra virgin olive oil use. 8. Stage 3a chronic kidney disease (HCC) - ICD9: 585.3, ICD10: N18.31 - advised to avoid NSAID's and increase water intake. - COMP METABOLIC PANEL - URINALYSIS, WITH MICROSCOPIC - CBC + DIFF 9. Encounter for gynecological examination with abnormal finding - ICD9: V72.31, ICD10: Z01.411 - CONSULT TO APPEALS BOARD REFEREE 10. Medication management - ICD9: V58.69, ICD10: Z79.899 Check - MAGNESIUM BLD - VITAMIN B12 BLOOD 11. Large breasts - ICD9: 611.1, ICD10: N62 - CONSULT TO PLASTIC SURGERY: [place] 12. Neck pain - ICD9: 723.1, ICD10: M54.2 - CONSULT TO PLASTIC SURGERY 13. AK (actinic keratosis) - ICD9: 702.0, ICD10: L57.0 - discussed Tx with Cryo. Patient gave verbal consent. Area treated with cryo with a 40 sec thaw phase. Patient tolerated well. 14. Encounter for screening for diabetes mellitus - ICD9: V77.1, ICD10: Z13.1 Check - HGB A1C 15. Bruising - ICD9: 924.9, ICD10: T14.8XXA Check - CBC + DIFF - PROTHROMBIN TIME/PT - ACTIVATED PTT Requested Prescriptions Signed Prescriptions Disp Refills omeprazole (PRILOSEC) 40 mg capsule 30 capsule 5 Sig: Take 1 capsule by mouth daily before breakfast. 1/2 hr before meal. F/u 6 months routine Jani Edmondson MD documented in this encounterThe [facility]07-[facility]23 Miscellaneous Notes* Telephone Encounter - Jani Edmondson MD - 04/07/2023 4:55 PM EDT The following approved medication requests have been transmitted electronically. Requested Prescriptions Signed Prescriptions Disp Refills omeprazole (PRILOSEC) 40 mg capsule 30 capsule 5 Sig: Take 1 capsule by mouth daily before breakfast. 1/2 hr before meal. Authorizing Provider: JANI EDMONDSON MD * Telephone Encounter - Portia Starr MA - 04/07/2023 3:01 PM EDT ALICIA 12/26/22 NOV 07/07/23 Portia Starr MA * Telephone Encounter - Shirley Ferrera - 04/07/2023 2:45 PM EDT Patient has been identified by name and date of : Yes Last office visit in this department: 12/26/2022 RX INSTRUCTIONS: Patient aware RX will be sent to pharmacy. No need to notify patient. Patient phones requesting refills as follows: Requested Prescriptions Pending Prescriptions Disp Refills omeprazole (PRILOSEC) 40 mg capsule 30 capsule 5 Sig: Take 1 capsule by mouth daily before breakfast. 1/2 hr before meal. Please review and advise. Shirley Pearson documented in this encounterThe [facility] System05-09-2023 History of Present illness Narrative* Jani Vences APRN.HENRIK - 02/03/2023 4:23 PM EDT Images from the original note were not included. Subjective HPI Nontoxic-appearing female presents urgent care chief complaint back pain. Duration of symptoms 5 days. Associated symptoms mid to lower back pain. Patient states she thinks she tweaked her back whenshe was caring for her dog. States she has had transient back spasms since. History of back pain this feels similar. Has used Tylenol this is helped some with pain management. Presents today for persistent back pain. Denies any specific trauma. No night sweats. No saddle anesthesia or incontinence. No radiculopathy or numbness tingling in the legs. Denies any fever body aches chills productive cough chest pain shortness of breath pleuritic pain hemoptysis nausea vomiting abdominal pain change in bowel or bladder habits. Past medical history prescription medication use and allergies reviewed. .Patient presents with: Back Pain: mid left back x 5 days PAST MEDICAL HISTORY Diagnosis Date Asthma Asthma due to seasonal allergies 12/09/2021 Encounter for routine gynecological examination 05/09/[address] Renner Fatty liver GERD (gastroesophageal reflux disease) GERD without esophagitis 05/09/2021 History of shingles 06/24/202210/2021 HTN (hypertension) Hypertension, essential 05/09/2021 Hypothyroid Hypothyroidism, acquired 05/09/2021 Dr. Rodriguez Pharyngoesophageal dysphagia 07/29/2021 [facility] Seasonal allergies 12/09/2021 Shingles PAST SURGICAL HISTORY Procedure Laterality Date ADDITIONAL SPINAL FUSION 09/28/2008 cervical c5/c6 COLONOSCOPY FLX DX W/COLLJ SPEC WHEN PFRMD 07/29/2021 ESOPHAGOGASTRODUODENOSCOPY TRANSORAL DIAGNOSTIC 07/29/2021 attmpted but unable to complete LAPAROSCOPIC APPENDECTOMY 12/08/2013 assist [facility] OOPHORECTOMY PARTIAL/TOTAL UNI/BI Right 12/08/2013 TOTAL ABDOM HYSTERECTOMY 2014 UNLISTED LAPAROSCOPY, ABD 09/28/1995 ALLERGIES Lisinopril, Codeine, Penicillins, Tape [Adhesive Tape (Rosins)], and Vicodin [Hydrocodone-Acetaminophen] MEDICATIONS albuterol HFA (PROAIR HFA) 90 mcg/actuation inhaler Inhale 2 Puffs as instructed every 4 hours as needed for wheezing/shortness of breath. cetirizine (ZYRTEC) 10 mg tablet Take 1 tablet by mouth once daily. fluticasone (FLONASE) 50 mcg/actuation nasal spray Use 2 Sprays in each nostril once daily. Rinse mouth after use. spironolactone (ALDACTONE) 50 mg tablet Take 1 tablet by mouth once daily. Per Dr. Michael cortés metoprolol succinate ER (TOPROL XL) 25 mg 24 hr tablet Take 1 tablet by mouth once daily. omeprazole (PRILOSEC) 40 mg capsule Take 1 capsule by mouth daily before breakfast. 1/2 hr before meal. levothyroxine (SYNTHROID) 88 mcg tablet Take 1 tablet by mouth daily before breakfast. Per endo: Dr. Rodriguez HERBAL DRUGS ORAL Take 2 capsules by mouth daily at bedtime. Tumeric 800mg HERBAL DRUGS ORAL Take 2 capsules by mouth every morning. Immuneti Blood Pressure Monitor 1 Each once daily. Use daily. FAMILY HISTORY Problem Relation Age of Onset Anesthesia Mother Diabetes Mother Heart Mother Hypertension Mother Parkinson s Disease Mother Dementia Mother Anesthesia Father Heart Sister Hypertension Sister Anesthesia Brother Diabetes Maternal Grandmother Cancer Maternal Grandfather Diabetes Paternal Grandmother Stroke Paternal Grandmother Breast Cancer Maternal Aunt Social History Tobacco Use Smoking status: Never Smokeless tobacco: Never Vaping Use Vaping Use: Never used Substance Use Topics Alcohol use: No Drug use: Never BP 122/80 Pulse 92 Temp 36.7 C (98.1 F) Resp 18 Wt 92.1 kg (203 lb) SpO2 98% BMI 35.09 kg/m Review of Systems Constitutional: Negative for chills, fever and malaise/fatigue. HENT: Negative for congestion, ear discharge, ear pain, sinus pain and sore throat. Eyes: Negative for blurred vision, pain, discharge and redness. Respiratory: Negative for cough, hemoptysis, sputum production, shortness of breath, wheezing and stridor. Cardiovascular: Negative for chest pain. Gastrointestinal: Negative for abdominal pain, diarrhea, nausea and vomiting. Musculoskeletal: Positive for back pain. Negative for falls, joint pain, myalgias and neck pain. Skin: Negative for itching and rash. Neurological: Negative for dizziness and headaches. Objective Physical Exam Constitutional: General: She is not in acute distress. Appearance: She is not diaphoretic. HENT: Head: Normocephalic. Mouth/Throat: Mouth: Mucous membranes are moist. Pharynx: Oropharynx is clear. No oropharyngeal exudate or posterior oropharyngeal erythema. Eyes: Conjunctiva/sclera: Conjunctivae normal. Pupils: Pupils are equal, round, and reactive to light. Cardiovascular: Rate and Rhythm: Normal rate and regular rhythm. Heart sounds: Normal heart sounds. Pulmonary: Effort: Pulmonary effort is normal. No tachypnea, accessory muscle usage or respiratory distress. Breath sounds: Normal breath sounds. No stridor. No wheezing, rhonchi or rales. Abdominal: Palpations: Abdomen is soft. Tenderness: There is no abdominal tenderness. There is no guarding or rebound. Musculoskeletal: Cervical back: Normal range of motion and neck supple. No rigidity or tenderness. Thoracic back: No swelling, edema, deformity, tenderness or bony tenderness. Normal range of motion. Lumbar back: Tenderness present. No swelling, edema or bony tenderness. Normal range of motion. Negative right straight leg raise test and negative left straight leg raise test. Back: Comments: Pain with palpation over highlighted area. Paraspinal tenderness noted. No spinal tenderness noted. No redness. No edema. No rashes. Lymphadenopathy: Cervical: No cervical adenopathy. Skin: General: Skin is warm and dry. Neurological: Mental Status: She is alert and oriented to person, place, and time. ASSESSMENT/PLAN: 1. Acute low back pain, unspecified back pain laterality, unspecified whether sciatica present - ICD9: 724.2, ICD10: M54.50 No rashes or trauma noted. Significant spinal tenderness. Treat as acute lower back pain. Prednisone burst and muscle relaxer sent to pharmacy. Do not take muscle relaxer and operate machinery or work. Do not take NSAIDs Red flags prompt reevaluation discussed. Patient was educated on supportive therapies. Patient will follow up with primary care provider as needed. Patient was instructed to immediately proceed to emergency room for any new, worsening, or symptoms lasting longer than anticipated. The patient's clinical presentation is otherwise unremarkable at this time. Based on exam and clinical finding, the patient is stable for discharge. Plan of care was discussed with patient. Patientverbalizes understanding and agrees to plan of care. This note was generated using [employer] software.It may contain errors in wording, punctuation, or spelling. 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 Patient verbalizes understanding. Catarino Bingham LPN * Telephone Encounter - Nina Scherer PA-C - 01/12/2023 10:08 AM EDT Let patient know that US confirms fatty liver disease. So continue to work on weight loss and diet. Her right kidney shows some cortical thinning, which goes in line with the early kidney disease andwe will continue to monitor this. Thanks. Nina Scherer PA-C documented in this encounterThe [facility]03-31-2023 History of Present illness Narrative* Nina Scherer PA-C - 12/26/2022 7:27 AM EDT Chief Complaint Patient presents with: 6 Month Exam HPI Fany Marrero is a 57 year old female who presents here today for Chronic Medical Conditions.. Patient with hx of HTN, Fatty liver, GERD, hypothyroid, CKD, and those as below. Patient saw endo and was told her liver enzymes were worsening as was kidney function. This has made her more anxious. Otherwise doing good. Was started on spironolactone by endo as her BP was elevated at that visit. Last 5 Encounter BP Readings: Date: BP: 12/26/2022 122/88 06/24/2022 124/76 04/12/2022 142/82 12/09/2021 128/86 11/25/2021 128/84 Past medical history, appointments, medications, allergies reviewed. Previous Medical History PAST MEDICAL HISTORY Diagnosis Date Asthma Asthma due to seasonal allergies 12/09/2021 Encounter for routine gynecological examination 05/09/[address] Renner Fatty liver GERD (gastroesophageal reflux disease) GERD without esophagitis 05/09/2021 History of shingles 06/24/202210/2021 HTN (hypertension) Hypertension, essential 05/09/2021 Hypothyroid Hypothyroidism, acquired 05/09/2021 Dr. Rodriguez Pharyngoesophageal dysphagia 07/29/2021 [facility] Seasonal allergies 12/09/2021 Shingles Previous Surgical History PAST SURGICAL HISTORY Procedure Laterality Date ADDITIONAL SPINAL FUSION 09/28/2008 cervical c5/c6 COLONOSCOPY FLX DX W/COLLJ SPEC WHEN PFRMD 07/29/2021 ESOPHAGOGASTRODUODENOSCOPY TRANSORAL DIAGNOSTIC 07/29/2021 attmpted but unable to complete LAPAROSCOPIC APPENDECTOMY 12/08/2013 assist [facility] OOPHORECTOMY PARTIAL/TOTAL UNI/BI Right 12/08/2013 TOTAL ABDOM HYSTERECTOMY 2015 UNLISTED LAPAROSCOPY, ABD 09/28/1995 Family History FAMILY HISTORY Problem Relation Age of Onset Anesthesia Mother Diabetes Mother Heart Mother Hypertension Mother Parkinson s Disease Mother Dementia Mother Anesthesia Father Heart Sister Hypertension Sister Anesthesia Brother Diabetes Maternal Grandmother Cancer Maternal Grandfather Diabetes Paternal Grandmother Stroke Paternal Grandmother Breast Cancer Maternal Aunt Patient Allergies ALLERGIES Allergen Reactions Lisinopril Rash, Itching Codeine Other: See Comments Strong family reaction to this medication Penicillins Swelling Tape [Adhesive Tape* Other: See Comments Blistering and skin tears Vicodin [Hydrocodon* Rash Current Medications Current Outpatient Medications on File Prior to Visit Medication Sig spironolactone (ALDACTONE) 50 mg tablet Take 1 tablet by mouth once daily. Per [place], Dr. Rodriguez metoprolol succinate ER (TOPROL XL) 25 mg 24 hr tablet Take 1 tablet by mouth once daily. omeprazole (PRILOSEC) 40 mg capsule Take 1 capsule by mouth daily before breakfast. 1/2 hr before meal. levothyroxine (SYNTHROID) 88 mcg tablet Take 1 tablet by mouth daily before breakfast. Per endo: Dr. Rodriguez albuterol HFA (PROAIR HFA) 90 mcg/actuation inhaler Inhale 2 Puffs as instructed every 4 hours as needed for wheezing/shortness of breath. cetirizine (ZYRTEC) 10 mg tablet Take 10 mg by mouth once daily. HERBAL DRUGS ORAL Take 2 capsules by mouth daily at bedtime. Tumeric 800mg HERBAL DRUGS ORAL Take 2 capsules by mouth every morning. Immuneti Blood Pressure Monitor 1 Each once daily. Use daily. No current facility-administered medications on file prior to visit. Social History Social History Tobacco Use Smoking status: Never Smokeless tobacco: Never Vaping Use Vaping Use: Never used Substance Use Topics Alcohol use: No Drug use: Never Review of Symptoms REVIEW OF SYSTEMS GENERAL: No weight loss, malaise or fevers NECK: Negative for lumps, goiter, pain and significant neck swelling RESPIRATORY: Negative for cough, hemoptysis, wheezing, COPD, dyspnea or shortness of breath CARDIOVASCULAR: Negative for chest pain, leg swelling, CHF or palpitations NEURO: No history of headaches, syncope, paralysis, seizures or tremors EXAM: BP 122/88 (BP Site: Left Arm, BP Position: Sitting, BP Cuff Size: Large Adult) Pulse 84 Temp 36.6 C (97.9 F) Resp 18 Wt 91.6 kg (202 lb) BMI 34.91 kg/m BP 125/81 (BP Site: Left Arm, BP Position: Sitting, BP Cuff Size: Extra Large Adult) Pulse 79 Temp 36.6 C (97.9 F) Resp 18 Wt 91.6 kg (202 lb) BMI 34.91 kg/m General Appearance: Well appearing, alert, in no acute distress, well-hydrated, well nourished. andObese. Neck: Supple, no adenopathy; thyroid symmetric, normal size, no bruits. Lungs: Lungs clear to auscultation. No wheezing, rhonchi, rales.. Heart: RRR without murmur, gallop, or rubs. No ectopy. Extremities: No deformities, edema, skin discoloration, clubbing or cyanosis. Good capillary refill. . Peripheral Pulses: Normal. Health Maintenance List HEPATITIS B(1 of 3 - 3-dose series) Never done PAP TESTING Never done HPV TESTING Never done MAMMOGRAM Never done INFLUENZA(1) Never done DEPRESSION ASSESSMENT Never done SHINGRIX VACCINE(1 of 2) due on 06/24/2023 COVID-19 VACCINE(1) due on 06/24/2023 PNEUMOCOCCAL(1 - PCV) due on 06/24/2023 ANNUAL PCP TEAM CHRONIC DISEASE VISIT due on 06/24/2023 BP CONTROLLED (<130/80) due on 06/24/2023 DIABETES SCREEN due on 12/19/2025 LIPID SCREEN due on 12/20/2027 COLORECTAL CANCER SCREENING due on 07/29/2031 DTAP,TDAP,TD(2 - Td or Tdap) due on 06/24/2032 SPIROMETRY Discontinued HEPATITIS C SCREENING Discontinued HIV SCREENING Discontinued Data reviewed Component Latest Ref Rng & Units 12/19/2022 NA 136 - 145 mmol/L 140 K 3.5 - 5.1 mmol/L 3.8 Chloride 98 - 107 MEQ/L 106 CO2 21 - 32 MEQ/L 27.0 Glucose 74 - 106 MG/DL 108 (A) BUN 7 - 18 MG/DL 21 (A) Creatinine 0.6 - 1.3 MG/DL 1.09 GFR mL/MIN 55 GFR AFR AMER mL/MIN 66 Total Protein 6.4 - 8.2 gm/dL 7.3 Albumin 3.2 - 4.6 gm/dL 3.1 (A) Calcium 8.5 - 10.1 mg/dL 8.7 Bili Total 0.2 - 1 mg/dL 0.50 AST 8 - 37 U/L 75 (A) ALT (SGPT) 13 - 56 U/L 63 (A) Alk Phos Total 45 - 117 U/L 115 Anion Gap 5 - 15 7 BUN/CREATININE RATIO 9 - 20 19.3 GLOBULIN 2.2 - 4.2 g/dL 4.2 A/G 0.9 - 2.4 RATIO 0.7 (A) Triglyceride 149 mg/dL 121 CHOLESTEROL, TOTAL 0 - 200 MG/DL 161 HDC-L 41 mg/dL 47 (A) LDL Chol, calculated 130 MG/DL 90 VLDL 10 - 38 Ratio 24 TSH 0.2 - 5.6 IU/ml 3.62 T4,FREE (DIRECT) 0.76 - 1.46 ng/dL 1.39 ASSESSMENT/PLAN: 1. Hypertension, essential - ICD9: 401.9, ICD10: I10 (primary diagnosis) - good control - Continue current medication(s) - Recommended regular aerobic exercise. - Recommend home blood pressure monitoring, to bring results in on next visit - Goal of BP <130/80 2. Hypothyroidism, acquired - ICD9: 244.9, ICD10: E03.9 Cont with endo 3. Dysphagia, unspecified type - ICD9: 787.20, ICD10: R13.10 stable 4. Fatty liver - ICD9: 571.8, ICD10: K76.0 Recently LFT slightly elevated more than baseline. Recheck in 1 month and get RUQUS - HEPATIC FUNCTION PNL - CONSULT TO WEIGHT MANAGEMENT NAVIGATION - US ABD RIGHT UPPER QUADRANT 5. GERD without esophagitis - ICD9: 530.81, ICD10: K21.9 stable 6. Pharyngoesophageal dysphagia - ICD9: 787.24, ICD10: R13.14 stable 7. Stage 3a chronic kidney disease (HCC) - ICD9: 585.3, ICD10: N18.31 - eGFR: Stable - Counseled on avoiding regular use of NSAIDs, adequate hydration, potential risk of IV dye - CBC + DIFF 8. Obesity, Class I, BMI 30-34.9 - ICD9: 278.00, ICD10: E66.9 Stable - Behavioral intervention - CONSULT TO WEIGHT MANAGEMENT NAVIGATION Nina Scherer PA-C documented in this encounterThe [facility]12-23-2022 Miscellaneous Notes* Telephone Encounter - Dani Hodge MA - 09/19/2022 11:07 AM EST Patient has been identified by name and date of : Yes Requested Prescriptions Pending Prescriptions Disp Refills metoprolol succinate ER (TOPROL XL) 25 mg 24 hr tablet 30 tablet 5 Sig: Take 1 tablet by mouth once daily. omeprazole (PRILOSEC) 40 mg capsule 30 capsule 5 Sig: Take 1 capsule by mouth daily before breakfast. 1/2 hr before meal. RX INSTRUCTIONS: Patient aware RX will be sent to pharmacy. No need to notify patient. Dani Hodge MA Alicia: 05/2022 Nov: 11/2022 Last refill: 01/2022 * Telephone Encounter - Shirley Christian Pss - 09/19/2022 11:00 AM EST Patient has been identified by name and date of : Yes Last office visit in this department: 06/24/2022 RX INSTRUCTIONS: Patient aware RX will be sent to pharmacy. No need to notify patient. Patient phones requesting refills as follows: Requested Prescriptions Pending Prescriptions Disp Refills metoprolol succinate ER (TOPROL XL) 25 mg 24 hr tablet 30 tablet 5 Sig: Take 1 tablet by mouth once daily. omeprazole (PRILOSEC) 40 mg capsule 30 capsule 5 Sig: Take 1 capsule by mouth daily before breakfast. 1/2 hr before meal. Please review and advise. Shirley Christian Pss documented in this encounterThe [facility] System09-27-2022 Instructions* Patient Instructions* Jani Edmondson MD - 06/24/2022 8:28 AM EDT Consider getting the the shingrix vaccin for the prevention of shingles. Would check with insuranceto see if covered. documented in this encounterThe [facility] System09-27-2022 History of Present illness Narrative* Jani Edmondson MD - 06/24/2022 8:10 AM EDT Chief Complaint Patient presents with: Physical HPI Fany Marrero is a 56 year old female who presents here today for Chronic Medical Conditions.. Patient with hx of HTN, hyperlipidemia, GERD, Hypothyroidism seeing endo, asthma secondary to allergies. Seasonal allergies as well as those reviewed and addressed below and in ROS. Patient saw Endo yesterday and had no changes in meds. Patient's A1c yest was 5.5%. Patient doing well. No new issues or concerns. Continues to see ENT and is considering allergy injections. Seeing Gastro and on new meds. Med list updated. Past medical history, appointments, medications, allergies reviewed. Previous Medical History PAST MEDICAL HISTORY Diagnosis Date Asthma Fatty liver GERD (gastroesophageal reflux disease) HTN (hypertension) Hypothyroid Shingles Previous Surgical History PAST SURGICAL HISTORY Procedure Laterality Date ADDITIONAL SPINAL FUSION 09/28/2008 cervical c5/c6 COLONOSCOPY FLX DX W/COLLJ SPEC WHEN PFRMD 07/29/2021 ESOPHAGOGASTRODUODENOSCOPY TRANSORAL DIAGNOSTIC 07/29/2021 attmpted but unable to complete LAPAROSCOPIC APPENDECTOMY 12/08/2013 assist [facility] OOPHORECTOMY PARTIAL/TOTAL UNI/BI Right 12/08/2013 TOTAL ABDOM HYSTERECTOMY 2015 UNLISTED LAPAROSCOPY, ABD 09/28/1995 Family History FAMILY HISTORY Problem Relation Age of Onset Anesthesia Mother Diabetes Mother Heart Mother Hypertension Mother Parkinson s Disease Mother Dementia Mother Anesthesia Father Heart Sister Hypertension Sister Anesthesia Brother Diabetes Maternal Grandmother Cancer Maternal Grandfather Diabetes Paternal Grandmother Stroke Paternal Grandmother Breast Cancer Maternal Aunt Patient Allergies ALLERGIES Allergen Reactions Codeine Other: See Comments Strong family reaction to this medication Lisinopril Rash, Itching Penicillins Swelling Tape [Adhesive Tape* Other: See Comments Blistering and skin tears Vicodin [Hydrocodon* Rash Current Medications Current Outpatient Medications on File Prior to Visit Medication Sig omeprazole (PRILOSEC) 40 mg capsule Take 1 capsule by mouth daily before breakfast. 1/2 hr before meal. metoprolol succinate ER (TOPROL XL) 25 mg 24 hr tablet Take 1 tablet by mouth once daily. albuterol HFA (PROAIR HFA) 90 mcg/actuation inhaler Inhale 2 Puffs as instructed every 4 hours as needed for wheezing/shortness of breath. cetirizine (ZYRTEC) 10 mg tablet Take 10 mg by mouth once daily. HERBAL DRUGS ORAL Take 2 capsules by mouth daily at bedtime. Tumeric 800mg HERBAL DRUGS ORAL Take 2 capsules by mouth every morning. Immuneti fluticasone propionate (FLONASE NASAL) Use in the nose. levothyroxine (SYNTHROID) 100 mcg tablet Take 100 mcg by mouth daily before breakfast. Blood Pressure Monitor 1 Each once daily. Use daily. No current facility-administered medications on file prior to visit. Social History Social History Tobacco Use Smoking status: Never Smokeless tobacco: Never Vaping Use Vaping Use: Never used Substance Use Topics Alcohol use: No Drug use: Never Review of Symptoms REVIEW OF SYSTEMS GENERAL: No weight loss, malaise or fevers HEENT: Negative for frequent or significant headaches, No changes in hearing or vision, no nose bleeds or other nasal problems NECK: Negative for lumps, goiter, pain and significant neck swelling RESPIRATORY: Negative for cough, hemoptysis, wheezing, COPD, dyspnea. Occasional shortness of breath depending on her allergies. CARDIOVASCULAR: Negative for chest pain, increased leg swelling, hypertension, CHF or palpitations GI: No nausea, vomiting, or diarrhea, No heartburn or reflux symptoms, and no blood : No history of dysuria, blood MUSCULOSKELETAL: Negative for joint pain or swelling, back pain or muscle pain and sometimes gets some muscle spasm in various places. SKIN: Negative for rash, and itching. Has a lesion on the left leg she has monitored. PSYCH: Negative for sleep disturbance, mood disorder and recent psychosocial stressors HEMATOLOGY/LYMPHOLOGY: Negative for prolonged bleeding, bruising easily or swollen nodes ENDOCRINE: Negative for cold or heat intolerance, polyuria, polydipsia and goiter NEURO: No history of headaches, syncope, paralysis, seizures or tremors EXAM: BP 124/76 Pulse 74 Ht 162 cm (5' 3.78) Wt 89.4 kg (197 lb) BMI 34.05 kg/m Last 5 Encounter Wt Readings: Date: Wt: 06/24/2022 89.4 kg (197 lb) 04/12/2022 89.9 kg (198 lb 3.2 oz) 12/09/2021 89.4 kg (197 lb) 11/25/2021 90.3 kg (199 lb) 08/19/2021 85.3 kg (188 lb) General Appearance: Well appearing, alert, in no acute distress, well-hydrated, well nourished. andObese. Skin: Skin color, texture, turgor normal, no suspicious rashes or lesions. Head: Normocephalic, no masses, lesions, tenderness or abnormalities. Eyes: Anicteric sclera. Pupils are equally round and reactive to light. Extraocular movements are intact. . Ears: External ears normal, canals clear. Neck: Supple, no adenopathy; thyroid symmetric, normal size, no bruits. Lungs: Lungs clear to auscultation. No wheezing, rhonchi, rales.. Heart: RRR without murmur, gallop, or rubs. No ectopy. Abdomen: Normal abdominal exam, Abdomen soft, non-tender. Bowel sounds normal. No masses, organomegaly. Extremities: No deformities, edema, skin discoloration, Good capillary refill. . Musculoskeletal: Muscular strength intact, No joint swelling, deformity, or tenderness. Peripheral Pulses: Normal. Neurologic: Gait normal. Reflexes normal and symmetric. Sensation to light touch and crainal nerves2-12 intact.. Health Maintenance List HEPATITIS B(1 of 3 - 3-dose series) Never done PNEUMOCOCCAL(1 - PCV) Never done SPIROMETRY Never done HEPATITIS C SCREENING Never done HIV SCREENING Never done BP CONTROLLED (<130/80) Never done DTAP,TDAP,TD(1 - Tdap) Never done PAP TESTING Never done HPV TESTING Never done MAMMOGRAM Never done SHINGRIX VACCINE(1 of 2) Never done DEPRESSION ASSESSMENT Never done INFLUENZA(1) due on 05/29/2022 COVID-19 VACCINE(1) due on 06/24/2023 ANNUAL PCP TEAM CHRONIC DISEASE VISIT due on 06/24/2023 DIABETES SCREEN due on 12/23/2024 LIPID SCREEN due on 12/23/2026 COLORECTAL CANCER SCREENING due on 07/29/2031 Data reviewed Component Latest Ref Rng & Units 12/09/2021 12/23/2021 WBC 3.9 - 11 K/uL 7.7 RBC 4 - 6 M/uL 4.85 HGB 14 - 16.5 g/dL 13.8 (A) HCT 39 - 55 % 42.7 MCV 79 - 98 fL 88.0 MCH 25.4 - 34.6 pg 28.5 MCHC 30 - 36 g/dL 32.3 RDW-CV 11.6 - 14.6 % 14.9 (A) Platelet 140 - 440 K/uL 199 MPV 7.4 - 10.4 fL 11.6 (A) NEUT % 40 - 74 % 64.4 LYMPH % 20 - 30 % 23.3 MONO % 2 - 8 % 9.1 (A) EOS % 1 - 3 % 2.2 BASO % 0 - 1.5 % 0.5 NEUT ABS 1.9 - 8 K/uL 5.0 LYMPH ABS 1.2 - 4 K/uL 1.79 RDW-SD 35.1 - 43.9 fl 48.2 (A) IgA 0.0 - 0.9 % 0.50 Nucleated RBCs 0 - 5 % 0 NA 136 - 145 mmol/L 139 K 3.5 - 5.1 mmol/L 4.2 Chloride 98 - 107 MEQ/L 102 106 CO2 21 - 32 MEQ/L 27 27.0 Glucose 74 - 106 MG/DL 94 93 BUN 7 - 18 MG/DL 18 18 Creatinine 0.6 - 1.3 MG/DL 1.12 (H) 1.02 GFR mL/MIN 60 GFR AFR AMER mL/MIN 72 Total Protein 6.4 - 8.2 gm/dL 7.0 Albumin 3.2 - 4.6 gm/dL 3.1 (A) Calcium 8.5 - 10.1 mg/dL 8.5 Bili Total 0.2 - 1 mg/dL 0.30 AST 8 - 37 U/L 42 (A) ALT (SGPT) 12 - 78 U/L 54 Alk Phos Total 45 - 117 U/L 105 GLOBULIN 2.2 - 4.2 g/dL 3.9 ALBUMIN/GLOBULIN RATIO 0.9 - 2.4 RATIO 0.8 (A) Sodium 136 - 144 mmol/L 138 Potassium 3.7 - 5.1 mmol/L 4.3 Anion Gap 9 - 18 mmol/L 9 Calcium 8.5 - 10.2 mg/dL 9.5 eGFR >=60 mL/min/1.73m 58 (L) Cholesterol, Total 167 Triglyceride 160 HDL CHOLESTEROL 46 LDL Cholesterol 89 VLDL Cholesterol 32 Magnesium 1.7 - 2.3 mg/dL 2.0 TSH 0.2 - 5.6 IU/ml 1.73 T4,FREE (DIRECT) 0.76 - 1.46 1.36 Ferritin 8 - 252 ng/mL 81 Vitamin D 25 OH <20 - >100 ng/mL 21.5 Vitamin B12 211 - 911 pg/mL 1,459 (A) Component Latest Ref Rng & Units 06/23/2022 Hemoglobin A1C 0 - 5.7 % 5.5 A/P ASSESSMENT/PLAN: 1. Well adult exam - ICD9: V70.0, ICD10: Z00.00 (primary diagnosis) - Counseled on healthy diet and regular exercise - Calcium intake with supplements or by diet of 1000 mg/day for under 50, 1200- 1500 mg/day for 50+ - Patient was counseled [id number] by myself (the billing provider) for the following immunizations and vaccine components, including side effects: TdaP. Patient consents for immunization and understands risks and benefits. A VIS sheet on each immunization was given to the patient. - Follow up for annual exam in one year - discussed PCV-20 and shingrix vaccination. 2. Hypertension, essential - ICD9: 401.9, ICD10: I10 - good control - Continue current medication(s) - Recommended regular aerobic exercise. - Recommend home blood pressure monitoring, to bring results in on next visit - Goal of BP <130/80 - COMP METABOLIC PANEL 3. Hypothyroidism, acquired - ICD9: 244.9, ICD10: E03.9 - Instructed patient on importance of taking on an empty stomach either first thing in the morning or at bedtime. - continue current dose of Synthroid and management per Endo 4. GERD without esophagitis - ICD9: 530.81, ICD10: K21.9 - Continue treatment with Prilosec 40 mg QD - MAGNESIUM BLD 5. Asthma due to seasonal allergies - ICD9: 493.90, ICD10: J45.909 Mild intermittent Asthma stable - Continue current meds - Avoidance of triggers recommended 6. Seasonal allergies - ICD9: 477.9, ICD10: J30.2 - management per ENT 7. Pharyngoesophageal dysphagia - ICD9: 787.24, ICD10: R13.14 - as per #6 8. Fatty liver - ICD9: 571.8, ICD10: K76.0 - cont work on diet 9. Medication management - ICD9: V58.69, ICD10: Z79.899 Check - MAGNESIUM BLD 10. Need for vaccination - ICD9: V05.9, ICD10: Z23 - TDAP VACCINE AGE 7+ IM: given F/u 6 months routine Jani Edmondson MD documented in this encounterThe [facility]07-[facility]22 Miscellaneous Notes* Telephone Encounter - Dani Hodge MA - 04/14/2022 7:18 AM EDT Prescription was sent to pharmacy on 04/12/2022. Dani Hodge MA documented in this encounterThe [facility]07-16-2022 Instructions* Patient Instructions* Kavitha Hodge APRN.[facility] - 04/12/2022 3:20 PM EDT Felix You have been seen for a burn.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 assessment information [facility]WReg[facility] Work Phone: Evaluation note* Diagnosis Elevated hemoglobin A1c Other abnormal blood chemistry documented [facility]* Diagnosis Acute right-sided thoracic back pain- Primary documented [facility] this [facility]* Diagnosis Acute right-sided thoracic back pain- Primary documented in this encounter [facility]* Diagnosis Stage 3a chronic kidney disease (HCC) [facility] Diagnosis Encounter for screening mammogram for breast cancer documented [facility] this [facility]* Diagnosis Upper back strain, initial encounter- Primary Pain, dental Unspecified disorder of the teeth and supporting structures documented in this encounter [facility] note* Diagnosis Well adult exam- Primary Routine general medical examination at a health care facility Hypertension, essential Unspecified essential hypertension Hypothyroidism, acquired Unspecified hypothyroidism Elevated hemoglobin A1c Other abnormal blood chemistry GERD without esophagitis Esophageal reflux Asthma due to seasonal allergies Stage 3a chronic kidney disease (HCC) Fatty liver Other chronic nonalcoholic liver disease Obesity, Class I, BMI 30-34.9 Obesity, unspecified Neck pain Cervicalgia Spasm of back muscles Other symptoms referable to back Large breasts Hypertrophy of breast Encounter for gynecological examination with abnormal finding Routine gynecological examination Medication management Encounter for long-term (current) use of other medications [facility] Diagnosis Hypertension, essential- Primary Unspecified essential hypertension [facility] Diagnosis Encounter for gynecological examination (general) (routine) without abnormal findings- Primary Encounter for gynecological examination with abnormal finding Routine gynecological examination Encounter for screening mammogram for breast cancer [facility]* Diagnosis Encounter for screening mammogram for breast cancer [facility]* Diagnosis Abnormal mammogram- Primary Abnormal mammogram, unspecified [facility]* Diagnosis Seasonal allergies Allergic rhinitis, cause unspecified [facility]* Diagnosis Hypertension, essential- Primary Unspecified essential hypertension Elevated hemoglobin A1c Other abnormal blood chemistry Hypothyroidism, acquired Unspecified hypothyroidism Stage 3a chronic kidney disease (HCC) GERD without esophagitis Esophageal reflux Asthma due to seasonal allergies (HCC) Fatty liver Other chronic nonalcoholic liver disease Obesity, Class I, BMI 30-34.9 Obesity, unspecified Medication management Encounter for long-term (current) use of other medications Encounter for screening for diabetes mellitus Screening for diabetes mellitus Encounter for screening examination for other mental health and behavioral disorders Screening for depression Strain of lumbar paraspinous muscle, subsequent encounter [facility]* Diagnosis Abnormal mammogram Abnormal mammogram, unspecified documented [facility] this [facility]* Diagnosis Abnormal mammogram Abnormal mammogram, unspecified [facility]* Diagnosis Abnormal mammogram- Primary Abnormal mammogram, unspecified [facility]* Diagnosis Abnormal mammogram Abnormal mammogram, unspecified documented [facility] this [facility]* Diagnosis Viral URI with cough- Primary Acute upper respiratory infections of unspecified site Asthma with acute exacerbation, unspecified asthma severity, unspecified whether persistent (HCC) documented [facility]* Diagnosis Onset Date Resolution Status Admit Date Hypertension chronic May 8:12am 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 Return with worsening symptoms and concerns. Your blood work not show any acute findings and your x-rays did not show any broken bones. Use the muscle laxer's as prescribed and do not operate anything under the influence of this medication. Use Tylenol for pain control as well. Ice/heat whatever makes this feel better. [facility] Work Phone: Hospital Discharge instructionsAdditional Instructions Use Tylenol for pain control we do this you can take some every 6 hours max dose of Tylenol in 24 hours 4000 mg. Use the Lidoderm patch as prescribed. Use muscle relaxer as prescribed do not operate anything under the influence this medication as it will make you sleepy drowsy. Your chest x-ray did not show any acute findings. Return if worsening symptoms or any other concerns.[facility] Work Phone: Reason for referral (narrative)* Diagnostic Procedure Only (Routine) - Pending Review Specialty Diagnoses / Procedures Referred By Tyler naik Referred To Contact [facility] Diagnoses Encounter for screening mammogram for breast cancer Procedures JESUS MANUEL SCREENING SCREENING MAMMOGRAPHY BI 2-VIEW BREAST INC CAD Jani Edmondson MD [address] [place] [address] [facility] [address] [facility] [place] [address] Referral ID Status Reason Start Date Expiration Date Visits Requested Visits Authorized [id number] Pending Review Auto-Generat ed Referral 04/23/2022 05/23/2023 1 1 [facility] for referral (narrative)* Diagnostic Procedure Only (Routine) - Authorized Specialty Diagnoses / Procedures Referred By Tyler naik Referred To Contact [facility] Diagnoses Fatty liver Procedures US ABD RIGHT UPPER QUADRANT US ABDOMINAL REAL TIME W/IMAGE LIMITED Nina Scherer PA-C [address] [place] [address] [facility] Referral ID Status Reason Start Date Expiration Date Visits Requested Visits Authorized [id number] Authorized Auto-Generat ed Referral 12/26/2022 01/25/2024 1 1 T [facility] for referral (narrative)* Diagnostic Procedure Only (Routine) - Pending Review Specialty Diagnoses / Procedures Referred By Contac t Referred To Contact [facility] Diagnoses Encounter for screening mammogram for breast cancer Procedures JESUS MANUEL SCREENING SCREENING MAMMOGRAPHY BI 2-VIEW BREAST INC CAD Jani Edmondson MD [address] [place] [address] [facility] [address] [place] [address] Referral ID Status Reason Start Date Expiration Date Visits Requested Visits Authorized [id number] Pending Review Auto-Generat ed Referral 04/01/2023 04/30/2024 1 1 [facility] for referral (narrative)* Diagnostic Procedure Only (Routine) - Pending Review Specialty Diagnoses / Procedures Referred By Contac t Referred To Contact [facility] Diagnoses Encounter for screening mammogram for breast cancer Procedures JESUS MANUEL SCREENING W LUIS ANTONIO SCREENING DIGITAL BREAST TOMOSYNTHESIS BI SCREENING MAMMOGRAPHY BI 2-VIEW BREAST INC CAD Jani Edmondson MD [address] [place] [address] [facility] [address] [place] [address] Referral ID Status Reason Start Date Expiration Date Visits Requested Visits Authorized [id number] Pending Review Auto-Generat ed Referral 03/09/2024 04/08/2025 1 1 T [facility] for referral (narrative)No reason for referral information availableWRegency [facility] Work Phone: Reason for visit Narrative* Diagnostic Procedure Only (Routine) - Closed Specialty Diagnoses / Procedures Referred By Contac t Referred To Contact [facility] Diagnoses Encounter for screening mammogram for breast cancer Procedures JESUS MANUEL SCREENING W LUIS ANTONIO SCREENING DIGITAL BREAST TOMOSYNTHESIS BI SCREENING MAMMOGRAPHY BI 2-VIEW BREAST INC CAD Betty Cadena MD [address] [facility] [place] [address] Phone: tel: fax: [facility] [address] [place] [address] Referral ID Status Reason Start Date Expiration Date V isits Requested Visits Authorized [id number] Closed Auto-Generate d Referral 01/06/2025 02/05/2026 1 1 [facility] for visit Narrative* Diagnostic Procedure Only (Routine) - Closed Specialty Diagnoses / Procedures Referred By Tyler t Referred To Contact [facility] Diagnoses Abnormal mammogram Procedures JESUS MANUEL DIAGNOSTIC RIGHT DIAGNOSTIC MAMMOGRAPHY COMPUTER-AIDED DET Betty Squires MD [address] [facility] [place] [address] Phone: tel: fax: [facility] [address] [place] [address] Referral ID Status Reason Start Date Expiration Date V isits Requested Visits Authorized [id number] Closed Auto-Generate d Referral 01/27/2025 02/26/2026 1 1 [facility] for visit Narrative* Diagnostic Procedure Only (Routine) - Closed Specialty Diagnoses / Procedures Referred By Tyler naik Referred To Contact [facility] Diagnoses Abnormal mammogram Procedures JESUS MANUEL DIAGNOSTIC RIGHT DIAGNOSTIC MAMMOGRAPHY COMPUTER-AIDED DETC Betty Squires MD [address] [facility] [place] [address] Phone: tel: fax: [facility] [address] [place] [address] Referral ID Status Reason Start Date Expiration Date V isits Requested Visits Authorized [id number] Closed Auto-Generate d Referral 01/27/2025 02/26/2026 1 1 [facility] for visit Narrative* Diagnostic Procedure Only (Routine) - Closed Specialty Diagnoses / Procedures Referred By Tyler t Referred To Contact [facility] Diagnoses Abnormal mammogram Procedures US BIOPSY BREAST RIGHT BX BREAST W/DEVICE 1ST LESION ULTRASOUND GUID Flip Joy MD [address] [facility] [place] [address] Phone: tel: fax: [facility] [address] [place] [address] Referral ID Status Reason Start Date Expiration Date V isits Requested Visits Authorized [id number] Closed Auto-Generate d Referral 03/14/2025 04/13/2026 1 1 [facility] Summary Purpose Family History Relationship Condition Age at Onset Recorded Date/T eileen mother Asthma Unknown Cardiac disease Unknown Hypertension Unknown Seizure Unknown sister Asthma Unknown brother Asthma Unknown grandmother Malignant neoplasm Unknown Cerebrovascular accident (CVA) Unknown aunt Malignant neoplasm Unknown father Disorder of thyroid Unknown Advance Directives Documents on File Type Date Recorded Patient Alcoholism Worker Expl anation Advance Directive(s) 07/29/2021 8:11 AM Advance Directive(s) 07/05/2021 7:49 PM Advance Directive Response Recorded Date/ Time Advance Directives No July 8:28pm Living Will No May 03, 2018 11:30am Power of Fiberglass Autobody Repairer No May 03 11:30am Documents on File Type Date Recorded Patient Alcoholism Worker Expl anation Advance Directive(s) 07/29/2021 8:11 AM Advance Directive(s) 07/05/2021 7:49 PM Advance Directive Response Recorded Date/ Time Advance Directives No July 7:28pm Living Will No May 03, 2018 10:30am Power of Fiberglass Autobody Repairer No May 03 10:30am Advance Directive Response Recorded Date/ Time Living Will No November 29, 2024 10:37am Do you have a Healthcare Power of Fiberglass Autobody Repairer? No November 29, 2024 10:37am Do you have a Healthcare Power of Fiberglass Autobody Repairer? No February 12, 2025 1:27pm Advance Directives No July 8:28pm Advance Directive Response Recorded Date/ Time Do you have a Healthcare Power of Fiberglass Autobody Repairer? No February 12, 2025 1:27pm Advance Directives No July 8:28pm Advance Directive Response Recorded Date/ Time Do you have a Healthcare Power of Fiberglass Autobody Repairer? No February 12, 2025 1:27pm Do you have a Healthcare Power of Fiberglass Autobody Repairer? No June 01, 2025 10:31am Advance Directives No July 8:28pm Advance Directive Response Recorded Date/ Time Do you have a Healthcare Power of Fiberglass Autobody Repairer? No June 01, 2025 10:31am Do you have a Healthcare Power of Fiberglass Autobody Repairer? 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 Pre-diabetes Stage 3a chronic kidney disease (CKD) Chief Complaint Admit Date Dental November 29, 2024 8:44 am back pain February 12, 2025 12:38 pm Chief Complaint Admit Date back pain February 12, 2025 12:38 pm 9 M FU June 01, 2025 8:12am Reason for Visit Admit Date Hypertension June 01, 2025 8:12am Hypothyroidism due to Karla's thyroi ditis June 01, 2025 8:12am Obesity June 01, 2025 8:12am Pre-diabetes June 01, 2025 8:12am Stage 3a chronic kidney disease (CKD) Se pt2024 8:12am Chief Complaint Admit Date back pain February 12, 2025 12:38 pm 9 M FU June 01, 2025 8:12am back June 01, 2025 10:22am Chief Complaint Admit Date 9 M FU June 01, 2025 8:12am back June 01, 2025 10:22am L SHOULDER PAIN, RADIATES INTO CHEST Oct neda 2024 6:54pm Reason for Referral Specialty Diagnoses / Procedures Referred By Tyler naik Referred To Contact Plastic Surgery Diagnoses Large breasts Neck pain Procedures CONSULT TO PLASTIC SURGERY OFFICE/OUTPATIENT [facility] 60-74 MINUTES Jani Edmondson MD [address] [place] [address] Referral ID Status Reason Start Date Expiration Date Visits Requested Visits Authorized [id number] Authorized PCP Requested Referral 07/06/2024 1 1 Specialty Diagnoses / Procedures Referred By Tyler naik Referred To Contact Diagnoses Encounter for gynecological examination with abnormal finding Procedures CONSULT TO APPEALS BOARD REFEREE OFFICE/OUTPATIENT NEW HIGH MDM 60-74 MINUTES Jani Edmondson MD [address] [place] [address] Referral ID Status Reason Start Date Expiration Date Visits Requested Visits Authorized [id number] Authorized PCP Requested Referral Auto-Generate d Referral 3 07/06/2024 1 1 Specialty Diagnoses / Procedures Referred By Contac t Referred To Contact Plastic Surgery Diagnoses Neck pain Large breasts Spasm of back muscles Procedures CONSULT TO PLASTIC SURGERY OFFICE/OUTPATIENT [facility] 60 MINUTES Jani Edmondson MD [address] [place] [address] Referral ID Status Reason Start Date Expiration Date Visits Requested Visits Authorized [id number] Authorized PCP Requested Referral 4 09/14/2025 1 1 Specialty Diagnoses / Procedures Referred By Contac t Referred To Contact Diagnoses Encounter for gynecological examination with abnormal finding Procedures CONSULT TO APPEALS BOARD REFEREE OFFICE/OUTPATIENT [facility] 60 MINUTES Jani Edmondson MD [address] [place] [address] Referral ID Status Reason Start Date Expiration Date Visits Requested Visits Authorized [id number] Authorized PCP Requested Referral Auto-Generate d Referral 4 09/14/2025 1 1 Additional Source Comments INFORMATION SOURCE (unrecogn ized section and content) DATE CREATED AUTHOR 07/19/2018 [facility] DATE CREATED AUTHOR AUTHOR'S ORGANIZ ATION 07/23/2018 [facility] DATE CREATED AUTHOR AUTHOR'S ORGANIZ ATION 09/06/2018 [facility] DATE CREATED AUTHOR AUTHOR'S ORGANIZ ATION 08/15/2019 [facility] ([place]) DATE CREATED AUTHOR AUTHOR'S ORGANIZ ATION 04/13/2025 [facility] DATE CREATED AUTHOR AUTHOR'S ORGANIZ ATION 06/03/2025 [facility] DATE CREATED AUTHOR AUTHOR'S ORGANIZ ATION 06/06/2025 [facility] Source Comments (unrecognize d section and content) In the event this informatio n is protected by the Federal Confidentiality of Alcohol and Drug Abuse Patient Records regulations: The Federal rules restrict any use of the information to criminally investigate or prosecute any alcohol or drug abuse patient.[facility] the event this information is protected by the Federal Confidentiality of Alcohol and Drug Abuse Patient Records regulations: The Federal rules restrict any use of the information to criminally investigate or prosecute any alcohol or drug abuse patient.[facility] the event this information is protected by the Federal Confidentiality of Alcohol and Drug Abuse Patient Records regulations: The Federal rules restrict any use of the information to criminally investigate or prosecute any alcohol or drug abuse patient.[facility] the event this information is protected by the Federal Confidentiality of Alcohol and Drug Abuse Patient Records regulations: The Federal rules restrict any use of the information to criminally investigate or prosecute any alcohol or drug abuse patient.[facility] the event this information is protected by the Federal Confidentiality of Alcohol and Drug Abuse Patient Records regulations: The Federal rules restrict any use of the information to criminally investigate or prosecute any alcohol or drug abuse patient.[facility] the event this information is protected by the Federal Confidentiality of Alcohol and Drug Abuse Patient Records regulations: The Federal rules restrict any use of the information to criminally investigate or prosecute any alcohol or drug abuse patient.[facility] the event this information is protected by the Federal Confidentiality of Alcohol and Drug Abuse Patient Records regulations: The Federal rules restrict any use of the information to criminally investigate or prosecute any alcohol or drug abuse patient.[facility] the event this information is protected by the Federal Confidentiality of Alcohol and Drug Abuse Patient Records regulations: The Federal rules restrict any use of the information to criminally investigate or prosecute any alcohol or drug abuse patient.[facility] SystemIn the event this information is protected by the Federal Confidentiality of Alcohol and Drug Abuse Patient Records regulations: The Federal rules restrict any use of the information to criminally investigate or prosecute any alcohol or drug abuse patient.[facility] SystemIn the event this information is protected by the Federal Confidentiality of Alcohol and Drug Abuse Patient Records regulations: The Federal rules restrict any use of the information to criminally investigate or prosecute any alcohol or drug abuse patient.[facility] SystemIn the event this information is protected by the Federal Confidentiality of Alcohol and Drug Abuse Patient Records regulations: The Federal rules restrict any use of the information to criminally investigate or prosecute any alcohol or drug abuse patient.[facility] SystemIn the event this information is protected by the Federal Confidentiality of Alcohol and Drug Abuse Patient Records regulations: The Federal rules restrict any use of the information to criminally investigate or prosecute any alcohol or drug abuse patient.[facility] SystemIn the event this information is protected by the Federal Confidentiality of Alcohol and Drug Abuse Patient Records regulations: The Federal rules restrict any use of the information to criminally investigate or prosecute any alcohol or drug abuse patient.[facility] SystemIn the event this information is protected by the Federal Confidentiality of Alcohol and Drug Abuse Patient Records regulations: The Federal rules restrict any use of the information to criminally investigate or prosecute any alcohol or drug abuse patient.[facility] SystemIn the event this information is protected by the Federal Confidentiality of Alcohol and Drug Abuse Patient Records regulations: The Federal rules restrict any use of the information to criminally investigate or prosecute any alcohol or drug abuse patient.[facility] SystemIn the event this information is protected by the Federal Confidentiality of Alcohol and Drug Abuse Patient Records regulations: The Federal rules restrict any use of the information to criminally investigate or prosecute any alcohol or drug abuse patient.[facility] SystemIn the event this information is protected by the Federal Confidentiality of Alcohol and Drug Abuse Patient Records regulations: The Federal rules restrict any use of the information to criminally investigate or prosecute any alcohol or drug abuse patient.[facility] SystemIn the event this information is protected by the Federal Confidentiality of Alcohol and Drug Abuse Patient Records regulations: The Federal rules restrict any use of the information to criminally investigate or prosecute any alcohol or drug abuse patient.[facility] SystemIn the event this information is protected by the Federal Confidentiality of Alcohol and Drug Abuse Patient Records regulations: The Federal rules restrict any use of the information to criminally investigate or prosecute any alcohol or drug abuse patient.[facility] SystemIn the event this information is protected by the Federal Confidentiality of Alcohol and Drug Abuse Patient Records regulations: The Federal rules restrict any use of the information to criminally investigate or prosecute any alcohol or drug abuse patient.[facility] SystemIn the event this information is protected by the Federal Confidentiality of Alcohol and Drug Abuse Patient Records regulations: The Federal rules restrict any use of the information to criminally investigate or prosecute any alcohol or drug abuse patient.[facility] SystemIn the event this information is protected by the Federal Confidentiality of Alcohol and Drug Abuse Patient Records regulations: The Federal rules restrict any use of the information to criminally investigate or prosecute any alcohol or drug abuse patient.[facility] SystemIn the event this information is protected by the Federal Confidentiality of Alcohol and Drug Abuse Patient Records regulations: The Federal rules restrict any use of the information to criminally investigate or prosecute any alcohol or drug abuse patient.[facility] SystemIn the event this information is protected by the Federal Confidentiality of Alcohol and Drug Abuse Patient Records regulations: The Federal rules restrict any use of the information to criminally investigate or prosecute any alcohol or drug abuse patient.[facility] SystemIn the event this information is protected by the Federal Confidentiality of Alcohol and Drug Abuse Patient Records regulations: The Federal rules restrict any use of the information to criminally investigate or prosecute any alcohol or drug abuse patient.[facility] SystemIn the event this information is protected by the Federal Confidentiality of Alcohol and Drug Abuse Patient Records regulations: The Federal rules restrict any use of the information to criminally investigate or prosecute any alcohol or drug abuse patient.[facility] SystemIn the event this information is protected by the Federal Confidentiality of Alcohol and Drug Abuse Patient Records regulations: The Federal rules restrict any use of the information to criminally investigate or prosecute any alcohol or drug abuse patient.[facility] SystemIn the event this information is protected by the Federal Confidentiality of Alcohol and Drug Abuse Patient Records regulations: The Federal rules restrict any use of the information to criminally investigate or prosecute any alcohol or drug abuse patient.[facility] the event this information is protected by the Federal Confidentiality of Alcohol and Drug Abuse Patient Records regulations: The Federal rules restrict any use of the information to criminally investigate or prosecute any alcohol or drug abuse patient.[facility] SystemIn the event this information is protected by the Federal Confidentiality of Alcohol and Drug Abuse Patient Records regulations: The Federal rules restrict any use of the information to criminally investigate or prosecute any alcohol or drug abuse patient.[facility] SystemIn the event this information is protected by the Federal Confidentiality of Alcohol and Drug Abuse Patient Records regulations: The Federal rules restrict any use of the information to criminally investigate or prosecute any alcohol or drug abuse patient.[facility]In the event this information is protected by the Federal Confidentiality of Alcohol and Drug Abuse Patient Records regulations: The Federal rules restrict any use of the information to criminally investigate or prosecute any alcohol or drug abuse patient.[facility] SystemIn the event this information is protected by the Federal Confidentiality of Alcohol and Drug Abuse Patient Records regulations: The Federal rules restrict any use of the information to criminally investigate or prosecute any alcohol or drug abuse patient.[facility] SystemIn the event this information is protected by the Federal Confidentiality of Alcohol and Drug Abuse Patient Records regulations: The Federal rules restrict any use of the information to criminally investigate or prosecute any alcohol or drug abuse patient.[facility] SystemIn the event this information is protected by the Federal Confidentiality of Alcohol and Drug Abuse Patient Records regulations: The Federal rules restrict any use of the information to criminally investigate or prosecute any alcohol or drug abuse patient.[facility] SystemIn the event this information is protected by the Federal Confidentiality of Alcohol and Drug Abuse Patient Records regulations: The Federal rules restrict any use of the information to criminally investigate or prosecute any alcohol or drug abuse patient.[facility] SystemIn the event this information is protected by the Federal Confidentiality of Alcohol and Drug Abuse Patient Records regulations: The Federal rules restrict any use of the information to criminally investigate or prosecute any alcohol or drug abuse patient.[facility] SystemIn the event this information is protected by the Federal Confidentiality of Alcohol and Drug Abuse Patient Records regulations: The Federal rules restrict any use of the information to criminally investigate or prosecute any alcohol or drug abuse patient.[facility] SystemIn the event this information is protected by the Federal Confidentiality of Alcohol and Drug Abuse Patient Records regulations: The Federal rules restrict any use of the information to criminally investigate or prosecute any alcohol or drug abuse patient.[facility] SystemIn the event this information is protected by the Federal Confidentiality of Alcohol and Drug Abuse Patient Records regulations: The Federal rules restrict any use of the information to criminally investigate or prosecute any alcohol or drug abuse patient.[facility] SystemIn the event this information is protected by the Federal Confidentiality of Alcohol and Drug Abuse Patient Records regulations: The Federal rules restrict any use of the information to criminally investigate or prosecute any alcohol or drug abuse patient.[facility] SystemIn the event this information is protected by the Federal Confidentiality of Alcohol and Drug Abuse Patient Records regulations: The Federal rules restrict any use of the information to criminally investigate or prosecute any alcohol or drug abuse patient.[facility] SystemIn the event this information is protected by the Federal Confidentiality of Alcohol and Drug Abuse Patient Records regulations: The Federal rules restrict any use of the information to criminally investigate or prosecute any alcohol or drug abuse patient.[facility] SystemIn the event this information is protected by the Federal Confidentiality of Alcohol and Drug Abuse Patient Records regulations: The Federal rules restrict any use of the information to criminally investigate or prosecute any alcohol or drug abuse patient.[facility] SystemIn the event this information is protected by the Federal Confidentiality of Alcohol and Drug Abuse Patient Records regulations: The Federal rules restrict any use of the information to criminally investigate or prosecute any alcohol or drug abuse patient.[facility] SystemIn the event this information is protected by the Federal Confidentiality of Alcohol and Drug Abuse Patient Records regulations: The Federal rules restrict any use of the information to criminally investigate or prosecute any alcohol or drug abuse patient.[facility] SystemIn the event this information is protected by the Federal Confidentiality of Alcohol and Drug Abuse Patient Records regulations: The Federal rules restrict any use of the information to criminally investigate or prosecute any alcohol or drug abuse patient.[facility] SystemIn the event this information is protected by the Federal Confidentiality of Alcohol and Drug Abuse Patient Records regulations: The Federal rules restrict any use of the information to criminally investigate or prosecute any alcohol or drug abuse patient.[facility] SystemIn the event this information is protected by the Federal Confidentiality of Alcohol and Drug Abuse Patient Records regulations: The Federal rules restrict any use of the information to criminally investigate or prosecute any alcohol or drug abuse patient.[facility] SystemIn the event this information is protected by the Federal Confidentiality of Alcohol and Drug Abuse Patient Records regulations: The Federal rules restrict any use of the information to criminally investigate or prosecute any alcohol or drug abuse patient.[facility] SystemIn the event this information is protected by the Federal Confidentiality of Alcohol and Drug Abuse Patient Records regulations: The Federal rules restrict any use of the information to criminally investigate or prosecute any alcohol or drug abuse patient.[facility] SystemIn the event this information is protected by the Federal Confidentiality of Alcohol and Drug Abuse Patient Records regulations: The Federal rules restrict any use of the information to criminally investigate or prosecute any alcohol or drug abuse patient.[facility] SystemIn the event this information is protected by the Federal Confidentiality of Alcohol and Drug Abuse Patient Records regulations: The Federal rules restrict any use of the information to criminally investigate or prosecute any alcohol or drug abuse patient.[facility] SystemIn the event this information is protected by the Federal Confidentiality of Alcohol and Drug Abuse Patient Records regulations: The Federal rules restrict any use of the information to criminally investigate or prosecute any alcohol or drug abuse patient.[facility] Reason for Visit (unrecogniz ed section and content) Reason Comments Outside Labs Results Reason Comments Refill Request Reason Comments burn on lip x 1 week Reason Comments Physical Reason Onset Date Comments Refill Request 09/19/2022 Reason Comments 6 Month Exam Reason Comments Results Reason Comments Back Pain mid left back x 5 da ys Reason Onset Date Comments Refill Request 04/07/2023 Reason Comments Physical Reason Comments Appointment Reason Comments Musculoskeletal Problem Muscle spasms in the R. Shoulder blade x 1 day, no definite cause Reason Comments Musculoskeletal Problem Right side muscl e spasms and pain, states this pulled last evening states she felt grab Reason Onset Date Comments Medication Problem 12/05/2023 Reason Comments 6 Month Exam Reason Comments Consult Endocrinology Reason Comments Back Pain States she has alway s had them, states bilat sided underneath, states pain has been more consistent Dental Problem R side Front tooth b roken off x 1 month ago, pain just started and is going into cheek bone under eye Reason Comments Outside [id number] Ordered Reason Comments Outside Endocrinology Reason Comments Recheck Blood pressure Reason Comments Opened In Error Reason Comments ER F/U [facility] Reason Comments Well Woman Specialty Diagnoses / Procedures Referred By Tyler naik Referred To Contact Diagnoses Encounter for gynecological examination with abnormal finding Procedures CONSULT TO APPEALS BOARD REFEREE OFFICE/OUTPATIENT [facility] 60 MINUTES Jani Edmondson MD [address] [place] [address] Phone: tel: fax: Referral ID Status Reason Start Date Expiration Date V isits Requested Visits Authorized [id number] Closed PCP Requested Referral Auto-Generated Referral 09/14/2024 09/14/2025 1 1 Reason Comments Medication Problem Valsartan Reason Comments Orders Reason Onset Date Comments Refill Request 02/01/2025 Flonase Medication Question 02/01/2025 Valsartan & Omeprazole Reason Comments Consult Reason Comments Cough Cough, chest congest ion, ST and bodyaches x 2 days Reason Comments Abstract [facility] and [facility] ED Care Teams (unrecognized sec tion and content) Substation Manager Relationship Specialty Start Date End Date Jani Edmondson MD [address] [place] [address] PCP - General Family Practice 05/09/21 Sarabjit Quigley [address] [place] [address] Referring Ent - Otolaryngology 09/16/21 Substation Manager Relationship Specialty Start Date End Date Jani Edmondson MD [address] [place] [address] PCP - General Family Practice 05/09/21 Sarabjit Quigley [address] [place] [address] Referring Ent - Otolaryngology 09/16/21 Substation Manager Relationship Specialty Start Date End Date Jani Edmondson MD [address] [place] [address] PCP - General Family Practice 05/09/21 Sarabjit Quigley [address] [place] [address] Referring Ent - Otolaryngology 09/16/21 Substation Manager Relationship Specialty Start Date End Date Jani Edmondson MD [address] [place] [address] PCP - General Family Practice 05/09/21 Sarabjit Quigley [address] [place] [address] Referring Ent - Otolaryngology 09/16/21 Substation Manager Relationship Specialty Start Date End Date Jani Edmondson MD [address] [place] [address] PCP - General Family Practice 05/09/21 Sarabjit Quigley [address] [place] [address] Referring Ent - Otolaryngology 09/16/21 Substation Manager Relationship Specialty Start Date End Date Jani Edmondson MD [address] [place] [address] PCP - General Family Medicine 05/09/21 Sarabjit Quigley [address] [place] [address] Referring Ent - Otolaryngology 09/16/21 Substation Manager Relationship Specialty Start Date End Date Jani Edmondson MD [address] [place] [address] PCP - General Family Medicine 05/09/21 Sarabjit Quigley [address] [place] [address] Referring Ent - Otolaryngology 09/16/21 Substation Manager Relationship Specialty Start Date End Date Jani Edmondson MD [address] [place] [address] PCP - General Family Medicine 05/09/21 Sarabjit Quigley [address] [place] [address] Referring Ent - Otolaryngology 09/16/21 Substation Manager Relationship Specialty Start Date End Date Jani Edmondson MD [address] [place] [address] PCP - General Family Medicine 05/09/21 Sarabjit Quigley [address] [place] [address] Referring Ent - Otolaryngology 09/16/21 Substation Manager Relationship Specialty Start Date End Date Jani Edmondson MD [address] [place] [address] PCP - General Family Medicine 05/09/21 Sarabjit Quigley [address] [place] [phone] Referring Ent - Otolaryngology 09/16/21 Substation Manager Relationship Specialty Start Date End Date Jani Edmondson MD [address] [place] [address] PCP - General Family Medicine 05/09/21 Sarabjit Quigley [address] [place] [phone] Referring Ent - Otolaryngology 09/16/21 Team Status: Active Member Role Status Dates Dr. Anish Villegas Jr., MD Family Provider Active ANJELICA Weinstein Primary Care Provider Active Team Status: Inactive Member Role Status Dates ANJELICA Weinstein Primary Care Provider, Referri ng Provider Active Dr. Rocky Rodriguez MD Attending Provider Active Team Status: Inactive Member Role Status Dates ANJELICA Weinstein Primary Care Provider Active Dr. Rocky Rodriguez MD Attending Provider, Referring Provi mary Active Substation Manager Relationship Specialty Start Date End Date Jani Edmondson MD [address] [place], [place] [address] [phone] PCP - General Family Medicine 05/09/21 Sarabjit Quigley [address] [place] [phone] Referring Ent - Otolaryngology 09/16/21 Substation Manager Relationship Specialty Start Date End Date Jani Edmondson MD [address] [place] [address] PCP - General Family Medicine 05/09/21 Sarabjit Quigley [address] [place] [phone] Referring Ent - Otolaryngology 09/16/21 Substation Manager Relationship Specialty Start Date End Date Jani Edmondson MD [address] [facility], [place] [address] PCP - General Family Medicine 05/09/21 Sarabjit Quigley [address] [place] [phone] Referring Ent - Otolaryngology 09/16/21 Substation Manager Relationship Specialty Start Date End Date Jani Edmondson MD [address] [place], [place] [address] PCP - General Family Medicine 05/09/21 Sarabjit Quigley [address] [place] [phone] Referring Ent - Otolaryngology 09/16/21 Substation Manager Relationship Specialty Start Date End Date Jani Edmondson MD [address] [place], [place] [address] PCP - General Family Medicine 05/09/21 Sarabjit Quigley [address] [place] [phone] Referring Ent - Otolaryngology 09/16/21 Team Status: Inactive Member Role Status Dates Nina DEJESUS, PA Primary Care Provider Active Dr. Jani Edmondson MD Attending Provider, Referring Provider Active Dr. Rocky Rodriguez MD Other Provider Active Substation Manager Relationship Specialty Start Date End Date Jani Edmondson MD [address] [place], [place] [address] PCP - General Family Medicine 05/09/21 Sarabjit Quigley [address] [place] [phone] Referring Ent - Otolaryngology 09/16/21 Substation Manager Relationship Specialty Start Date End Date Jani Edmondson MD [address] [place], [place] [address]244 [phone] PCP - General Family Medicine 05/09/21 Sarabjit Quigley [address] [place] [phone] Referring Ent - Otolaryngology 09/16/21 Substation Manager Relationship Specialty Start Date End Date Jani Edmondson MD [address] [place], [place] [address] [phone] PCP - General Family Medicine 05/09/21 Sarabjit Quigley [address] [place] [phone] Referring Ent - Otolaryngology 09/16/21 Substation Manager Relationship Specialty Start Date End Date Jani Edmondson MD [address] [place], [place] [address]841 [phone] PCP - General Family Medicine 05/09/21 Sarabjit Quigley [address] [place] [phone] Referring Ent - Otolaryngology 09/16/21 Substation Manager Relationship Specialty Start Date End Date Jani Edmondson MD [address] [place], [place] [phone] PCP - General Family Medicine 05/09/21 Sarabjit Quigley [address] [place] [phone] Referring Ent - Otolaryngology 09/16/21 Team Status: Active Member Role Status Dates ANJELICA Weinstein Primary Care Provider Active Dr. Rocky Rodriguez MD Attending Provider Active Team Status: Inactive Member Role Status Dates ANJELICA Weinstein Primary Care Provider Active Dr. Jani Edmondson MD Attending Provider Active Substation Manager Relationship Specialty Start Date End Date Jani Edmondson MD [address] [place], [place] [address] PCP - General Family Medicine 05/09/21 Sarabjit Quigley [address] [place] [phone] Referring Ent - Otolaryngology 09/16/21 Substation Manager Relationship Specialty Start Date End Date Jani Edmondson MD [address] [place], [place] [address]40[address] PCP - General Family Medicine 05/09/21 Sarabjit Quilgey [address] [place] [phone] Referring Ent - Otolaryngology 09/16/21 Substation Manager Relationship Specialty Start Date End Date Jani Edmondson MD [address] [place], [place] [address] PCP - General Family Medicine 05/09/21 Sarabjit Quigley [address] [place] [phone] Referring Ent - Otolaryngology 09/16/21 Substation Manager Relationship Specialty Start Date End Date Jani Edmondson MD [address] [place] [address] PCP - General Family Medicine 05/09/21 Sarabjit Quigley [address] [place] [address] Referring Ent - Otolaryngology 09/16/21 Lynn Camara APRN.COMPUTER ART INSTRUCTOR [address] [place] [address] Manager [employer] [facility] 09/03/24 Nina Scherer PA-C [address] [place] [address] Manager [employer] [facility] 09/03/24 Substation Manager Relationship Specialty Start Date End Date Jani Edmondson MD [address] [place] [address] PCP - General Family Medicine 05/09/21 Sarabjit Quigley [address] [place] [phone] Referring Ent - Otolaryngology 09/16/21 Lynn Camara APRN.COMPUTER ART INSTRUCTOR [address] [place] [address] Manager [employer] [facility] 09/03/24 Nina Scherer PA-C [address] [place], [place] [address]2583 [phone] Manager [employer] [facility] 09/03/24 Substation Manager Relationship Specialty Start Date End Date Jani Edmondson MD [address] [place] [address] PCP - General Family Medicine 05/09/21 Sarabjit Quigley [address] [place] [phone] Referring Ent - Otolaryngology 09/16/21 Lynn Camara APRN.COMPUTER ART INSTRUCTOR [address] [place], [place] 122126 [phone] Manager [employer] Family [facility] 09/03/24 Nina Scherer PA-C [address] [place] [address] [facility] 09/03/24 Substation Manager Relationship Specialty Start Date End Date Jani Edmondson MD [address] [place] [address] PCP - General Family Medicine 05/09/21 Sarabjit Quigley [address] [place] [address] Referring Ent - Otolaryngology 09/16/21 Lynn Camara APRN.COMPUTER ART INSTRUCTOR [address] [place], [place] [address] [phone] Manager [employer] [facility] 09/03/24 Nina Scherer PA-C [address] [place] [address] [facility] Family [facility] 09/03/24 Substation Manager Relationship Specialty Start Date End Date Jani Edmondson MD [address] [place] [address] PCP - General Family Medicine 05/09/21 Sarabjit Quigley [address] [place] [phone] Referring Ent - Otolaryngology 09/16/21 Lynn Camara APRN.COMPUTER ART INSTRUCTOR [address] [place], [place] [phone] [employer] [facility] 09/03/24 Nina Scherer PA-C [address] [place] [address] [employer] [facility] 09/03/24 Substation Manager Relationship Specialty Start Date End Date Jani Edmondson MD [address] [place] [address] PCP - General Family Medicine 05/09/21 Sarabjit Quigley [address] [place] [phone] Referring Ent - Otolaryngology 09/16/21 Lynn Camara, ABIDA.COMPUTER ART INSTRUCTOR [address] [place], [place] [phone] [employer] [facility] 09/03/24 Nina Scherer PA-C [address] [place] [address] [employer] [facility] 09/03/24 Substation Manager Relationship Specialty Start Date End Date Jani Edmondson MD [address] [place] [address] PCP - General Family Medicine 05/09/21 Sarabjit Quigley [address] [place] [phone] Referring Ent - Otolaryngology 09/16/21 Lynn Camara APRN.COMPUTER ART INSTRUCTOR [address] [place] [address] [employer] [facility] 09/03/24 Nina Scherer PA-C [address] [place] [address] [employer] [facility] 09/03/24 Substation Manager Relationship Specialty Start Date End Date Jani Edmondson MD [address] [place] [address] PCP - General Family Medicine 05/09/21 Sarabjit Quigley [address] [place] [phone] Referring Ent - Otolaryngology 09/16/21 Lynn Camara APRN.COMPUTER ART INSTRUCTOR [address] [place], [place] [address] [employer] [facility] 09/03/24 Nina Scherer PA-C [address] [place] [address] [employer] [facility] 09/03/24 Substation Manager Relationship Specialty Start Date End Date Jani Edmondson MD [address] [place], [place] [phone] PCP - General Family Medicine 05/09/21 Sarabjit Quigley [address] [place] [phone] Referring Ent - Otolaryngology 09/16/21 Lynn Camara APRN.COMPUTER ART INSTRUCTOR [address] [place], [place] [address] [facility] 09/03/24 Nina Scherer PA-C [address] [place] [place], [place] [address] [facility] 09/03/24 Team Status: Active Member Role Status Dates Dr. Jani Edmondson MD Primary Care Provider Active Team Status: Inactive Member Role Status Dates Dr. Jani Edmondson MD Primary Care Provider Active Start: November 29, 2024 End: November 29, 2024 Dr. Flip Ramsey DO Attending Provider Active Start: November 29, 2024 End: November 29, 2024 Dr. Flip Ramsey DO Emergency Provider Active Start: November 29, 2024 End: November 29, 2024 Team Status: Inactive Member Role Status Dates Dr. Jani Edmondson MD Primary Care Provider Active Start: February 12, 2025 End: February 12, 2025 Dr. Rafa Drew DO Emergency Provider Active Start: February 12, 2025 End: February 12, 2025 Substation Manager Relationship Specialty Start Date End Date Jani Edmondson MD [address] [place], [place] [phone] PCP - General Family Medicine 05/09/21 Sarabjit Quigley [address] [place] [phone] Referring Ent - Otolaryngology 09/16/21 Lynn Camara APRN.COMPUTER ART INSTRUCTOR [address] [place], [place] [phone] [facility] 02/27/25 Nina Scherer PA-C [address] [place] [address] [employer] [facility] 02/27/25 Substation Manager Relationship Specialty Start Date End Date Jani Edmondson MD [address] [place] [address] PCP - General Family Medicine 05/09/21 Sarabjit Quigley [address] [place] [address] Referring Ent - Otolaryngology 09/16/21 Lynn Camara APRN.COMPUTER ART INSTRUCTOR [address] [place] [address] [employer] [facility] 02/27/25 Nina Scherer PA-C [address] [place] [address] [employer] [facility] 02/27/25 Substation Manager Relationship Specialty Start Date End Date Jani Edmondson MD [address] [place] [address] PCP - General Family Medicine 05/09/21 Sarabjit Quigley [address] [place] [phone] Referring Ent - Otolaryngology 09/16/21 Lynn Camara APRN.COMPUTER ART INSTRUCTOR [address] [place] [address] [employer] [facility] 02/27/25 Nina Scherer PA-C [address] [place], [place] [address] [employer] [facility] 02/27/25 Substation Manager Relationship Specialty Start Date End Date Jnai Edmondson MD [address] [place] [address] PCP - General Family Medicine 05/09/21 Sarabjit Quigley [address] [place] [phone] Referring Ent - Otolaryngology 09/16/21 Lynn Camara APRN.COMPUTER ART INSTRUCTOR [address] [place] [address] [employer] [facility] 02/27/25 Nina Scherer PA-C [address] [place] [address] [facility] 02/27/25 Substation Manager Relationship Specialty Start Date End Date Jani Edmondson MD [address] [place], [place] [phone] PCP - General Family Medicine 05/09/21 Sarabjit Quigley [address] [place] [phone] Referring Ent - Otolaryngology 09/16/21 Lynn Camara, ABIDA.COMPUTER ART INSTRUCTOR [address] [place], [place] [phone] [facility] [employer] [facility] 02/27/25 Nina Scherer PA-C [address] [place], [place] [phone] [employer] [facility] 02/27/25 Substation Manager Relationship Specialty Start Date End Date Jani Edmondson MD [address] [place] [address] PCP - General Family Medicine 05/09/21 Sarabjit Quigley [address] [place] [phone] Referring Ent - Otolaryngology 09/16/21 Lynn Camara APRN.COMPUTER ART INSTRUCTOR [address] [place] [address] [employer] [facility] 02/27/25 Nina Scherer PA-C [address] [place] [address] [facility] 02/27/25 Substation Manager Relationship Specialty Start Date End Date Jani Edmondson MD [address] [place] [address] PCP - General Family Medicine 05/09/21 Sarabjit Quigley [address] [place] [phone] Referring Ent - Otolaryngology 09/16/21 Lynn Camara APRN.COMPUTER ART INSTRUCTOR [address] [place] [address] [employer] [facility] 09/03/24 02/12/25 Nina Scherer PA-C [address] [place] [address] [employer] [facility] 09/03/24 02/26/25 Lynn Camara APRN.COMPUTER ART INSTRUCTOR [address] [facility] [place] [address] [employer] [facility] 02/27/25 Nina Scherer PA-C [address] [place] [address] [employer] [facility] 02/27/25 Substation Manager Relationship Specialty Start Date End Date Jani Edmondson MD [address] [place] [address] PCP - General Family Medicine 05/09/21 Sarabjit Quigley [address] [place] [phone] Referring Ent - Otolaryngology 09/16/21 Lynn Camara, ABIDA.COMPUTER ART INSTRUCTOR [address] [place] [address] [employer] [facility] 02/27/25 Nina Scherer PA-C [address] [place] [address] [employer] [facility] 02/27/25 Substation Manager Relationship Specialty Start Date End Date Jani Edmondson MD [address] [place] [address] PCP - General Family Medicine 05/09/21 Sarabjit Quigley [address] [place] [address] Referring Ent - Otolaryngology 09/16/21 Lynn Camara APRN.COMPUTER ART INSTRUCTOR [address] [place] [address] [employer] [facility] 02/27/25 Nina Scherer PA-C [address] [place] [address] [employer] [facility] 02/27/25 Substation Manager Relationship Specialty Start Date End Date Jani Edmondson MD [address] [place] [address] PCP - General Family Medicine 05/09/21 Sarabjit Quigley [address] [place] [phone] Referring Ent - Otolaryngology 09/16/21 Lynn Camara APRN.COMPUTER ART INSTRUCTOR [address] [place] [address] [employer] [facility] 02/27/25 Nina Scherer PA-C [address] [place] [address] [employer] [facility] 02/27/25 Substation Manager Relationship Specialty Start Date End Date Jani Edmondson MD [address] [place] [address] PCP - General Family Medicine 05/09/21 Sarabjit Quigley [address] [place] [phone] Referring Ent - Otolaryngology 09/16/21 Lynn Camara APRN.COMPUTER ART INSTRUCTOR [address] [place], [place] [phone] [facility] 02/27/25 Nina Scherer PA-C [address] [place], [place] [address] [facility] 02/27/25 Team Status: Active Member Role/Relationship Status Dates Dr. Jani Edmondson MD Primary Care Provider Active Team Status: Inactive Member Role/Relationship Status Dates Dr. Jani Edmondson MD Primary Care Provider Active Start: February 12, 2025 End: February 12, 2025 Dr. Rafa Drew DO Attending Provider Active Start: February 12, 2025 End: February 12, 2025 Dr. Rafa Drew DO Emergency Provider Active Start: February 12, 2025 End: February 12, 2025 Team Status: Inactive Member Role/Relationship Status Dates Dr. Jani Edmondson MD Primary Care Provider Active Start: June 01, 2025 End: June 01, 2025 Dr. Jani Edmondson MD Referring Provider Active Start: June 01, 2025 End: June 01, 2025 Dr. Rocky Rodriguez MD Attending Provider Active Sta rt: June 01, 2025 End: June 01, 2025 Team Status: Inactive Member Role/Relationship Status Dates Dr. Jani Edmondson MD Primary Care Provider Active Start: June 01, 2025 End: June 01, 2025 Dr. Rafa Drew DO Emergency Provider Active Start: June 01, 2025 End: June 01, 2025 Substation Manager Relationship Specialty Start Date End Date Jani Edmondson MD [address] [place], [place] [phone] PCP - General Family Medicine 05/09/21 Sarabjit Quigley [address] [place] [address] Referring Ent - Otolaryngology 09/16/21 Lynn Camara APRN.CNP [address] [place], [place] [phone] [facility] 02/27/25 Nina Scherer PA-C [address] [place] [address] [facility] 02/27/25 Team Status: Active Member Role/Relationship Status Dates Dr. Jani Edmondson MD Primary care physician Active Team Status: Inactive Member Role/Relationship Status Dates Dr. Jani Edmondson MD Primary care physician Active Start: June 01, 2025 End: June 01, 2025 Dr. Jani Edmondson MD Referring Provider Active Start: June 01, 2025 End: June 01, 2025 Dr. Rocky Rodriguez MD Attending physician Active St art: June 01, 2025 End: June 01, 2025 Team Status: Inactive Member Role/Relationship Status Dates Dr. Jani Edmondson MD Primary care physician Active Start: June 01, 2025 End: June 01, 2025 Dr. Rafa Drew DO Attending physician Active Start: June 01, 2025 End: June 01, 2025 Dr. Rafa Drew DO Emergency Departme nt Physician Active Start: June 01, 2025 End: June 01, 2025 Team Status: Inactive Member Role/Relationship Status Dates Dr. Jani Edmondson MD Primary care physician Active Start: June 29, 2025 End: June 29, 2025 Dr. Piotr Hickman DO Emergency Departm ent Physician Active Start: June 29, 2025 End: June 29, 2025 Goals (unrecognized section and content) Goals may be documented in a n alternate sectionGoals may be documented in an alternate sectionGoals may be documented in an alternate sectionGoals may be documented in an alternate sectionGoals may be documented in an alternate sectionGoals may be documented in an alternate sectionGoals may be documented in an alternate sectionGoals may be documented in an alternate section FOR RECORDS PERTAINING TO PATIENTS WHO ARE OR HAVE BEEN ENROLLED IN A CHEMICAL DEPENDENCY/SUBSTANCEABUSE PROGRAM, SOME INFORMATION MAY BE OMITTED. This clinical summary was aggregated from multiple sources. Caution should be exercised in using it in the provision of clinical care. This summary normalizes information from multiple sources, and as a consequence, information in this document may materially change the coding, format and clinical context of patient data. In addition, data may be omitted in some cases. CLINICAL DECISIONS SHOULD BE BASED ON THE PRIMARY CLINICAL RECORDS. [facility] [employer] MD [facility]. provides no warranty or guarantee of the accuracy or completeness of information in this document.
[2025-07-02] MEDS: Lidocaine 5% Patch 1 PATCH TOPICAL (17:42)
[2025-07-02 17:43] LABS: Hematocrit 36.5 % (37-47); Hemoglobin 11.3 g/dL (12.0-15.0); Mean Corp Hgb Conc 31.0 g/dL (32-36); Mean Corpuscular Volume 75.9 fL (81-99); Mean Platelet Vol. 10.8 fl (6.2-12.0); Platelet Count 225 K/mm3 (150-450); RBC Distribution Width CV 16.3 % (11.6-14.6); RBC Distribution Width SD 44.5 fl (35.1-43.9); Red Blood Count 4.81 M/mm3 (4.2-5.4); White Blood Count 9.0 K/mm3 (4.4-11.0)
[2025-07-02] MEDS: 0.9% Normal Saline (500mL Bag) 500 ML 1000 ML IV (17:44)
[2025-07-02 17:49] LABS: D-Dimer Quantitative (DVT/PE) 0.39 FEU/ug/m (0.27-0.49)
--- NOTE | 2025-07-02 17:55 | RAD_ITS ---
PROCEDURE: CHEST 1 VIEW (PORTABLE) 07/02/2025 REASON FOR EXAM: CHEST PAIN TECHNIQUE: Frontal view of the chest. COMPARISON: 06/29/2025 FINDINGS: No focal consolidation. Trace left base effusion. No pneumothorax. Cardiac silhouette is within normal limits. No acute fractures. Cervical ACDF. RAD/Chest 1 View (Portable) IMPRESSION: Trace left base effusion. No focal consolidations. Reading Location: [id number]
[2025-07-02 18:44] VITALS: BP 123/72; PULSE 74; RESP 16; O2SAT 97
[2025-07-02 18:44] LABS: Anion Gap 13 (5-15); BUN 23 mg/dL (4-19); BUN/Creat Ratio 19.7 RATIO (10-20); Calcium,Total 9.2 mg/dL (7.6-11.0); Carbon Dioxide 20.7 mmol/L (21.0-32.0); Chloride 106 mmol/L (98-108); Estimated Creatinine Clearance 53.94 ml/min (50-250); Glucose 102 mg/dL (70-99); Potassium 4.3 mmol/L (3.3-5.1)
[2025-07-02 18:47] LABS: Pro- Brain NATRIURETIC PEPTIDE 89 pg/mL (<=900); Troponin T High Sensitivity < 6 ng/L (<=14)
[2025-07-02 20:29] LABS: Troponin T High Sens 2 HR < 6 ng/L (<=14)
[2025-07-02 20:50] VITALS: BP 105/68; PULSE 78; RESP 16; TEMP 36.7; O2SAT 98
== END 2025-07-02 21:35 | disposition home or self-care (01) ==
PROVIDERS: Emergency Provider Emergency Medicine; PCP Family Medicine; Visit Provider Emergency Medicine
DX: M54.9 Dorsalgia, unspecified (principal); N18.31 Chronic kidney disease, stage 3a; R07.9 Chest pain, unspecified; E66.9 Obesity, unspecified; I25.10 Atherosclerotic heart disease of native coronary artery without angina pectoris; I12.9 Hypertensive chronic kidney disease with stage 1 through stage 4 chronic kidney disease, or unspecified chronic kidney disease; M79.18 Myalgia, other site; K21.9 Gastro-esophageal reflux disease without esophagitis; J45.909 Unspecified asthma, uncomplicated
CPT/HCPCS: 71045; 80048; 83880; 84484; 85027; 85379; 93005; 96361; 96374; 96375; 99285; A4216; J2405

== ENCOUNTER 2025-07-24 10:52 | Emergency (ER) | payer OTHER, SELFPAY ==
[2025-07-24 10:53] VITALS: BP 178/99; PULSE 98; RESP 18; TEMP 36.6; O2SAT 99
--- NOTE | 2025-07-24 11:19 | EDS_ITS ---
HPI History of Present Illness Chief Complaint: Back Informant: patient Narrative Narrative: Patient is a 60-year-old female presenting with severe lower thoracic pain radiating to the left anterior chest. - Pain has been present for several months, with significant intensification since 3d ago. - Describes pain as originating in the lower thoracic region and wrapping around to the left anterior chest, beneath the left breast. Left sided only. - Pain is not exacerbated by light touch but is tender to deeper palpation and worse w/ breathing, movement. - Denies any associated rash. - Denies radiation of pain all the way to the middle of the chest or beyond the left anterior inframammary chest. - Denies pain radiating down arms or legs, but reports weakness in arms and hand tremors when pain is intense. - Has been evaluated multiple times in the ED and by her primary care physician without a definitive diagnosis. - Previous evaluations included CT scans and extensive blood work to rule out blood clots; no MRI performed as of yet. - Currently taking Celebrex and a low-dose muscle relaxer, but reports inadequate pain relief. - Scheduled for an echocardiogram on August 07 to rule out cardiac causes. - Physical therapy is scheduled to start on August 02. - Reports elevated blood pressure readings today (here in ER), typically well- controlled on antihypertensive medication. [facility] Medical History Obesity Stage 3a chronic kidney disease (CKD) Pre-diabetes Polycystic ovarian disease GERD (gastroesophageal reflux disease) Asthma Essential hypertension Graves' disease Home Medications ?Medication ?Instructions ?Recorded ?Last Taken ?Type albuterol sulfate 90 mcg/actuation 1 puff inhalation Q 4H PRN PRN Sob 01/17/18 Unknown History aerosol inhaler &/Or Wheezing omeprazole 40 mg capsule,delayed 40 mg PO 12/23/21 Unk nown History release blood pressure test kit-small #1 ea 12/23/22 Unknown R x cetirizine 10 mg capsule (All Day 10 mg PO DAILY PRN a llergy symptoms 08/25/23 Unknown History Allergy (cetirizine)) levothyroxine 88 mcg tablet 88 mcg PO DAILY #90 tabs 1 11/16/23 Unknown Rx valsartan 80 mg tablet 80 mg PO QDAY 09/15/24 Unkno wn History ibuprofen 600 mg tablet 600 mg PO Q8H PRN PRN fever or 11/29/24 Unknown Rx pain #20 TABLETS Jardiance 25 mg tablet 25 mg PO DAILY #90 tabs 01/20 Unknown Rx (empagliflozin) berberine chloride 500 mg capsule 1,000 mg PO DAILY Unknown History cyclobenzaprine 10 mg tablet 10 mg PO QHS PRN PRN Musc le Spasm 06/29/25 Unknown Rx #10 TABLETS prednisone 20 mg tablet 20 mg PO DAILY 5 days #5 tab s 07/02/25 Unknown Rx oxycodone-acetaminophen 5 mg-325 1 tab PO Q6H PRN PRN Pain 3 days 07/24/25 Unknown Rx mg tablet #10 TABLETS Allergy/AdvReac Type Severity Reaction Status Date / Time cigarette smoke Allergy Severe unknown Verified 07/24/25 10:56 codeine Allergy Mild Hives Verified 07/24/25 10:56 Environmental Allergies: Allergy Shortness Verified 07/24/25 10:56 Uncoded (pine) of breath hydrocodone bitartrate (From Allergy Hives Verified 07/24/25 10:56 Vicodin) lisinopril Allergy Rash Verified 07/24/25 10:56 Penicillins Allergy Shortness Verified 07/24/25 10:56 of breath alex hips Allergy Shortness Verified 07/24/25 10:56 of breath adhesive tape (paper tape) AdvReac Hives Verified 07/24/25 10:56 Family History Mother Asthma Heart disease Hypertension Seizures Sister Asthma Hypertension Seizures Brother Asthma Grandmother Cancer Heart disease CVA (cerebral vascular accident) Aunt Cancer Father Thyroid disorder Surgical History H/O: hysterectomy Cervical vertebral fusion Social History Smoking Status: Never smoker alcohol intake: never substance use type: does not use ROS ROS ED Constitutional Constitutional ED: Denies chills or fever(s) Eyes Eyes: Denies blurry vision or change in vision ENT ENT ED: Denies rhinorrhea or sore throat Cardiovascular Cardiovascular: Reports other Details: left lower rib pain Respiratory/Chest Respiratory/Chest: Denies dyspnea Gastrointestinal Gastrointestinal: Denies abdominal pain, constipation, fecal incontinence, naus ea or vomiting Genitourinary Genitourinary ED: Reports other Details: no urinary retention ; Denies abdominal discomfort or urinary incontinence Musculoskeletal Musculoskeletal: Reports as per HPI and back pain; Denies neck pain Integumentary Denies rash or wounds Neurologic Neurologic: Denies headache(s), paresthesias or weakness EXAM Physical Exam Const Vital Signs: 07/24/25 10:53 Temperature 97.8 F Temperature Source Temporal Pulse Rate 98 Respiratory Rate 18 Blood Pressure 178/99 H Blood Pressure Mean 125 Pulse Ox 99 Oxygen Delivery Method Room Air Positive well nourished and well developed General Appearance ED: well developed and NAD HEENT Negative for trauma or tenderness Eyes PERRL and EOMs intact bilaterally Neck full ROM and supple Chest Wall Chest Narrative: Patient does have some tenderness in the ribs on the left, they are at the lower ribs approximately 8 and 9, from the left posterior back not including the midline around to the inframammary area and there is a separate area left anterior rib cage near the sternum but not including the sternum that is tender mildly as well. There is no subcutaneous emphysema there is no ecchymosis, rash, step-off, or other focal abnormality. Resp normal respiratory effort and clear to auscultation bilaterally Cardio regular rate, regular rhythm and no murmurs Rate: Negative for tachycardic GI normal to inspection, nondistended, normoactive bowel sounds, soft to palpation and non-tender Back/Spine normal to inspection Lumbar Spine / Lower Back: ROM limited and paraspinal muscle tenderness; Negative for lumbar spinal tenderness Extremity normal to inspection, full ROM and no pedal edema Neuro oriented x3 and no sensory deficits noted Sensorium / Orientation: alert Motor Exam: strength 5/5 throughout and clonus absent Psych thought process normal Psych Narrative: Anxious Skin no rashes or lesions noted and no wounds MDM MDM MDM Narrative Medical decision making narrative: Assessment: The patient is a 60-year-old female presenting for recurrent, severe left T6?T8 thoracic pain that wraps anteriorly beneath the left breast. Pain has been present since mid-May and acutely intensified since Thursday. Distribution suggests thoracic radicular pain. Absence of rash makes zoster unlikely. Normal breath sounds, lack of focal chest wall tenderness, and prior negative CT work-ups argue against pneumothorax, rib fracture, pulmonary embolism, or visceral pathology. Given stable exam and unchanged symptoms, radiculopathy of the thoracic region with acute pain flare is the most likely diagnosis. Plan: - Administered morphine injection in ED for analgesia. - Provided prescription for short course of oral analgesics for home use. - Patient to obtain ride home before discharge; no driving post-opioid. - Advised outpatient follow-up with primary care and scheduled PT; instructed to monitor blood pressure when pain controlled. Discharge Plan Triage Chief Complaint: Back ED Provider: Reinaldo Omalley Dx/Rx/DC Orders Clinical Impression: Chronic left flank pain, Accelerated hypertension Instructions: ED Flank Pain with Uncertain Cause Prescriptions: New oxycodone-acetaminophen 5-325 mg tablet 1 tab PO Q6H PRN PRN (Reason: Pain) 3 Days Qty: 10 0RF No Action omeprazole 40 mg capsule,delayed release(DR/EC) 40 mg PO (DME) blood pressure test kit-small Kit See Rx Instructions .Route Qty: 1 0RF Rx Instructions: As directed All Day Allergy (cetirizine) 10 mg capsule 10 mg PO DAILY PRN (Reason: allergy symptoms) valsartan 80 mg tablet 80 mg PO QDAY levothyroxine 88 mcg tablet 88 mcg PO DAILY Qty: 90 3RF Rx Instructions: see correction of dose berberine chloride 500 mg capsule 1,000 mg PO DAILY Jardiance 25 mg tablet 25 mg PO DAILY Qty: 90 2RF albuterol sulfate 1 INHALER inhaler 1 puff inhalation Q4H PRN PRN (Reason: Sob &/Or Wheezing) ibuprofen 600 mg tablet 600 mg PO Q8H PRN PRN (Reason: fever or pain) Qty: 20 0RF prednisone 20 mg tablet 20 mg PO DAILY 5 Days Qty: 5 0RF cyclobenzaprine 10 mg tablet 10 mg PO QHS PRN PRN (Reason: Muscle Spasm) Qty: 10 0RF Primary Care Provider: Jani Prescott Referrals: Jani Prescott MD [Primary Care Provider, Family Practice] - As soon as possible Activity Restrictions/Additional Instructions: - A prescription for a short course of opioid pain medication has been provided?take it exactly as directed to help control your thoracic pain. - Have your blood pressure rechecked by your doctor once your pain has improved. - Begin physical therapy on August 02 as scheduled. - Attend your echocardiogram on August 07 as planned. - Follow up as an outpatient if your pain does not improve or if you develop any new symptoms. Print Language: Serbian Disposition Disposition: Home, Self Care
[2025-07-24 11:48] VITALS: BP 166/84; PULSE 84; RESP 16; TEMP 36.6; O2SAT 100
== END 2025-07-24 11:55 | disposition home or self-care (01) ==
LOC: ED 11:38
PROVIDERS: Emergency Provider Emergency Medicine; PCP Family Medicine; Visit Provider Emergency Medicine
DX: R10.A2 Flank pain, left side (principal); N18.31 Chronic kidney disease, stage 3a; G89.29 Other chronic pain; I12.9 Hypertensive chronic kidney disease with stage 1 through stage 4 chronic kidney disease, or unspecified chronic kidney disease; J45.909 Unspecified asthma, uncomplicated; K21.9 Gastro-esophageal reflux disease without esophagitis
CPT/HCPCS: 96372; 99283